=== PATIENT | male | born 1955 | race Hispanic/Latino ===

== ENCOUNTER 2017-01-06 16:42 | Inpatient (IN) | payer OTHER ==
[2017-01-06 17:00] VITALS: BMI 36.0
--- NOTE | 2017-01-06 17:00 | ED PDOC ---
Arrival/HPI - General Time Seen by Provider: 01/06/17 16:49 Historian: Patient - History of Present Illness Narrative History of Present Illness (Text): 01/06/17 16:57 61 year old male with a past medical history that includes aortic aneurysm, COPD , schizophrenia, tobacco abuse, laryngeal cancer s/p biopsy and radiation, tracheostomy, presents to the emergency department with shortness of breath, generalized weakness, and falls for the past few days. No chest pain, fever, or other complaints. Time/Duration: > week Symptom Onset: Gradual Symptom Course: Unchanged Modifying Factors (Text): None Associated Symptoms (Text): None Past Medical History - Provider Review Nursing Documentation Reviewed: Yes - Infectious Disease Hx of Infectious Diseases: None - Tetanus Immunization Tetanus Immunization: Unknown - Cardiac Hx Hypertension: Yes - Pulmonary Hx Bronchitis: Yes Hx Chronic Obstructive Pulmonary Disease (COPD): Yes Hx Emphysema: Yes Hx Pneumonia: Yes Other/Comment: hx of trach(Removed) - Neurological Hx Neurological Disorder: No - HEENT Hx HEENT Disorder: Yes Hx Cataracts: Yes (WITH BILATERAL SX) - Renal Hx Renal Disorder: No - Endocrine/Metabolic Hx Endocrine Disorders: No - Hematological/Oncological Hx Blood Disorders: No - Integumentary Hx Dermatological Disorder: No - Musculoskeletal/Rheumatological Hx Falls: Yes - Gastrointestinal Hx Gastrointestinal Disorders: No Other/Comment: throat soreness - Genitourinary/Gynecological Hx Genitourinary Disorders: No - Psychiatric Hx Depression: Yes Hx Emotional Abuse: No Hx Physical Abuse: No Hx Schizophrenia: Yes Hx Substance Use: No - Past Surgical History Past Surgical History: No Previous - Surgical History Hx Orthopedic Surgery: Yes - Anesthesia Hx Anesthesia: Yes Hx Anesthesia Reactions: No Hx Malignant Hyperthermia: No - Suicidal Assessment Feels Threatened In Home Enviroment: No Family/Social History - Physician Review Nursing Documentation Reviewed: Yes Family/Social History: Unknown Family HX Smoking Status: Heavy Smoker > 10 Cigarettes Daily Hx Alcohol Use: No Hx Substance Use: No Hx Substance Use Treatment: No Allergies/Home Meds Allergies/Adverse Reactions: Allergies Penicillins Allergy (Unknown, Verified 01/06/17 16:58) unknown Home Medications: Home Meds Medication Instructions Recorded Confirmed Cholecalciferol (Vitamin D3) 1,000 unit NA DAILY 06/13/14 01/07/17 [Vitamin D3] Multimineral/Multivitamin 1 tab PO DAILY 06/13/14 01/07/17 [Therapeutic-M Tab] fluPHENAZine [Prolixin] 10 mg PO BID 06/13/14 01/07/17 Levothyroxine Sodium [Levoxyl] 25 mcg PO DAILY 01/07/17 01/07/17 Metoprolol Tartrate [Lopressor] 25 mg PO BID 01/07/17 01/07/17 Review of Systems - Physician Review All systems were reviewed & negative as marked: Yes - Review of Systems Constitutional: Other (Generalized weakness, Falls). absent: Fevers Respiratory: SOB Cardiovascular: absent: Chest Pain Physical Exam Vital Signs Temp Pulse Resp BP Pulse Ox 01/06/17 20:30 98.5 F 95 H 20 158/95 H 94 L 01/06/17 16:57 20 01/06/17 16:43 99.1 F 99 H 20 134/84 92 L - Systems Exam Head: Present: Normocephalic, Ecchymosis (to the bridge of the nose) Pupils: Present: PERRL Extroacular Muscles: Present: EOMI Conjunctiva: Present: Normal Mouth: Present: Moist Mucous Membranes Neck: Present: Normal Range of Motion Respiratory/Chest: Present: Clear to Auscultation, Good Air Exchange. No: Respiratory Distress, Accessory Muscle Use Cardiovascular: Present: Regular Rate and Rhythm, Normal S1, S2. No: Murmurs Abdomen: Present: Normal Bowel Sounds. No: Tenderness, Distention, Peritoneal Signs Back: Present: Normal Inspection Upper Extremity: Present: Normal Inspection. No: Cyanosis, Edema Lower Extremity: Present: Normal Inspection. No: Edema Neurological: Present: GCS=15, CN II-XII Intact, Speech Normal Skin: Present: Warm, Dry, Normal Color. No: Rashes Psychiatric: Present: Alert, Oriented x 3, Normal Insight, Normal Concentration Medical Decision Making ED Course and Treatment: Impression: 61 year old male with a past medical history that includes aortic aneurysm, COPD, schizophrenia, tobacco abuse, laryngeal cancer s/p biopsy and radiation, tracheostomy, presents to the emergency department with shortness of breath, generalized weakness, and falls for the past few days. Differential Diagnosis include but are not limited to: Plan: -- CT Head, EKG, Chest x-ray -- Labs -- Reassess and disposition Prior Visits: Notes and results from previous visits were reviewed. Patient last seen in ED on 10/23/15 for shortness of breath and admitted for COPD exacerbation. Progress Notes: PROCEDURE: CT HEAD WITHOUT CONTRAST. Grain Trimmer : Italia Martinez MD FINDINGS: HEMORRHAGE: No intracranial hemorrhage. BRAIN: No mass effect or edema. Intracranial atherosclerotic calcifications. Mild scattered white matter hypodensities, which are nonspecific, but often seen with chronic microvascular ischemic disease. Please note that MRI with diffusion imaging is more sensitive in the detection of acute ischemic event. VENTRICLES: No hydrocephalus. PARANASAL SINUSES: Mucosal thickening of ethmoid air cells and right frontal sinus. No air-fluid levels. OTHER FINDINGS: Opacification of bilateral external auditory canals, likely cerumen. IMPRESSION: No acute intracranial pathology identified. Additional incidental findings as above. 01/06/17 19:[address] Roach who accepts patient for admission - Lab Interpretations Lab Results: 01/06/17 18:00 01/06/17 18:00 Lab Results 01/06/17 19:33: Urine Color Yellow, Urine Appearance Clear, Urine pH 6.5, Ur Specific [place] 1.010, Urine Protein Negative, Urine Glucose (UA) Negative, Urine Ketones Negative, Urine Blood Negative, Urine Nitrate Negative, Urine Bilirubin Negative, Urine Urobilinogen 0.2, Ur Leukocyte Esterase Negative 01/06/17 18:00: WBC 8.2, RBC 4.86, Hgb 15.4, Hct 43.5, MCV 89.5, MCH 31.7, MCHC 35.4, RDW 13.0, Plt Count 355, MPV 8.9, Gran % 71.8 H, Lymph % (Auto) 11.2 L, [place] % (Auto) 14.3 H, Eos % (Auto) 2.3, Baso % (Auto) 0.4, Gran # 5.90, Lymph # 0.9 L, [place] # 1.2 H, Eos # 0.2, Baso # 0.03, PT 10.1, INR 0.94, APTT 27.5, pO2 56 H, VBG pH 7.38, VBG pCO2 56.0, VBG HCO3 33.1 H, VBG Total CO2 34.8 H, VBG O2 Sat (Calc) 93.7 H, VBG Base Excess 6.3 H, VBG Potassium 3.9, Glucose 96, Lactate 0.7, FiO2 21.0, Sodium 132.0, Potassium 4.1, Chloride 99.0, Carbon Dioxide 30, Anion Gap 11, BUN 18, Creatinine 1.0, Est GFR ( Amer) > 60, Est GFR (Non-Af Amer) > 60, Random Glucose 95, Serum Osmolality 281, Calcium 9.0 , Magnesium 1.9, Total Bilirubin 0.6, AST 34, ALT 43, Alkaline Phosphatase 60, Lactate Dehydrogenase 445, Total Creatine Kinase 250 H, CK-MB (CK-2) 3.6, CK-MB (CK-2) % Cancelled, Troponin I < 0.01, NT-Pro-B Natriuret Pep 92.2, Total Protein 7.2, Albumin 4.0, Globulin 3.2, Albumin/Globulin Ratio 1.3, Triglycerides 303 H, Cholesterol 182, LDL Cholesterol Direct 91, HDL Cholesterol 53, Procalcitonin < 0.05 L, TSH 3rd Generation 9.10 H, Venous Blood Potassium 3.9 - RAD Interpretation Radiology Orders: 01/06/17 16:57 HEAD W/O CONTRAST [CT] Stat CHEST ONE VIEW [RAD] Stat - EKG Interpretation EKG Interpretation (Text): EKG shows sinus tachycardia at 101 BPM, no ST/T wave changes Interpreted by ED Physician: Yes Type: 12 lead EKG - Medication Orders Current Medication Orders: Discontinued Medications Albuterol/Ipratropium (Duoneb 3 Mg/0.5 Mg (3 Ml) Ud) 3 ml IH STAT STA Stop: 01/06/17 18:41 Last Admin: 01/06/17 20:00 Dose: 3 ML Albuterol/Ipratropium (Duoneb 3 Mg/0.5 Mg (3 Ml) Ud) 3 ml IH Q2H PRN PRN Reason: Shortness of Breath Last Admin: 01/07/17 09:56 Dose: 3 ML Albuterol/Ipratropium (Duoneb 3 Mg/0.5 Mg (3 Ml) Ud) 3 ml IH [id number] [facility] Last Admin: 01/08/17 11:47 Dose: 3 ML Alprazolam (Xanax) 0.5 mg PO STAT ONE PRN Reason: Protocol Stop: 01/07/17 00:20 Last Admin: 01/07/17 00:41 Dose: 0.5 MG Behavioural Document 01/07/17 00:41 SBO (Rec: 01/07/17 00:41 SBO [id number]) Maintenance Maintenance Dose No Nonmedicinal Nonmedicinal Interventions Activity Behavior Behavior for Medication: Anxiety Insomnia Re-Assess: Reassess Psych Meds Document 01/07/17 01:41 SBO (Rec: 01/07/17 02:01 SBO [id number]) Reassess Psych Med Effective Alprazolam (Xanax) 0.5 mg PO HS PRN; Protocol PRN Reason: Insomnia Last Admin: 01/07/17 21:40 Dose: 0.5 MG Behavioural Document 01/07/17 21:40 ZARAL (Rec: 01/07/17 21:40 ZARAL [id number]) Maintenance Maintenance Dose Yes Behavior Behavior for Medication: Insomnia Re-Assess: Reassess Psych Meds Document 01/07/17 22:40 ZARAL (Rec: 01/08/17 01:03 ZARAL [id number]) Reassess Psych Med Effective Cholecalciferol (Vitamin D) 1,000 iu PO DAILY CY Last Admin: 01/08/17 11:01 Dose: 1,000 IU Enoxaparin Sodium (Lovenox) 40 mg SC DAILY CY PRN Reason: Protocol Last Admin: 01/08/17 10:58 Dose: 40 MG Subcutaneous Administrations Document 01/08/17 10:58 CHART (Rec: 01/08/17 10:59 CHART [id number]) Charges for Administration # of Subcutaneous Administrations 1 Fluphenazine HCl (Prolixin) 10 mg PO BID CY PRN Reason: Protocol Last Admin: 01/08/17 10:59 Dose: 10 MG Behavioural Document 01/08/17 10:59 CHART (Rec: 01/08/17 11:00 CHART [id number]) Maintenance Maintenance Dose Yes Nonmedicinal Nonmedicinal Interventions Therapeutic Communication Re-Assess: Reassess Psych Meds Document 01/08/17 11:59 CHART (Rec: 01/08/17 12:53 CHART [id number]) Reassess Psych Med Effective Guaifenesin/Dextromethorphan (Robitussin Dm) 10 ml PO Q4H PRN PRN Reason: Cough Levofloxacin/Dextrose (Levaquin 750mg) 150 mls @ 100 mls/hr IVPB STAT STA Stop: 01/06/17 20:10 Last Admin: 01/06/17 20:00 Dose: 100 MLS/HR eMAR Start Stop Document 01/06/17 20:00 EQ (Rec: 01/06/17 21:08 EQ [id number]) Intravenous Solution Start Date 01/06/17 Start Time 21:08 Levofloxacin/Dextrose (Levaquin 750mg) 150 mls @ 100 mls/hr IVPB DAILY CY Last Admin: 01/08/17 10:58 Dose: 100 MLS/HR eMAR Start Stop Document 01/08/17 10:58 CHART (Rec: 01/08/17 10:58 CHART [id number]) Intravenous Solution Start Date 01/08/17 Start Time 10:58 End Date 01/08/17 End time 12:28 Total Infusion Time 90 Sodium Chloride (Sodium Chloride 0.9%) 1,000 mls @ 100 mls/hr IV .Q10H CY Last Admin: 01/08/17 05:12 Dose: 100 MLS/HR eMAR Start Stop Document 01/08/17 05:12 ZARAL (Rec: 01/08/17 05:12 ZARAL [id number]) Intravenous Solution Start Date 01/08/17 Start Time 05:00 Levothyroxine Sodium (Synthroid) 25 mcg PO DAILY CY Last Admin: 01/08/17 11:00 Dose: 25 MCG Methylprednisolone (Solu-Medrol) 125 mg IVP STAT STA Stop: 01/06/17 18:41 Last Admin: 01/06/17 19:45 Dose: 125 MG IVP Administration Document 01/06/17 19:45 EQ (Rec: 01/06/17 20:58 EQ [id number]) Charges for Administration # of IVP Administrations 1 Methylprednisolone (Solu-Medrol) 40 mg IVP Q12 CY Last Admin: 01/07/17 21:18 Dose: 40 MG IVP Administration Document 01/07/17 21:18 ZARAL (Rec: 01/07/17 21:18 ZARAL [id number]) Charges for Administration # of IVP Administrations 1 Methylprednisolone (Solu-Medrol) 40 mg IVP DAILY CY Last Admin: 01/08/17 11:00 Dose: 40 MG IVP Administration Document 01/08/17 11:00 CHART (Rec: 01/08/17 11:00 CHART [id number]) Charges for Administration # of IVP Administrations 1 Metoprolol Tartrate (Lopressor) 25 mg PO BID [facility] Last Admin: 01/08/17 10:58 Dose: 25 MG MAR Pulse and Blood Pressure Document 01/08/17 10:58 CHART (Rec: 01/08/17 10:58 CHART [id number]) Pulse Pulse Rate (60-90) 110 Blood Pressure Blood Pressure (100/60-150/90) 120/92 Multivitamins/Minerals (Therapeutic-M Tab) 1 tab PO DAILY [facility] Last Admin: 01/08/17 11:00 Dose: 1 TAB Nicotine (Nicoderm Cq) 1 patch TD DAILY [facility] Last Admin: 01/08/17 10:59 Dose: 1 PATCH MAR Patch Placement/Removal Document 01/08/17 10:59 CHART (Rec: 01/08/17 10:59 CHART [id number]) Patch Removal Removal of previous patch done N/A MAR Transdermal Patch Site Document 01/08/17 10:59 CHART (Rec: 01/08/17 10:59 CHART [id number]) Transdermal Patch Site Transdermal Patch Site Right Outer Upper Arm Non-Formulary Medication (Budesonide/Formoterol Fumarate [Symbicort 80-4.5 Mcg Inhaler]) 2 puff IH DAILY [facility] Last Admin: 01/07/17 10:18 Dose: Budesonide/Formoterol Fumarate [Symbicort 80-4.5 Mcg Inhaler] 2 puff IH DAILY [facility] Last Admin: 01/08/17 11:01 Dose: Pantoprazole Sodium (Protonix Inj) 40 mg IVP DAILY [facility] Last Admin: 01/08/17 11:01 Dose: 40 MG IVP Administration Document 01/08/17 11:01 CHART (Rec: 01/08/17 11:01 CHART [id number]) Charges for Administration # of IVP Administrations 1 - Scribe Statement The provider has reviewed the documentation as recorded by the Claudia Kerr Provider Scribe Attestation: All medical record entries made by the Scribe were at my direction and personally dictated by me. I have reviewed the chart and agree that the record accurately reflects my personal performance of the history, physical exam, medical decision making, and the department course for this patient. I have also personally directed, reviewed, and agree with the discharge instructions and disposition. Disposition/Present on Arrival - Present on Arrival Any Indicators Present on Arrival: No History of DVT/PE: No History of Uncontrolled Diabetes: No Urinary Catheter: No History Surgical Site Infection Following: None - Disposition Have Diagnosis and Disposition been Completed?: Yes Diagnosis: COPD exacerbation, Syncope Disposition: HOSPITALIZED Disposition Time: 07:00 Condition: STABLE
--- NOTE | 2017-01-06 17:45 | CT ---
PROCEDURE: CT HEAD WITHOUT CONTRAST. HISTORY: fall COMPARISON: None available. TECHNIQUE: Axial computed tomography images were obtained through the head/brain without intravenous contrast. Radiation dose: Total exam DLP = 894.82 mGy-cm. This CT exam was performed using one or more of the following dose reduction techniques: Automated exposure control, adjustment of the mA and/or kV according to patient size, and/or use of iterative reconstruction technique. FINDINGS: HEMORRHAGE: No intracranial hemorrhage. BRAIN: No mass effect or edema. Intracranial atherosclerotic calcifications. Mild scattered white matter hypodensities, which are nonspecific, but often seen with chronic microvascular ischemic disease. Please note that MRI with diffusion imaging is more sensitive in the detection of acute ischemic event. VENTRICLES: No hydrocephalus. CALVARIUM: Unremarkable. PARANASAL SINUSES: Mucosal thickening of ethmoid air cells and right frontal sinus. No air-fluid levels. MASTOID AIR CELLS: Unremarkable as visualized. No inflammatory changes. OTHER FINDINGS: Opacification of bilateral external auditory canals, likely cerumen. IMPRESSION: No acute intracranial pathology identified. Additional incidental findings as above.
[2017-01-06 18:05] LABS: ADD MANUAL DIFF? NO
[2017-01-06 18:10] LABS: BASO # 0.03 K/mm3 (0.0-2.0); BASO % 0.4 % (0.0-3.0); EOS # 0.2 (0.0-0.7); EOS % 2.3 % (1.5-5.0); GRAN % 71.8 % (50.0-68.0); HEMATOCRIT 43.5 % (42.0-52.0); LYMPH # 0.9 (1.2-3.4); LYMPH % 11.2 % (22.0-35.0); MEAN CELL VOLUME 89.5 fL (80.0-105.0); MEAN CORPUSCULAR HEMOGLOBIN 31.7 pg (25.0-35.0); MEAN CORPUSCULAR HGB CONC 35.4 g/dl (31.0-37.0); MEAN PLATELET VOLUME 8.9 fl (7.0-11.0); MONO # 1.2 (0.1-0.6); MONO % 14.3 % (1.0-6.0); PLATELET COUNT 355 10^3/uL (120.0-450.0); WHITE BLOOD COUNT 8.2 10^3/ul (4.5-11.0)
[2017-01-06 18:13] LABS: VENOUS BLOOD GAS BASE EXCESS 6.3 mmol/L (0.0-2.0); VENOUS BLOOD PH 7.38 (7.32-7.43)
[2017-01-06 18:24] LABS: ALB/GLOB RATIO 1.3 (1.1-1.8); ALKALINE PHOSPHATASE 60 U/L (38-133); ALT/SGPT 43 U/L (7-56); AST/SGOT 34 U/L (15-59); BILIRUBIN,TOTAL 0.6 mg/dL (0.2-1.3); BLOOD UREA NITROGEN 18 mg/dL (7-21); CARBON DIOXIDE 30 mmol/L (21-33); CHLORIDE 94 mmol/L (98-107); GFR AFRICAN-AMERICAN > 60; GLUCOSE,RANDOM 95 mg/dL (70-110); MAGNESIUM 1.9 mg/dL (1.7-2.2); POTASSIUM 4.1 mmol/L (3.6-5.0); SODIUM 131 mmol/L (132-148); TOTAL PROTEIN 7.2 g/dL (5.8-8.3)
[2017-01-06 18:26] LABS: INR 0.94 (0.93-1.08); PARTIAL THROMBOPLASTIN TIME 27.5 Seconds (23.7-30.8)
[2017-01-06 18:36] LABS: TROPONIN I < 0.01 ng/mL
[2017-01-06] MEDS ORDERED: Albuterol-Ipratrop 3 mg / 0.5 (3 ml) UD IH STA (18:40)
[2017-01-06 19:44] LABS: PH,URINE 6.5 (4.7-8.0); URINE BILIRUBIN NEGATIVE (NEGATIVE); URINE BLOOD NEGATIVE (NEGATIVE); URINE GLUCOSE (UA) NEGATIVE (NEGATIVE); URINE KETONE NEGATIVE (NEGATIVE); URINE LEUKOCYTE ESTERASE NEGATIVE Leu/uL (NEGATIVE); URINE PROTEIN NEGATIVE mg/dL (<30 mg/dL); URINE UROBILINOGEN 0.2 E.U./dL (<1 E.U./dL)
[2017-01-06 19:48] LABS: URINE APPEARANCE CLEAR (CLEAR); URINE COLOR YELLOW (YELLOW)
[2017-01-06] MEDS ORDERED: guaiFENesin DM 200 mg-20 mg/10 ml UD PO PRN (20:47)
[2017-01-06] MEDS ORDERED: Albuterol-Ipratrop 3 mg / 0.5 (3 ml) UD IH PRN (20:52)
--- NOTE | 2017-01-06 21:05 | CP.PCM.HP ---
<Calin Maya - Last Filed: 01/07/17 00:20> History of Present Illness - History of Present Illness History of Present Illness: 61 M with PMHx of HLD, Schizophrenia, hypothyroidism, AAA (4.4cm), laryngeal ca s/p bx and radiation with tracheostomy, and COPD presents with complaints of SOB and generalized weakness. Pt is accompanied by at bedside. Pt states that for the past couple of night he has been having a harder time catching his breath than usual. Pt has been experiencing worsening SOB when about to go to bed for the past 2 nights. He has also had complaints of weakness and subsequent falling for the past couple of nights. Pt states that he would try to get out of bed and "misjudge" his footing causing him to fall. His first fall was two nights ago when he hit his chest on the night stand. His second fall occurred last night, when he hit his face on the nightstand, causing minor laceration to the bridge of his nose. Pt admitted to SOB, and a productive white phlegm cough. Pt denied headache, loc, dizziness, blurry vision, fever, chills, chest pains, palpitations, abdominal pains, n/v/d/c or urinary symptoms. PMHx: ?HTN, HLD, Schizophrenia, hypothyroidism, AAA (4.4cm), laryngeal ca s/p bx and radiation with tracheostomy, and COPD PSHx: Rt Wrist, Tracheostomy SHx: (+)tobacco-50 pack year hx, (-)etoh, (-)illicit drugs. Lives with in [place] FamHx: Father: AAA, prostate ca, Mom: lung and brain ca, sister: breast ca, brother: prostate ca Meds: MAR reviewed Allergies: PCN Present on Admission - Present on Admission Any Indicators Present on Admission: No History of DVT/PE: No History of Uncontrolled Diabetes: No Urinary Catheter: No Decubitus Ulcer Present: No Review of Systems - Review of Systems Review of Systems: as per HPI otherwise negative Past Patient History - Infectious Disease Hx of Infectious Diseases: None - Tetanus Immunizations Tetanus Immunization: Unknown - Past Social History Smoking Status: Heavy Smoker > 10 Cigarettes Daily - CARDIAC Hx Hypertension: Yes - PULMONARY Hx Bronchitis: Yes Hx Chronic Obstructive Pulmonary Disease (COPD): Yes Hx Emphysema: Yes Hx Pneumonia: Yes Other/Comment: hx of trach(Removed) - NEUROLOGICAL Hx Neurological Disorder: No - HEENT Hx HEENT Problems: Yes Hx Cataracts: Yes (WITH BILATERAL SX) - RENAL Hx Chronic Kidney Disease: No - ENDOCRINE/METABOLIC Hx Endocrine Disorders: No - HEMATOLOGICAL/ONCOLOGICAL Hx Blood Disorders: No - INTEGUMENTARY Hx Dermatological Problems: No - MUSCULOSKELETAL/RHEUMATOLOGICAL Hx Falls: Yes - GASTROINTESTINAL Hx Gastrointestinal Disorders: No Other/Comment: throat soreness - GENITOURINARY/GYNECOLOGICAL Hx Genitourinary Disorders: No - PSYCHIATRIC Hx Depression: Yes Hx Emotional Abuse: No Hx Physical Abuse: No Hx Schizophrenia: Yes Hx Substance Use: No - SURGICAL HISTORY Hx Orthopedic Surgery: Yes - ANESTHESIA Hx Anesthesia: Yes Hx Anesthesia Reactions: No Hx Malignant Hyperthermia: No Meds Allergies/Adverse Reactions: Allergies Allergy/AdvReac Type Severity Reaction Status Date / Time Penicillins Allergy Unknown unknown Verified 01/06/17 16:58 Physical Exam - Constitutional Appears: Well, No Acute Distress - Head Exam Head Exam: NORMAL INSPECTION, NORMOCEPHALIC - Expanded Head Exam Expanded Head Exam: Abrasion, Laceration - Eye Exam Eye Exam: EOMI, Normal appearance, PERRL Pupil Exam: NORMAL ACCOMODATION, PERRL - ENT Exam ENT Exam: Mucous Membranes Moist, Normal Exam - Neck Exam Neck exam: Positive for: Full Rom, Normal Inspection - Respiratory Exam Respiratory Exam: Clear to Auscultation Bilateral, NORMAL BREATHING PATTERN - Cardiovascular Exam Cardiovascular Exam: REGULAR RHYTHM, +S1, +S2. absent: JVD - GI/Abdominal Exam GI & Abdominal Exam: Normal Bowel Sounds, Soft. absent: Tenderness - Exam External exam: NORMAL EXTERNAL EXAM - Extremities Exam Extremities exam: Positive for: normal inspection, pedal pulses present. Negative for: pedal edema - Neurological Exam Neurological exam: Alert, CN II-XII Intact, Normal Gait, Oriented x3, Reflexes Normal - Psychiatric Exam Psychiatric exam: Normal Affect, Normal Mood - Skin Skin Exam: Dry, Intact, Normal Color, Warm Results - Vital Signs Recent Vital Signs: Last Vital Signs Temp 98.5 F 01/06/17 20:30 Pulse 95 H 01/06/17 20:30 Resp 20 01/06/17 20:30 BP 158/95 H 01/06/17 20:30 Pulse Ox 94 L 01/06/17 20:30 - Labs Result Diagrams: 01/06/17 18:00 01/06/17 18:00 Labs: Laboratory Results - last 24 hr 01/06/17 01/06/17 18:00 19:33 WBC 8.2 RBC 4.86 Hgb 15.4 Hct 43.5 MCV 89.5 MCH 31.7 MCHC 35.4 RDW 13.0 Plt Count 355 MPV 8.9 Gran % 71.8 H Lymph % (Auto) 11.2 L [place] % (Auto) 14.3 H Eos % (Auto) 2.3 Baso % (Auto) 0.4 Gran # 5.90 Lymph # 0.9 L [place] # 1.2 H Eos # 0.2 Baso # 0.03 PT 10.1 INR 0.94 APTT 27.5 pO2 56 H VBG pH 7.38 VBG pCO2 56.0 VBG HCO3 33.1 H VBG Total CO2 34.8 H VBG O2 Sat (Calc) 93.7 H VBG Base Excess 6.3 H VBG Potassium 3.9 Sodium 131 L Chloride 94 L Glucose 96 Lactate 0.7 FiO2 21.0 Potassium 4.1 Carbon Dioxide 30 Anion Gap 11 BUN 18 Creatinine 1.0 Est GFR ( Amer) > 60 Est GFR (Non-Af Amer) > 60 Random Glucose 95 Calcium 9.0 Magnesium 1.9 Total Bilirubin 0.6 AST 34 ALT 43 Alkaline Phosphatase 60 Lactate Dehydrogenase 445 Total Creatine Kinase 250 H CK-MB (CK-2) 3.6 CK-MB (CK-2) % Cancelled Troponin I < 0.01 NT-Pro-B Natriuret Pep 92.2 Total Protein 7.2 Albumin 4.0 Globulin 3.2 Albumin/Globulin Ratio 1.3 Venous Blood Potassium 3.9 Urine Color Yellow Urine Appearance Clear Urine pH 6.5 Ur Specific [place] 1.010 Urine Protein Negative Urine Glucose (UA) Negative Urine Ketones Negative Urine Blood Negative Urine Nitrate Negative Urine Bilirubin Negative Urine Urobilinogen 0.2 Ur Leukocyte Esterase Negative Assessment & Plan - Assessment and Plan (Free Text) Assessment: 61 M with PMHx of HTN, HLD, Schizophrenia, hypothyroidism, AAA (4.4cm), laryngeal ca s/p bx and radiation and tracheostomy with removal, and COPD presents with complaints of SOB and generalized weakness, admitted to tele obs for syncope workup. 1. ?syncope - orthostatic vitals - serial trops EKG - TSH - ECHO - Carotid Dopplers - Cardiology consulted, Dr. Dos Santos - Neurology consulted, Dr. Denson 2. SOB - Hx COPD - CXR - Levaquin - Duonebs q4, q2prn, solumedrol - maintain 02 sat >88 3. Hyponatremia - Hx laryngeal Ca, schizophrenia on fluphenazine - r/o SIADH - urine lytes, Urine osm, Serum osm - mild increase CK, hold statin, IVF: NS @100ml/hr 4. Hypothyroidism - f/u tsh - f/u med rec for home med 5. AAA - asymptomatic - most recent scan approx 2wks ago, 4.4cm - continue to monitor 6. Tobacco abuse - pt educated and counselled on tobacco abuse - Offered nicotine patch 7. ?HTN - no anti-htn meds in home med - continue to monitor - [facility] pharmacy 8. GI DVT ppx Seen reviewed and discussed with attending <Castro Roach - Last Filed: 01/07/17 02:47> Results - Vital Signs Recent Vital Signs: Last Vital Signs Temp 98.7 F 01/07/17 01:33 Pulse 94 H 01/07/17 01:33 Resp 20 01/07/17 01:33 BP 149/97 H 01/07/17 01:33 Pulse Ox 94 L 01/06/17 20:30 - Labs Result Diagrams: 01/06/17 18:00 01/06/17 18:00 Attending/Attestation - Attestation I have personally seen and examined this patient.: Yes I have fully participated in the care of the patient.: Yes I have reviewed all pertinent clinical information: Yes Notes (Text): 01/07/17 02:41 Patient was seen when he was in the ER in bed # 11. Agree with history , physical examination , assessment and plan. This 61 year old white male was admitted with syncopal episode,sob, wheezing has history of falls,COPD/asthma, aortic aneurism, schizophrenia, laryngeal cancer, biopsy, radiation therapy, pneumonia, depression, tobacco abuse, bilateral cataract surgery, right hand repair surgery.
--- NOTE | 2017-01-06 21:37 | CARD ---
APPROVED REPORT EKG Measurement Heart [id number] <Conclusion> Sinus tachycardia Inferior infarct, age undetermined Cannot rule out Anterior infarct, age undetermined Abnormal ECG
[2017-01-06 21:56] LABS: CHOLESTEROL 182 mg/dL (130-200)
[2017-01-06 22:27] LABS: THYROID STIMULATING HORMONE 9.1 mIU/mL (0.46-4.68)
[2017-01-07] MEDS: Sodium Chloride 0.9% 1,000 ML IV SCH ×2 (00:30→09:56)
[2017-01-07] MEDS: Albuterol-Ipratrop 3 mg / 0.5 (3 ml) UD IH SCH ×7 (02:10→23:13)
[2017-01-07 07:35] LABS: BASO # 0.01 K/mm3 (0.0-2.0); BASO % 0.1 % (0.0-3.0); GRAN # 8.58 (1.4-6.5); GRAN % 95.3 % (50.0-68.0); HEMATOCRIT 44.1 % (42.0-52.0); LYMPH # 0.3 (1.2-3.4); LYMPH % 3.3 % (22.0-35.0); MEAN CELL VOLUME 90.6 fL (80.0-105.0); MEAN CORPUSCULAR HGB CONC 35.4 g/dl (31.0-37.0); MEAN PLATELET VOLUME 9.4 fl (7.0-11.0); MONO # 0.1 (0.1-0.6); MONO % 1.3 % (1.0-6.0); PLATELET COUNT 364 10^3/uL (120.0-450.0); RED CELL DISTRIBUTION WIDTH 13.1 % (11.5-14.5)
[2017-01-07 07:43] LABS: ADD MANUAL DIFF? NO
[2017-01-07 09:01] LABS: ALB/GLOB RATIO 1.4 (1.1-1.8); ALKALINE PHOSPHATASE 62 U/L (38-133); ALT/SGPT 40 U/L (7-56); AST/SGOT 32 U/L (15-59); BILIRUBIN,TOTAL 0.6 mg/dL (0.2-1.3); BLOOD UREA NITROGEN 12 mg/dL (7-21); CALCIUM 9.2 mg/dL (8.4-10.5); CARBON DIOXIDE 29 mmol/L (21-33); CHLORIDE 94 mmol/L (95-110); GFR AFRICAN-AMERICAN > 60; GLUCOSE,RANDOM 190 mg/dL (70-110); POTASSIUM 4.4 mmol/L (3.6-5.0); SODIUM 133 mmol/L (132-148); TOTAL PROTEIN 7.3 g/dL (5.8-8.3)
--- NOTE | 2017-01-07 09:04 | RAD ---
PROCEDURE: CHEST RADIOGRAPH, 1 VIEW HISTORY: Shortness of breath COMPARISON: 10/23/2015. FINDINGS: LUNGS: The lungs are well inflated and clear. PLEURA: No pneumothorax or pleural fluid seen. CARDIOVASCULAR: Normal. OSSEOUS STRUCTURES: There is mild degenerative osteoarthrosis in the right glenohumeral joint. VISUALIZED UPPER ABDOMEN: Normal. OTHER FINDINGS: None. IMPRESSION: No active pulmonary disease.
--- NOTE | 2017-01-07 09:13 | CP.PCM.PN ---
<Quita Downye - Last Filed: 01/07/17 16:02> Subjective - Date & Time of Evaluation Date of Evaluation: 01/07/17 Time of Evaluation: 16:02 - Subjective Subjective: Pt s&e w attending. CHETAN. Feeling better. Mild SOB. Some coughing with clear sputum. Denies F/C/n/V/D/CP. +amb +PO tolerating. Objective - Vital Signs/Intake and Output Vital Signs (last 24 hours): Temp Pulse Resp BP Pulse Ox 97.5 F L 96 H 20 133/84 96 01/07/17 05:42 01/07/17 05:42 01/07/17 05:42 01/07/17 05:42 01/07/17 05:42 Intake and Output: 01/07/17 01/07/17 06:59 18:59 Intake Total 480 Output Total 500 Balance -20 - Medications Medications: Current Medications Albuterol/Ipratropium (Duoneb 3 Mg/0.5 Mg (3 Ml) Ud) 3 ml IH Q2H PRN PRN Reason: Shortness of Breath Albuterol/Ipratropium (Duoneb 3 Mg/0.5 Mg (3 Ml) Ud) 3 ml IH [id number] [facility] Last Admin: 01/07/17 07:38 Dose: 3 ml Cholecalciferol (Vitamin D) 1,000 iu PO DAILY [facility] Enoxaparin Sodium (Lovenox) 40 mg SC DAILY CY PRN Reason: Protocol Fluphenazine HCl (Prolixin) 10 mg PO BID CY PRN Reason: Protocol Last Admin: 01/07/17 00:42 Dose: 10 mg Guaifenesin/Dextromethorphan (Robitussin Dm) 10 ml PO Q4H PRN PRN Reason: Cough Levofloxacin/Dextrose (Levaquin 750mg) 150 mls @ 100 mls/hr IVPB DAILY [facility] Sodium Chloride (Sodium Chloride 0.9%) 1,000 mls @ 100 mls/hr IV .Q10H [facility] Last Admin: 01/07/17 00:30 Dose: 100 mls/hr Methylprednisolone (Solu-Medrol) 40 mg IVP Q12 [facility] Multivitamins/Minerals (Therapeutic-M Tab) 1 tab PO DAILY [facility] Nicotine (Nicoderm Cq) 1 patch TD DAILY [facility] Non-Formulary Medication (Budesonide/Formoterol Fumarate [Symbicort 80-4.5 Mcg Inhaler]) 2 puff IH DAILY [facility] Pantoprazole Sodium (Protonix Inj) 40 mg IVP DAILY CY - Labs Labs: 01/07/17 05:00 01/07/17 08:45 PT 10.1 Seconds (9.9-11.8) 01/06/17 18:00 INR 0.94 (0.93-1.08) 01/06/17 18:00 APTT 27.5 Seconds (23.7-30.8) 01/06/17 18:00 - Constitutional Appears: No Acute Distress - Head Exam Head Exam: NORMAL INSPECTION, NORMOCEPHALIC Additional comments: Abrasion on the bridge of the nose. No active bleeding. - Eye Exam Eye Exam: EOMI, Normal appearance, PERRL Pupil Exam: NORMAL ACCOMODATION, PERRL - ENT Exam ENT Exam: Mucous Membranes Moist - Neck Exam Neck Exam: Full ROM, Normal Inspection. absent: Lymphadenopathy - Respiratory Exam Respiratory Exam: Wheezes. absent: Accessory Muscle Use, Respiratory Distress, NORMAL BREATHING PATTERN Additional comments: Tracheostomy fistula patent. Able to speak. clear Mucus - Cardiovascular Exam Cardiovascular Exam: REGULAR RHYTHM, +S1, +S2 - GI/Abdominal Exam GI & Abdominal Exam: Soft, Normal Bowel Sounds. absent: Distended, Tenderness - Extremities Exam Extremities Exam: Full ROM, Normal Capillary Refill, Normal Inspection. absent : Joint Swelling, Pedal Edema - Back Exam Back Exam: NORMAL INSPECTION - Neurological Exam Neurological Exam: Alert, Awake, CN II-XII Intact, Normal Gait, Oriented x3 - Psychiatric Exam Psychiatric exam: Normal Affect, Normal Mood - Skin Skin Exam: Abrasion, Dry, Intact, Normal Color, Warm. absent: Erythema Assessment and Plan - Assessment and Plan (Free Text) Assessment: 61 M with PMHx of HTN, HLD, Schizophrenia, hypothyroidism, AAA (4.4cm), laryngeal ca s/p bx and radiation and tracheostomy with removal, and COPD presents with complaints of SOB and generalized weakness, admitted to tele obs for syncope workup. 1. Near syncope - orthostatic vitals - serial trops EKG - TSH - ECHO - Carotid Dopplers - Cardiology consulted, Dr. Dos Santos - Neurology consulted, Dr. Denson 2. SOB - Hx COPD - CXR - Levaquin - Duonebs q4, q2prn, solumedrol - maintain 02 sat >88 3. Hyponatremia: resolved - Hx laryngeal Ca, schizophrenia on fluphenazine - r/o SIADH - urine lytes, Urine osm, Serum osm - mild increase CK, hold statin, IVF: NS @100ml/hr 4. Hypothyroidism: TSH 9.1 - f/u reapet tsh, T3, T4 - f/u med rec for home med -Synthroid 5. AAA - asymptomatic - most recent scan approx 2wks ago, 4.4cm - continue to monitor 6. Tobacco abuse - pt educated and counselled on tobacco abuse - Offered nicotine patch 7. ?HTN - no anti-htn meds in home med - continue to monitor - fu pharmacy 8. GI DVT ppx Seen reviewed and discussed with attending <Bhakti Shelton - Last Filed: 01/08/17 16:57> Objective - Vital Signs/Intake and Output Vital Signs (last 24 hours): Temp Pulse Resp BP Pulse Ox 97.9 F 113 H 21 132/99 H 95 01/08/17 11:58 01/08/17 11:58 01/08/17 11:58 01/08/17 11:58 01/08/17 05:49 Intake and Output: 01/08/17 01/08/17 06:59 18:59 Intake Total 3240 840 Output Total 3400 2700 Balance -160 -1860 - Labs Labs: 01/08/17 06:30 01/08/17 06:30 PT 10.1 Seconds (9.9-11.8) 01/06/17 18:00 INR 0.94 (0.93-1.08) 01/06/17 18:00 APTT 27.5 Seconds (23.7-30.8) 01/06/17 18:00 Attending/Attestation - Attestation I have personally seen and examined this patient.: Yes I have fully participated in the care of the patient.: Yes I have reviewed all pertinent clinical information, including history, physical exam and plan: Yes Notes (Text): I have seen and examined patient at bedside. This is 61 year old male with history of HTN, HLD, Schizophrenia, hypothyroidism, AAA (4.4cm), laryngeal ca s/ p bx and radiation and tracheostomy with removal, and COPD who got admitted for evaluation of shortness of breath, generalized weakness an dfound to have copd exacerbation. He iwll be started on duonebs, solumedrol and levaquin. Records indicate that he had syncope however he denies that. Cardiology and neurology consult pending. Carotid dopplers pending. Hyponatremia improved. Counselled regarding tobacco use. Will continue synthroid. [facility] Bhakti Shelton
[2017-01-07] MEDS ORDERED: Non Formulary Medication (Cholecalciferol (Vitamin D3) [Vitamin D3] 1,000 UNIT) SCH (10:00)
[2017-01-07] MEDS: MethylPREDNISolone 40 mg Vial IVP SCH ×2 (10:16→21:18)
[2017-01-07] MEDS: Enoxaparin 40 mg Syringe SC SCH (10:16)
[2017-01-07] MEDS: Multivitamin With Minerals Tab PO SCH (10:18)
--- NOTE | 2017-01-07 13:07 | CON ---
DATE: 01/07/2017 HISTORY OF PRESENT ILLNESS: This is a 61-year-old with a past medical history of schizophrenia, hypo thyroidism, cancer with radiation with a tracheostomy, COPD, presents to the hospital with gene ralized weakness. The patient has had difficulty breathing for the last few days and complained of w eakness and subsequently fell and hit his nose. Denies any loss of consciousness. I was called to e valuate the patient. PAST MEDICAL HISTORY: Hypertension, schizophrenia, hypothyroidism, laryngeal cancer, tracheostomy, r adiation, COPD. SOCIAL HISTORY: The patient smokes, does not drink. ALLERGIES: PENICILLIN. REVIEW OF SYSTEMS: A 10-point review of systems was negative. The patient was sitting comfortably o n the chair. PHYSICAL EXAMINATION: HEENT: Normocephalic, atraumatic. NECK: Supple. NEUROLOGIC: Awake, oriented to self and place. No aphasia. Cranial nerves II through XII were test ed. Pupils reactive. EOMs intact. The patient has a tracheostomy tube. MOTOR EXAMINATION: Moves all the extremities spontaneously. Deep tendon reflexes 1+. Both plantars are downgoing. SENSORY: Appears intact. CEREBELLAR AND GAIT: Deferred. IMPRESSION: The patient is a 61-year-old with past medical history of hypertension, schizophrenia, h ypothyroidism, chronic obstructive pulmonary disease, status post tracheostomy, came with syncope, le ss likely a seizure. Workup in progress. Also has hyponatremia and hypothyroidism. PLAN: Continue present management. We will follow up. Neo Denson MD cc: [id number] TT: 01/07/2017 13:06:35 Confirmation # [id number] Dictation # [id number] cyrus
--- NOTE | 2017-01-07 13:10 | CON ---
DATE: 01/07/2017 REASON FOR CONSULTATION: Shortness of breath, cough and recurrent falls. HISTORY OF PRESENT ILLNESS: The patient is a 61-year-old male who is a [place] and was i n the [place]. He has a history of laryngeal CA and was treated with radiation 4 years ago and tracheos jose at [facility]. The patient was diagnosed with a 4.4 cm abdominal aortic aneurysm, but there was no intervention recommended at that time. The patient is a smoker who continues to smoke and presented because of shortness of breath and productive cough. The patient also did report falli ng as he wanted to get out of bed. He denies any dizziness or fainting. The patient denies any retr osternal chest pain. SOCIAL HISTORY: The patient is a smoker. He is . MEDICATIONS: ____ inhaler q.2 hours p.r.n., Levaquin 750 mg intravenously daily, Lovenox 40 mg subcu taneously once a day, NicoDerm patch, Prolixin 10 mg twice a day, Protonix 40 mg intravenously once a day, Robitussin-DM 10 mL q.4 hours p.r.n., normal saline 100 mL an hour, Solu-Medrol 40 mg intraveno us twice a day, multivitamin 1 tablet once a day, vitamin D 1000 international units orally daily. REVIEW OF SYSTEMS: No fever or chills. No vomiting or diarrhea. No hemoptysis. No recent loss of weight. No history of DVT in the past. PHYSICAL EXAMINATION: GENERAL: The patient is a middle-aged male who does not appear to be in acute distress. VITAL SIGNS: Blood pressure 134/88, heart rate 109, temperature 98.3, respirations 21. HEENT: Normocephalic. NECK: Tracheostomy is noted. CHEST: Bilateral rhonchi. HEART: S1, S2 regular. ABDOMEN: Soft. EXTREMITIES: No edema, no calf tenderness. LABORATORY DATA: CBC: WBC 9.0, hemoglobin 15.6, hematocrit 44.1, platelet count 364,000. SMA-7: S odium 133, potassium 4.4, chloride 94, CO2 of 29, glucose 190, BUN 12, creatinine 0.8. Three sets of troponins are negative. Lipid profile is within normal limits except for elevated triglycerides at 303. TSH level is elevated at 9.1. EKG revealed sinus tachycardia at rate of 101. Consider old inf erior infarct, poor R-wave progression. Head CT scan without contrast, no acute intracranial patholo gy. Chest x-ray revealed no acute findings. No evidence of widened mediastinum or aortic calcificat ion. ASSESSMENT: 1. Exacerbation of chronic obstructive lung disease. 2. History of aortic aneurysm, last measured 4.4 cm according to the patient. The patient is unawar e of the location of that aneurysm. He denies any chest pain or back pain at this time and denies an y associated diaphoresis. 3. Hypothyroidism. 4. Mild sinus tachycardia, most likely physiologic response to the patient's shortness of breath. 5. Abnormal EKG with evidence suggestive of old inferior infarct. 6. History of schizophrenia. 7. Hypertriglyceridemia. RECOMMENDATIONS: Continue current bronchodilators, continue subcutaneous Lovenox at 40 mg once a day , Solu-Medrol 40 mg intravenous twice a day. The patient is not a suitable candidate for beta blocke r therapy. Obtain an echocardiogram. Consider urine for drug screen testing. Optimize thyroid repl acement therapy. Isma Rondon MD cc: [id number] TT: 01/07/2017 13:10:31 Confirmation # [id number] Dictation # [id number]
--- NOTE | 2017-01-07 15:25 | CARD ---
APPROVED REPORT EXAM: Two-dimensional and M-mode echocardiogram with Doppler and color Doppler. INDICATION Syncope 2D DIMENSIONS Left Atrium (2D)3.7 (1.6-4.0cm)IVSd1.2 (0.7-1.1cm) LVDd4.2 (3.9-5.9cm)PWd1.1 (0.7-1.1cm) LVDs2.8 (2.5-4.0cm)FS (%) 34.6 % LVEF (%)64.2 (>50%) M-Mode DIMENSIONS Aortic Root3.10 (2.2-3.7cm)Aortic Cusp Exc.1.30 (1.5-2.0cm) Aortic Valve AoV Peak Qtnxlwld719.0cm/Stacey Peak GR.10mmHg Mitral Valve MV E Wklwaggw57.0cm/sMV A Vaqodlru901.0cm/sE/A ratio0.6 TDI E/Lateral E'0.0E/Medial E'0.0 Tricuspid Valve TR Peak Knjxgisj514qn/sRAP [id number] Peak Gr.10mmHg [id number] LEFT VENTRICLE The left ventricle is normal size. There is borderline concentric left ventricular hypertrophy. The left ventricular function is normal. The left ventricular ejection fraction is within the normal range. There is normal LV segmental wall motion. Transmitral Doppler flow pattern is Grade I-abnormal relaxation pattern. RIGHT VENTRICLE The right ventricle is normal size. There is normal right ventricular wall thickness. The right ventricular systolic function is normal. ATRIA The left atrium size is normal. The right atrium size is normal. AORTIC VALVE The aortic valve is not well visualized. No aortic regurgitation is present. There is no aortic valvular stenosis. MITRAL VALVE The mitral valve is normal in structure. There is no mitral valve regurgitation noted. TRICUSPID VALVE The tricuspid valve is normal in structure. There is no tricuspid valve regurgitation noted. GREAT VESSELS The aortic root is mildly enlarged. The IVC is normal in size and collapses >50% with inspiration. PERICARDIAL EFFUSION There is a trace loculated anterior pericardial effusion. <Conclusion> The left ventricle is normal size. There is borderline concentric left ventricular hypertrophy. The left ventricular function is normal. The left ventricular ejection fraction is within the normal range. There is normal LV segmental wall motion. Transmitral Doppler flow pattern is Grade I-abnormal relaxation pattern. The aortic valve is not well visualized. The aortic root is mildly enlarged.
--- NOTE | 2017-01-07 19:20 | US ---
PROCEDURE: Bilateral carotid artery duplex ultrasound HISTORY: Carotid stenosis PHYSICIAN(S): Efren Aquino MD. TECHNIQUE: Duplex sonography and color-flow Doppler were used to evaluate the carotid bifurcations and limited segments of the vertebral arteries bilaterally. FINDINGS: There is mild smooth hypoechoic plaque noted at the carotid bifurcations bilaterally. The peak systolic velocity in the proximal right internal carotid artery is 63 cm/sec. This corresponds to a 20 to 39% proximal right ICA stenosis. Normal systolic velocities are noted in the proximal right external carotid artery. There is antegrade flow in the right vertebral artery. The peak systolic velocity in the proximal left internal carotid artery is 87 cm/sec. This corresponds to a 20 to 39% proximal left ICA stenosis. Normal systolic velocities are noted in the proximal left external carotid artery. There is antegrade flow in the left vertebral artery. IMPRESSION: 1. Bilateral 20-39% proximal ICA stenoses. 2. Antegrade flow in both vertebral arteries.
[2017-01-08] MEDS: Albuterol-Ipratrop 3 mg / 0.5 (3 ml) UD IH SCH ×3 (03:29→11:47)
[2017-01-08] MEDS: Sodium Chloride 0.9% 1,000 ML IV SCH (05:12)
[2017-01-08 05:50] VITALS: O2SAT 95
[2017-01-08 07:31] LABS: BASO # 0.01 K/mm3 (0.0-2.0); BASO % 0.1 % (0.0-3.0); GRAN # 14.29 (1.4-6.5); GRAN % 93.2 % (50.0-68.0); HEMATOCRIT 46.5 % (42.0-52.0); LYMPH # 0.5 (1.2-3.4); LYMPH % 2.9 % (22.0-35.0); MEAN CELL VOLUME 92.8 fL (80.0-105.0); MEAN CORPUSCULAR HEMOGLOBIN 30.9 pg (25.0-35.0); MEAN CORPUSCULAR HGB CONC 33.3 g/dl (31.0-37.0); MEAN PLATELET VOLUME 9.5 fl (7.0-11.0); MONO # 0.6 (0.1-0.6); MONO % 3.8 % (1.0-6.0); PLATELET COUNT 378 10^3/uL (120.0-450.0); RED CELL DISTRIBUTION WIDTH 13.6 % (11.5-14.5); WHITE BLOOD COUNT 15.3 10^3/ul (4.5-11.0)
[2017-01-08 07:32] LABS: ADD MANUAL DIFF? NO
[2017-01-08 07:38] LABS: ALB/GLOB RATIO 1.3 (1.1-1.8); ALKALINE PHOSPHATASE 54 U/L (38-133); ALT/SGPT 46 U/L (7-56); AST/SGOT 39 U/L (15-59); BILIRUBIN,TOTAL 0.6 mg/dL (0.2-1.3); BLOOD UREA NITROGEN 9 mg/dL (7-21); CALCIUM 9.1 mg/dL (8.4-10.5); CARBON DIOXIDE 33 mmol/L (21-33); CHLORIDE 99 mmol/L (98-107); CHOLESTEROL 197 mg/dL (130-200); GFR AFRICAN-AMERICAN > 60; GLUCOSE,RANDOM 119 mg/dL (70-110); POTASSIUM 4.5 mmol/L (3.6-5.0); SODIUM 142 mmol/L (132-148); TOTAL PROTEIN 7.6 g/dL (5.8-8.3)
[2017-01-08] MEDS ORDERED: Levothyroxine 25 MCG TAB PO SCH (10:00)
[2017-01-08] MEDS ORDERED: MethylPREDNISolone 40 mg Vial IVP SCH (10:00)
[2017-01-08 10:41] LABS: T3 1.2 ng/mL (0.97-1.69); THYROID STIMULATING HORMONE 3.07 mIU/mL (0.46-4.68)
[2017-01-08] MEDS: Enoxaparin 40 mg Syringe SC SCH (10:58)
[2017-01-08] MEDS: Multivitamin With Minerals Tab PO SCH (11:00)
[2017-01-08 11:59] VITALS: BP 132/99; PULSE 113; RESP 21; TEMP 97.9
--- NOTE | 2017-01-08 12:24 | PN ---
DATE: 01/08/2017 NEUROLOGY FOLLOWUP CHIEF COMPLAINT: Followup for questionable syncope. SUBJECTIVE: The patient is seen and examined at bedside, sitting up in the chair, in no acute distre ss. Carotid Doppler showed 20-39% proximal ICA stenosis. Cardiology has evaluated the patient, and I agr ee that this is likely an exacerbation of his COPD ____ some lightheadedness. He also was mildly dec onditioned, and therefore, could be having frequent falls given the history of cancer. REVIEW OF SYSTEMS: A 14-point review of systems is negative except for in the HPI. MEDICATIONS: Reviewed via nurse's reconciliation sheet. ALLERGIES: PENICILLIN. SOCIAL HISTORY: No illicit drug use, smoking, or EtOH abuse. FAMILY HISTORY: Noncontributory. PAST MEDICAL HISTORY: History of laryngeal cancer status post radiation, status post tracheostomy, h istory of aortic abdominal aneurysm 4 cm with no recent intervention. COPD, hypothyroidism. PHYSICAL EXAMINATION: VITAL SIGNS: Temperature of 97.8, pulse rate of 100, blood pressure 151/97, respiratory rate of 20, oxygen 95% by room air. GENERAL: The patient is sitting up in bed in no acute distress. HEENT: Atraumatic, normocephalic. PERRLA. Extraocular muscles intact. NECK: Tracheostomy is noted. Supple. No JVD, no adenopathy noted. LUNGS: Have bilateral rhonchi, and otherwise breath sounds are intact. HEART: S1, S2, normal rate and rhythm. No murmurs, rubs, or gallops. ABDOMEN: Soft, nontender, nondistended. Bowel sounds present. EXTREMITIES: No clubbing, no cyanosis. Peripheral pulses 2+ felt bilaterally. NEUROLOGIC: The patient is alert, oriented to person, place, month, and year. Speech is fluent with out any errors. Cranial nerves II-XII are intact. MOTOR: Moves all extremities equally. Nom pronator drift seen. SENSORY: Light touch, pinprick, proprioception, vibration ____. DTRs 2+ throughout and 1 at the ank les. COORDINATION: Hewvrw-np-xklw intact. GAIT: Deferred for now. LABORATORIES: Sodium is 142, potassium 4.5, chloride 99, carbon dioxide of 33, BUN of 9, creatinine 0.8. Random glucose 119. ASSESSMENT AND PLAN: This is a 61-year-old man with history of laryngeal cancer status post tracheos jose, status post radiation, history of abdominal aortic aneurysm 4 cm with no surgical intervention at this time, history of hypothyroidism who currently is still a smoker, who came in for falling out of his bed, questionable syncope, and there was mild lightheadedness. His lightheadedness is seconda ry to chronic obstructive pulmonary disease exacerbation, and frequent falls are likely secondary to possible underlying neuropathy and deconditioned state from his ____ laryngeal cancer. At this time: 1. Continue with chronic obstructive pulmonary disease management with ipratropium and albuterol p.r .n. 2. Levofloxacin 750 mg IV daily for antibiotic precaution, as well as Solu-Medrol 40 mg IV daily. 3. Continue multivitamins and a PT assessment. At this time, he is clinically stable from my standp oint. We will sign off. Chris Denson MD cc: [id number] TT: 01/08/2017 12:23:45 Confirmation # [id number] Dictation # [id number]
--- NOTE | 2017-01-08 14:04 | CP.PCM.DIS ---
<Estelle Santana - Last Filed: 01/10/17 19:38> Provider - Provider Date of Admission: 01/06/17 19:38 Attending physician: Bhakti Shelton MD Primary care physician: Laura Profile Required Time Spent in preparation of Discharge (in minutes): 40 Diagnosis - Discharge Diagnosis (1) Syncope Status: Acute (2) COPD exacerbation Status: Acute (3) Chest pain Status: Acute (4) Hyponatremia Status: Acute (5) Tobacco abuse Status: Chronic (6) Aneurysm Status: Chronic Hospital Course - Lab Results Lab Results: Most Recent Lab Values WBC 15.3 10^3/ul (4.5-11.0) H D 01/08/17 06:30 RBC 5.01 10^6/uL (3.5-6.1) 01/08/17 06:30 Hgb 15.5 gm/dL (14.0-18.0) 01/08/17 06:30 Hct 46.5 % (42.0-52.0) 01/08/17 06:30 MCV 92.8 fL (80.0-105.0) 01/08/17 06:30 MCH 30.9 pg (25.0-35.0) 01/08/17 06:30 MCHC 33.3 g/dl (31.0-37.0) 01/08/17 06:30 RDW 13.6 % (11.5-14.5) 01/08/17 06:30 Plt Count 378 10^3/uL (120.0-450.0) 01/08/17 06:30 MPV 9.5 fl (7.0-11.0) 01/08/17 06:30 Gran % 93.2 % (50.0-68.0) H 01/08/17 06:30 Lymph % (Auto) 2.9 % (22.0-35.0) L 01/08/17 06:30 Harmon % (Auto) 3.8 % (1.0-6.0) 01/08/17 06:30 Eos % (Auto) 0.0 % (1.5-5.0) L 01/08/17 06:30 Baso % (Auto) 0.1 % (0.0-3.0) 01/08/17 06:30 Gran # 14.29 (1.4-6.5) H 01/08/17 06:30 Lymph # 0.5 (1.2-3.4) L 01/08/17 06:30 Harmon # 0.6 (0.1-0.6) 01/08/17 06:30 Eos # 0.0 (0.0-0.7) 01/08/17 06:30 Baso # 0.01 K/mm3 (0.0-2.0) 01/08/17 06:30 PT 10.1 Seconds (9.9-11.8) 01/06/17 18:00 INR 0.94 (0.93-1.08) 01/06/17 18:00 APTT 27.5 Seconds (23.7-30.8) 01/06/17 18:00 pO2 56 mm/Hg (30-55) H 01/06/17 18:00 VBG pH 7.38 (7.32-7.43) 01/06/17 18:00 VBG pCO2 56.0 (40-60) 01/06/17 18:00 VBG HCO3 33.1 mmol/l (21-28) H 01/06/17 18:00 VBG Total CO2 34.8 mmol.L (22-28) H 01/06/17 18:00 VBG O2 Sat (Calc) 93.7 % (40-65) H 01/06/17 18:00 VBG Base Excess 6.3 mmol/L (0.0-2.0) H 01/06/17 18:00 VBG Potassium 3.9 mmol/L (3.6-5.2) 01/06/17 18:00 Sodium 132.0 mmol/L (132-148) 01/06/17 18:00 Chloride 99.0 mmol/L (98-107) 01/06/17 18:00 Glucose 96 mg/dl (75-110) 01/06/17 18:00 Lactate 0.7 mmol/L (0.7-2.1) 01/06/17 18:00 FiO2 21.0 % 01/06/17 18:00 Sodium 142 mmol/L (132-148) 01/08/17 06:30 Potassium 4.5 mmol/L (3.6-5.0) 01/08/17 06:30 Chloride 99 mmol/L (98-107) 01/08/17 06:30 Carbon Dioxide 33 mmol/L (21-33) 01/08/17 06:30 Anion Gap 15 (10-20) 01/08/17 06:30 BUN 9 mg/dL (7-21) 01/08/17 06:30 Creatinine 0.8 mg/dL (0.5-1.4) 01/08/17 06:30 Est GFR ( Amer) > 60 01/08/17 06:30 Est GFR (Non-Af Amer) > 60 01/08/17 06:30 Random Glucose 119 mg/dL (70-110) H 01/08/17 06:30 Serum Osmolality 281 mosm/kg (271-296) 01/06/17 18:00 Calcium 9.1 mg/dL (8.4-10.5) 01/08/17 06:30 Magnesium 1.9 mg/dL (1.7-2.2) 01/06/17 18:00 Total Bilirubin 0.6 mg/dL (0.2-1.3) 01/08/17 06:30 AST 39 U/L (15-59) 01/08/17 06:30 ALT 46 U/L (7-56) 01/08/17 06:30 Alkaline Phosphatase 54 U/L (38-133) 01/08/17 06:30 Lactate Dehydrogenase 445 U/L (333-699) 01/06/17 18:00 Total Creatine Kinase 250 U/L (35-230) H 01/06/17 18:00 CK-MB (CK-2) 3.6 ng/mL (0.0-3.6) 01/06/17 18:00 CK-MB (CK-2) % Cancelled 01/06/17 18:00 Troponin I < 0.01 ng/mL 01/07/17 09:00 NT-Pro-B Natriuret Pep 92.2 pg/mL (0-450) 01/06/17 18:00 Total Protein 7.6 g/dL (5.8-8.3) 01/08/17 06:30 Albumin 4.3 g/dL (3.0-4.8) 01/08/17 06:30 Globulin 3.3 gm/dL 01/08/17 06:30 Albumin/Globulin Ratio 1.3 (1.1-1.8) 01/08/17 06:30 Triglycerides 68 mg/dL (35-160) 01/08/17 06:30 Cholesterol 197 mg/dL (130-200) 01/08/17 06:30 LDL Cholesterol Direct 108 mg/dL (0-129) 01/08/17 06:30 HDL Cholesterol 71 mg/dL (29-60) H 01/08/17 06:30 Procalcitonin < 0.05 NG/ML (0.19-0.49) L 01/06/17 18:00 Thyroxine (T4) 7.0 ug/dL (5.5-11.0) 01/08/17 06:30 Total T3 1.20 ng/mL (0.97-1.69) 01/08/17 06:30 TSH 3rd Generation 3.07 mIU/mL (0.46-4.68) 01/08/17 06:30 Venous Blood Potassium 3.9 mmol/L (3.6-5.2) 01/06/17 18:00 Urine Color Yellow (YELLOW) 01/06/17 19:33 Urine Appearance Clear (CLEAR) 01/06/17 19:33 Urine pH 6.5 (4.7-8.0) 01/06/17 19:33 Ur Specific [place] 1.010 (1.005-1.035) 01/06/17 19:33 Urine Protein Negative mg/dL (<30 mg/dL) 01/06/17 19:33 Urine Glucose (UA) Negative mg/dL (NEGATIVE) 01/06/17 19:33 Urine Ketones Negative mg/dL (NEGATIVE) 01/06/17 19:33 Urine Blood Negative (NEGATIVE) 01/06/17 19:33 Urine Nitrate Negative (NEGATIVE) 01/06/17 19:33 Urine Bilirubin Negative (NEGATIVE) 01/06/17 19:33 Urine Urobilinogen 0.2 E.U./dL (<1 E.U./dL) 01/06/17 19:33 Ur Leukocyte Esterase Negative Sallie/uL (NEGATIVE) 01/06/17 19:33 Urine Opiates Screen Negative (NEGATIVE) 01/07/17 11:08 Urine Methadone Screen Negative (NEGATIVE) 01/07/17 11:08 Ur Barbiturates Screen Negative (NEGATIVE) 01/07/17 11:08 Ur Phencyclidine Scrn Negative (NEGATIVE) 01/07/17 11:08 Ur Amphetamines Screen Negative (NEGATIVE) 01/07/17 11:08 U Benzodiazepines Scrn Negative (NEGATIVE) 01/07/17 11:08 U Oth Cocaine Metabols Negative (NEGATIVE) 01/07/17 11:08 U Cannabinoids Screen Positive (NEGATIVE) H 01/07/17 11:08 - Hospital Course Hospital Course: 61 M with PMHx of HLD, Schizophrenia, hypothyroidism, AAA (4.4cm), laryngeal ca s/p bx and radiation with tracheostomy, tobacco abuse and COPD presented to the ED with complaints of SOB and generalized weakness for past few days. Patient fell twice in ir[place] last 2 nights, hitting his chest and face. Patient was admitted to telemetry for syncope work up and COPD exacerbation. Patient was started on Levaquin, solumedrol, and duonebs and Cardiology and Neurology were consulted. Head CT showed no acute intracranial pathology. ECHO showed LVEF of 64.2% and a grade I abnormal relaxation pattern, indicating diastolic CHF . Carotid US: BL 20-39% stenosis. Urine drug screen was positive for cannabinoid metabolites. Orthostatic vitals remained stable. Over the next two days patient s symptoms improved, oxygen walk test and PT evaluation cleared him for discharge as did cardiology and neurology. Plan to discharge patient home with PO doxycycline, Medrol dose pack, budesonide inhaler, and his home medications with follow up with his physicians at the [facility]. Plan was explained to the patient and his family and they expressed understanding and agreement. Patient was discharged to home. For full hospital course, refer to chart Discharge Exam - Head Exam Head Exam: ATRAUMATIC, NORMOCEPHALIC - Eye Exam Eye Exam: Conjunctival injection, Normal appearance. 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 absent: Tenderness - Extremities Exam Additional comments: NO calf tenderness, swelling, or pedal edema BL - Back Exam Back exam: absent: CVA tenderness (L), CVA tenderness (R), tenderness - Neurological Exam Neurological exam: Alert, Normal Gait, Oriented x3 - Psychiatric Exam Psychiatric exam: Normal Affect, Normal Mood - Skin Skin Exam: Dry, Normal Color, Warm Discharge Plan - Discharge Medications Prescriptions: Doxycycline Hyclate 100 mg PO BID #14 tab Methylprednisolone [Medrol Dose Pack (21 tabs)] 4 mg PO BID #21 mg - Follow Up Plan Condition: STABLE Disposition: HOME/ ROUTINE Instructions: Syncope (DC), COPD (Chronic Obstructive Pulmonary Disease) (DC) Additional Instructions: Follow up with your primary doctor within one week. Follow up with your stonemason helper within one week. Follow up with your provider regarding hypothryoidism within one week. Follow up with your provider at the [facility] regarding your aneurysm Take all your medications as prescribed from discharge Take your antibiotic. Do not skip or stop taking them without a doctor's approval. Return to the ED if you have returned SOB, light headedness, chest pain, falls, or any other concerning symptoms Referrals: [facility], [Non-Staff] - <Bhakti Shelton - Last Filed: 01/13/17 16:18> Provider - Provider Date of Admission: 01/06/17 19:38 Attending physician: Jaja Mansfield MD Primary care physician: NO PRIMARY CARE PROVIDER Hospital Course - Lab Results Lab Results: Most Recent Lab Values WBC 15.3 10^3/ul (4.5-11.0) H D 01/08/17 06:30 RBC 5.01 10^6/uL (3.5-6.1) 01/08/17 06:30 Hgb 15.5 gm/dL (14.0-18.0) 01/08/17 06:30 Hct 46.5 % (42.0-52.0) 01/08/17 06:30 MCV 92.8 fL (80.0-105.0) 01/08/17 06:30 MCH 30.9 pg (25.0-35.0) 01/08/17 06:30 MCHC 33.3 g/dl (31.0-37.0) 01/08/17 06:30 RDW 13.6 % (11.5-14.5) 01/08/17 06:30 Plt Count 378 10^3/uL (120.0-450.0) 01/08/17 06:30 MPV 9.5 fl (7.0-11.0) 01/08/17 06:30 Gran % 93.2 % (50.0-68.0) H 01/08/17 06:30 Lymph % (Auto) 2.9 % (22.0-35.0) L 01/08/17 06:30 Harmon % (Auto) 3.8 % (1.0-6.0) 01/08/17 06:30 Eos % (Auto) 0.0 % (1.5-5.0) L 01/08/17 06:30 Baso % (Auto) 0.1 % (0.0-3.0) 01/08/17 06:30 Gran # 14.29 (1.4-6.5) H 01/08/17 06:30 Lymph # 0.5 (1.2-3.4) L 01/08/17 06:30 Harmon # 0.6 (0.1-0.6) 01/08/17 06:30 Eos # 0.0 (0.0-0.7) 01/08/17 06:30 Baso # 0.01 K/mm3 (0.0-2.0) 01/08/17 06:30 PT 10.1 Seconds (9.9-11.8) 01/06/17 18:00 INR 0.94 (0.93-1.08) 01/06/17 18:00 APTT 27.5 Seconds (23.7-30.8) 01/06/17 18:00 pO2 56 mm/Hg (30-55) H 01/06/17 18:00 VBG pH 7.38 (7.32-7.43) 01/06/17 18:00 VBG pCO2 56.0 (40-60) 01/06/17 18:00 VBG HCO3 33.1 mmol/l (21-28) H 01/06/17 18:00 VBG Total CO2 34.8 mmol.L (22-28) H 01/06/17 18:00 VBG O2 Sat (Calc) 93.7 % (40-65) H 01/06/17 18:00 VBG Base Excess 6.3 mmol/L (0.0-2.0) H 01/06/17 18:00 VBG Potassium 3.9 mmol/L (3.6-5.2) 01/06/17 18:00 Sodium 132.0 mmol/L (132-148) 01/06/17 18:00 Chloride 99.0 mmol/L (98-107) 01/06/17 18:00 Glucose 96 mg/dl (75-110) 01/06/17 18:00 Lactate 0.7 mmol/L (0.7-2.1) 01/06/17 18:00 FiO2 21.0 % 01/06/17 18:00 Sodium 142 mmol/L (132-148) 01/08/17 06:30 Potassium 4.5 mmol/L (3.6-5.0) 01/08/17 06:30 Chloride 99 mmol/L (98-107) 01/08/17 06:30 Carbon Dioxide 33 mmol/L (21-33) 01/08/17 06:30 Anion Gap 15 (10-20) 01/08/17 06:30 BUN 9 mg/dL (7-21) 01/08/17 06:30 Creatinine 0.8 mg/dL (0.5-1.4) 01/08/17 06:30 Est GFR ( Amer) > 60 01/08/17 06:30 Est GFR (Non-Af Amer) > 60 01/08/17 06:30 Random Glucose 119 mg/dL (70-110) H 01/08/17 06:30 Serum Osmolality 281 mosm/kg (271-296) 01/06/17 18:00 Calcium 9.1 mg/dL (8.4-10.5) 01/08/17 06:30 Magnesium 1.9 mg/dL (1.7-2.2) 01/06/17 18:00 Total Bilirubin 0.6 mg/dL (0.2-1.3) 01/08/17 06:30 AST 39 U/L (15-59) 01/08/17 06:30 ALT 46 U/L (7-56) 01/08/17 06:30 Alkaline Phosphatase 54 U/L (38-133) 01/08/17 06:30 Lactate Dehydrogenase 445 U/L (333-699) 01/06/17 18:00 Total Creatine Kinase 250 U/L (35-230) H 01/06/17 18:00 CK-MB (CK-2) 3.6 ng/mL (0.0-3.6) 01/06/17 18:00 CK-MB (CK-2) % Cancelled 01/06/17 18:00 Troponin I < 0.01 ng/mL 01/07/17 09:00 NT-Pro-B Natriuret Pep 92.2 pg/mL (0-450) 01/06/17 18:00 Total Protein 7.6 g/dL (5.8-8.3) 01/08/17 06:30 Albumin 4.3 g/dL (3.0-4.8) 01/08/17 06:30 Globulin 3.3 gm/dL 01/08/17 06:30 Albumin/Globulin Ratio 1.3 (1.1-1.8) 01/08/17 06:30 Triglycerides 68 mg/dL (35-160) 01/08/17 06:30 Cholesterol 197 mg/dL (130-200) 01/08/17 06:30 LDL Cholesterol Direct 108 mg/dL (0-129) 01/08/17 06:30 HDL Cholesterol 71 mg/dL (29-60) H 01/08/17 06:30 Procalcitonin < 0.05 NG/ML (0.19-0.49) L 01/06/17 18:00 Thyroxine (T4) 7.0 ug/dL (5.5-11.0) 01/08/17 06:30 Total T3 1.20 ng/mL (0.97-1.69) 01/08/17 06:30 TSH 3rd Generation 3.07 mIU/mL (0.46-4.68) 01/08/17 06:30 Venous Blood Potassium 3.9 mmol/L (3.6-5.2) 01/06/17 18:00 Urine Color Yellow (YELLOW) 01/06/17 19:33 Urine Appearance Clear (CLEAR) 01/06/17 19:33 Urine pH 6.5 (4.7-8.0) 01/06/17 19:33 Ur Specific [place] 1.010 (1.005-1.035) 01/06/17 19:33 Urine Protein Negative mg/dL (<30 mg/dL) 01/06/17 19:33 Urine Glucose (UA) Negative mg/dL (NEGATIVE) 01/06/17 19:33 Urine Ketones Negative mg/dL (NEGATIVE) 01/06/17 19:33 Urine Blood Negative (NEGATIVE) 01/06/17 19:33 Urine Nitrate Negative (NEGATIVE) 01/06/17 19:33 Urine Bilirubin Negative (NEGATIVE) 01/06/17 19:33 Urine Urobilinogen 0.2 E.U./dL (<1 E.U./dL) 01/06/17 19:33 Ur Leukocyte Esterase Negative Sallie/uL (NEGATIVE) 01/06/17 19:33 Urine Opiates Screen Negative (NEGATIVE) 01/07/17 11:08 Urine Methadone Screen Negative (NEGATIVE) 01/07/17 11:08 Ur Barbiturates Screen Negative (NEGATIVE) 01/07/17 11:08 Ur Phencyclidine Scrn Negative (NEGATIVE) 01/07/17 11:08 Ur Amphetamines Screen Negative (NEGATIVE) 01/07/17 11:08 U Benzodiazepines Scrn Negative (NEGATIVE) 01/07/17 11:08 U Oth Cocaine Metabols Negative (NEGATIVE) 01/07/17 11:08 U Cannabinoids Screen Positive (NEGATIVE) H 01/07/17 11:08 Attending/Attestation - Attestation I have personally seen and examined this patient.: Yes I have fully participated in the care of the patient.: Yes I have reviewed all pertinent clinical information, including history, physical exam and plan: Yes Notes (Text): I have seen and examined patient at bedside. This is 61 year old male with history of HTN, HLD, Schizophrenia, hypothyroidism, AAA (4.4cm), laryngeal ca s/ p bx and radiation and tracheostomy with removal, and COPD who got admitted for evaluation of shortness of breath, generalized weakness and found to have copd exacerbation. He was given duonebs, solumedrol and levaquin. Records indicate that he had syncope however he denies that. Cardiology and neurology consult appreciated and patient was cleared for discharge. Pulm consult also appreciated. Patient feels well and wants to go home. Hyponatremia improved. Counselled regarding tobacco use. Will continue synthroid same dose as this medication was just adjusted 1 week ago by his PMD at [facility]. Upon discharge patient will follow up in [facility] clinic. Dr Bhakti Shelton
== END 2017-01-08 15:19 | disposition home or self-care (01) | DRG 191 ==
LOC: ED 16:42 → ERH 19:38 → 2RNO 23:31
PROVIDERS: ADMIT Internal Medicine; ATTEND Internal Medicine
DX: J44.1 Chronic obstructive pulmonary disease with (acute) exacerbation (principal); E87.1 Hypo-osmolality and hyponatremia; G62.9 Polyneuropathy, unspecified; I10 Essential (primary) hypertension; I65.23 Occlusion and stenosis of bilateral carotid arteries; F20.9 Schizophrenia, unspecified; R55 Syncope and collapse; E03.9 Hypothyroidism, unspecified; I71.4 Abdominal aortic aneurysm, without rupture; F17.200 Nicotine dependence, unspecified, uncomplicated; E78.1 Pure hyperglyceridemia; R00.0 Tachycardia, unspecified; Z93.0 Tracheostomy status; Z85.21 Personal history of malignant neoplasm of larynx; Z92.3 Personal history of irradiation

== ENCOUNTER 2017-04-02 14:56 | Emergency (ER) | payer OTHER ==
[2017-04-02 15:25] VITALS: BP 105/70; BMI 30.4
--- NOTE | 2017-04-02 16:24 | ED PDOC ---
Arrival/HPI - General Historian: Patient, Spouse - General Chief Complaint: Upper Extremity Problem/Injury Time Seen by Provider: 04/02/17 14:58 - History of Present Illness Narrative History of Present Illness (Text): 04/02/17 16:16 Mr. Lewis is a 61 year old male with a past medical history significant for COPD, AAA, hypothyroid, Laryngeal cancer, tracheostomy, schizophrenia, and hyponatremia who presents to the emergency department complaining of left shoulder pain. The patient is accompanied by his in the room. His states that the patient sustained a fall onto his left side about a week ago. Since that time he experienced left shoulder pain primarily with abduction. He states the pain is worse with movement and relived by rest. He rates the pain as moderate. He indicates that he still has feeling and coordination in his left upper extremity. The patient denies taking any medication for the pain. Along with the left shoulder pain the patient and spouse are concerned about how lethargic he has been in the most recent past. Pt and family indicate that his lethargy and weakness are a chronic issue and that he takes certain medications that can contribute to his lethargy. (CAROLYN COX) Past Medical History - Provider Review Nursing Documentation Reviewed: Yes - Infectious Disease Hx of Infectious Diseases: None - Tetanus Immunization Tetanus Immunization: Unknown - Cardiac Hx Hypertension: Yes Other/Comment: AAA - Pulmonary Hx Bronchitis: Yes Hx Chronic Obstructive Pulmonary Disease (COPD): Yes Hx Emphysema: Yes Hx Pneumonia: Yes Other/Comment: hx of trach(Removed) - Neurological Hx Neurological Disorder: No - HEENT Hx HEENT Disorder: Yes Hx Cataracts: Yes (WITH BILATERAL SX) - Renal Hx Renal Disorder: No - Endocrine/Metabolic Hx Endocrine Disorders: No Hx Hypothyroidism: Yes - Hematological/Oncological Hx Blood Disorders: No - Integumentary Hx Dermatological Disorder: No - Musculoskeletal/Rheumatological Hx Falls: Yes - Gastrointestinal Hx Gastrointestinal Disorders: No Other/Comment: throat soreness - Genitourinary/Gynecological Hx Genitourinary Disorders: No - Psychiatric Hx Depression: Yes Hx Emotional Abuse: No Hx Physical Abuse: No Hx Schizophrenia: Yes Hx Substance Use: No - Past Surgical History Past Surgical History: No Previous - Surgical History Hx Orthopedic Surgery: Yes - Anesthesia Hx Anesthesia: Yes Hx Anesthesia Reactions: No Hx Malignant Hyperthermia: No - Suicidal Assessment Feels Threatened In Home Enviroment: No Family/Social History Family/Social History: Other (Significant for prostate cancer) Smoking Status: Heavy Smoker > 10 Cigarettes Daily Hx Alcohol Use: No Hx Substance Use: No Hx Substance Use Treatment: No Allergies/Home Meds Allergies/Adverse Reactions: Allergies Penicillins Allergy (Unknown, Verified 01/06/17 16:58) unknown Home Medications: Home Meds Medication Instructions Recorded Confirmed Cholecalciferol (Vitamin D3) 1,000 unit NA DAILY 06/13/14 04/02/17 [Vitamin D3] Multimineral/Multivitamin 1 tab PO DAILY 06/13/14 04/02/17 [Therapeutic-M Tab] fluPHENAZine [Prolixin] 10 mg PO BID 06/13/14 04/02/17 Levothyroxine Sodium [Levoxyl] 25 mcg PO DAILY 01/07/17 04/02/17 Metoprolol Tartrate [Lopressor] 25 mg PO BID 01/07/17 04/02/17 Review of Systems - Review of Systems Constitutional: Fatigue. absent: Weight Change, Fevers Eyes: absent: Vision Changes ENT: absent: Hearing Changes Respiratory: absent: SOB, Cough Cardiovascular: absent: Chest Pain, Palpitations Gastrointestinal: absent: Abdominal Pain, Stool Changes Genitourinary Male: absent: Dysuria, Frequency Musculoskeletal: Arthralgias, Other (Left shoulder pain) Skin: Abscess (left lateral flank healing appropriately) Neurological: absent: Headache, Dizziness, Focal Weakness Hemo/Lymphatic: absent: Adenopathy Psychiatric: absent: Depression Physical Exam Vital Signs Reviewed: Yes Temperature: Afebrile Blood Pressure: Normal Pulse: Regular Respiratory Rate: Normal Appearance: Positive for: Uncomfortable Mental Status: Positive for: Alert and Oriented X 3 - Systems Exam Head: Present: Atraumatic, Normocephalic Pupils: Present: PERRL Extroacular Muscles: Present: EOMI Conjunctiva: Present: Normal Mouth: Present: Dry Nose (External): Present: Other (stoma midline) Neck: Present: Normal Range of Motion. No: MIDLINE TENDERNESS Respiratory/Chest: Present: Clear to Auscultation. No: Respiratory Distress, Wheezes, Rhonchi Cardiovascular: Present: Regular Rate and Rhythm, Normal S1, S2 Abdomen: No: Tenderness, Distention, Normal Bowel Sounds Upper Extremity: Present: NORMAL PULSES, Tenderness (Left AC joint tenderness), Neurovascularly Intact. No: Cyanosis, Edema, Normal ROM Lower Extremity: Present: Normal Inspection, NORMAL PULSES. No: Edema Neurological: Present: GCS=15, CN II-XII Intact Skin: Present: Warm, Dry Psychiatric: Present: Alert, Oriented x 3 Medical Decision Making ED Course and Treatment: 04/02/17 17:16 Impression: - Mr. Lewis is a 61 year old male who complains of left shoulder pain for the past week. Differential Diagnosis included but are not limited to: - Left GH joint sprain Plan: - Left shoulder x-ray - CBC, CMP -- Reassess and disposition Progress Notes: (CAROLYN COX) - Lab Interpretations Lab Results: 04/02/17 16:19 04/02/17 16:19 Lab Results 04/02/17 16:19: Sodium 130 L, Potassium 4.5, Chloride 92 L, Carbon Dioxide 30, Anion Gap 13, BUN 9, Creatinine 0.7, Est GFR ( Amer) > 60, Est GFR (Non- Af Amer) > 60, Random Glucose 106, Calcium 8.7, Total Bilirubin 0.6, AST 35, ALT 33, Alkaline Phosphatase 60, Total Protein 7.1, Albumin 4.2, Globulin 2.9, Albumin/Globulin Ratio 1.4 04/02/17 16:19: WBC 7.6 D, RBC 4.77, Hgb 15.1, Hct 44.1, MCV 92.5, MCH 31.7, MCHC 34.2, RDW 13.3, Plt Count 309, MPV 8.8, Gran % 66.1, Lymph % (Auto) 13.9 L , [place] % (Auto) 14.7 H, Eos % (Auto) 4.8, Baso % (Auto) 0.5, Gran # 5.01, Lymph # 1.1 L, [place] # 1.1 H, Eos # 0.4, Baso # 0.04 - RAD Interpretation Radiology Orders: 04/02/17 16:02 SHOULDER LEFT [RAD] Stat - Medication Orders Current Medication Orders: Discontinued Medications Sodium Chloride (Sodium Chloride 0.9%) 1,000 mls @ 100 mls/hr IV .Q10H CY Last Admin: 04/02/17 17:57 Dose: Not Given Non-Admin Reason: Patient Refused - PA / CLAY MODELER / Resident Statement / has reviewed & agrees with the documentation as recorded. MD/DO has examined the patient and agrees with the treatment plan. Disposition/Present on Arrival - Present on Arrival Any Indicators Present on Arrival: No History of DVT/PE: No History of Uncontrolled Diabetes: No Urinary Catheter: No History of Decub. Ulcer: No History Surgical Site Infection Following: None - Disposition Have Diagnosis and Disposition been Completed?: Yes Disposition Time: 18:00 - Disposition Diagnosis: Hyponatremia, Sprain of shoulder, left Disposition: AGAINST MEDICAL ADVICE Condition: FAIR Discharge Instructions (ExitCare): Hyponatremia (ED) Additional Instructions: Thank you for letting us take care of you today. Your provider was Dr. Duran. You were treated for low sodium. The emergency medical care you received today was directed at your acute symptoms. If you were prescribed any medication, please fill it and take as directed. It may take several days for your symptoms to resolve. Return to the Emergency Department if your symptoms worsen, do not improve, or if you have any other problems. Please contact your doctor or call one of the physicians/clinics you have been referred to that are listed on the Patient Visit Information form that is included in your discharge packet. Bring any paperwork you were given at discharge with you along with any medications you are taking to your follow up visit. Our treatment cannot replace ongoing medical care by a primary care provider (PCP) outside of the emergency department. Thank you for allowing the [facility] team to be part of your care today. Please follow up with your doctor tomorrow. Your sodium was low here in the emergency room. This will have to be monitored very closely. Referrals: PCP,NO [Primary Care Provider] - Follow up with primary
[2017-04-02 16:30] LABS: BASO # 0.04 K/mm3 (0.0-2.0); BASO % 0.5 % (0.0-3.0); EOS # 0.4 (0.0-0.7); EOS % 4.8 % (1.5-5.0); GRAN # 5.01 (1.4-6.5); GRAN % 66.1 % (50.0-68.0); HEMOGLOBIN 15.1 gm/dL (14.0-18.0); LYMPH # 1.1 (1.2-3.4); LYMPH % 13.9 % (22.0-35.0); MEAN CELL VOLUME 92.5 fL (80.0-105.0); MEAN CORPUSCULAR HEMOGLOBIN 31.7 pg (25.0-35.0); MEAN CORPUSCULAR HGB CONC 34.2 g/dl (31.0-37.0); MEAN PLATELET VOLUME 8.8 fl (7.0-11.0); MONO # 1.1 (0.1-0.6); MONO % 14.7 % (1.0-6.0); PLATELET COUNT 309 10^3/uL (120.0-450.0); RBC 4.77 10^6/uL (3.5-6.1); RED CELL DISTRIBUTION WIDTH 13.3 % (11.5-14.5); WHITE BLOOD COUNT 7.6 10^3/ul (4.5-11.0)
[2017-04-02 16:43] LABS: ALB/GLOB RATIO 1.4 (1.1-1.8); ALBUMIN 4.2 g/dL (3.0-4.8); ALT/SGPT 33 U/L (7-56); AST/SGOT 35 U/L (15-59); BLOOD UREA NITROGEN 9 mg/dL (7-21); CALCIUM 8.7 mg/dL (8.4-10.5); GFR AFRICAN-AMERICAN > 60; GFR NON-AFRICAN AMERICAN > 60
[2017-04-02] MEDS ORDERED: Sodium Chloride 0.9% 1,000 ML IV SCH (17:30)
[2017-04-02 17:58] VITALS: PULSE 76; TEMP 98.5
[2017-04-02 18:10] VITALS: RESP 16; O2SAT 99
--- NOTE | 2017-04-03 08:34 | RAD ---
PROCEDURE: Radiographs of the Left Shoulder HISTORY: Left shoulder pain COMPARISON: No prior. FINDINGS: BONES: Normal. No fracture. JOINTS: Normal. Glenohumeral and acromioclavicular joints preserved. No osteoarthritis. SOFT TISSUES: Normal. OTHER FINDINGS: None. IMPRESSION: Normal radiographs of the left shoulder.
--- NOTE | 2017-04-03 10:53 | CARD ---
APPROVED REPORT EKG Measurement Heart [id number] <Conclusion> Normal sinus rhythm Cannot rule out Inferior infarct, age undetermined Abnormal ECG
== END 2017-04-02 18:09 | disposition left against medical advice (07) ==
LOC: ED 14:56
DX: S43.402A Unspecified sprain of left shoulder joint, initial encounter (principal); W19.XXXA Unspecified fall, initial encounter; E87.1 Hypo-osmolality and hyponatremia; J44.9 Chronic obstructive pulmonary disease, unspecified; E03.9 Hypothyroidism, unspecified; I10 Essential (primary) hypertension; F17.210 Nicotine dependence, cigarettes, uncomplicated; Z85.21 Personal history of malignant neoplasm of larynx

== ENCOUNTER 2018-05-08 10:12 | Inpatient (IN) | payer OTHER ==
[2018-05-08 10:18] VITALS: BMI 31.9
[2018-05-08] MEDS ORDERED: Albuterol-Ipratrop 3 mg / 0.5 (3 ml) UD IH STA (10:35)
--- NOTE | 2018-05-08 10:40 | ED PDOC ---
Arrival/HPI <Cyrus Paige - Last Filed: 05/08/18 12:19> - History of Present Illness Time/Duration: 24 hours Symptom Onset: Gradual Symptom Course: Unchanged, Worsening Activities at Onset: Rest Context: Exertion <Wayne,Marcello - Last Filed: 05/08/18 12:37> - General Chief Complaint: Shortness Of Breath Time Seen by Provider: 05/08/18 10:18 - History of Present Illness Narrative History of Present Illness (Text): 05/08/18 10:37 Patient is a 62 year old male with PMH of COPD, hypothyroidism, AAA, laryngeal CA (s/p tracheostomy) and schizophrenia who presents to Emergency department with worsening SOB for the last 24 hours. Patient's states that she has a pulse oximeter at home and that she has been monitoring his SpO2. She states that his account consultant at the [employer] told her that as long as his SpO2 was >88 to not worry. He is not on home O2 currently. His states he has never been intubated for COPD. She states that last night he began to drop into the mid 80s and then she gave him a breathing treatment and it improved. She measured his SpO2 this morning and it was 68, prompting her to call EMS. He admits to continued heavy smoking but states he has cut down from 3 packs per day to 1 pack per day. He endorses a cough productive of yellowish sputum worsening over the past week. He denies chest pain, fever, chills, night sweats, nausea/vomiting/ diarrhea, peripheral swelling or any other symptoms. (Marcello Wayne) Past Medical History - Provider Review Nursing Documentation Reviewed: Yes - Travel History Have you recently traveled outside [place] w/in the past 3 mons?: No - Infectious Disease Hx of Infectious Diseases: None - Tetanus Immunization Tetanus Immunization: Unknown - Cardiac Hx Cardiac Disorders: Yes Hx Hypertension: Yes Other/Comment: AAA - Pulmonary Hx Bronchitis: Yes Hx Chronic Obstructive Pulmonary Disease (COPD): Yes Hx Emphysema: Yes Hx Pneumonia: Yes Other/Comment: hx of trach(Removed) - Neurological Hx Neurological Disorder: No - HEENT Hx HEENT Disorder: Yes Hx Cataracts: Yes (WITH BILATERAL SX) - Renal Hx Renal Disorder: No - Endocrine/Metabolic Hx Endocrine Disorders: Yes Hx Hypothyroidism: Yes - Hematological/Oncological Hx Blood Disorders: No - Integumentary Hx Dermatological Disorder: No - Musculoskeletal/Rheumatological Hx Falls: Yes - Gastrointestinal Hx Gastrointestinal Disorders: No Other/Comment: throat soreness - Genitourinary/Gynecological Hx Genitourinary Disorders: No - Psychiatric Hx Psychophysiologic Disorder: Yes Hx Depression: Yes Hx Emotional Abuse: No Hx Physical Abuse: No Hx Schizophrenia: Yes Hx Substance Use: No - Past Surgical History Past Surgical History: No Previous - Surgical History Hx Orthopedic Surgery: Yes - Anesthesia Hx Anesthesia: Yes Hx Anesthesia Reactions: No Hx Malignant Hyperthermia: No - Suicidal Assessment Feels Threatened In Home Enviroment: No <Marcello Wayne - Last Filed: 05/08/18 12:37> Family/Social History - Physician Review Nursing Documentation Reviewed: Yes Family/Social History: Hypertension (father and mother) Smoking Status: Heavy Smoker > 10 Cigarettes Daily Hx Alcohol Use: No Hx Substance Use: No Hx Substance Use Treatment: No <Marcello Wayne - Last Filed: 05/08/18 12:37> Allergies/Home Meds <Cyrus Paige - Last Filed: 05/08/18 12:19> <Marcello Wayne - Last Filed: 05/08/18 12:37> Allergies/Adverse Reactions: Allergies Penicillins Allergy (Unknown, Verified 05/08/18 10:22) unknown Home Medications: Home Meds Medication Instructions Recorded Confirmed Cholecalciferol (Vitamin D3) 1,000 unit NA DAILY 06/13/14 04/02/17 [Vitamin D3] Multimineral/Multivitamin 1 tab PO DAILY 06/13/14 04/02/17 [Therapeutic-M Tab] fluPHENAZine [Prolixin] 10 mg PO BID 06/13/14 04/02/17 Levothyroxine Sodium [Levoxyl] 25 mcg PO DAILY 01/07/17 04/02/17 Metoprolol Tartrate [Lopressor] 25 mg PO BID 01/07/17 04/02/17 Albuterol/Ipratropium [Duoneb 3 3 ml IH Q6 05/08/18 05/08/18 MG/3 Ml-0.5 MG/3 Ml 3 Ml] Budesonide/Formoterol Fumarate 2 puff IH BID 05/08/18 05/08/18 [Symbicort 80-4.5 Mcg Inhaler] Fluticasone Propionate [Flovent 50 mcg IH DAILY 05/08/18 05/08/18 Diskus] Omeprazole 20 mg PO DAILY 05/08/18 05/08/18 Simvastatin [Zocor] 40 mg PO DAILY 05/08/18 05/08/18 amLODIPine [Norvasc] 2.5 mg PO DAILY 05/08/18 05/08/18 traZODone [trazODONE HYDROCHLORIDE] 50 mg PO HS 05/08/18 05/08/18 Review of Systems - Review of Systems Constitutional: Normal, Fatigue. absent: Weight Change, Fevers, Night Sweats Eyes: absent: Vision Changes ENT: absent: Sore Throat, Rhinorrhea Respiratory: SOB, Cough, Sputum, Wheezing Cardiovascular: MORALES. absent: Chest Pain Gastrointestinal: absent: Abdominal Pain, Nausea, Vomiting Genitourinary Male: absent: Dysuria Musculoskeletal: absent: Arthralgias Skin: absent: Rash, Pruritis Neurological: absent: Headache Endocrine: absent: Diaphoresis Hemo/Lymphatic: absent: Adenopathy Psychiatric: absent: Anxiety, Depression <Marcello Wayne - Last Filed: 05/08/18 12:37> Physical Exam Vital Signs Reviewed: Yes Temperature: Afebrile Blood Pressure: Hypertensive Pulse: Tachycardic Respiratory Rate: Tachypneic Appearance: Positive for: Ill-Appearing, Uncomfortable Mental Status: Positive for: Alert and Oriented X 3 - Systems Exam Head: Present: Atraumatic, Normocephalic Pupils: Present: PERRL Extroacular Muscles: Present: EOMI Conjunctiva: Present: Normal Ears: Present: Normal Mouth: Present: Dry Pharnyx: Present: Normal. No: ERYTHEMA, EXUDATE Nose (External): Present: Atraumatic Neck: Present: Normal Range of Motion. No: JVD Respiratory/Chest: Present: Wheezes (end expiratory wheezes bilaterally), Tachypneic. No: Rales, Rhonchi Cardiovascular: Present: Normal S1, S2, Tachycardic. No: Murmurs, Rub, Gallop Abdomen: No: Tenderness, Rebound, Guarding Upper Extremity: Present: Cyanosis (clubbing seen), NORMAL PULSES, Neurovascularly Intact, Capillary Refill < 2s. No: Edema Lower Extremity: Present: Normal Inspection. No: Edema Neurological: Present: Speech Normal Skin: Present: Warm, Dry Psychiatric: Present: Alert, Oriented x 3 <Marcello Wayne - Last Filed: 05/08/18 12:37> Vital Signs Pulse Resp BP Pulse Ox 05/08/18 11:03 20 90 L 05/08/18 10:18 103 H 27 H 151/100 H 90 L 05/08/18 10:17 103 H 27 H 151/100 H 90 L Medical Decision Making <Cyrus Paige - Last Filed: 05/08/18 12:19> - RAD Interpretation Propulsion Engineer: Radiologist - EKG Interpretation Interpreted by ED Physician: Yes Type: 12 lead EKG Comparison: Com.w/previous EKG <Marcello Wayne - Last Filed: 05/08/18 12:37> ED Course and Treatment: 05/08/18 10:47 -Patient presenting with acute COPD exacerbation -Was diagnosed with COPD only one month ago -Significant wheezes bilaterally -Will start duo-neb Q15 min x 3, solumedrol 125 mg IVP -Will get CBC, CMP, VBG shock panel, CXR 05/08/18 11:05 -VBG PCO2 of 73 -Respiratory called for stat ABG -Will need to consider ventilation rather than BiPap as patient has tracheostomy 05/08/18 11:43 -ABG PCO2 of 65 -Patient currently receiving first duo-neb treatment as an adaptor was needed for his tracheostomy -Will continue to monitor prior to floor transfer 05/08/18 12:12 -Spoke with Dr. Molina who requested hospitalist admission -Spoke with Dr. Prince who agrees to admission (Marcello Wayne) - Lab Interpretations Lab Results: 05/08/18 10:32 05/08/18 10:32 Lab Results 05/08/18 10:54: pCO2 65 H, pO2 53.0 L, HCO3 36.7 H, ABG pH 7.36, ABG Total CO2 38.7 H, ABG O2 Saturation 93.1 L, ABG O2 Content 18.3, ABG Base Excess 8.3 H, ABG Hemoglobin 15.9, ABG Carboxyhemoglobin 11.3 H, POC ABG HHb (Measured) 6.1 H , ABG Methemoglobin 0.7, ABG O2 Capacity 19.7, Hgb O2 Saturation 81.9 L, FiO2 40.0 05/08/18 10:40: pO2 214 H, VBG pH 7.34, VBG pCO2 73.0 H*, VBG HCO3 39.4 H, VBG Total CO2 41.6 H, VBG O2 Sat (Calc) 99.9 H, VBG Base Excess 10.5 H, VBG Potassium 5.6 H, Glucose 111 H, Lactate 1.2, FiO2 21.0, Sodium 129.0 L, Chloride 91.0 L, Venous Blood Potassium 5.6 H 05/08/18 10:32: TSH 3rd Generation 4.32 05/08/18 10:32: WBC 9.9 D, RBC 5.58, Hgb 17.8, Hct 50.8, MCV 91.0, MCH 31.9, MCHC 35.0, RDW 13.7, Plt Count 285, MPV 9.2, Gran % 78.1 H, Lymph % (Auto) 13.0 L, Brown % (Auto) 7.3 H, Eos % (Auto) 1.3 L, Baso % (Auto) 0.3, Gran # 7.75 H, Lymph # (Auto) 1.3, Brown # (Auto) 0.7 H, Eos # (Auto) 0.1, Baso # (Auto) 0.03 05/08/18 10:32: Sodium 133, Potassium 4.6, Chloride 89 L, Carbon Dioxide 38 H, Anion Gap 11, BUN 5 L, Creatinine 0.7 L, Est GFR ( Amer) > 60, Est GFR ( Non-Af Amer) > 60, Random Glucose 111 H, Calcium 9.1, Phosphorus 3.6, Magnesium 2.0, Total Bilirubin 0.5, AST 29, ALT 41, Alkaline Phosphatase 81, Lactate Dehydrogenase 436, Total Creatine Kinase 104, Troponin I < 0.01, Total Protein 7.3, Albumin 4.4, Globulin 2.9, Albumin/Globulin Ratio 1.5 05/08/18 10:32: PT 10.3, INR 0.90, APTT 46.4 H - RAD Interpretation Narrative RAD Interpretations (Text): 05/08/18 11:27 Chest X-Ray without acute findings (Marcello Wayne) Radiology Orders: 05/08/18 10:35 CHEST PORTABLE [RAD] Stat - EKG Interpretation EKG Interpretation (Text): 05/08/18 11:14 Sinus tachycardia with left axis deviation, T wave changes similar to prior ( Marcello Wayne) - Medication Orders Current Medication Orders: Discontinued Medications Albuterol/Ipratropium (Duoneb 3 Mg/0.5 Mg (3 Ml) Ud) 3 ml IH Q15M CY Stop: 05/08/18 11:16 Last Admin: 05/08/18 12:34 Dose: 3 ml Methylprednisolone (Solu-Medrol) 125 mg IVP STAT STA Stop: 05/08/18 10:37 Last Admin: 05/08/18 11:02 Dose: 125 mg IVP Administration Document 05/08/18 11:02 [email or web address] (Rec: 05/08/18 11:02 [email or web address] [id number]) Charges for Administration # of IVP Administrations 1 - Scribe Statement The provider has reviewed the documentation as recorded by the Scribe <Cyrus Paige - Last Filed: 05/08/18 12:19> <Marcello Wayne - Last Filed: 05/08/18 12:37> - Scribe Statement Efren Dickson Patient Seen With Resident: In agreement with resident note which contains more details about the patient. Patient was seen and evaluated with resident. Came up with plan and treatment together. (Cyrus Paige) Disposition/Present on Arrival <Cyrus Paige - Last Filed: 05/08/18 12:19> - Present on Arrival Any Indicators Present on Arrival: No History of DVT/PE: No History of Uncontrolled Diabetes: No Urinary Catheter: No History of Decub. Ulcer: No History Surgical Site Infection Following: None - Disposition Have Diagnosis and Disposition been Completed?: Yes Disposition Time: 12:36 Patient Plan: Admission <Marcello Wayne - Last Filed: 05/08/18 12:37> - Disposition Diagnosis: COPD exacerbation, Acute and chronic respiratory failure ([id number]), Productive cough, Abnormal ABGs Disposition: HOSPITALIZED Condition: FAIR
[2018-05-08 10:49] LABS: VENOUS BLOOD GAS BASE EXCESS 10.5 mmol/L (0.0-2.0); VENOUS BLOOD GAS PO2 214 mm/Hg (30-55); VENOUS BLOOD PH 7.34 (7.32-7.43)
[2018-05-08 10:54] LABS: BASO # 0.03 K/mm3 (0.0-2.0); BASO % 0.3 % (0.0-3.0); EOS # 0.1 (0.0-0.7); EOS % 1.3 % (1.5-5.0); GRAN # 7.75 (1.4-6.5); GRAN % 78.1 % (50.0-68.0); HEMOGLOBIN 17.8 g/dL (14.0-18.0); LYMPH # 1.3 (1.2-3.4); MEAN CORPUSCULAR HEMOGLOBIN 31.9 pg (25.0-35.0); MEAN PLATELET VOLUME 9.2 fl (7.0-11.0); MONO # 0.7 (0.1-0.6); MONO % 7.3 % (1.0-6.0); RBC 5.58 10^6/uL (3.5-6.1); RED CELL DISTRIBUTION WIDTH 13.7 % (11.5-14.5); WHITE BLOOD COUNT 9.9 10^3/ul (4.5-11.0)
[2018-05-08 10:57] LABS: ALB/GLOB RATIO 1.5 (1.1-1.8); ALBUMIN 4.4 g/dL (3.0-4.8); ALT/SGPT 41 U/L (7-56); AST/SGOT 29 U/L (17-59); BLOOD UREA NITROGEN 5 mg/dL (7-21); CALCIUM 9.1 mg/dL (8.4-10.5); GFR AFRICAN-AMERICAN > 60; GFR NON-AFRICAN AMERICAN > 60; INR 0.9; PARTIAL THROMBOPLASTIN TIME 46.4 Seconds (25.1-36.5); PROTHROMBIN TIME 10.3 SECONDS (9.4-12.5)
[2018-05-08 11:09] LABS: TROPONIN I < 0.01 ng/mL
--- NOTE | 2018-05-08 11:26 | RAD ---
Date of service: 05/08/2018 HISTORY: SOB COMPARISON: 01/06/2017 FINDINGS: LUNGS: No active pulmonary disease. PLEURA: No significant pleural effusion identified, no pneumothorax apparent. CARDIOVASCULAR: Normal. OSSEOUS STRUCTURES: No significant abnormalities. VISUALIZED UPPER ABDOMEN: Normal. OTHER FINDINGS: None. IMPRESSION: No active disease.
[2018-05-08] MEDS: Albuterol-Ipratrop 3 mg / 0.5 (3 ml) UD IH SCH ×3 (11:34→12:34)
[2018-05-08 11:38] LABS: ARTERIAL BLOOD GAS HCO3 36.7 mmol/L (21-28); ARTERIAL BLOOD GAS HEMOGLOBIN 15.9 g/dL (11.7-17.4); ARTERIAL BLOOD GAS O2 CAPACITY 19.7 mL/dl (16-24); ARTERIAL BLOOD GAS O2 CONTENT 18.3 ML/dl (15-23); ARTERIAL BLOOD GAS O2 SAT 93.1 % (95-98); ARTERIAL BLOOD GAS PCO2 65 mm/Hg (35-45); ARTERIAL BLOOD GAS PH 7.36 (7.35-7.45); ARTERIAL BLOOD GAS TCO2 38.7 mmol.L (22-28)
--- NOTE | 2018-05-08 13:06 | CP.PCM.HP ---
<Margareth Lowery - Last Filed: 05/08/18 16:46> History of Present Illness - History of Present Illness History of Present Illness: Please note history is as per as patient has trouble speaking with trach contact: Kimberlyn Lewis [phone] 62yo male PMHx COPD, schizophrenia, laryngeal ca, AAA, HTN, HLD, hypothyroidism presents with 2 day history of shortness of breath. As per , patient was having trouble breathing and was noted to have an O2 saturation of 65% despite receiving a nebulizer treatment which caused her to bring him in. Patient is visited by a home health care coordinator from the [place] regularly who also noted that the patient was having some labored breathing and suggested the patient be taken to the ER. Of note, patient was recently admitted at [facility] for similar symptoms where he was hospitalized for a COPD exacerbation and was on antibiotics and steroids. Patient has had multiple bouts of COPD over the past 3 years. Patient was diagnosed with COPD 3 years ago when being treated for his laryngeal cancer. He is a chronic smoker and smokes 1ppd (cut down from 3ppd over >45 years). On ROS patient admitted to a cough that is chronic and productive. He denied any fever, chills, headache, dizziness, chest pain, palpitations, abd pain, nausea, vomiting, bowel/bladder complaints, pain/ swelling in his legs b/l, and night sweats. PMHx: COPD, schizophrenia, laryngeal ca, AAA, HTN, HLD, hypothyroidism, GERD PSurgHx: R hand fracture, thoracotomy FamHx: mother ca; father AAA- both ALL: PCN SocHx: 45year tobacco use [currently smokes 1ppd used to smoke 3 ppd], denies EtOH and illicit drug use ROS: denied: fever, chills, weakness, vision changes/blurry vision, difficulty hearing, tasting, swallowing, chest pain, palpitations, abd pain, nausea, vomiting, diarrhea, bladder complaints, numbness/tingling in all extremities admitted: weight loss (20pounds but unsure in how long), SOB Present on Admission - Present on Admission Any Indicators Present on Admission: No Review of Systems - Review of Systems All systems: reviewed and no additional remarkable complaints except - Constitutional Constitutional: As Per HPI. absent: Chills, Fever, Headache, Weakness - EENT Eyes: As Per HPI. absent: Blurred Vision Ears: As Per HPI. absent: Dizziness Nose/Mouth/Throat: As Per HPI. absent: Sore Throat - Cardiovascular Cardiovascular: As Per HPI, Dyspnea. absent: Chest Pain, Edema, Pedal Edema - Respiratory Respiratory: As Per HPI, Cough, Dyspnea, Wheezing - Gastrointestinal Gastrointestinal: As Per HPI. absent: Abdominal Pain, Constipation, Diarrhea, Nausea, Vomiting - Genitourinary Genitourinary: As Per HPI. absent: Dysuria, Hematuria - Musculoskeletal Musculoskeletal: As Per HPI. absent: Numbness, Tingling - Integumentary Integumentary: As Per HPI. absent: Dry Skin, Rash - Neurological Neurological: As Per HPI. absent: Dizziness, Headaches, Tingling, Weakness - Endocrine Endocrine: As Per HPI. absent: Polydipsia, Polyuria - Hematologic/Lymphatic Hematologic: As Per HPI. absent: Easy Bleeding, Easy Bruising Past Patient History - Infectious Disease Hx of Infectious Diseases: None - Tetanus Immunizations Tetanus Immunization: Unknown - Past Social History Smoking Status: Heavy Smoker > 10 Cigarettes Daily - CARDIAC Hx Cardiac Disorders: Yes Hx Hypertension: Yes Other/Comment: AAA - PULMONARY Hx Bronchitis: Yes Hx Chronic Obstructive Pulmonary Disease (COPD): Yes Hx Emphysema: Yes Hx Pneumonia: Yes Other/Comment: hx of trach(Removed) - NEUROLOGICAL Hx Neurological Disorder: No - HEENT Hx HEENT Problems: Yes Hx Cataracts: Yes (WITH BILATERAL SX) - RENAL Hx Chronic Kidney Disease: No - ENDOCRINE/METABOLIC Hx Endocrine Disorders: Yes Hx Hypothyroidism: Yes - HEMATOLOGICAL/ONCOLOGICAL Hx Blood Disorders: No - INTEGUMENTARY Hx Dermatological Problems: No - MUSCULOSKELETAL/RHEUMATOLOGICAL Hx Falls: Yes - GASTROINTESTINAL Hx Gastrointestinal Disorders: No Other/Comment: throat soreness - GENITOURINARY/GYNECOLOGICAL Hx Genitourinary Disorders: No - PSYCHIATRIC Hx Psychophysiologic Disorder: Yes Hx Depression: Yes Hx Emotional Abuse: No Hx Physical Abuse: No Hx Schizophrenia: Yes Hx Substance Use: No - SURGICAL HISTORY Hx Orthopedic Surgery: Yes - ANESTHESIA Hx Anesthesia: Yes Hx Anesthesia Reactions: No Hx Malignant Hyperthermia: No Meds Allergies/Adverse Reactions: Allergies Allergy/AdvReac Type Severity Reaction Status Date / Time Penicillins Allergy Unknown unknown Verified 05/08/18 17:48 Physical Exam - Constitutional Appears: Non-toxic, No Acute Distress - Head Exam Head Exam: ATRAUMATIC, NORMAL INSPECTION, NORMOCEPHALIC - Eye Exam Eye Exam: EOMI, Normal appearance, PERRL. absent: Conjunctival injection, Scleral icterus Pupil Exam: NORMAL ACCOMODATION - ENT Exam ENT Exam: Mucous Membranes Dry Additional comments: trach in place - Neck Exam Neck exam: Positive for: Full Rom - Respiratory Exam Respiratory Exam: Rhonchi, Wheezes, NORMAL BREATHING PATTERN. absent: Accessory Muscle Use, Clear to Auscultation Bilateral - Cardiovascular Exam Cardiovascular Exam: Tachycardia, +S1, +S2 - GI/Abdominal Exam GI & Abdominal Exam: Normal Bowel Sounds, Soft. absent: Tenderness - Rectal Exam Rectal Exam: Deferred - Extremities Exam Extremities exam: Positive for: normal inspection, pedal pulses present. Negative for: pedal edema, tenderness - Neurological Exam Neurological exam: Alert, CN II-XII Intact - Skin Skin Exam: Dry, Intact, Normal Color, Warm Results - Vital Signs Recent Vital Signs: Last Vital Signs Temp Pulse 103 H 05/08/18 10:18 Resp 20 05/08/18 11:03 BP 151/100 H 05/08/18 10:18 Pulse Ox 90 L 05/08/18 11:03 - Labs Result Diagrams: 05/08/18 10:32 05/08/18 10:32 Assessment & Plan - Assessment and Plan (Free Text) Assessment: 62yo male PMHx COPD, schizophrenia, laryngeal ca, AAA, HTN, HLD, hypothyroidism presents with 2 day history of shortness of breath. Patient admitted to [facility] for COPD exacerbation. Plan: COPD exacerbation -patient received 1 dose solumedrol and breathing treatment in the ER -CXR: unremarkable -Solumedrol 40mg ivp q8 -Xopenex 1.25 q6h artur -Xopenex 1.25 q2h prn SOB -Budesonide 2puff bid -Pulm consulted for management Hx of HTN -continue home med Norvasc 2.5mg po qd and Lopressor 25mg po qd -maintain normotension Hx of HLD -Lipitor 10mg po hs Tobacco abuse -Nicoderm 1 patch td qd -Smoking cessation counseling Hx of Schizophrenia -continue home med Fluphenazine -Trazodone 50mg po hs Hx of Hypothyroidism -continue home med Synthroid 25mg po qd DVT ppx: Heparin 5000u q12, SCDs GI ppx: Protonix 40mg po qd Diet: HHD with CORRECTION Discussed with Dr. Meek Lowery PGY3 <Susana Eden R - Last Filed: 05/09/18 14:25> Results - Vital Signs Recent Vital Signs: Last Vital Signs Temp 98.6 F 05/09/18 12:00 Pulse 112 H 05/09/18 12:00 Resp 20 05/09/18 12:00 BP 133/80 05/09/18 12:00 Pulse Ox 93 L 05/09/18 06:00 - Labs Result Diagrams: 05/09/18 06:00 05/09/18 06:00 Labs: Laboratory Results - last 24 hr 05/08/18 05/09/18 05/09/18 16:12 06:00 06:00 WBC 15.6 H D RBC 5.69 Hgb 17.8 Hct 52.8 H MCV 92.8 MCH 31.3 MCHC 33.7 RDW 13.8 Plt Count 323 MPV 9.3 Gran % 93.3 H Lymph % (Auto) 2.4 L [place] % (Auto) 4.3 Eos % (Auto) 0.0 L Baso % (Auto) 0.0 Gran # 14.60 H Lymph # (Auto) 0.4 L [place] # (Auto) 0.7 H Eos # (Auto) 0.0 Baso # (Auto) 0.00 Neutrophils % (Manual) 90 H Band Neutrophils % 6 H Lymphocytes % (Manual) 3 L Monocytes % (Manual) 1 Platelet Evaluation Normal Anisocytosis (manual) Slight D-Dimer, Quantitative < 200 Sodium 139 Potassium 5.1 H Chloride 89 L Carbon Dioxide 38 H Anion Gap 17 BUN 9 Creatinine 0.8 Est GFR ( Amer) > 60 Est GFR (Non-Af Amer) > 60 Random Glucose 141 H Calcium 9.4 Phosphorus 4.1 Magnesium 2.3 H Total Bilirubin 0.4 AST 29 ALT 49 Alkaline Phosphatase 81 Total Protein 8.0 Albumin 4.5 Globulin 3.5 Albumin/Globulin Ratio 1.3 Attending/Attestation - Attestation I have personally seen and examined this patient.: Yes I have fully participated in the care of the patient.: Yes I have reviewed all pertinent clinical information: Yes Notes (Text): Patient seen and examined by me at 2:00PM with resident 05/08/18. Case including HPI, physical exam, and assessment and plan discussed with resident. Agree with above with following additions/corrections. History taken from patient's as patient with difficulty speaking secondary to tracheostomy. Patient is a 62 year old male with past medical history significant for COPD, schizophrenia, laryngeal carcinoma s/p tracheostomy, AAA, hypertension, hyperlipidemia, and hypothyroidism that presented to the emergency room with shortness of breath. Patient's states that patient was hospitalized and treated for similar thing approximately 2 weeks ago. At that time, patient was treated with antibiotics. states that she noticed over past day that patient seemed to be having difficulty breathing. Patient used nebulizer treatments without relief. states she monitored his O2 saturation which was low and around 65%. Patient's home health care coordinator suggesting patient be brought in to emergency room. Patient was previously smoking 3 packs of cigarettes per day. He now uses a nicotine patch and smokes 1ppd. He has been coughing and states she is unsure of color of phlegm. No fevers or chills. No difficulty swallowing or eating. No chest pain or palpitations. No nausea, vomiting, or abdominal pain. No headaches or dizziness. No dysuria. No neck pain or back pain. No diarrhea or constipation. 12 point review of systems reviewed by me. Please see HPI. All other systems are negative. [facility] Physical exam: General: Awake and alert lying in bed in no acute distress HEENT: Normocephalic atraumatic. Pupils equal reactive. No scleral icterus. Oropharynx is pink. Positive dry mucous membranes. Positive tracheostomy in place with no signs of infection. Hearing grossly intact. Ears and nose externally unremarkable Cardiovascular: Normal rhythm. Normal S1, S2. No murmurs, rubs, or gallops appreciated Pulmonary: Mildy tachypneic. Positive wheezing throughout. No rales or rhonchi appreciated. Gastrointestinal: Soft, nondistended. Nontender. Globular abdomen. Positive bowel sounds all 4 quadrants, no guarding. Musculoskeletal: Normal range of motion all extremities, no calf tenderness, no edema appreciated. Central nervous system: AAOx3. CN2-12 grossly intact. Dermatologic: Skin warm and dry Assessment and plan: Patient is a 62 year old male with past medical history significant for COPD, schizophrenia, laryngeal carcinoma s/p tracheostomy, AAA, hypertension, hyperlipidemia, and hypothyroidism that presented to the emergency room with shortness of breath. 1. COPD exacerbation. Hypoxemia at home. Placed on solumedrol and nebulizer treatments. CXR with no active disease. No current signs of infection. Will hold antibiotics for now. Check sputum culture. Pulmonary consulted, follow up recommendations. 2. Hypertension. Continue home norvasc and lopressor 3. Hypothyroidism. Continue home synthroid 4. Hyperlipidemia. Continue home lipitor 5. Schizophrenia. Continue home fluphenazine and trazodone. 6. Tobacco abuse. Patient counseled at length on cessation. Case was discussed in detail with the patient regarding current diagnosis and treatment plan.
[2018-05-08] MEDS ORDERED: Albuterol-Ipratrop 3 mg / 0.5 (3 ml) UD IH PRN (13:11)
[2018-05-08] MEDS ORDERED: Albuterol-Ipratrop 3 mg / 0.5 (3 ml) UD IH SCH (13:15)
[2018-05-08] MEDS ORDERED: Levalbuterol 1.25 MG/3 ML Inhal Soln UD IH PRN (14:30)
[2018-05-08] MEDS: MethylPREDNISolone 40 mg Vial IVP SCH ×2 (15:40→23:13)
--- NOTE | 2018-05-08 17:51 | CARD ---
APPROVED REPORT Date of service: 05/08/2018 EKG Measurement Heart [id number] <Conclusion> Sinus tachycardia Left axis deviation Inferior infarct, age undetermined Abnormal ECG
[2018-05-08] MEDS ORDERED: Pneumococcal 23-Valent Vaccine IM ONE (18:22)
[2018-05-08] MEDS: Levalbuterol 1.25 MG/3 ML Inhal Soln UD IH SCH (19:38)
[2018-05-09] MEDS ORDERED: Non Formulary Medication (Budesonide/Formoterol Fumarate [Symbicort 160-4.5 Mcg Inhaler] 2 IH SCH (00:33)
[2018-05-09] MEDS: Levalbuterol 1.25 MG/3 ML Inhal Soln UD IH SCH ×4 (02:09→19:59)
[2018-05-09] MEDS: MethylPREDNISolone 40 mg Vial IVP SCH ×3 (06:22→22:24)
[2018-05-09 06:25] VITALS: O2SAT 93
[2018-05-09 07:10] LABS: GRAN % 93.3 % (50.0-68.0); HEMOGLOBIN 17.8 g/dL (14.0-18.0); LYMPH # 0.4 (1.2-3.4); LYMPH % 2.4 % (22.0-35.0); MEAN CELL VOLUME 92.8 fl (80.0-105.0); MEAN CORPUSCULAR HEMOGLOBIN 31.3 pg (25.0-35.0); MEAN CORPUSCULAR HGB CONC 33.7 g/dl (31.0-37.0); MEAN PLATELET VOLUME 9.3 fl (7.0-11.0); MONO # 0.7 (0.1-0.6); MONO % 4.3 % (1.0-6.0); PLATELET COUNT 323 10^3/uL (120.0-450.0); RBC 5.69 10^6/uL (3.5-6.1); RED CELL DISTRIBUTION WIDTH 13.8 % (11.5-14.5); WHITE BLOOD COUNT 15.6 10^3/ul (4.5-11.0)
[2018-05-09 07:44] LABS: ALB/GLOB RATIO 1.3 (1.1-1.8); ALBUMIN 4.5 g/dL (3.0-4.8); ALT/SGPT 49 U/L (7-56); AST/SGOT 29 U/L (17-59); BLOOD UREA NITROGEN 9 mg/dL (7-21); CALCIUM 9.4 mg/dL (8.4-10.5); GFR AFRICAN-AMERICAN > 60; GFR NON-AFRICAN AMERICAN > 60
[2018-05-09 09:07] LABS: ANISOCYTOSIS SLIGHT; BAND 6 % (0-2); LYMPHOCYTE 3 % (22.0-35.0); MONOCYTE 1 % (1.0-6.0); NEUTROPHIL 90 % (50.0-70.0); PLATELET ESTIMATE NORMAL (NORMAL)
--- NOTE | 2018-05-09 09:32 | CP.PCM.PN ---
<Chalo Nails - Last Filed: 05/09/18 09:38> Subjective - Date & Time of Evaluation Date of Evaluation: 05/09/18 Time of Evaluation: 06:00 - Subjective Subjective: Patient seen and evaluated bedside. Patient had episodes of low saturation overnight, which improved with breathing treatments and suction of mucus. Patient complains of mucus and cough. Denies chest pain, nausea, vomiting, fever , chills, or any other complaints at this time. Objective - Vital Signs/Intake and Output Vital Signs (last 24 hours): Temp Pulse Resp BP Pulse Ox 97.6 F 89 17 126/79 93 L 05/09/18 06:00 05/09/18 06:00 05/09/18 06:00 05/09/18 06:00 05/09/18 06:00 Intake and Output: 05/09/18 05/09/18 06:59 18:59 Intake Total 0 Output Total 0 Balance 0 - Medications Medications: Current Medications Amlodipine Besylate (Norvasc) 2.5 mg PO DAILY [facility] Last Admin: 05/08/18 15:36 Dose: 2.5 mg Atorvastatin Calcium (Lipitor) 10 mg PO DIN [facility] Last Admin: 05/08/18 17:24 Dose: 10 mg Fluphenazine HCl (Prolixin) 10 mg PO BID [facility] PRN Reason: Protocol Last Admin: 05/08/18 17:24 Dose: 10 mg Fluticasone Propionate (Flonase) 1 actuation NS DAILY [facility] Heparin Sodium (Porcine) (Heparin) 5,000 units SC Q12 CY PRN Reason: Protocol Last Admin: 05/08/18 23:12 Dose: 5,000 units Home Med (Home Med) 2 unit INH BID [facility] Levofloxacin/Dextrose (Levaquin 500mg) 500 mg in 100 mls @ 100 mls/hr IVPB DAILY [facility] PRN Reason: Protocol Levalbuterol HCl (Xopenex) 1.25 mg IH Q6H [facility] Last Admin: 05/09/18 07:32 Dose: Not Given Levalbuterol HCl (Xopenex) 1.25 mg IH Q2H PRN PRN Reason: Shortness of Breath Last Admin: 05/09/18 05:02 Dose: 1.25 mg Levothyroxine Sodium (Synthroid) 25 mcg PO DAILY [facility] Methylprednisolone (Solu-Medrol) 40 mg IVP Q8H [facility] Last Admin: 05/09/18 06:22 Dose: 40 mg Metoprolol Tartrate (Lopressor) 25 mg PO DAILY [facility] Multivitamins/Minerals (Therapeutic-M Tab) 1 tab PO DAILY [facility] Nicotine (Nicoderm Cq) 1 patch TD DAILY [facility] Pantoprazole Sodium (Protonix Ec Tab) 40 mg PO DAILY [facility] Trazodone HCl (Desyrel) 50 mg PO HS [facility] Last Admin: 05/08/18 23:13 Dose: Not Given - Labs Labs: 05/09/18 06:00 05/09/18 06:00 PT 10.3 SECONDS (9.4-12.5) 05/08/18 10:32 INR 0.90 05/08/18 10:32 APTT 46.4 Seconds (25.1-36.5) H 05/08/18 10:32 - Constitutional Appears: Well, Non-toxic, No Acute Distress - Head Exam Head Exam: ATRAUMATIC, NORMAL INSPECTION, NORMOCEPHALIC - Eye Exam Eye Exam: EOMI, Normal appearance - ENT Exam ENT Exam: Mucous Membranes Moist - Neck Exam Neck Exam: absent: Lymphadenopathy, Tenderness Additional comments: trach in place - Respiratory Exam Respiratory Exam: Rhonchi, Wheezes, NORMAL BREATHING PATTERN. absent: Clear to Ausculation Bilateral - Cardiovascular Exam Cardiovascular Exam: REGULAR RHYTHM, +S1, +S2 - GI/Abdominal Exam GI & Abdominal Exam: Distended, Soft - Extremities Exam Extremities Exam: Full ROM. absent: Pedal Edema - Neurological Exam Neurological Exam: Alert, Awake, CN II-XII Intact Assessment and Plan - Assessment and Plan (Free Text) Assessment: 62yo male PMHx COPD, schizophrenia, laryngeal ca, AAA, HTN, HLD, hypothyroidism presents with 2 day history of shortness of breath. Patient admitted to [facility] for COPD exacerbation. Plan: COPD exacerbation -CXR: unremarkable -Solumedrol 40mg ivp q8 -Xopenex 1.25 q6h yc -Xopenex 1.25 q2h prn SOB -Budesonide 2puff bid -Pulm consulted for management, follow recs -Chest PT -levofloxacin started Leukocytosis likely secondary to steroid use -WBC 9.9 on admission, currently 15.6 -started on levofloxacin today -continue to monitor -cultures pending Hx of HTN -continue home med Norvasc 2.5mg po qd and Lopressor 25mg po qd -maintain normotension Hx of HLD -Lipitor 10mg po hs Tobacco abuse -Nicoderm patch td qd -Smoking cessation counseling Hx of Schizophrenia -continue home med Fluphenazine -Trazodone 50mg po hs Hx of Hypothyroidism -continue home med Synthroid 25mg po qd DVT ppx: Heparin 5000u q12, SCDs GI ppx: Protonix 40mg po qd Diet: HHD with SNF <Rangasamy,Ajantha - Last Filed: 05/09/18 15:45> Objective - Vital Signs/Intake and Output Vital Signs (last 24 hours): Temp Pulse Resp BP Pulse Ox 98.6 F 112 H 20 133/80 93 L 05/09/18 12:00 05/09/18 12:00 05/09/18 12:00 05/09/18 12:00 05/09/18 06:00 Intake and Output: 05/09/18 05/09/18 06:59 18:59 Intake Total 0 Output Total 0 Balance 0 - Medications Medications: Current Medications Amlodipine Besylate (Norvasc) 2.5 mg PO DAILY [facility] Last Admin: 05/09/18 10:46 Dose: 2.5 mg Atorvastatin Calcium (Lipitor) 10 mg PO DIN [facility] Last Admin: 05/08/18 17:24 Dose: 10 mg Fluphenazine HCl (Prolixin) 10 mg PO BID [facility] PRN Reason: Protocol Last Admin: 05/09/18 10:47 Dose: 10 mg Fluticasone Propionate (Flonase) 1 actuation NS DAILY [facility] Last Admin: 05/09/18 10:45 Dose: 1 spray Heparin Sodium (Porcine) (Heparin) 5,000 units SC Q12 [facility] PRN Reason: Protocol Last Admin: 05/09/18 10:46 Dose: 5,000 units Home Med (Home Med) 2 unit INH BID [facility] Levofloxacin/Dextrose (Levaquin 500mg) 500 mg in 100 mls @ 100 mls/hr IVPB DAILY [facility] PRN Reason: Protocol Last Admin: 05/09/18 11:32 Dose: 100 mls/hr Levalbuterol HCl (Xopenex) 1.25 mg IH Q6H [facility] Last Admin: 05/09/18 13:19 Dose: 1.25 mg Levalbuterol HCl (Xopenex) 1.25 mg IH Q2H PRN PRN Reason: Shortness of Breath Last Admin: 05/09/18 05:02 Dose: 1.25 mg Levothyroxine Sodium (Synthroid) 25 mcg PO DAILY [facility] Last Admin: 05/09/18 10:47 Dose: 25 mcg Methylprednisolone (Solu-Medrol) 40 mg IVP Q8H [facility] Last Admin: 05/09/18 06:22 Dose: 40 mg Metoprolol Tartrate (Lopressor) 25 mg PO DAILY [facility] Last Admin: 05/09/18 10:46 Dose: 25 mg Multivitamins/Minerals (Therapeutic-M Tab) 1 tab PO DAILY [facility] Last Admin: 05/09/18 10:47 Dose: 1 tab Nicotine (Nicoderm Cq) 1 patch TD DAILY [facility] Last Admin: 05/09/18 10:57 Dose: 1 patch Pantoprazole Sodium (Protonix Ec Tab) 40 mg PO DAILY [facility] Last Admin: 05/09/18 10:47 Dose: 40 mg Trazodone HCl (Desyrel) 50 mg PO HS [facility] Last Admin: 05/08/18 23:13 Dose: Not Given - Labs Labs: 05/09/18 06:00 05/09/18 06:00 PT 10.3 SECONDS (9.4-12.5) 05/08/18 10:32 INR 0.90 05/08/18 10:32 APTT 46.4 Seconds (25.1-36.5) H 05/08/18 10:32 Attending/Attestation - Attestation I have personally seen and examined this patient.: Yes I have fully participated in the care of the patient.: Yes I have reviewed all pertinent clinical information, including history, physical exam and plan: Yes Notes (Text): 05/09/18 15:40 Attending note; Patient seen and examined with resident. Patient is a 62 year old male with past medical history significant for COPD, schizophrenia, laryngeal carcinoma s/p tracheostomy, AAA, hypertension, hyperlipidemia, and hypothyroidism that presented to the emergency room with shortness of breath. 1. Acute COPD exacerbation. Hypoxemia at home. Currently patient is alert and awake. Decreased cough. Patient is educated how to clear his secretions. Respiratory therapist evaluation appreciated. On IV solumedrol and nebulizer treatments. CXR with no active disease. Started on levofloxacin. Pulmonary evaluation requested. 2. Hypertension. Continue home norvasc and lopressor 3. Hypothyroidism. Continue home synthroid 4. Hyperlipidemia. Continue home lipitor 5. Schizophrenia. Continue home fluphenazine and trazodone. 6. Tobacco abuse. Patient counseled at length on cessation. Currently on NicoDerm patch. Monitor closely. Case was discussed in detail with the patient regarding current diagnosis and treatment plan. Upon discharge the patient will follow-up with [facility] in [place].
[2018-05-09] MEDS ORDERED: Home Med - SYMBICORT 160/4.5 MCG INH SCH (10:00)
[2018-05-09] MEDS ORDERED: Non Formulary Medication (Fluticasone Propionate [Flovent Diskus] 50 MCG) IH SCH (10:00)
[2018-05-09] MEDS: Fluticasone Nasal 50 mcg/Spray NS SCH (10:45)
[2018-05-09] MEDS: Levothyroxine 25 MCG TAB PO SCH (10:47)
[2018-05-09] MEDS: Pantoprazole 40 mg EC Tab PO SCH (10:47)
[2018-05-09] MEDS: Multivitamin With Minerals Tab PO SCH (10:47)
[2018-05-09] MEDS: levoFLOXacin 500 mg in D5W 500 MG/100 ML BAG IVPB SCH (11:32)
[2018-05-09 13:55] VITALS: RESP 20
[2018-05-10] MEDS: Levalbuterol 1.25 MG/3 ML Inhal Soln UD IH SCH ×2 (01:21→07:40)
[2018-05-10 05:54] VITALS: BP 106/69; PULSE 98; TEMP 99
[2018-05-10 07:33] LABS: GRAN # 15.89 (1.4-6.5); GRAN % 92.8 % (50.0-68.0); HEMOGLOBIN 16.3 g/dL (14.0-18.0); LYMPH # 0.5 (1.2-3.4); LYMPH % 2.7 % (22.0-35.0); MEAN CELL VOLUME 93.6 fl (80.0-105.0); MEAN CORPUSCULAR HEMOGLOBIN 30.9 pg (25.0-35.0); MEAN PLATELET VOLUME 9.4 fl (7.0-11.0); MONO # 0.8 (0.1-0.6); MONO % 4.5 % (1.0-6.0); RBC 5.28 10^6/uL (3.5-6.1); RED CELL DISTRIBUTION WIDTH 13.9 % (11.5-14.5); WHITE BLOOD COUNT 17.1 10^3/ul (4.5-11.0)
[2018-05-10 08:33] LABS: ALB/GLOB RATIO 1.4 (1.1-1.8); ALBUMIN 4.1 g/dL (3.0-4.8); ALT/SGPT 49 U/L (7-56); AST/SGOT 29 U/L (17-59); BLOOD UREA NITROGEN 12 mg/dL (7-21); CALCIUM 8.9 mg/dL (8.4-10.5); GFR AFRICAN-AMERICAN > 60; GFR NON-AFRICAN AMERICAN > 60
[2018-05-10] MEDS: Fluticasone Nasal 50 mcg/Spray NS SCH (09:28)
[2018-05-10] MEDS: Pantoprazole 40 mg EC Tab PO SCH (09:29)
[2018-05-10] MEDS: Multivitamin With Minerals Tab PO SCH (09:29)
[2018-05-10] MEDS: Levothyroxine 25 MCG TAB PO SCH (09:29)
[2018-05-10] MEDS: levoFLOXacin 500 mg in D5W 500 MG/100 ML BAG IVPB SCH (09:30)
[2018-05-10] MEDS ORDERED: MethylPREDNISolone 40 mg Vial IVP SCH (10:00)
--- NOTE | 2018-05-10 10:04 | CP.PCM.DIS ---
<Giuseppe Perez - Last Filed: 05/10/18 11:21> Provider - Provider Date of Admission: 05/08/18 12:14 Attending physician: Dontrell Judd MD Primary care physician: NO PRIMARY CARE PROVIDER Consults: pulmonology Time Spent in preparation of Discharge (in minutes): 45 Hospital Course - Lab Results Lab Results: Most Recent Lab Values WBC 17.1 10^3/ul (4.5-11.0) H 05/10/18 06:00 RBC 5.28 10^6/uL (3.5-6.1) 05/10/18 06:00 Hgb 16.3 g/dL (14.0-18.0) 05/10/18 06:00 Hct 49.4 % (42.0-52.0) 05/10/18 06:00 MCV 93.6 fl (80.0-105.0) 05/10/18 06:00 MCH 30.9 pg (25.0-35.0) 05/10/18 06:00 MCHC 33.0 g/dl (31.0-37.0) 05/10/18 06:00 RDW 13.9 % (11.5-14.5) 05/10/18 06:00 Plt Count 325 10^3/uL (120.0-450.0) 05/10/18 06:00 MPV 9.4 fl (7.0-11.0) 05/10/18 06:00 Gran % 92.8 % (50.0-68.0) H 05/10/18 06:00 Lymph % (Auto) 2.7 % (22.0-35.0) L 05/10/18 06:00 Page % (Auto) 4.5 % (1.0-6.0) 05/10/18 06:00 Eos % (Auto) 0.0 % (1.5-5.0) L 05/10/18 06:00 Baso % (Auto) 0.0 % (0.0-3.0) 05/10/18 06:00 Gran # 15.89 (1.4-6.5) H 05/10/18 06:00 Lymph # (Auto) 0.5 (1.2-3.4) L 05/10/18 06:00 Page # (Auto) 0.8 (0.1-0.6) H 05/10/18 06:00 Eos # (Auto) 0.0 (0.0-0.7) 05/10/18 06:00 Baso # (Auto) 0.00 K/mm3 (0.0-2.0) 05/10/18 06:00 Neutrophils % (Manual) 90 % (50.0-70.0) H 05/09/18 06:00 Band Neutrophils % 6 % (0-2) H 05/09/18 06:00 Lymphocytes % (Manual) 3 % (22.0-35.0) L 05/09/18 06:00 Monocytes % (Manual) 1 % (1.0-6.0) 05/09/18 06:00 Platelet Evaluation Normal (NORMAL) 05/09/18 06:00 Anisocytosis (manual) Slight 05/09/18 06:00 PT 10.3 SECONDS (9.4-12.5) 05/08/18 10:32 INR 0.90 05/08/18 10:32 APTT 46.4 Seconds (25.1-36.5) H 05/08/18 10:32 D-Dimer, Quantitative < 200 ng/mlDDU (0-243) 05/08/18 16:12 pCO2 65 mm/Hg (35-45) H 05/08/18 10:54 pO2 53.0 mm/Hg (80-100) L 05/08/18 10:54 HCO3 36.7 mmol/L (21-28) H 05/08/18 10:54 ABG pH 7.36 (7.35-7.45) 05/08/18 10:54 ABG Total CO2 38.7 mmol.L (22-28) H 05/08/18 10:54 ABG O2 Saturation 93.1 % (95-98) L 05/08/18 10:54 ABG O2 Content 18.3 ML/dl (15-23) 05/08/18 10:54 ABG Base Excess 8.3 mmol/L (-2.0-3.0) H 05/08/18 10:54 ABG Hemoglobin 15.9 g/dL (11.7-17.4) 05/08/18 10:54 ABG Carboxyhemoglobin 11.3 % (0.5-1.5) H 05/08/18 10:54 POC ABG HHb (Measured) 6.1 % (0-5) H 05/08/18 10:54 ABG Methemoglobin 0.7 % (0.0-3.0) 05/08/18 10:54 ABG O2 Capacity 19.7 mL/dl (16-24) 05/08/18 10:54 VBG pH 7.34 (7.32-7.43) 05/08/18 10:40 VBG pCO2 73.0 (40-60) H* 05/08/18 10:40 VBG HCO3 39.4 mmol/l (21-28) H 05/08/18 10:40 VBG Total CO2 41.6 mmol.L (22-28) H 05/08/18 10:40 VBG O2 Sat (Calc) 99.9 % (40-65) H 05/08/18 10:40 VBG Base Excess 10.5 mmol/L (0.0-2.0) H 05/08/18 10:40 VBG Potassium 5.6 mmol/L (3.6-5.2) H 05/08/18 10:40 Hgb O2 Saturation 81.9 % (95.0-98.0) L 05/08/18 10:54 Sodium 129.0 mmol/L (132-148) L 05/08/18 10:40 Chloride 91.0 mmol/L (98-107) L 05/08/18 10:40 Glucose 111 mg/dl (75-110) H 05/08/18 10:40 Lactate 1.2 mmol/L (0.7-2.1) 05/08/18 10:40 FiO2 40.0 % 05/08/18 10:54 Sodium 136 mmol/L (132-148) 05/10/18 06:00 Potassium 5.3 mmol/L (3.6-5.0) H 05/10/18 06:00 Chloride 91 mmol/L (98-107) L 05/10/18 06:00 Carbon Dioxide 38 mmol/L (21-33) H 05/10/18 06:00 Anion Gap 17 (10-20) 05/09/18 06:00 BUN 12 mg/dL (7-21) 05/10/18 06:00 Creatinine 0.8 mg/dl (0.8-1.5) 05/10/18 06:00 Est GFR ( Amer) > 60 05/10/18 06:00 Est GFR (Non-Af Amer) > 60 05/10/18 06:00 Random Glucose 135 mg/dL (70-110) H 05/10/18 06:00 Calcium 8.9 mg/dL (8.4-10.5) 05/10/18 06:00 Phosphorus 4.1 mg/dL (2.5-4.5) 05/09/18 06:00 Magnesium 2.3 mg/dL (1.7-2.2) H 05/09/18 06:00 Total Bilirubin 0.4 mg/dL (0.2-1.3) 05/10/18 06:00 AST 29 U/L (17-59) 05/10/18 06:00 ALT 49 U/L (7-56) 05/10/18 06:00 Alkaline Phosphatase 74 U/L (38-126) 05/10/18 06:00 Lactate Dehydrogenase 436 U/L (333-699) 05/08/18 10:32 Total Creatine Kinase 104 U/L (35-230) 05/08/18 10:32 Troponin I < 0.01 ng/mL 05/08/18 10:32 Total Protein 7.1 g/dL (5.8-8.3) 05/10/18 06:00 Albumin 4.1 g/dL (3.0-4.8) 05/10/18 06:00 Globulin 3.0 gm/dL 05/10/18 06:00 Albumin/Globulin Ratio 1.4 (1.1-1.8) 05/10/18 06:00 TSH 3rd Generation 4.32 mIU/mL (0.46-4.68) 05/08/18 10:32 Venous Blood Potassium 5.6 mmol/L (3.6-5.2) H 05/08/18 10:40 - Hospital Course Hospital Course: On admission: 62yo male PMHx COPD, schizophrenia, laryngeal ca, AAA, HTN, HLD, hypothyroidism presents with 2 day history of shortness of breath. Patient admitted to Telemetry for COPD exacerbation. Hospital course: CXR: unremarkable, WBC was 9.9 then 17.1, afebrile, copious productive cough with clear sputum. Patient received Solumedrol, Xopenex, Budesonide, levofloxacin. Pulmonology consulted and was following up the patient during hospital stay. Patient received respiratory therapy and his cough, breathing pattern were improving over the couse of his hospital stay. Patient has history of hypertension, his home meds Norvasc and Lopressor were resumed. Patient is a heavy smoker, nicoderm patches were given. Patient had a history of Schizophrenia, home med Fluphenazine and Trazodone resumed. Patient had a history oh hypothyroidism, home med Synthroid resumed. Patient was feeling well today, able to ambulate out of his room with no shortness of breath, chest pain. Respiratory secretions resolved and was advised to do pulmonary exercises at home. Patient condition is optimized and feels safe to discharge home today. Upon Discharge: Patient to follow up with [facility] on Friday for an appointment to follow up after discharge Patient to take prednisone as prescribed and take antibiotic daily for 5 days Patient to take Levofloxacin 500 mg once a day for five days Please take all home medications as previously prescribed. Patient stated that he has all his medications at home. Patient was consulted for the risks smoking and its morbidity and mortality on health health If symptoms reoccur, return to nearest emergency department Discharge planning was conducted with patient including outpatient follow up, medication reconciliation, and signs and symptoms to be aware of for return to emergency department. Patient was in understanding and able to recall instructions back to primary team. Patient was deemed to be medically optimized for discharge by consultants involved in her care as well as her primary medical team. For further details regarding hospital stay please refer to full chart. - Date & Time of H&P Date of H&P: 05/10/18 Time of H&P: 11:35 Discharge Exam - Head Exam Head Exam: ATRAUMATIC, NORMAL INSPECTION, NORMOCEPHALIC - Eye Exam Eye Exam: EOMI, PERRL Pupil Exam: NORMAL ACCOMODATION - ENT Exam ENT Exam: Mucous Membranes Moist, Normal Exam - Neck Exam Neck exam: Full Rom, Normal Inspection Additional comments: tracheostomy - Respiratory Exam Respiratory Exam: Clear to PA & Lateral, NORMAL BREATHING PATTERN - Cardiovascular Exam Cardiovascular Exam: REGULAR RHYTHM, +S1, +S2 - GI/Abdominal Exam GI & Abdominal Exam: Normal Bowel Sounds, Soft, Unremarkable - Rectal Exam Rectal Exam: NORMAL INSPECTION - Extremities Exam Extremities exam: full ROM, normal capillary refill - Neurological Exam Neurological exam: Alert, CN II-XII Intact, Normal Gait, Oriented x3, Reflexes Normal - Psychiatric Exam Psychiatric exam: Normal Affect, Normal Mood - Skin Skin Exam: Dry, Intact, Normal Color, Warm Discharge Plan - Discharge Medications Prescriptions: levoFLOXacin [Levaquin] 500 mg PO DAILY #5 tab Methylprednisolone [Medrol Dose Pack (21 tabs)] See Taper PO DAILY #21 mg - Follow Up Plan Condition: FAIR Disposition: HOME/ ROUTINE Instructions: Chronic Obstructive Pulmonary Disease (COPD), Including Emphysema , Cough, Adult (DC), Exacerbation of COPD (DC) Additional Inst[facility]: [facility] Please refrain from cigarette use. Please take all home medications as previously prescribed. Please take prednisone as prescribed and take antibiotic daily for 5 days. Please return to the emergency room if symptoms reoccur. Referrals: PCP,NO [Primary Care Provider] - <Dontrell Judd - Last Filed: 05/10/18 18:33> Provider - Provider Date of Admission: 05/08/18 12:14 Attending physician: Dontrell Judd MD Primary care physician: NO PRIMARY CARE PROVIDER Hospital Course - Lab Results Lab Results: Micro Results 05/09/18 18:43 Trachasp Gram Stain - Final Most Recent Lab Values WBC 17.1 10^3/ul (4.5-11.0) H 05/10/18 06:00 RBC 5.28 10^6/uL (3.5-6.1) 05/10/18 06:00 Hgb 16.3 g/dL (14.0-18.0) 05/10/18 06:00 Hct 49.4 % (42.0-52.0) 05/10/18 06:00 MCV 93.6 fl (80.0-105.0) 05/10/18 06:00 MCH 30.9 pg (25.0-35.0) 05/10/18 06:00 MCHC 33.0 g/dl (31.0-37.0) 05/10/18 06:00 RDW 13.9 % (11.5-14.5) 05/10/18 06:00 Plt Count 325 10^3/uL (120.0-450.0) 05/10/18 06:00 MPV 9.4 fl (7.0-11.0) 05/10/18 06:00 Gran % 92.8 % (50.0-68.0) H 05/10/18 06:00 Lymph % (Auto) 2.7 % (22.0-35.0) L 05/10/18 06:00 Page % (Auto) 4.5 % (1.0-6.0) 05/10/18 06:00 Eos % (Auto) 0.0 % (1.5-5.0) L 05/10/18 06:00 Baso % (Auto) 0.0 % (0.0-3.0) 05/10/18 06:00 Gran # 15.89 (1.4-6.5) H 05/10/18 06:00 Lymph # (Auto) 0.5 (1.2-3.4) L 05/10/18 06:00 Page # (Auto) 0.8 (0.1-0.6) H 05/10/18 06:00 Eos # (Auto) 0.0 (0.0-0.7) 05/10/18 06:00 Baso # (Auto) 0.00 K/mm3 (0.0-2.0) 05/10/18 06:00 Neutrophils % (Manual) 90 % (50.0-70.0) H 05/09/18 06:00 Band Neutrophils % 6 % (0-2) H 05/09/18 06:00 Lymphocytes % (Manual) 3 % (22.0-35.0) L 05/09/18 06:00 Monocytes % (Manual) 1 % (1.0-6.0) 05/09/18 06:00 Platelet Evaluation Normal (NORMAL) 05/09/18 06:00 Anisocytosis (manual) Slight 05/09/18 06:00 PT 10.3 SECONDS (9.4-12.5) 05/08/18 10:32 INR 0.90 05/08/18 10:32 APTT 46.4 Seconds (25.1-36.5) H 05/08/18 10:32 D-Dimer, Quantitative < 200 ng/mlDDU (0-243) 05/08/18 16:12 pCO2 65 mm/Hg (35-45) H 05/08/18 10:54 pO2 53.0 mm/Hg (80-100) L 05/08/18 10:54 HCO3 36.7 mmol/L (21-28) H 05/08/18 10:54 ABG pH 7.36 (7.35-7.45) 05/08/18 10:54 ABG Total CO2 38.7 mmol.L (22-28) H 05/08/18 10:54 ABG O2 Saturation 93.1 % (95-98) L 05/08/18 10:54 ABG O2 Content 18.3 ML/dl (15-23) 05/08/18 10:54 ABG Base Excess 8.3 mmol/L (-2.0-3.0) H 05/08/18 10:54 ABG Hemoglobin 15.9 g/dL (11.7-17.4) 05/08/18 10:54 ABG Carboxyhemoglobin 11.3 % (0.5-1.5) H 05/08/18 10:54 POC ABG HHb (Measured) 6.1 % (0-5) H 05/08/18 10:54 ABG Methemoglobin 0.7 % (0.0-3.0) 05/08/18 10:54 ABG O2 Capacity 19.7 mL/dl (16-24) 05/08/18 10:54 VBG pH 7.34 (7.32-7.43) 05/08/18 10:40 VBG pCO2 73.0 (40-60) H* 05/08/18 10:40 VBG HCO3 39.4 mmol/l (21-28) H 05/08/18 10:40 VBG Total CO2 41.6 mmol.L (22-28) H 05/08/18 10:40 VBG O2 Sat (Calc) 99.9 % (40-65) H 05/08/18 10:40 VBG Base Excess 10.5 mmol/L (0.0-2.0) H 05/08/18 10:40 VBG Potassium 5.6 mmol/L (3.6-5.2) H 05/08/18 10:40 Hgb O2 Saturation 81.9 % (95.0-98.0) L 05/08/18 10:54 Sodium 129.0 mmol/L (132-148) L 05/08/18 10:40 Chloride 91.0 mmol/L (98-107) L 05/08/18 10:40 Glucose 111 mg/dl (75-110) H 05/08/18 10:40 Lactate 1.2 mmol/L (0.7-2.1) 05/08/18 10:40 FiO2 40.0 % 05/08/18 10:54 Sodium 136 mmol/L (132-148) 05/10/18 06:00 Potassium 5.3 mmol/L (3.6-5.0) H 05/10/18 06:00 Chloride 91 mmol/L (98-107) L 05/10/18 06:00 Carbon Dioxide 38 mmol/L (21-33) H 05/10/18 06:00 Anion Gap 12 (10-20) 05/10/18 06:00 BUN 12 mg/dL (7-21) 05/10/18 06:00 Creatinine 0.8 mg/dl (0.8-1.5) 05/10/18 06:00 Est GFR ( Amer) > 60 05/10/18 06:00 Est GFR (Non-Af Amer) > 60 05/10/18 06:00 Random Glucose 135 mg/dL (70-110) H 05/10/18 06:00 Calcium 8.9 mg/dL (8.4-10.5) 05/10/18 06:00 Phosphorus 4.1 mg/dL (2.5-4.5) 05/09/18 06:00 Magnesium 2.3 mg/dL (1.7-2.2) H 05/09/18 06:00 Total Bilirubin 0.4 mg/dL (0.2-1.3) 05/10/18 06:00 AST 29 U/L (17-59) 05/10/18 06:00 ALT 49 U/L (7-56) 05/10/18 06:00 Alkaline Phosphatase 74 U/L (38-126) 05/10/18 06:00 Lactate Dehydrogenase 436 U/L (333-699) 05/08/18 10:32 Total Creatine Kinase 104 U/L (35-230) 08/17/18 10:32 Troponin I < 0.01 ng/mL 05/08/18 10:32 Total Protein 7.1 g/dL (5.8-8.3) 05/10/18 06:00 Albumin 4.1 g/dL (3.0-4.8) 05/10/18 06:00 Globulin 3.0 gm/dL 05/10/18 06:00 Albumin/Globulin Ratio 1.4 (1.1-1.8) 05/10/18 06:00 TSH 3rd Generation 4.32 mIU/mL (0.46-4.68) 05/08/18 10:32 Venous Blood Potassium 5.6 mmol/L (3.6-5.2) H 05/08/18 10:40 Attending/Attestation - Attestation I have personally seen and examined this patient.: Yes I have fully participated in the care of the patient.: Yes I have reviewed all pertinent clinical information, including history, physical exam and plan: Yes Notes (Text): 05/10/18 18:32 Attending note; Patient seen and examined with resident. Patient's by the bedside. Patient is a 62 year old male with past medical history significant for COPD, schizophrenia, laryngeal carcinoma s/p tracheostomy, AAA, hypertension, hyperlipidemia, and hypothyroidism that presented to the emergency room with shortness of breath. 1. Acute COPD exacerbation. Hypoxemia at home. Currently patient is alert and awake. Decreased cough. Patient is educated how to clear his secretions. Respiratory therapist evaluation appreciated. On IV solumedrol and nebulizer treatments. CXR with no active disease. Started on levofloxacin. 2. Hypertension. Continue home norvasc and lopressor 3. Hypothyroidism. Continue home synthroid 4. Hyperlipidemia. Continue home lipitor 5. Schizophrenia. Continue home fluphenazine and trazodone. 6. Tobacco abuse. Patient counseled at length on cessation. Currently on NicoDerm patch. Monitor closely. Patient will be discharged home. Medication compliance insisted. Complete smoking cessation insisted. Case was discussed in detail with the patient and patient's regarding current diagnosis and treatment plan. Upon discharge the patient will follow-up with [facility] in [place]. 05/10/18 18:33
--- NOTE | 2018-05-11 08:56 | CON ---
Copied To: Kris Braden MD Attending MD: Kris Braden MD DATE: 05/09/2018 PULMONARY CONSULT The note was request on 05/09/2018, by Dr. Prince. CHIEF COMPLAINT: The patient presented with hypoxia and shortness of breath. HISTORY OF PRESENT ILLNESS: Mr. Angulo____ is a 62-year-old male who presented to the emergency room with hypoxia, some shortness of breath. He is at home and does monitor his O2 saturation. The patient states that he does not have oxygen at home. He has a history of laryngeal cancer and has had a tracheostomy placed for that problem approximately 3 years ago. The patient is a chronic patient and noted to have COPD as well as hypoxia. He is a present smoker. He also carries a diagnosis of hypothyroidism and schizophrenia as well as abdominal aortic aneurysm. The patient at this time is comfortable with O2 support via trach collar. O2 saturation is 95%. He has occasional cough, but not much phlegm. No fever or chills. No nausea or vomiting. No abdominal pain or chest pain. No active wheezing at this time. The patient is awake and alert, and responds appropriately. PAST MEDICAL HISTORY: As above. ALLERGIES: HE HAS NO KNOWN ALLERGIES. MEDICATIONS: His current medications can be evaluated as per the nurse's intake form. SOCIAL HISTORY: The patient is a heavy smoker. No EtOH abuse. No substance abuse. FAMILY HISTORY: Noncontributory. REVIEW OF SYSTEMS: CONSTITUTIONAL: The patient has no fever, chills. HEENT: He has trach stoma, but no trach cannula in place. RESPIRATORY: Presenting with some shortness of breath, cough, sputum and some occasional wheeze. CARDIOVASCULAR: He does have dyspnea on exertion. GASTROINTESTINAL: All negative. : All negative. MUSCULOSKELETAL: All negative. NEUROPSYCHIATRIC: Does have a history of schizophrenia. ENDOCRINE: Has hypothyroidism. HEMATOLOGIC: All negative. IMMUNOLOGIC: Negative. PSYCHIATRIC: As stated above. INTEGRITY: All negative. PHYSICAL EXAMINATION: VITAL SIGNS: Note that his temperature is 98.6, his pulse is 112, respirations of 20, and BP is 133/80. The patient is on trach collar with 40% and his O2 saturation is 95%. HEENT: Head is atraumatic, normocephalic. Eyes reactive to light. Ears, nose, and throat note that the patient does have a trach stoma in place. NECK: No thyroid enlargement. No lymph nodes. HEART: Regular rate and rhythm. Normal S1, S2. LUNGS: Reveal rare rhonchi at the right base. ABDOMEN: Soft. Decreased bowel sounds. GENITALIA: Deferred. RECTAL: Deferred. MUSCULOSKELETAL: No joint deformities. EXTREMITIES: Reveal slight lower extremity edema. NEUROLOGIC: He seemed to be grossly intact. LABORATORY DATA: As far as his laboratories are concerned, his white count is 15.6, hemoglobin is 17.8, hematocrit is of 52.8 with platelets of 323,000. His arterial blood gas reveals a pH of 7.36, pCO2 of 65, and pO2 of 53. His sodium is 135, potassium 5.1, chloride 89, CO2 of 38. BUN of 9, creatinine of 0.8. Glucose of 141. Chest x-ray reveals no active disease. IMPRESSION: This patient has chronic respiratory failure with hypercapnia and hypoxia. He has a severe chronic obstructive pulmonary disease and history of laryngeal cancer for which he has a tracheostomy. The patient is nicotine dependent and has hypothyroidism as well as abdominal aortic aneurysm and schizophrenia. PLAN: We will continue with aggressive pulmonary toilet, continue with O2 via trach collar at 40%, and monitor his O2 saturation closely. Continue with nasal spray, fluticasone, and heparin subcu. The patient is on Levaquin, Lipitor, and nicotine patch. He is getting Norvasc for his blood pressure and Protonix as well. We will continue with Solu-Medrol 40 mg every 8 hours and Xopenex via nebulizer. The patient is getting his thyroid medication as well. I would recommend continuing to monitor his O2 saturation closely if on room air or with slight exertion. He continues to be hypoxic with O2 saturation of left in 88%. I would look forward to getting the patient home oxygen. I would continue present therapy, aggressive pulmonary toilet, and we will continue to follow along with the other consultants and the primary care doctor. Kris Braden MD
== END 2018-05-10 11:35 | disposition home or self-care (01) | DRG 191 ==
LOC: ED 10:12 → ERH 12:14 → 2RSO 14:10
PROVIDERS: ADMIT Internal Medicine; ATTEND Internal Medicine
DX: J44.1 Chronic obstructive pulmonary disease with (acute) exacerbation (principal); J96.12 Chronic respiratory failure with hypercapnia; J96.11 Chronic respiratory failure with hypoxia; F17.210 Nicotine dependence, cigarettes, uncomplicated; I10 Essential (primary) hypertension; I71.4 Abdominal aortic aneurysm, without rupture; F20.9 Schizophrenia, unspecified; E78.5 Hyperlipidemia, unspecified; E03.9 Hypothyroidism, unspecified; K21.9 Gastro-esophageal reflux disease without esophagitis; Z85.21 Personal history of malignant neoplasm of larynx; Z93.0 Tracheostomy status; Z87.01 Personal history of pneumonia (recurrent); Z80.9 Family history of malignant neoplasm, unspecified

== ENCOUNTER 2018-06-04 17:36 | Inpatient (IN) | payer OTHER ==
[2018-06-04 17:38] VITALS: BMI 30.4
[2018-06-04] MEDS: Albuterol-Ipratrop 3 mg / 0.5 (3 ml) UD IH SCH ×3 (17:55→18:39)
[2018-06-04 17:58] LABS: BASO # 0.02 K/mm3 (0.0-2.0); BASO % 0.2 % (0.0-3.0); EOS # 0.1 (0.0-0.7); EOS % 0.5 % (1.5-5.0); GRAN # 7.68 (1.4-6.5); GRAN % 80.9 % (50.0-68.0); HEMOGLOBIN 14.5 g/dL (14.0-18.0); LYMPH # 0.7 (1.2-3.4); LYMPH % 7.4 % (22.0-35.0); MEAN CELL VOLUME 89.4 fl (80.0-105.0); MEAN CORPUSCULAR HEMOGLOBIN 31.4 pg (25.0-35.0); MEAN CORPUSCULAR HGB CONC 35.1 g/dl (31.0-37.0); MEAN PLATELET VOLUME 8.6 fl (7.0-11.0); RBC 4.62 10^6/uL (3.5-6.1); RED CELL DISTRIBUTION WIDTH 13.9 % (11.5-14.5); WHITE BLOOD COUNT 9.5 10^3/ul (4.5-11.0)
--- NOTE | 2018-06-04 17:58 | ED PDOC ---
Arrival/HPI - General Time Seen by Provider: 06/04/18 17:38 Historian: Patient, EMS - Critical Care Critical Care Minutes: 30 minutes Critical Care Time: Excluding Proc Time, Unstable - History of Present Illness Narrative History of Present Illness (Text): 06/04/18 17:48 62 year old male, with past medical history of COPD, schizophrenia, laryngeal ca , AAA, HTN, HLD, and hypothyroidism, presents to the Emergency department complaining of worsening shortness of breath since today. reports worsening symptoms and reportedly called 911. Upon EMS arrival, patient was found to be tachypneic with O2 stat at 80%. Patient was subsequently placed on oxygen and was provided nebulizer treatment prior to arrival to the Emergency department. ROS limited secondary to laryngeal cancer. Patient, however, nods yes or no to questions. Patient informs mild cough but denies any associated chest pain or fever. Patient presents to the Emergency department for medical evaluation. Admits to continuous smoking 06/04/18 18:31 Time/Duration: 1-3 hours Symptom Onset: Gradual Symptom Course: Worsening Activities at Onset: Light Context: Home Past Medical History - Provider Review Nursing Documentation Reviewed: Yes - Infectious Disease Hx of Infectious Diseases: None - Tetanus Immunization Tetanus Immunization: Unknown - Cardiac Hx Cardiac Disorders: Yes Hx Hypertension: Yes - Pulmonary Hx Chronic Obstructive Pulmonary Disease (COPD): Yes - Neurological Hx Neurological Disorder: No - HEENT Hx HEENT Disorder: Yes Hx Cataracts: Yes (WITH BILATERAL SX) - Renal Hx Renal Disorder: No - Endocrine/Metabolic Hx Hypothyroidism: Yes - Hematological/Oncological Hx Blood Disorders: Yes Hx Cancer: Yes (LARYNGEAL CA) - Integumentary Hx Dermatological Disorder: No - Musculoskeletal/Rheumatological Hx Musculoskeletal Disorders: Yes (SPRAIN TO LEFT SHOULDER/CLIMBED FENCE WHEN HE WAS YOUNGER) Hx Falls: Yes - Gastrointestinal Hx Gastrointestinal Disorders: Yes Other/Comment: throat soreness - Genitourinary/Gynecological Hx Genitourinary Disorders: No - Psychiatric Hx Psychophysiologic Disorder: Yes Hx Anxiety: Yes Hx Depression: Yes Hx Emotional Abuse: No Hx Physical Abuse: No Hx Schizophrenia: Yes Hx Substance Use: No - Past Surgical History Past Surgical History: No Previous - Surgical History Hx Orthopedic Surgery: Yes - Anesthesia Hx Anesthesia: Yes Hx Anesthesia Reactions: No Hx Malignant Hyperthermia: No - Suicidal Assessment Feels Threatened In Home Enviroment: No Family/Social History - Physician Review Nursing Documentation Reviewed: Yes Family/Social History: No Known Family HX Smoking Status: Current Some Days Smoker Hx Alcohol Use: No Hx Substance Use: No Hx Substance Use Treatment: No Allergies/Home Meds Allergies/Adverse Reactions: Allergies Penicillins Allergy (Unknown, Verified 05/08/18 17:48) unknown Home Medications: Home Meds Medication Instructions Recorded Confirmed Cholecalciferol (Vitamin D3) 2,000 unit NA DAILY 06/13/14 06/04/18 [Vitamin D3] Multimineral/Multivitamin 1 tab PO DAILY 06/13/14 06/04/18 [Therapeutic-M Tab] fluPHENAZine [Prolixin] 10 mg PO BID 06/13/14 06/04/18 Levothyroxine Sodium [Levoxyl] 25 mcg PO DAILY 01/07/17 06/04/18 Metoprolol Tartrate [Lopressor] 25 mg PO DAILY 01/07/17 06/04/18 Albuterol/Ipratropium [Duoneb 3 3 ml IH Q6 05/08/18 06/04/18 mg/0.5 mg (3 ml) UD] Budesonide/Formoterol Fumarate 2 puff IH BID 05/08/18 06/04/18 [Symbicort 80-4.5 Mcg Inhaler] Fluticasone Propionate [Flovent 50 mcg IH DAILY 05/08/18 06/04/18 Diskus] Omeprazole 20 mg PO DAILY 05/08/18 06/04/18 Simvastatin [Zocor] 40 mg PO DAILY 05/08/18 06/04/18 amLODIPine [Norvasc] 2.5 mg PO DAILY 05/08/18 06/04/18 traZODone [Desyrel] 50 mg PO HS 05/08/18 06/04/18 Review of Systems - Review of Systems Systems not reviewed;Unavailable: Other (limited secondary to laryngeal CA, non- verbal) Constitutional: absent: Fevers Respiratory: SOB, Cough Cardiovascular: absent: Chest Pain Physical Exam Vital Signs Reviewed: Yes Vital Signs Temp Pulse Resp BP Pulse Ox 06/04/18 20:56 110 H 18 96 06/04/18 20:30 102 H 18 85 L 06/04/18 19:54 98.8 F 69 20 92 L 06/04/18 19:24 85 20 128/73 90 L 06/04/18 18:45 92 H 18 138/91 H 90 L 06/04/18 18:21 26 H 06/04/18 17:49 98.7 F 06/04/18 17:43 98.4 F 81 20 138/67 95 Temperature: Afebrile Blood Pressure: Normal Pulse: Regular Respiratory Rate: Tachypneic Appearance: Positive for: Ill-Appearing Pain Distress: None Mental Status: Positive for: other (alert) - Systems Exam Head: Present: Atraumatic, Normocephalic Pupils: Present: PERRL Extroacular Muscles: Present: EOMI Conjunctiva: Present: Normal Mouth: Present: Moist Mucous Membranes Neck: Present: Normal Range of Motion, Other (stoma noted) Respiratory/Chest: Present: Wheezes (bilaterally), Tachypneic, Other (Coarse breath sounds bilaterally). No: Respiratory Distress, Accessory Muscle Use Cardiovascular: Present: Regular Rate and Rhythm, Normal S1, S2. No: Murmurs Abdomen: No: Tenderness, Distention, Peritoneal Signs Back: Present: Normal Inspection Upper Extremity: Present: Normal Inspection. No: Cyanosis, Edema Lower Extremity: Present: Edema (non-pitting edema) Neurological: Present: CN II-XII Intact Skin: Present: Warm, Dry, Normal Color. No: Rashes Psychiatric: Present: Alert Medical Decision Making ED Course and Treatment: 06/04/18 18:01 Impression: 62 year old male presents to the Emergency department complaining of worsening shortness of breath. Differential Diagnosis included but are not limited to: COPD exacerbation Plan: -- ABG -- Labs -- EKG -- Chest X-ray -- Duoneb -- Solumedrol -- Reassess and disposition Prior Visits: Notes and results from previous visits were reviewed. Progress Notes: 06/04/18 18:25 Patient immediately placed on O2 on arrival with duonebs and steroids given. Labs ordered. ABG shows PCO2 elevated to 66 with ph 7.34 consistent with chronic compensated primary respiratory acidosis. Chart review shows same PCO2 on prior admission. Immediately spoke to Dr. Eden who has admitted patient with similar presentation. Discussed case with apparel designer Dr. Ott. 06/04/18 18:47 Cxray show "bilateral Lower lobe infiltrates/atelectasis. New findings compared to the prior chest radiograph." Antibiotics ordered to cover for HAP. Lactate 0.7. Patient is hyponatriemic which family reports patient has a history of. Reports significant water intake daily (>1 gallon) daily. He is not altered and no indications for hypertonic saline. Dr. Ott evaluated patient in the ED. He agrees with current mgmt. Patient maintaining saturation on O2 and will continue to monitor Pco2 for retention. 06/04/18 18:56 Fuel Efficient Aircraft Designer at bedside evaluated patient. Accepts ICU admission. 06/04/18 21:23 - Lab Interpretations Lab Results: 06/04/18 17:45 06/04/18 17:45 Lab Results 06/04/18 19:00: pO2 58 H, VBG pH 7.30 L, VBG pCO2 76.0 H*, VBG HCO3 37.4 H, VBG Total CO2 39.7 H, VBG O2 Sat (Calc) 94.6 H, VBG Base Excess 8.0 H, VBG Potassium 4.4, Glucose 139 H, Lactate 0.7, FiO2 21.0, Sodium 116.0 L*, Chloride 80.0 L, Venous Blood Potassium 4.4 06/04/18 18:07: pCO2 66 H, pO2 66.0 L, HCO3 35.6 H, ABG pH 7.34 L, ABG Total CO2 37.6 H, ABG O2 Saturation 96.1, ABG O2 Content 16.8, ABG Base Excess 7.3 H, ABG Hemoglobin 14.4, ABG Carboxyhemoglobin 12.7 H, POC ABG HHb (Measured) 3.4, ABG Methemoglobin 0.8, ABG O2 Capacity 17.5, Hgb O2 Saturation 83.1 L, FiO2 40.0 06/04/18 17:45: Sodium 118 L*, Potassium 4.4, Chloride 77 L, Carbon Dioxide 34 H , Anion Gap 11, BUN 4 L, Creatinine 0.5 L, Est GFR ( Amer) > 60, Est GFR (Non-Af Amer) > 60, Random Glucose 118 H, Calcium 8.3 L, Phosphorus 2.8, Magnesium 1.6 L, Total Bilirubin 0.8, AST 34, ALT 33, Alkaline Phosphatase 68, Total Creatine Kinase 213, Troponin I 0.04 D, NT-Pro-B Natriuret Pep 892 H, Total Protein 6.4, Albumin 4.0, Globulin 2.5, Albumin/Globulin Ratio 1.6 06/04/18 17:45: PT 11.5, INR 1.01, APTT 33.0 06/04/18 17:45: WBC 9.5 D, RBC 4.62, Hgb 14.5, Hct 41.3 L, MCV 89.4 D, MCH 31.4, MCHC 35.1, RDW 13.9, Plt Count 264, MPV 8.6, Gran % 80.9 H, Lymph % (Auto ) 7.4 L, [place] % (Auto) 11.0 H, Eos % (Auto) 0.5 L, Baso % (Auto) 0.2, Gran # 7.68 H, Lymph # (Auto) 0.7 L, [place] # (Auto) 1.0 H, Eos # (Auto) 0.1, Baso # ( Auto) 0.02 - RAD Interpretation Radiology Orders: 06/04/18 17:43 CHEST PORTABLE [RAD] Stat - Medication Orders Current Medication Orders: Albuterol/Ipratropium (Duoneb 3 Mg/0.5 Mg (3 Ml) Ud) 3 ml IH Q2H PRN PRN Reason: Shortness of Breath Albuterol/Ipratropium (Duoneb 3 Mg/0.5 Mg (3 Ml) Ud) 3 ml IH TIDRESP CY Amlodipine Besylate (Norvasc) 2.5 mg PO DAILY [facility] Atorvastatin Calcium (Lipitor) 20 mg PO HS CY Cholecalciferol (Vitamin D) 2,000 intlu PO DAILY CY Fluphenazine HCl (Prolixin) 10 mg PO BID CY PRN Reason: Protocol Heparin Sodium (Porcine) (Heparin) 5,000 units SC Q12 CY PRN Reason: Protocol Sodium Chloride (Sodium Chloride 0.9%) 1,000 mls @ 100 mls/hr IV .Q10H CY Levofloxacin/Dextrose (Levaquin 500mg) 500 mg in 100 mls @ 100 mls/hr IVPB DAILY CY PRN Reason: Protocol Levothyroxine Sodium (Synthroid) 25 mcg PO ACB CY Methylprednisolone (Solu-Medrol) 40 mg IVP Q8 [facility] Metoprolol Tartrate (Lopressor) 25 mg PO DAILY [facility] Multivitamins/Minerals (Therapeutic-M Tab) 1 tab PO DAILY [facility] Nicotine (Nicoderm Cq) 1 patch TD DAILY CY Pantoprazole Sodium (Protonix Ec Tab) 40 mg PO DAILY CY Trazodone HCl (Desyrel) 50 mg PO HS CY Discontinued Medications Albuterol/Ipratropium (Duoneb 3 Mg/0.5 Mg (3 Ml) Ud) 3 ml IH Q15M CY Stop: 06/04/18 18:16 Last Admin: 06/04/18 18:39 Dose: 3 ml Albuterol/Ipratropium (Duoneb 3 Mg/0.5 Mg (3 Ml) Ud) 3 ml IH STAT STA Stop: 06/04/18 20:02 Albuterol/Ipratropium (Duoneb 3 Mg/0.5 Mg (3 Ml) Ud) 3 ml IH [id number] CY Aspirin (Aspirin Chewable) 81 mg PO STAT STA Stop: 06/04/18 18:32 Last Admin: 06/04/18 18:40 Dose: 81 mg Sodium Chloride (Sodium Chloride 0.9%) 500 mls @ 999 mls/hr IV .Q31M STA Stop: 06/04/18 18:59 Last Admin: 06/04/18 18:39 Dose: 999 mls/hr eMAR Start Stop Document 06/04/18 18:39 GMD (Rec: 06/04/18 18:39 GMD [id number]) Intravenous Solution Start Date 06/04/18 Start Time 18:39 End Date 06/04/18 End time 19:09 Total Infusion Time 30 Vancomycin HCl (Vancomycin 1gm) 1 gm in 250 mls @ 167 mls/hr IVPB STAT STA PRN Reason: Protocol Stop: 06/04/18 20:17 Levofloxacin/Dextrose (Levaquin 750mg) 750 mg IVPB STAT STA PRN Reason: Protocol Stop: 06/04/18 18:49 Last Admin: 06/04/18 19:13 Dose: 750 mg eMAR Start Stop Document 06/04/18 19:13 RG (Rec: 06/04/18 19:23 RG ) Intravenous Solution Start Date 06/04/18 Start Time 19:13 Lorazepam (Ativan) 2 mg IVP ONCE ONE PRN Reason: Protocol Stop: 06/04/18 20:49 Last Admin: 06/04/18 21:03 Dose: IVP Administration Document 06/04/18 21:03 R (Rec: 06/04/18 21:03 R [id number]) Charges for Administration # of IVP Administrations 0 Methylprednisolone (Solu-Medrol) 125 mg IVP STAT STA Stop: 06/04/18 17:43 Last Admin: 06/04/18 17:55 Dose: 125 mg IVP Administration Document 06/04/18 17:55 GMD (Rec: 06/04/18 17:55 GMD [facility] [id number]) Charges for Administration # of IVP Administrations 1 - Scribe Statement The provider has reviewed the documentation as recorded by the Scribe Derrek Mohr. All medical record entries made by the Scribe were at my direction and personally dictated by me. I have reviewed the chart and agree that the record accurately reflects my personal performance of the history, physical exam, medical decision making, and the department course for this patient. I have also personally directed, reviewed, and agree with the discharge instructions and disposition. Disposition/Present on Arrival - Present on Arrival Any Indicators Present on Arrival: No History of DVT/PE: No History of Uncontrolled Diabetes: No Urinary Catheter: No History of Decub. Ulcer: No History Surgical Site Infection Following: None - Disposition Have Diagnosis and Disposition been Completed?: Yes Diagnosis: Acute and chronic respiratory failure ([id number]), Productive cough, Abnormal ABGs, COPD exacerbation, Hyponatremia, Hypoxia Disposition: HOSPITALIZED Disposition Time: 19:29 Patient Plan: ICU Patient Problems: Current Active Problems Problem Status Onset COPD exacerbation Acute Hyponatremia Acute Acute and chronic respiratory failure ([id number]) Acute Productive cough Acute Abnormal ABGs Acute Hypoxia Acute Condition: CRITICAL
[2018-06-04 18:06] LABS: INR 1.01; PROTHROMBIN TIME 11.5 SECONDS (9.4-12.5)
--- NOTE | 2018-06-04 18:08 | RAD ---
Date of service: 06/04/2018 HISTORY: Cough, shortness of breath. COMPARISON: 05/08/2018. FINDINGS: LUNGS: Lower lobe infiltrates/atelectasis. Findings accentuated by portable technique and poor inspiratory effort. PLEURA: No significant pleural effusion identified, no pneumothorax apparent. CARDIOVASCULAR: Cardiomegaly. No evidence of acute, significant cardiovascular disease. OSSEOUS STRUCTURES: No significant abnormalities. VISUALIZED UPPER ABDOMEN: Normal. OTHER FINDINGS: None. IMPRESSION: Bilateral Lower lobe infiltrates/atelectasis. New findings compared to the prior chest radiograph.
[2018-06-04 18:12] LABS: ARTERIAL BLOOD GAS HCO3 35.6 mmol/L (21-28); ARTERIAL BLOOD GAS HEMOGLOBIN 14.4 g/dL (11.7-17.4); ARTERIAL BLOOD GAS O2 CAPACITY 17.5 mL/dl (16-24); ARTERIAL BLOOD GAS O2 CONTENT 16.8 ML/dl (15-23); ARTERIAL BLOOD GAS O2 SAT 96.1 % (95-98); ARTERIAL BLOOD GAS PCO2 66 mm/Hg (35-45); ARTERIAL BLOOD GAS PH 7.34 (7.35-7.45); ARTERIAL BLOOD GAS TCO2 37.6 mmol.L (22-28)
[2018-06-04 18:15] LABS: ALB/GLOB RATIO 1.6 (1.1-1.8); ALT/SGPT 33 U/L (7-56); AST/SGOT 34 U/L (17-59); B-TYPE NATRIURETIC PEPTIDE 892 pg/mL (0-450); BLOOD UREA NITROGEN 4 mg/dL (7-21); CALCIUM 8.3 mg/dL (8.4-10.5); GFR NON-AFRICAN AMERICAN > 60; TROPONIN I 0.04 ng/mL
[2018-06-04] MEDS ORDERED: Sodium Chloride 0.9% 500 ML IV STA (18:29)
[2018-06-04] MEDS ORDERED: levoFLOXacin 750 mg in D5W 150 ML BAG IVPB STA (18:48)
[2018-06-04] MEDS ORDERED: Vancomycin 1gm in NS 250ml 1 GM/250 ML BAG IVPB STA (18:48)
[2018-06-04 19:07] LABS: VENOUS BLOOD GAS PO2 58 mm/Hg (30-55)
[2018-06-04] MEDS ORDERED: Sodium Chloride 0.9% 1,000 ML IV SCH (20:00)
--- NOTE | 2018-06-04 20:00 | CP.PCM.HP ---
Addendum entered and electronically signed by Radha Presley DO 06/05/18 02: 24: Patient went to OR to maintain airway because stoma was very small and could be not ventilated well with a pediatric ET tube through the stoma. Patient went to OR and had trach placed. He was put on the ventilator and respiratory status improved. He remains hyponatremic. Will start 3% saline @30ml/hr and consult Nephrology. Original Note: <Radha Presley - Last Filed: 06/04/18 23:05> History of Present Illness - History of Present Illness History of Present Illness: H&P for HospitalistCassia PGY3 This is a 62yo male with past medical history of laryngeal ca s/p radiation/ trach (removed), HTN, HLD, COPD, tobacco abuse, schizophrenia who came to ED for shortness of breath x 2 days. is at bedside to provide history. She reports that patient has been feeling short of breath and cough with a lot of secretions. His states patient got up to stand and was stumbling and slumped down but did not fall. He has never done that before and decided to take him to ED. Patient has a stoma and had trach removed over 1 yr ago. Patient usually goes to the [facility] for all of his medical care. He has not seen his ENT for 8 months. She also reports that her has been drinking 15-20 17oz bottles of water per day plus a lot of large coffees and chocolate drinks. ROS was limited and obtained through . She denied any recent travel, chest pain, nausea/vomiting/diarrhea, fever/chills, sick contacts. Patient has been at [facility] last month for COPD exacerbation. In the ED, he was found to be 80% on room air and retaining CO2. ENT was notified and patient was taken to OR for emergent intubation to maintain airway. He was also found to be hyponatremic as well. Past medical history: Laryngeal ca s/p resection, radiation, trach and removal, HTN, HLD, COPD, paranoid schizophrenia Past surgical history: Laryngeal ca resection, Hand surgery Home meds: reviewed as per MAR Allergies: PCN - Anaphylaxis Social history: Current heavy smoker, denies EtOH or drug use. Lives with family. independent on most ADLs Family history: Dad- from aortic aneurysm, Mom- lung ca (was heavy smoker) Present on Admission - Present on Admission Any Indicators Present on Admission: No History of DVT/PE: No Review of Systems - Review of Systems All systems: reviewed and no additional remarkable complaints except Review of Systems: 12 point ROS reviewed as per HPI and is otherwise negative Past Patient History - Infectious Disease Hx of Infectious Diseases: None - Tetanus Immunizations Tetanus Immunization: Unknown - Past Social History Smoking Status: Current Some Days Smoker - CARDIAC Hx Cardiac Disorders: Yes Hx Hypertension: Yes - PULMONARY Hx Chronic Obstructive Pulmonary Disease (COPD): Yes - NEUROLOGICAL Hx Neurological Disorder: No - HEENT Hx HEENT Problems: Yes Hx Cataracts: Yes (WITH BILATERAL SX) - RENAL Hx Chronic Kidney Disease: No - ENDOCRINE/METABOLIC Hx Hypothyroidism: Yes - HEMATOLOGICAL/ONCOLOGICAL Hx Blood Disorders: Yes Hx Cancer: Yes (LARYNGEAL CA) - INTEGUMENTARY Hx Dermatological Problems: No - MUSCULOSKELETAL/RHEUMATOLOGICAL Hx Musculoskeletal Disorders: Yes (SPRAIN TO LEFT SHOULDER/CLIMBED FENCE WHEN HE WAS YOUNGER) Hx Falls: Yes - GASTROINTESTINAL Hx Gastrointestinal Disorders: Yes Other/Comment: throat soreness - GENITOURINARY/GYNECOLOGICAL Hx Genitourinary Disorders: No - PSYCHIATRIC Hx Psychophysiologic Disorder: Yes Hx Anxiety: Yes Hx Depression: Yes Hx Emotional Abuse: No Hx Physical Abuse: No Hx Schizophrenia: Yes Hx Substance Use: No - SURGICAL HISTORY Hx Orthopedic Surgery: Yes - ANESTHESIA Hx Anesthesia: Yes Hx Anesthesia Reactions: No Hx Malignant Hyperthermia: No Meds Allergies/Adverse Reactions: Allergies Allergy/AdvReac Type Severity Reaction Status Date / Time Penicillins Allergy Unknown unknown Verified 05/08/18 17:48 Physical Exam - Head Exam Head Exam: ATRAUMATIC, NORMAL INSPECTION, NORMOCEPHALIC - Eye Exam Eye Exam: Normal appearance, PERRL Pupil Exam: NORMAL ACCOMODATION, PERRL - ENT Exam ENT Exam: Mucous Membranes Moist - Neck Exam Additional comments: Stoma in place with whitish yellow secretions - Respiratory Exam Respiratory Exam: Rales, Rhonchi, NORMAL BREATHING PATTERN. absent: Stridor - Cardiovascular Exam Cardiovascular Exam: Tachycardia, REGULAR RHYTHM, +S1, +S2. absent: Gallop, Rubs, Systolic Murmur - GI/Abdominal Exam GI & Abdominal Exam: Normal Bowel Sounds, Soft. absent: Mass, Rebound, Rigid, Tenderness - Extremities Exam Extremities exam: Positive for: pedal edema - Neurological Exam Neurological exam: Alert, CN II-XII Intact - Psychiatric Exam Psychiatric exam: Agitated - Skin Skin Exam: Dry, Intact, Warm Results - Vital Signs Recent Vital Signs: Last Vital Signs Temp 98.7 F 06/04/18 17:49 Pulse 69 06/04/18 19:54 Resp 20 06/04/18 19:54 BP 128/73 06/04/18 19:24 Pulse Ox 92 L 06/04/18 19:54 - Labs Result Diagrams: 06/04/18 17:45 06/04/18 17:45 Assessment & Plan - Assessment and Plan (Free Text) Assessment: This is a 62yo male with past medical history of laryngeal ca s/p radiation/ trach (removed), HTN, HLD, COPD, tobacco abuse, schizophrenia who came to ED for shortness of breath x 2 days. Plan: 1. Hypercapneic respiratory failure - secondary to COPD exacerbation with atelectasis v. fluid overload from increased fluid intake - CXR showed atelectasis versus infiltrates - Pt ventilated and sedated on Propofol - Maintain spO2 >90% - ENT consulted for emergent intubation - Solumedrol 40q8 - Duoneb prn/artur, Brovana and Pulmicort - sputum cultures pending - Vanc and aztreonam 2. 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 HTN - Continue Home med: Norvasc and Metoprolol with holding parameters 4. Hypothyroidism - Continue Home med: Synthroid 5. Hyperlipidemia - Continue Home med: Lipitor 6. Schizophrenia - Continue home medication: trazodone and fluphenazine 7. Tobacco abuse - Nicotine patch - Patient counseled on smoking cessation GI ppx: Protonix DVT ppx: Heparin SC Case seen, discussed and reviewed with Dr. Cat Presley PGY3 - Date & Time Date: 06/04/18 Time: 23:03 Decision To Admit - . Bed Request Type: Critical Care <Nasra Shelton - Last Filed: 06/06/18 02:20> Results - Vital Signs Recent Vital Signs: Last Vital Signs Temp 98.6 F 06/05/18 00:28 Pulse 64 06/05/18 18:00 Resp 14 06/05/18 08:45 BP 116/74 06/05/18 12:30 Pulse Ox 94 L 06/05/18 12:50 - Labs Result Diagrams: 06/05/18 03:55 06/06/18 00:45 Labs: Laboratory Results - last 24 hr 06/05/18 06/05/18 06/05/18 03:55 03:55 05:30 WBC 6.7 D RBC 4.79 Hgb 14.8 Hct 42.7 MCV 89.1 MCH 30.9 MCHC 34.7 RDW 13.8 Plt Count 256 MPV 8.6 Gran % 91.2 H Lymph % (Auto) 3.6 L [place] % (Auto) 5.2 Eos % (Auto) 0.0 L Baso % (Auto) 0.0 Gran # 6.15 Lymph # (Auto) 0.2 L [place] # (Auto) 0.4 Eos # (Auto) 0.0 Baso # (Auto) 0.00 Neutrophils % (Manual) 84 H Band Neutrophils % 9 H Lymphocytes % (Manual) 3 L Monocytes % (Manual) 4 Platelet Evaluation Normal pCO2 65 H pO2 78.0 L HCO3 35.9 H ABG pH 7.35 ABG Total CO2 37.9 H ABG O2 Saturation 97.8 ABG O2 Content 19.8 ABG Base Excess 7.6 H ABG Hemoglobin 15.0 ABG Carboxyhemoglobin 3.3 H POC ABG HHb (Measured) 2.1 ABG Methemoglobin 0.7 ABG O2 Capacity 20.2 Hgb O2 Saturation 93.9 L FiO2 100.0 Sodium 121 L Potassium 4.8 Chloride 79 L Carbon Dioxide 34 H Anion Gap 12 BUN 6 L Creatinine 0.7 L Est GFR ( Amer) > 60 Est GFR (Non-Af Amer) > 60 Random Glucose 142 H Calcium 7.9 L Magnesium 2.1 Troponin I Triglycerides Cholesterol LDL Cholesterol Direct HDL Cholesterol TSH 3rd Generation Cortisol AM Sample Urine Opiates Screen Urine Methadone Screen Ur Barbiturates Screen Ur Phencyclidine Scrn Ur Amphetamines Screen U Benzodiazepines Scrn U Oth Cocaine Metabols U Cannabinoids Screen 06/05/18 06/05/18 06/05/18 08:15 08:34 08:34 WBC RBC Hgb Hct MCV MCH MCHC RDW Plt Count MPV Gran % Lymph % (Auto) [place] % (Auto) Eos % (Auto) Baso % (Auto) Gran # Lymph # (Auto) [place] # (Auto) Eos # (Auto) Baso # (Auto) Neutrophils % (Manual) Band Neutrophils % Lymphocytes % (Manual) Monocytes % (Manual) Platelet Evaluation pCO2 pO2 HCO3 ABG pH ABG Total CO2 ABG O2 Saturation ABG O2 Content ABG Base Excess ABG Hemoglobin ABG Carboxyhemoglobin POC ABG HHb (Measured) ABG Methemoglobin ABG O2 Capacity Hgb O2 Saturation FiO2 Sodium 126 L Potassium 4.9 Chloride 84 L Carbon Dioxide 37 H Anion Gap 10 BUN 6 L Creatinine 0.7 L Est GFR ( Amer) > 60 Est GFR (Non-Af Amer) > 60 Random Glucose 137 H Calcium 8.5 Magnesium Troponin I 0.04 Triglycerides 67 Cholesterol 186 LDL Cholesterol Direct 109 HDL Cholesterol 58 TSH 3rd Generation Cortisol AM Sample Urine Opiates Screen Urine Methadone Screen Ur Barbiturates Screen Ur Phencyclidine Scrn Ur Amphetamines Screen U Benzodiazepines Scrn U Oth Cocaine Metabols U Cannabinoids Screen 06/05/18 06/05/18 06/05/18 08:34 11:30 11:30 WBC RBC Hgb Hct MCV MCH MCHC RDW Plt Count MPV Gran % Lymph % (Auto) [place] % (Auto) Eos % (Auto) Baso % (Auto) Gran # Lymph # (Auto) [place] # (Auto) Eos # (Auto) Baso # (Auto) Neutrophils % (Manual) Band Neutrophils % Lymphocytes % (Manual) Monocytes % (Manual) Platelet Evaluation pCO2 pO2 HCO3 ABG pH ABG Total CO2 ABG O2 Saturation ABG O2 Content ABG Base Excess ABG Hemoglobin ABG Carboxyhemoglobin POC ABG HHb (Measured) ABG Methemoglobin ABG O2 Capacity Hgb O2 Saturation FiO2 Sodium 127 L Potassium 4.8 Chloride 86 L Carbon Dioxide 36 H Anion Gap 10 BUN 6 L Creatinine 0.7 L Est GFR ( Amer) > 60 Est GFR (Non-Af Amer) > 60 Random Glucose 140 H Calcium 8.6 Magnesium Troponin I Triglycerides Cholesterol LDL Cholesterol Direct HDL Cholesterol TSH 3rd Generation 0.44 L Cortisol AM Sample 9.1 Urine Opiates Screen Urine Methadone Screen Ur Barbiturates Screen Ur Phencyclidine Scrn Ur Amphetamines Screen U Benzodiazepines Scrn U Oth Cocaine Metabols U Cannabinoids Screen 06/05/18 06/05/18 06/05/18 13:30 15:34 19:56 WBC RBC Hgb Hct MCV MCH MCHC RDW Plt Count MPV Gran % Lymph % (Auto) [place] % (Auto) Eos % (Auto) Baso % (Auto) Gran # Lymph # (Auto) [place] # (Auto) Eos # (Auto) Baso # (Auto) Neutrophils % (Manual) Band Neutrophils % Lymphocytes % (Manual) Monocytes % (Manual) Platelet Evaluation pCO2 pO2 HCO3 ABG pH ABG Total CO2 ABG O2 Saturation ABG O2 Content ABG Base Excess ABG Hemoglobin ABG Carboxyhemoglobin POC ABG HHb (Measured) ABG Methemoglobin ABG O2 Capacity Hgb O2 Saturation FiO2 Sodium 128 L 128 L Potassium 4.5 4.1 Chloride 85 L 86 L Carbon Dioxide 38 H 38 H Anion Gap 10 8 L BUN 6 L 6 L Creatinine 0.8 0.6 L Est GFR ( Amer) > 60 > 60 Est GFR (Non-Af Amer) > 60 > 60 Random Glucose 150 H 141 H Calcium 8.4 8.3 L Magnesium Troponin I Triglycerides Cholesterol LDL Cholesterol Direct HDL Cholesterol TSH 3rd Generation Cortisol AM Sample Urine Opiates Screen Negative Urine Methadone Screen Negative Ur Barbiturates Screen Negative Ur Phencyclidine Scrn Negative Ur Amphetamines Screen Negative U Benzodiazepines Scrn Negative U Oth Cocaine Metabols Negative U Cannabinoids Screen Positive H 06/06/18 00:45 WBC RBC Hgb Hct MCV MCH MCHC RDW Plt Count MPV Gran % Lymph % (Auto) [place] % (Auto) Eos % (Auto) Baso % (Auto) Gran # Lymph # (Auto) [place] # (Auto) Eos # (Auto) Baso # (Auto) Neutrophils % (Manual) Band Neutrophils % Lymphocytes % (Manual) Monocytes % (Manual) Platelet Evaluation pCO2 pO2 HCO3 ABG pH ABG Total CO2 ABG O2 Saturation ABG O2 Content ABG Base Excess ABG Hemoglobin ABG Carboxyhemoglobin POC ABG HHb (Measured) ABG Methemoglobin ABG O2 Capacity Hgb O2 Saturation FiO2 Sodium 128 L Potassium 3.9 Chloride 87 L Carbon Dioxide 39 H Anion Gap 7 L BUN 6 L Creatinine 0.6 L Est GFR ( Amer) > 60 Est GFR (Non-Af Amer) > 60 Random Glucose 134 H Calcium 8.2 L Magnesium Troponin I Triglycerides Cholesterol LDL Cholesterol Direct HDL Cholesterol TSH 3rd Generation Cortisol AM Sample Urine Opiates Screen Urine Methadone Screen Ur Barbiturates Screen Ur Phencyclidine Scrn Ur Amphetamines Screen U Benzodiazepines Scrn U Oth Cocaine Metabols U Cannabinoids Screen
[2018-06-04] MEDS ORDERED: Albuterol-Ipratrop 3 mg / 0.5 (3 ml) UD IH STA (20:01)
[2018-06-04] MEDS ORDERED: Albuterol-Ipratrop 3 mg / 0.5 (3 ml) UD IH PRN (20:01)
[2018-06-04] MEDS ORDERED: Propofol 10 mg/ml Inj (20 ML) ONE (21:18)
[2018-06-04] MEDS ORDERED: Propofol 10 mg/ml Inj (20 ML) IVP ONE (21:26)
[2018-06-04] MEDS ORDERED: Propofol 10 mg/ml 1,000 MG/100 ML VIAL ONE (21:43)
[2018-06-04] MEDS: Propofol 10 mg/ml 1,000 MG/100 ML VIAL IV PRN (21:43)
[2018-06-04 22:21] LABS: OSMOLALITY,URINE 314 mosm/kg (300-1000)
[2018-06-04 22:23] LABS: URINE BILIRUBIN NEGATIVE (NEGATIVE); URINE BLOOD NEGATIVE (NEGATIVE); URINE GLUCOSE (UA) NEGATIVE (NEGATIVE); URINE LEUKOCYTE ESTERASE NEGATIVE Leu/uL (NEGATIVE); URINE PROTEIN 100 mg/dL (<30 mg/dL); URINE UROBILINOGEN 0.2 E.U./dL (<1 E.U./dL)
[2018-06-04 22:25] LABS: URINE APPEARANCE CLEAR (CLEAR); URINE COLOR YELLOW (YELLOW)
[2018-06-04 22:28] LABS: URINE EPITHELIAL CELLS 0 - 2 /hpf (0-5); URINE FINE GRANULAR CAST 0 - 2 /hpf (0-2); URINE RBC 0 - 2 /hpf (0-2)
[2018-06-04 22:29] LABS: URINE AMORPHOUS SEDIMENT FEW; URINE BACTERIA MOD (NEG); URINE HYALINE CAST 0 - 2 /hpf
[2018-06-04] MEDS ORDERED: Magnesium Sulfate 1 gm in D5W 1 GM/100 ML BAG IVPB ONE (22:48)
[2018-06-04] MEDS ORDERED: Lidocaine 1% w Epi 1:100,000 Inj ONE (22:52)
[2018-06-04] MEDS ORDERED: Rocuronium 10 mg/ml (5 ml) ONE (23:06)
--- NOTE | 2018-06-05 00:13 | PCM.SURG1 ---
<Sabrina Kapoor - Last Filed: 06/05/18 00:10> Surgeon's Initial Post Op Note - Surgeon's Notes Surgeon: Dr. Manzo [employer] Teacher: Dr. Kapoor PGY4 Type of Anesthesia: General Endo Anesthesia Administered By: Everette Pre-Operative Diagnosis: Respiratory failure Operative Findings: severe laryngeomalacia, prior trach stoma Post-Operative Diagnosis: same Operation Performed: Tracheostomy insertion. Rigid Laryngoscopy Specimen/Specimens Removed: size 4 trach inserted Estimated Blood Loss: EBL {In ML}: 5 Blood Products Given: N/A Drains Used: No Drains Post-Op Condition: Good Date of Surgery/Procedure: 06/05/18 Time of Surgery/Procedure: 00:12 <Hosea Manzo - Last Filed: 06/05/18 10:41> Surgeon's Initial Post Op Note - Surgeon's Notes Operative Findings: laryngeal ca Operation Performed: tracgheostomy revision
--- NOTE | 2018-06-05 00:13 | CP.PCM.CON ---
<Sabrina Kapoor - Last Filed: 06/05/18 00:58> History of Present Illness - History of Present Illness History of Present Illness: ENT Surgery - Dr. Manzo 62M w/ hx of HTN, COPD, HL, Schizophrenia, and Laryngeal Ca s/p partial laryngectomy, XRT, and tracheostomy which was removed about 1 year ago. History obtained from the . Pt was brought to ED today with worsening SOB x3 days with associated productive cough. He was becoming progressively worse over the past few days and today when attempting to stand up he nearly collapsed , so decided to bring him to the ED. Per the tracheostomy was removed over 1 year ago. The stoma has remained patent. The patient has continued to smoke heavily. also notes that pt has been drinking excessive amounts of water, 15-20 17oz bottles per day in addition to other fluid intake. Denies any Fevers/Chills, Nausea/Vomiting, Chest pain. Medical team placed a 4 fr ETT to cannulate the trach stoma temporarily, however patient remained with poor O2 saturations, unable to protect his airway , with copious secretions. ENT was called to evaluate the patient and decision made to take pt. to OR for definitive airway. PMH: Laryngeal ca s/p resection and XRT, HTN, HLD, COPD, Schizophrenia PSH: Partial laryngectomy, Tracheostomy, Hand surgery Meds as per chart Allergic to PCN (Anaphylaxis) Social: Heavy smoker, No Etoh or drug use Review of Systems - Review of Systems Systems not reviewed;Unavailable: Intubated Past Patient History - Infectious Disease Hx of Infectious Diseases: None - Tetanus Immunizations Tetanus Immunization: Unknown - Past Social History Smoking Status: Current Some Days Smoker - CARDIAC Hx Cardiac Disorders: Yes Hx Hypertension: Yes - PULMONARY Hx Chronic Obstructive Pulmonary Disease (COPD): Yes - NEUROLOGICAL Hx Neurological Disorder: No - HEENT Hx HEENT Problems: Yes Hx Cataracts: Yes (WITH BILATERAL SX) - RENAL Hx Chronic Kidney Disease: No - ENDOCRINE/METABOLIC Hx Hypothyroidism: Yes - HEMATOLOGICAL/ONCOLOGICAL Hx Blood Disorders: Yes Hx Cancer: Yes (LARYNGEAL CA) - INTEGUMENTARY Hx Dermatological Problems: No - MUSCULOSKELETAL/RHEUMATOLOGICAL Hx Musculoskeletal Disorders: Yes (SPRAIN TO LEFT SHOULDER/CLIMBED FENCE WHEN HE WAS YOUNGER) Hx Falls: Yes - GASTROINTESTINAL Hx Gastrointestinal Disorders: Yes Other/Comment: throat soreness - GENITOURINARY/GYNECOLOGICAL Hx Genitourinary Disorders: No - PSYCHIATRIC Hx Psychophysiologic Disorder: Yes Hx Anxiety: Yes Hx Depression: Yes Hx Emotional Abuse: No Hx Physical Abuse: No Hx Schizophrenia: Yes Hx Substance Use: No - SURGICAL HISTORY Hx Orthopedic Surgery: Yes - ANESTHESIA Hx Anesthesia: Yes Hx Anesthesia Reactions: No Hx Malignant Hyperthermia: No Meds Allergies/Adverse Reactions: Allergies Allergy/AdvReac Type Severity Reaction Status Date / Time Penicillins Allergy Unknown unknown Verified 05/08/18 17:48 - Medications Medications: Current Medications Albuterol/Ipratropium (Duoneb 3 Mg/0.5 Mg (3 Ml) Ud) 3 ml IH Q2H PRN PRN Reason: Shortness of Breath Albuterol/Ipratropium (Duoneb 3 Mg/0.5 Mg (3 Ml) Ud) 3 ml IH TIDRESP [facility] Amlodipine Besylate (Norvasc) 2.5 mg PO DAILY [facility] Arformoterol Tartrate (Brovana) 15 mcg IH [id number] [facility] Atorvastatin Calcium (Lipitor) 20 mg PO HS CY Budesonide (Pulmicort Respules) 0.25 mg IH [id number] [facility] Cholecalciferol (Vitamin D) 2,000 intlu PO DAILY CY Fluphenazine HCl (Prolixin) 10 mg PO BID CY PRN Reason: Protocol Heparin Sodium (Porcine) (Heparin) 5,000 units SC Q12 CY PRN Reason: Protocol Propofol (Diprivan) 1,000 mg in 100 mls @ 2.722 mls/hr IV .Q24H PRN; Protocol; 5 MCG/KG/MIN PRN Reason: TITRATE PER MD ORDER Last Titration: 06/04/18 22:01 Dose: 18.37 mcg/kg/min, 10 mls/hr Aztreonam (Azactam 1 Gm) 100 mls @ 100 mls/hr IVPB Q8 CY PRN Reason: Protocol Stop: 06/05/18 06:59 Levothyroxine Sodium (Synthroid) 25 mcg PO ACB [facility] Methylprednisolone (Solu-Medrol) 40 mg IVP Q8 [facility] Metoprolol Tartrate (Lopressor) 25 mg PO DAILY [facility] Multivitamins/Minerals (Therapeutic-M Tab) 1 tab PO DAILY [facility] Nicotine (Nicoderm Cq) 1 patch TD DAILY [facility] Pantoprazole Sodium (Protonix Inj) 40 mg IVP DAILY CY Trazodone HCl (Desyrel) 50 mg PO HS CY Physical Exam - Constitutional Appears: In Acute Distress - Head Exam Head Exam: ATRAUMATIC, NORMAL INSPECTION, NORMOCEPHALIC - Eye Exam Eye Exam: Normal appearance - Respiratory Exam Respiratory Exam: Accessory Muscle Use, Decreased Breath Sounds Additional comments: copious secretions - Cardiovascular Exam Cardiovascular Exam: REGULAR RHYTHM - Neurological Exam Neurological exam: Altered Additional comments: sedated - Skin Skin Exam: Dry, Intact Results - Vital Signs Recent Vital Signs: Last Vital Signs Temp 98.8 F 06/04/18 19:54 Pulse 110 H 06/04/18 20:56 Resp 18 06/04/18 20:56 BP 128/73 06/04/18 19:24 Pulse Ox 96 06/04/18 20:56 - Labs Result Diagrams: 06/04/18 17:45 06/04/18 17:45 Labs: Laboratory Results - last 24 hr 06/04/18 06/04/18 06/04/18 21:54 21:56 22:19 Serum Osmolality 244 L Urine Color Yellow Urine Appearance Clear Urine pH 7.0 Ur Specific Drummond 1.020 Urine Protein 100 H Urine Glucose (UA) Negative Urine Ketones Negative Urine Blood Negative Urine Nitrate Negative Urine Bilirubin Negative Urine Urobilinogen 0.2 Ur Leukocyte Esterase Negative Urine RBC 0 - 2 Urine WBC 1 - 3 Ur Epithelial Cells 0 - 2 Amorphous Sediment Few Urine Bacteria Mod Hyaline Casts 0 - 2 Fine Granular Casts 0 - 2 Urine Osmolality 314 Ur Random Sodium 30 Assessment & Plan - Assessment and Plan (Free Text) Assessment: 62M w/ HTN, COPD, hx of laryngeal Ca s/p partial laryngectomy and XRT years ago , presenting with acute respiratory failure -OR for Tracheostomy -Post op routine trach care -Wean vent as tolerated -PET/CT scan to evaluate for recurrence when more stable -Medical management as per primary DW Dr Anais Kapoor PGY4 <Hosea Manzo - Last Filed: 06/05/18 10:45> Meds - Medications Medications: Current Medications Albuterol/Ipratropium (Duoneb 3 Mg/0.5 Mg (3 Ml) Ud) 3 ml IH Q2H PRN PRN Reason: Shortness of Breath Albuterol/Ipratropium (Duoneb 3 Mg/0.5 Mg (3 Ml) Ud) 3 ml IH [id number] [facility] Last Admin: 06/05/18 07:36 Dose: 3 ml Amlodipine Besylate (Norvasc) 2.5 mg PO DAILY [facility] Arformoterol Tartrate (Brovana) 15 mcg IH [id number] [facility] Last Admin: 06/05/18 07:34 Dose: 15 mcg Atorvastatin Calcium (Lipitor) 20 mg PO HS [facility] Budesonide (Pulmicort Respules) 0.25 mg IH [id number] [facility] Last Admin: 06/05/18 07:36 Dose: 0.25 mg Cholecalciferol (Vitamin D) 2,000 intlu PO DAILY [facility] Fluphenazine HCl (Prolixin) 10 mg PO BID [facility] PRN Reason: Protocol Heparin Sodium (Porcine) (Heparin) 5,000 units SC Q12 [facility] PRN Reason: Protocol Last Admin: 06/05/18 00:36 Dose: Not Given Propofol (Diprivan) 1,000 mg in 100 mls @ 2.722 mls/hr IV .Q24H PRN; Protocol; 5 MCG/KG/MIN PRN Reason: TITRATE PER MD ORDER Last Titration: 06/05/18 09:05 Dose: 36.74 mcg/kg/min, 20 mls/hr Levothyroxine Sodium (Synthroid) 25 mcg PO ACB [facility] Methylprednisolone (Solu-Medrol) 40 mg IVP Q8 [facility] Last Admin: 06/05/18 05:40 Dose: 40 mg Metoprolol Tartrate (Lopressor) 25 mg PO DAILY [facility] Multivitamins/Minerals (Therapeutic-M Tab) 1 tab PO DAILY [facility] Nicotine (Nicoderm Cq) 1 patch TD DAILY [facility] Pantoprazole Sodium (Protonix Inj) 40 mg IVP DAILY [facility] Trazodone HCl (Desyrel) 50 mg PO HS [facility] Last Admin: 06/05/18 00:40 Dose: Not Given Results - Vital Signs Recent Vital Signs: Last Vital Signs Temp 98.6 F 06/05/18 00:28 Pulse 72 06/05/18 08:20 Resp 18 06/05/18 00:28 BP 123/83 06/05/18 08:00 Pulse Ox 96 06/05/18 08:20 - Labs Result Diagrams: 06/05/18 03:55 06/05/18 08:15 Labs: Laboratory Results - last 24 hr 09/13/18 09/13/18 09/14/18 21:54 22:19 00:25 WBC RBC Hgb Hct MCV MCH MCHC RDW Plt Count MPV Gran % Lymph % (Auto) Donley % (Auto) Eos % (Auto) Baso % (Auto) Gran # Lymph # (Auto) Donley # (Auto) Eos # (Auto) Baso # (Auto) Neutrophils % (Manual) Band Neutrophils % Lymphocytes % (Manual) Monocytes % (Manual) Platelet Evaluation pCO2 pO2 HCO3 ABG pH ABG Total CO2 ABG O2 Saturation ABG O2 Content ABG Base Excess ABG Hemoglobin ABG Carboxyhemoglobin POC ABG HHb (Measured) ABG Methemoglobin ABG O2 Capacity Hgb O2 Saturation FiO2 Sodium 118 L* Potassium 4.7 Chloride 78 L Carbon Dioxide 31 Anion Gap 13 BUN 5 L Creatinine 0.7 L Est GFR ( Amer) > 60 Est GFR (Non-Af Amer) > 60 Random Glucose 165 H Calcium 8.0 L Magnesium Troponin I Triglycerides Cholesterol LDL Cholesterol Direct HDL Cholesterol Urine Color Yellow Urine Appearance Clear Urine pH 7.0 Ur Specific Drummond 1.020 Urine Protein 100 H Urine Glucose (UA) Negative Urine Ketones Negative Urine Blood Negative Urine Nitrate Negative Urine Bilirubin Negative Urine Urobilinogen 0.2 Ur Leukocyte Esterase Negative Urine RBC 0 - 2 Urine WBC 1 - 3 Ur Epithelial Cells 0 - 2 Amorphous Sediment Few Urine Bacteria Mod Hyaline Casts 0 - 2 Fine Granular Casts 0 - 2 Urine Osmolality 314 Ur Random Sodium 30 06/05/18 06/05/18 06/05/18 00:45 03:55 03:55 WBC 6.7 D RBC 4.79 Hgb 14.8 Hct 42.7 MCV 89.1 MCH 30.9 MCHC 34.7 RDW 13.8 Plt Count 256 MPV 8.6 Gran % 91.2 H Lymph % (Auto) 3.6 L Donley % (Auto) 5.2 Eos % (Auto) 0.0 L Baso % (Auto) 0.0 Gran # 6.15 Lymph # (Auto) 0.2 L Donley # (Auto) 0.4 Eos # (Auto) 0.0 Baso # (Auto) 0.00 Neutrophils % (Manual) 84 H Band Neutrophils % 9 H Lymphocytes % (Manual) 3 L Monocytes % (Manual) 4 Platelet Evaluation Normal pCO2 60 H pO2 79.0 L HCO3 33.1 H ABG pH 7.35 ABG Total CO2 34.9 H ABG O2 Saturation 97.8 ABG O2 Content 18.8 ABG Base Excess 5.5 H ABG Hemoglobin 14.7 ABG Carboxyhemoglobin 6.2 H POC ABG HHb (Measured) 2.0 ABG Methemoglobin 1.1 ABG O2 Capacity 19.2 Hgb O2 Saturation 90.7 L FiO2 100.0 Sodium 121 L Potassium 4.8 Chloride 79 L Carbon Dioxide 34 H Anion Gap 12 BUN 6 L Creatinine 0.7 L Est GFR ( Amer) > 60 Est GFR (Non-Af Amer) > 60 Random Glucose 142 H Calcium 7.9 L Magnesium 2.1 Troponin I Triglycerides Cholesterol LDL Cholesterol Direct HDL Cholesterol Urine Color Urine Appearance Urine pH Ur Specific Drummond Urine Protein Urine Glucose (UA) Urine Ketones Urine Blood Urine Nitrate Urine Bilirubin Urine Urobilinogen Ur Leukocyte Esterase Urine RBC Urine WBC Ur Epithelial Cells Amorphous Sediment Urine Bacteria Hyaline Casts Fine Granular Casts Urine Osmolality Ur Random Sodium 06/05/18 06/05/18 06/05/18 05:30 08:15 08:34 WBC RBC Hgb Hct MCV MCH MCHC RDW Plt Count MPV Gran % Lymph % (Auto) Donley % (Auto) Eos % (Auto) Baso % (Auto) Gran # Lymph # (Auto) Donley # (Auto) Eos # (Auto) Baso # (Auto) Neutrophils % (Manual) Band Neutrophils % Lymphocytes % (Manual) Monocytes % (Manual) Platelet Evaluation pCO2 65 H pO2 78.0 L HCO3 35.9 H ABG pH 7.35 ABG Total CO2 37.9 H ABG O2 Saturation 97.8 ABG O2 Content 19.8 ABG Base Excess 7.6 H ABG Hemoglobin 15.0 ABG Carboxyhemoglobin 3.3 H POC ABG HHb (Measured) 2.1 ABG Methemoglobin 0.7 ABG O2 Capacity 20.2 Hgb O2 Saturation 93.9 L FiO2 100.0 Sodium 126 L Potassium 4.9 Chloride 84 L Carbon Dioxide 37 H Anion Gap 10 BUN 6 L Creatinine 0.7 L Est GFR ( Amer) > 60 Est GFR (Non-Af Amer) > 60 Random Glucose 137 H Calcium 8.5 Magnesium Troponin I 0.04 Triglycerides Cholesterol LDL Cholesterol Direct HDL Cholesterol Urine Color Urine Appearance Urine pH Ur Specific Drum[place] Urine Protein Urine Glucose (UA) Urine Ketones Urine Blood Urine Nitrate Urine Bilirubin Urine Urobilinogen Ur Leukocyte Esterase Urine RBC Urine WBC Ur Epithelial Cells Amorphous Sediment Urine Bacteria Hyaline Casts Fine Granular Casts Urine Osmolality Ur Random Sodium 06/05/18 08:34 WBC RBC Hgb Hct MCV MCH MCHC RDW Plt Count MPV Gran % Lymph % (Auto) Donley % (Auto) Eos % (Auto) Baso % (Auto) Gran # Lymph # (Auto) Donley # (Auto) Eos # (Auto) Baso # (Auto) Neutrophils % (Manual) Band Neutrophils % Lymphocytes % (Manual) Monocytes % (Manual) Platelet Evaluation pCO2 pO2 HCO3 ABG pH ABG Total CO2 ABG O2 Saturation ABG O2 Content ABG Base Excess ABG Hemoglobin ABG Carboxyhemoglobin POC ABG HHb (Measured) ABG Methemoglobin ABG O2 Capacity Hgb O2 Saturation FiO2 Sodium Potassium Chloride Carbon Dioxide Anion Gap BUN Creatinine Est GFR ( Amer) Est GFR (Non-Af Amer) Random Glucose Calcium Magnesium Troponin I Triglycerides 67 Cholesterol 186 LDL Cholesterol Direct 109 HDL Cholesterol 58 Urine Color Urine Appearance Urine pH Ur Specific [place] Urine Protein Urine Glucose (UA) Urine Ketones Urine Blood Urine Nitrate Urine Bilirubin Urine Urobilinogen Ur Leukocyte Esterase Urine RBC Urine WBC Ur Epithelial Cells Amorphous Sediment Urine Bacteria Hyaline Casts Fine Granular Casts Urine Osmolality Ur Random Sodium Assessment & Plan - Assessment and Plan (Free Text) Plan: patient was evaluated with the resident at bedside. I agree with the assessment and plan
[2018-06-05] MEDS: MethylPREDNISolone 40 mg Vial IVP SCH ×2 (00:35→05:40)
[2018-06-05] MEDS: Aztreonam 1 Gm in NS 100mL 100 ML IVPB SCH ×2 (00:39→05:40)
[2018-06-05 00:56] LABS: ARTERIAL BLOOD GAS HCO3 33.1 mmol/L (21-28); ARTERIAL BLOOD GAS HEMOGLOBIN 14.7 g/dL (11.7-17.4); ARTERIAL BLOOD GAS O2 CAPACITY 19.2 mL/dl (16-24); ARTERIAL BLOOD GAS O2 CONTENT 18.8 ML/dl (15-23); ARTERIAL BLOOD GAS O2 SAT 97.8 % (95-98); ARTERIAL BLOOD GAS PCO2 60 mm/Hg (35-45); ARTERIAL BLOOD GAS PH 7.35 (7.35-7.45); ARTERIAL BLOOD GAS TCO2 34.9 mmol.L (22-28)
[2018-06-05 01:00] LABS: BLOOD UREA NITROGEN 5 mg/dL (7-21); GFR NON-AFRICAN AMERICAN > 60
[2018-06-05] MEDS ORDERED: Sodium Chloride 0.9% 1,000 ML IV SCH (01:15)
[2018-06-05] MEDS: Albuterol-Ipratrop 3 mg / 0.5 (3 ml) UD IH SCH ×4 (01:33→20:14)
[2018-06-05] MEDS ORDERED: Naloxone 0.4 mg/ml Inj (Adult) ONE ×2 (01:57→02:00)
[2018-06-05] MEDS ORDERED: Albuterol-Ipratrop 3 mg / 0.5 (3 ml) UD IH SCH ×2 (02:00→08:00)
[2018-06-05] MEDS ORDERED: Sodium Chloride 3% 500 ML IV SCH (02:15)
[2018-06-05 04:35] LABS: GRAN # 6.15 (1.4-6.5); GRAN % 91.2 % (50.0-68.0); HEMOGLOBIN 14.8 g/dL (14.0-18.0); LYMPH # 0.2 (1.2-3.4); LYMPH % 3.6 % (22.0-35.0); MEAN CELL VOLUME 89.1 fl (80.0-105.0); MEAN CORPUSCULAR HEMOGLOBIN 30.9 pg (25.0-35.0); MEAN CORPUSCULAR HGB CONC 34.7 g/dl (31.0-37.0); MEAN PLATELET VOLUME 8.6 fl (7.0-11.0); MONO # 0.4 (0.1-0.6); MONO % 5.2 % (1.0-6.0); PLATELET COUNT 256 10^3/uL (120.0-450.0); RBC 4.79 10^6/uL (3.5-6.1); RED CELL DISTRIBUTION WIDTH 13.8 % (11.5-14.5); WHITE BLOOD COUNT 6.7 10^3/ul (4.5-11.0)
[2018-06-05] MEDS: Propofol 10 mg/ml 1,000 MG/100 ML VIAL IV PRN ×4 (04:45→19:24)
[2018-06-05 05:16] LABS: BLOOD UREA NITROGEN 6 mg/dL (7-21); CALCIUM 7.9 mg/dL (8.4-10.5); GFR NON-AFRICAN AMERICAN > 60
[2018-06-05 05:40] LABS: ARTERIAL BLOOD GAS HCO3 35.9 mmol/L (21-28); ARTERIAL BLOOD GAS O2 CAPACITY 20.2 mL/dl (16-24); ARTERIAL BLOOD GAS O2 CONTENT 19.8 ML/dl (15-23); ARTERIAL BLOOD GAS O2 SAT 97.8 % (95-98); ARTERIAL BLOOD GAS PCO2 65 mm/Hg (35-45); ARTERIAL BLOOD GAS PH 7.35 (7.35-7.45); ARTERIAL BLOOD GAS TCO2 37.9 mmol.L (22-28)
[2018-06-05 06:10] LABS: BAND 9 % (0-2); LYMPHOCYTE 3 % (22.0-35.0); MONOCYTE 4 % (1.0-6.0); NEUTROPHIL 84 % (50.0-70.0)
[2018-06-05 06:11] LABS: PLATELET ESTIMATE NORMAL (NORMAL)
[2018-06-05] MEDS: Arformoterol 15 mcg/2 ml Inh Sol IH SCH ×2 (07:34→20:14)
[2018-06-05] MEDS: Budesonide 0.25 mg/2 ml Inhal Susp UD IH SCH ×2 (07:36→20:15)
--- NOTE | 2018-06-05 08:04 | RAD ---
Date of service: 06/05/2018 HISTORY: post trach COMPARISON: 06/04/2018 FINDINGS: LUNGS: There is a new tracheostomy in satisfactory position. The nasogastric tube is in satisfactory position. The lungs are clear PLEURA: No significant pleural effusion identified, no pneumothorax apparent. CARDIOVASCULAR: Normal. OSSEOUS STRUCTURES: No significant abnormalities. VISUALIZED UPPER ABDOMEN: Normal. OTHER FINDINGS: None. IMPRESSION: There is a new tracheostomy in satisfactory position. The nasogastric tube is in satisfactory position. The lungs are clear
--- NOTE | 2018-06-05 08:05 | CP.CCUPN ---
<Delores Garrido - Last Filed: 06/05/18 13:14> CCU Subjective - Physician Review Subjective (Free Text): Icu Progress note for Dr. Danny Shelton Patient seen and examined this am at bedside. Overnight patient was taken to OR to place tracheostomy d/t insufficient ventilation with previous stoma site. Patient is intubated, tolerating ventilation well. Interview is limited due to intubated status. Patient is afebrile and normotensive on 4 mcg of levophedrine. 06/05/18 08:01 CCU Objective - Vital Signs / Intake & Output Vital Signs (Last 4 hours): Vital Signs Pulse 06/05/18 06:00 69 Intake and Output (Last 8hrs): Intake & Output 06/04/18 06/05/18 06/05/18 22:59 06:59 14:59 Intake Total 5 95 Balance 5 95 Intake: IV 5 95 - Physical Exam Head: Positive for: Atraumatic, Normocephalic Pupils: Positive for: Pinpoint Conjunctiva: Positive for: Normal Mouth: Positive for: Moist Mucous Membranes Neck: Positive for: Normal Range of Motion Respiratory/Chest: Positive for: Wheezes (bilaterally), Other (Coarse breath sounds bilaterally, intubated, tolerating ventilation well). Negative for: Respiratory Distress, Accessory Muscle Use Cardiovascular: Positive for: Regular Rate and Rhythm, Normal S1, S2. Negative for: Murmurs Abdomen: Negative for: Tenderness, Distention, Peritoneal Signs, Guarding Back: Positive for: Normal Inspection Upper Extremity: Positive for: Normal Inspection. Negative for: Cyanosis, Edema Lower Extremity: Negative for: Edema, Erythema Neurological: Positive for: CN II-XII Intact Skin: Positive for: Warm, Dry, Normal Color. Negative for: Rashes Psychiatric: Positive for: Other (intubated and sedated) - Medications Active Medications: Active Medications Generic Name Dose Route Start Last Admin Trade Name Freq PRN Reason Stop Dose Admin Albuterol/Ipratropium 3 ml 06/04/18 20:01 Duoneb 3 Mg/0.5 Mg (3 Ml) Ud IH Q2H PRN Shortness of Breath Albuterol/Ipratropium 3 ml 06/05/18 02:00 06/05/18 07:36 Duoneb 3 Mg/0.5 Mg (3 Ml) Ud IH 3 ml [id number] ARTUR Administration Amlodipine Besylate 2.5 mg 06/05/18 10:00 Norvasc PO DAILY [facility] Arformoterol Tartrate 15 mcg 06/05/18 08:00 06/05/18 07:34 Brovana IH 15 mcg [id number] ARTUR Administration Atorvastatin Calcium 20 mg 06/05/18 22:00 Lipitor PO HS ARTUR Budesonide 0.25 mg 06/05/18 08:00 06/05/18 07:36 Pulmicort Respules IH 0.25 mg [id number] ARTUR Administration Cholecalciferol 2,000 intlu 06/05/18 10:00 Vitamin D PO DAILY [facility] Fluphenazine HCl 10 mg 06/05/18 10:00 Prolixin PO BID [facility] Protocol Heparin Sodium (Porcine) 5,000 units 06/04/18 22:00 06/05/18 00:36 Heparin SC Not Given Q12 [facility] Protocol Propofol 1,000 mg in 100 mls @ 2.722 mls/hr 06/04/18 21:39 06/05/18 04:45 Diprivan IV 27.55 mcg/kg/min .Q24H PRN 15 mls/hr TITRATE PER MD ORDER Administration Protocol 5 MCG/KG/MIN Sodium Chloride 500 mls @ 30 mls/hr 06/05/18 02:15 06/05/18 04:45 Hypertonic Saline 3% IV 30 mls/hr .[id number] [facility] Administration Levothyroxine Sodium 25 mcg 06/05/18 07:30 Synthroid PO ACB [facility] Methylprednisolone 40 mg 06/04/18 22:00 06/05/18 05:40 Solu-Medrol IVP 40 mg Q8 [facility] Administration Metoprolol Tartrate 25 mg 06/05/18 10:00 Lopressor PO DAILY [facility] Multivitamins/Minerals 1 tab 06/05/18 10:00 Therapeutic-M Tab PO DAILY [facility] Nicotine 1 patch 06/05/18 10:00 Nicoderm Cq TD DAILY [facility] Pantoprazole Sodium 40 mg 06/05/18 10:00 Protonix Inj IVP DAILY [facility] Trazodone HCl 50 mg 06/04/18 22:00 06/05/18 00:40 Desyrel PO Not Given HS ARTUR - Patient Studies Lab Studies: Lab Studies 09/14/18 09/14/18 09/14/18 Range/Units 05:30 03:55 03:55 WBC 6.7 D (4.5-11.0) 10^3/ul RBC 4.79 (3.5-6.1) 10^6/uL Hgb 14.8 (14.0-18.0) g/dL Hct 42.7 (42.0-52.0) % MCV 89.1 (80.0-105.0) fl MCH 30.9 (25.0-35.0) pg MCHC 34.7 (31.0-37.0) g/dl RDW 13.8 (11.5-14.5) % Plt Count 256 (120.0-450.0) 10^3/uL MPV 8.6 (7.0-11.0) fl Gran % 91.2 H (50.0-68.0) % Lymph % (Auto) 3.6 L (22.0-35.0) % [place] % (Auto) 5.2 (1.0-6.0) % Eos % (Auto) 0.0 L (1.5-5.0) % Baso % (Auto) 0.0 (0.0-3.0) % Gran # 6.15 (1.4-6.5) Lymph # (Auto) 0.2 L (1.2-3.4) [place] # (Auto) 0.4 (0.1-0.6) Eos # (Auto) 0.0 (0.0-0.7) Baso # (Auto) 0.00 (0.0-2.0) K/mm3 Neutrophils % (Manual) 84 H (50.0-70.0) % Band Neutrophils % 9 H (0-2) % Lymphocytes % (Manual) 3 L (22.0-35.0) % Monocytes % (Manual) 4 (1.0-6.0) % Platelet Evaluation Normal (NORMAL) pCO2 65 H (35-45) mm/Hg pO2 78.0 L (80-100) mm/Hg HCO3 35.9 H (21-28) mmol/L ABG pH 7.35 (7.35-7.45) ABG Total CO2 37.9 H (22-28) mmol.L ABG O2 Saturation 97.8 (95-98) % ABG O2 Content 19.8 (15-23) ML/dl ABG Base Excess 7.6 H (-2.0-3.0) mmol/L ABG Hemoglobin 15.0 (11.7-17.4) g/dL ABG Carboxyhemoglobin 3.3 H (0.5-1.5) % POC ABG HHb (Measured) 2.1 (0-5) % ABG Methemoglobin 0.7 (0.0-3.0) % ABG O2 Capacity 20.2 (16-24) mL/dl Hgb O2 Saturation 93.9 L (95.0-98.0) % FiO2 100.0 % Sodium 121 L (132-148) mmol/L Potassium 4.8 (3.6-5.0) mmol/L Chloride 79 L (98-107) mmol/L Carbon Dioxide 34 H (21-33) mmol/L Anion Gap 12 (10-20) BUN 6 L (7-21) mg/dL Creatinine 0.7 L (0.8-1.5) mg/dl Est GFR ( Amer) > 60 Est GFR (Non-Af Amer) > 60 Random Glucose 142 H (70-110) mg/dL Calcium 7.9 L (8.4-10.5) mg/dL Magnesium 2.1 (1.7-2.2) mg/dL Urine Color (YELLOW) Urine Appearance (CLEAR) Urine pH (4.7-8.0) Ur Specific [place] (1.005-1.035) Urine Protein (<30 mg/dL) mg/dL Urine Glucose (UA) (NEGATIVE) mg/dL Urine Ketones (NEGATIVE) mg/dL Urine Blood (NEGATIVE) Urine Nitrate (NEGATIVE) Urine Bilirubin (NEGATIVE) Urine Urobilinogen (<1 E.U./dL) E.U./dL Ur Leukocyte Esterase (NEGATIVE) [place]/uL Urine RBC (0-2) /hpf Urine WBC (0-6) /hpf Ur Epithelial Cells (0-5) /hpf Amorphous Sediment Urine Bacteria (NEG) Hyaline Casts /hpf Fine Granular Casts (0-2) /hpf Urine Osmolality (300-1000) mosm/kg Ur Random Sodium meq/L 06/05/18 06/05/18 06/04/18 Range/Units 00:45 00:25 22:19 WBC (4.5-11.0) 10^3/ul RBC (3.5-6.1) 10^6/uL Hgb (14.0-18.0) g/dL Hct (42.0-52.0) % MCV (80.0-105.0) fl MCH (25.0-35.0) pg MCHC (31.0-37.0) g/dl RDW (11.5-14.5) % Plt Count (120.0-450.0) 10^3/uL MPV (7.0-11.0) fl Gran % (50.0-68.0) % Lymph % (Auto) (22.0-35.0) % [place] % (Auto) (1.0-6.0) % Eos % (Auto) (1.5-5.0) % Baso % (Auto) (0.0-3.0) % Gran # (1.4-6.5) Lymph # (Auto) (1.2-3.4) [place] # (Auto) (0.1-0.6) Eos # (Auto) (0.0-0.7) Baso # (Auto) (0.0-2.0) K/mm3 Neutrophils % (Manual) (50.0-70.0) % Band Neutrophils % (0-2) % Lymphocytes % (Manual) (22.0-35.0) % Monocytes % (Manual) (1.0-6.0) % Platelet Evaluation (NORMAL) pCO2 60 H (35-45) mm/Hg pO2 79.0 L (80-100) mm/Hg HCO3 33.1 H (21-28) mmol/L ABG pH 7.35 (7.35-7.45) ABG Total CO2 34.9 H (22-28) mmol.L ABG O2 Saturation 97.8 (95-98) % ABG O2 Content 18.8 (15-23) ML/dl ABG Base Excess 5.5 H (-2.0-3.0) mmol/L ABG Hemoglobin 14.7 (11.7-17.4) g/dL ABG Carboxyhemoglobin 6.2 H (0.5-1.5) % POC ABG HHb (Measured) 2.0 (0-5) % ABG Methemoglobin 1.1 (0.0-3.0) % ABG O2 Capacity 19.2 (16-24) mL/dl Hgb O2 Saturation 90.7 L (95.0-98.0) % FiO2 100.0 % Sodium 118 L* (132-148) mmol/L Potassium 4.7 (3.6-5.0) mmol/L Chloride 78 L (98-107) mmol/L Carbon Dioxide 31 (21-33) mmol/L Anion Gap 13 (10-20) BUN 5 L (7-21) mg/dL Creatinine 0.7 L (0.8-1.5) mg/dl Est GFR ( Amer) > 60 Est GFR (Non-Af Amer) > 60 Random Glucose 165 H (70-110) mg/dL Calcium 8.0 L (8.4-10.5) mg/dL Magnesium (1.7-2.2) mg/dL Urine Color Yellow (YELLOW) Urine Appearance Clear (CLEAR) Urine pH 7.0 (4.7-8.0) Ur Specific [place] 1.020 (1.005-1.035) Urine Protein 100 H (<30 mg/dL) mg/dL Urine Glucose (UA) Negative (NEGATIVE) mg/dL Urine Ketones Negative (NEGATIVE) mg/dL Urine Blood Negative (NEGATIVE) Urine Nitrate Negative (NEGATIVE) Urine Bilirubin Negative (NEGATIVE) Urine Urobilinogen 0.2 (<1 E.U./dL) E.U./dL Ur Leukocyte Esterase Negative (NEGATIVE) [place]/uL Urine RBC 0 - 2 (0-2) /hpf Urine WBC 1 - 3 (0-6) /hpf Ur Epithelial Cells 0 - 2 (0-5) /hpf Amorphous Sediment Few Urine Bacteria Mod (NEG) Hyaline Casts 0 - 2 /hpf Fine Granular Casts 0 - 2 (0-2) /hpf Urine Osmolality (300-1000) mosm/kg Ur Random Sodium meq/L 06/04/18 Range/Units 21:54 WBC (4.5-11.0) 10^3/ul RBC (3.5-6.1) 10^6/uL Hgb (14.0-18.0) g/dL Hct (42.0-52.0) % MCV (80.0-105.0) fl MCH (25.0-35.0) pg MCHC (31.0-37.0) g/dl RDW (11.5-14.5) % Plt Count (120.0-450.0) 10^3/uL MPV (7.0-11.0) fl Gran % (50.0-68.0) % Lymph % (Auto) (22.0-35.0) % [place] % (Auto) (1.0-6.0) % Eos % (Auto) (1.5-5.0) % Baso % (Auto) (0.0-3.0) % Gran # (1.4-6.5) Lymph # (Auto) (1.2-3.4) [place] # (Auto) (0.1-0.6) Eos # (Auto) (0.0-0.7) Baso # (Auto) (0.0-2.0) K/mm3 Neutrophils % (Manual) (50.0-70.0) % Band Neutrophils % (0-2) % Lymphocytes % (Manual) (22.0-35.0) % Monocytes % (Manual) (1.0-6.0) % Platelet Evaluation (NORMAL) pCO2 (35-45) mm/Hg pO2 (80-100) mm/Hg HCO3 (21-28) mmol/L ABG pH (7.35-7.45) ABG Total CO2 (22-28) mmol.L ABG O2 Saturation (95-98) % ABG O2 Content (15-23) ML/dl ABG Base Excess (-2.0-3.0) mmol/L ABG Hemoglobin (11.7-17.4) g/dL ABG Carboxyhemoglobin (0.5-1.5) % POC ABG HHb (Measured) (0-5) % ABG Methemoglobin (0.0-3.0) % ABG O2 Capacity (16-24) mL/dl Hgb O2 Saturation (95.0-98.0) % FiO2 % Sodium (132-148) mmol/L Potassium (3.6-5.0) mmol/L Chloride (98-107) mmol/L Carbon Dioxide (21-33) mmol/L Anion Gap (10-20) BUN (7-21) mg/dL Creatinine (0.8-1.5) mg/dl Est GFR ( Amer) Est GFR (Non-Af Amer) Random Glucose (70-110) mg/dL Calcium (8.4-10.5) mg/dL Magnesium (1.7-2.2) mg/dL Urine Color (YELLOW) Urine Appearance (CLEAR) Urine pH (4.7-8.0) Ur Specific [place] (1.005-1.035) Urine Protein (<30 mg/dL) mg/dL Urine Glucose (UA) (NEGATIVE) mg/dL Urine Ketones (NEGATIVE) mg/dL Urine Blood (NEGATIVE) Urine Nitrate (NEGATIVE) Urine Bilirubin (NEGATIVE) Urine Urobilinogen (<1 E.U./dL) E.U./dL Ur Leukocyte Esterase (NEGATIVE) [place]/uL Urine RBC (0-2) /hpf Urine WBC (0-6) /hpf Ur Epithelial Cells (0-5) /hpf Amorphous Sediment Urine Bacteria (NEG) Hyaline Casts /hpf Fine Granular Casts (0-2) /hpf Urine Osmolality 314 (300-1000) mosm/kg Ur Random Sodium 30 meq/L Laboratory Results - last 24 hr 06/04/18 06/04/18 06/05/18 21:54 22:19 00:25 WBC RBC Hgb Hct MCV MCH MCHC RDW Plt Count MPV Gran % Lymph % (Auto) [place] % (Auto) Eos % (Auto) Baso % (Auto) Gran # Lymph # (Auto) [place] # (Auto) Eos # (Auto) Baso # (Auto) Neutrophils % (Manual) Band Neutrophils % Lymphocytes % (Manual) Monocytes % (Manual) Platelet Evaluation pCO2 pO2 HCO3 ABG pH ABG Total CO2 ABG O2 Saturation ABG O2 Content ABG Base Excess ABG Hemoglobin ABG Carboxyhemoglobin POC ABG HHb (Measured) ABG Methemoglobin ABG O2 Capacity Hgb O2 Saturation FiO2 Sodium 118 L* Potassium 4.7 Chloride 78 L Carbon Dioxide 31 Anion Gap 13 BUN 5 L Creatinine 0.7 L Est GFR ( Amer) > 60 Est GFR (Non-Af Amer) > 60 Random Glucose 165 H Calcium 8.0 L Magnesium Urine Color Yellow Urine Appearance Clear Urine pH 7.0 Ur Specific [place] 1.020 Urine Protein 100 H Urine Glucose (UA) Negative Urine Ketones Negative Urine Blood Negative Urine Nitrate Negative Urine Bilirubin Negative Urine Urobilinogen 0.2 Ur Leukocyte Esterase Negative Urine RBC 0 - 2 Urine WBC 1 - 3 Ur Epithelial Cells 0 - 2 Amorphous Sediment Few Urine Bacteria Mod Hyaline Casts 0 - 2 Fine Granular Casts 0 - 2 Urine Osmolality 314 Ur Random Sodium 30 06/05/18 06/05/18 06/05/18 00:45 03:55 03:55 WBC 6.7 D RBC 4.79 Hgb 14.8 Hct 42.7 MCV 89.1 MCH 30.9 MCHC 34.7 RDW 13.8 Plt Count 256 MPV 8.6 Gran % 91.2 H Lymph % (Auto) 3.6 L [place] % (Auto) 5.2 Eos % (Auto) 0.0 L Baso % (Auto) 0.0 Gran # 6.15 Lymph # (Auto) 0.2 L [place] # (Auto) 0.4 Eos # (Auto) 0.0 Baso # (Auto) 0.00 Neutrophils % (Manual) 84 H Band Neutrophils % 9 H Lymphocytes % (Manual) 3 L Monocytes % (Manual) 4 Platelet Evaluation Normal pCO2 60 H pO2 79.0 L HCO3 33.1 H ABG pH 7.35 ABG Total CO2 34.9 H ABG O2 Saturation 97.8 ABG O2 Content 18.8 ABG Base Excess 5.5 H ABG Hemoglobin 14.7 ABG Carboxyhemoglobin 6.2 H POC ABG HHb (Measured) 2.0 ABG Methemoglobin 1.1 ABG O2 Capacity 19.2 Hgb O2 Saturation 90.7 L FiO2 100.0 Sodium 121 L Potassium 4.8 Chloride 79 L Carbon Dioxide 34 H Anion Gap 12 BUN 6 L Creatinine 0.7 L Est GFR ( Amer) > 60 Est GFR (Non-Af Amer) > 60 Random Glucose 142 H Calcium 7.9 L Magnesium 2.1 Urine Color Urine Appearance Urine pH Ur Specific [place] Urine Protein Urine Glucose (UA) Urine Ketones Urine Blood Urine Nitrate Urine Bilirubin Urine Urobilinogen Ur Leukocyte Esterase Urine RBC Urine WBC Ur Epithelial Cells Amorphous Sediment Urine Bacteria Hyaline Casts Fine Granular Casts Urine Osmolality Ur Random Sodium 06/05/18 05:30 WBC RBC Hgb Hct MCV MCH MCHC RDW Plt Count MPV Gran % Lymph % (Auto) [place] % (Auto) Eos % (Auto) Baso % (Auto) Gran # Lymph # (Auto) [place] # (Auto) Eos # (Auto) Baso # (Auto) Neutrophils % (Manual) Band Neutrophils % Lymphocytes % (Manual) Monocytes % (Manual) Platelet Evaluation pCO2 65 H pO2 78.0 L HCO3 35.9 H ABG pH 7.35 ABG Total CO2 37.9 H ABG O2 Saturation 97.8 ABG O2 Content 19.8 ABG Base Excess 7.6 H ABG Hemoglobin 15.0 ABG Carboxyhemoglobin 3.3 H POC ABG HHb (Measured) 2.1 ABG Methemoglobin 0.7 ABG O2 Capacity 20.2 Hgb O2 Saturation 93.9 L FiO2 100.0 Sodium Potassium Chloride Carbon Dioxide Anion Gap BUN Creatinine Est GFR ( Amer) Est GFR (Non-Af Amer) Random Glucose Calcium Magnesium Urine Color Urine Appearance Urine pH Ur Specific [place] Urine Protein Urine Glucose (UA) Urine Ketones Urine Blood Urine Nitrate Urine Bilirubin Urine Urobilinogen Ur Leukocyte Esterase Urine RBC Urine WBC Ur Epithelial Cells Amorphous Sediment Urine Bacteria Hyaline Casts Fine Granular Casts Urine Osmolality Ur Random Sodium Review of Systems - Review of Systems Systems not reviewed;Unavailable: Intubated Critical Care Progress Note - Ventilator Checklist Head of Bed 30 Degrees: Yes Daily Sedation Vacation: Yes Daily Assessment of Readiness to Wean: Yes Daily Spontaneous Breathing Trial: Yes PUD Prophalyxis: Yes DVT Prophylaxis: Yes - Vent Settings MODE:: PRVC TIDAL VOLUME:: 400 RESP RATE:: 14 FIO2:: 100 PEEP:: 5 - Extremities/Vascular Does the Patient have a Central Venous Catheter?: No Does the Patient have a Coe Catheter?: Yes Does the Patient need a Coe Catheter?: Yes Catheter Insertion Criteria: Need for accurate measurement of output in critically ill patient - Prophylaxis GI Prophylaxis GI: PPI - Prophylaxis DVT Prophylaxis DVT: Heparin SQ, SCDs - Nutrition Nutrition: Nutrition Category Date Time Status NPO Diet [DIET] Diets 06/04/18 Breakfast Ordered Assessment/Plan - Assessment and Plan (Free Text) Assessment: This is a 62yo male with past medical history of laryngeal ca s/p radiation/ trach (removed), HTN, HLD, COPD, tobacco abuse, schizophrenia who came to ED for shortness of breath x 2 days. He was subsequently taken to the OR for trach placement overnight to maintain airway. Patient is currently intubated and recieving 3% NS for hyponatremia. initial Na 118, improved to 121, repeat BMP at 0800. Plan: Neuro; - intubated, sedated on propofol - pinpoint pupils - responds to sternal rub Cardio -Normotensive, nontachycardic - Trop 0.4 on admission, repeat 0.04 today Pulm - Pt ventilated and sedated on Propofol - ABG: pH 7.35/ CO2/ O2/ HCO3 - Vent: pRVC TV400/ PEEP5/ FiO2 100/ RR14 - will wean ventilator as tolerated today - CXR showed atelectasis versus infiltrates - Maintain spO2 >90% - Solumedrol 40q8 - Duoneb prn/artur, Brovana and Pulmicort - sputum cultures pending - Vanc and aztreonam GI - Protonix for PUD prophylaxis - monitor Renal - continue fluid restriction - Hyponatremia, q4H BMP - 3% saline stoppped due to increase in Na - D5W started at 150 ml/hr - continue to monitor - Strict I&O Heme - hbg stable, will continue to monitor - PLT 256 ID - afebrile, WBC 6.7 - granulocytes 91% - c/w Vancomycin DVT: SCDs, - Date & Time Date: 06/05/18 Time: 08:01 <Danny Shelton - Last Filed: 06/05/18 14:14> CCU Objective - Vital Signs / Intake & Output Vital Signs (Last 4 hours): Vital Signs Pulse BP Pulse Ox 06/05/18 12:50 67 94 L 06/05/18 12:40 66 94 L 06/05/18 12:30 116/74 06/05/18 12:29 68 94 L 06/05/18 12:20 68 95 06/05/18 12:10 76 94 L 06/05/18 12:00 72 118/79 94 L 06/05/18 11:50 77 96 06/05/18 11:40 78 95 06/05/18 11:30 71 121/76 96 06/05/18 11:20 84 85 L 06/05/18 11:10 71 98 06/05/18 11:01 86 131/55 L 86 L 06/05/18 11:00 75 96 06/05/18 10:50 75 96 06/05/18 10:40 82 83 L 06/05/18 10:30 118/77 06/05/18 10:29 65 94 L 06/05/18 10:20 66 94 L Intake and Output (Last 8hrs): Intake & Output 06/04/18 06/05/18 06/05/18 22:59 06:59 14:59 Intake Total 5 95 100 Balance 5 95 100 Weight 239 lb 12.8 oz Intake: IV 5 95 100 - Medications Active Medications: Active Medications Generic Name Dose Route Start Last Admin Trade Name Freq PRN Reason Stop Dose Admin Albuterol/Ipratropium 3 ml 06/04/18 20:01 Duoneb 3 Mg/0.5 Mg (3 Ml) Ud IH Q2H PRN Shortness of Breath Albuterol/Ipratropium 3 ml 06/05/18 02:00 06/05/18 13:12 Duoneb 3 Mg/0.5 Mg (3 Ml) Ud IH 3 ml [id number] ARTUR Administration Amlodipine Besylate 2.5 mg 06/05/18 10:00 06/05/18 11:06 Norvasc PO Not Given DAILY [facility] Arformoterol Tartrate 15 mcg 06/05/18 08:00 06/05/18 07:34 Brovana IH 15 mcg [id number] [facility] Administration Atorvastatin Calcium 20 mg 06/05/18 22:00 Lipitor PO HS [facility] Budesonide 0.25 mg 06/05/18 08:00 06/05/18 07:36 Pulmicort Respules IH 0.25 mg [id number] [facility] Administration Cholecalciferol 2,000 intlu 06/05/18 10:00 06/05/18 11:06 Vitamin D PO Not Given DAILY [facility] Fluphenazine HCl 10 mg 06/05/18 10:00 06/05/18 10:53 Prolixin PO Not Given BID [facility] Protocol Heparin Sodium (Porcine) 5,000 units 06/04/18 22:00 06/05/18 10:52 Heparin SC 5,000 units Q12 [facility] Administration Protocol Propofol 1,000 mg in 100 mls @ 2.722 mls/hr 06/04/18 21:39 06/05/18 10:42 Diprivan IV 36.74 mcg/kg/min .Q24H PRN 20 mls/hr TITRATE PER MD ORDER Administration Protocol 5 MCG/KG/MIN Dextrose 1,000 mls @ 150 mls/hr 06/05/18 12:52 06/05/18 13:04 Dextrose 5% In Water 1000 Ml IV 06/05/18 20:31 150 mls/hr [id number] [facility] Administration Levothyroxine Sodium 25 mcg 06/05/18 07:30 06/05/18 11:06 Synthroid PO Not Given ACB [facility] Methylprednisolone 40 mg 06/06/18 10:00 Solu-Medrol IVP DAILY [facility] Metoprolol Tartrate 25 mg 06/05/18 10:00 Lopressor PO DAILY [facility] Multivitamins/Minerals 1 tab 06/05/18 10:00 06/05/18 11:05 Therapeutic-M Tab PO Not Given DAILY [facility] Nicotine 1 patch 06/05/18 10:00 06/05/18 10:52 Nicoderm Cq TD 1 patch DAILY [facility] Administration Pantoprazole Sodium 40 mg 06/05/18 10:00 06/05/18 10:54 Protonix Inj IVP 40 mg DAILY [facility] Administration Trazodone HCl 50 mg 06/04/18 22:00 06/05/18 00:40 Desyrel PO Not Given HS [facility] - Patient Studies Lab Studies: Lab Studies 06/05/18 06/05/18 06/05/18 Range/Units 11:30 11:30 08:34 WBC (4.5-11.0) 10^3/ul RBC (3.5-6.1) 10^6/uL Hgb (14.0-18.0) g/dL Hct (42.0-52.0) % MCV (80.0-105.0) fl MCH (25.0-35.0) pg MCHC (31.0-37.0) g/dl RDW (11.5-14.5) % Plt Count (120.0-450.0) 10^3/uL MPV (7.0-11.0) fl Gran % (50.0-68.0) % Lymph % (Auto) (22.0-35.0) % [place] % (Auto) (1.0-6.0) % Eos % (Auto) (1.5-5.0) % Baso % (Auto) (0.0-3.0) % Gran # (1.4-6.5) Lymph # (Auto) (1.2-3.4) [place] # (Auto) (0.1-0.6) Eos # (Auto) (0.0-0.7) Baso # (Auto) (0.0-2.0) K/mm3 Neutrophils % (Manual) (50.0-70.0) % Band Neutrophils % (0-2) % Lymphocytes % (Manual) (22.0-35.0) % Monocytes % (Manual) (1.0-6.0) % Platelet Evaluation (NORMAL) pCO2 (35-45) mm/Hg pO2 (80-100) mm/Hg HCO3 (21-28) mmol/L ABG pH (7.35-7.45) ABG Total CO2 (22-28) mmol.L ABG O2 Saturation (95-98) % ABG O2 Content (15-23) ML/dl ABG Base Excess (-2.0-3.0) mmol/L ABG Hemoglobin (11.7-17.4) g/dL ABG Carboxyhemoglobin (0.5-1.5) % POC ABG HHb (Measured) (0-5) % ABG Methemoglobin (0.0-3.0) % ABG O2 Capacity (16-24) mL/dl Hgb O2 Saturation (95.0-98.0) % FiO2 % Sodium 127 L (132-148) mmol/L Potassium 4.8 (3.6-5.0) mmol/L Chloride 86 L (98-107) mmol/L Carbon Dioxide 36 H (21-33) mmol/L Anion Gap 10 (10-20) BUN 6 L (7-21) mg/dL Creatinine 0.7 L (0.8-1.5) mg/dl Est GFR ( Amer) > 60 Est GFR (Non-Af Amer) > 60 Random Glucose 140 H (70-110) mg/dL Calcium 8.6 (8.4-10.5) mg/dL Magnesium (1.7-2.2) mg/dL Troponin I ng/mL Triglycerides 67 (35-160) mg/dL Cholesterol 186 (130-200) mg/dL LDL Cholesterol Direct 109 (0-129) mg/dL HDL Cholesterol 58 (29-60) mg/dL TSH 3rd Generation 0.44 L (0.46-4.68) mIU/mL Urine Color (YELLOW) Urine Appearance (CLEAR) Urine pH (4.7-8.0) Ur Specific [place] (1.005-1.035) Urine Protein (<30 mg/dL) mg/dL Urine Glucose (UA) (NEGATIVE) mg/dL Urine Ketones (NEGATIVE) mg/dL Urine Blood (NEGATIVE) Urine Nitrate (NEGATIVE) Urine Bilirubin (NEGATIVE) Urine Urobilinogen (<1 E.U./dL) E.U./dL Ur Leukocyte Esterase (NEGATIVE) S[place]ie/uL Urine RBC (0-2) /hpf Urine WBC (0-6) /hpf Ur Epithelial Cells (0-5) /hpf Amorphous Sediment Urine Bacteria (NEG) Hyaline Casts /hpf Fine Granular Casts (0-2) /hpf Urine Osmolality (300-1000) mosm/kg Ur Random Sodium meq/L 06/05/18 06/05/18 06/05/18 Range/Units 08:34 08:15 05:30 WBC (4.5-11.0) 10^3/ul RBC (3.5-6.1) 10^6/uL Hgb (14.0-18.0) g/dL Hct (42.0-52.0) % MCV (80.0-105.0) fl MCH (25.0-35.0) pg MCHC (31.0-37.0) g/dl RDW (11.5-14.5) % Plt Count (120.0-450.0) 10^3/uL MPV (7.0-11.0) fl Gran % (50.0-68.0) % Lymph % (Auto) (22.0-35.0) % [place] % (Auto) (1.0-6.0) % Eos % (Auto) (1.5-5.0) % Baso % (Auto) (0.0-3.0) % Gran # (1.4-6.5) Lymph # (Auto) (1.2-3.4) [place] # (Auto) (0.1-0.6) Eos # (Auto) (0.0-0.7) Baso # (Auto) (0.0-2.0) K/mm3 Neutrophils % (Manual) (50.0-70.0) % Band Neutrophils % (0-2) % Lymphocytes % (Manual) (22.0-35.0) % Monocytes % (Manual) (1.0-6.0) % Platelet Evaluation (NORMAL) pCO2 65 H (35-45) mm/Hg pO2 78.0 L (80-100) mm/Hg HCO3 35.9 H (21-28) mmol/L ABG pH 7.35 (7.35-7.45) ABG Total CO2 37.9 H (22-28) mmol.L ABG O2 Saturation 97.8 (95-98) % ABG O2 Content 19.8 (15-23) ML/dl ABG Base Excess 7.6 H (-2.0-3.0) mmol/L ABG Hemoglobin 15.0 (11.7-17.4) g/dL ABG Carboxyhemoglobin 3.3 H (0.5-1.5) % POC ABG HHb (Measured) 2.1 (0-5) % ABG Methemoglobin 0.7 (0.0-3.0) % ABG O2 Capacity 20.2 (16-24) mL/dl Hgb O2 Saturation 93.9 L (95.0-98.0) % FiO2 100.0 % Sodium 126 L (132-148) mmol/L Potassium 4.9 (3.6-5.0) mmol/L Chloride 84 L (98-107) mmol/L Carbon Dioxide 37 H (21-33) mmol/L Anion Gap 10 (10-20) BUN 6 L (7-21) mg/dL Creatinine 0.7 L (0.8-1.5) mg/dl Est GFR ( Amer) > 60 Est GFR (Non-Af Amer) > 60 Random Glucose 137 H (70-110) mg/dL Calcium 8.5 (8.4-10.5) mg/dL Magnesium (1.7-2.2) mg/dL Troponin I 0.04 ng/mL Triglycerides (35-160) mg/dL Cholesterol (130-200) mg/dL LDL Cholesterol Direct (0-129) mg/dL HDL Cholesterol (29-60) mg/dL TSH 3rd Generation (0.46-4.68) mIU/mL Urine Color (YELLOW) Urine Appearance (CLEAR) Urine pH (4.7-8.0) Ur Specific [place] (1.005-1.035) Urine Protein (<30 mg/dL) mg/dL Urine Glucose (UA) (NEGATIVE) mg/dL Urine Ketones (NEGATIVE) mg/dL Urine Blood (NEGATIVE) Urine Nitrate (NEGATIVE) Urine Bilirubin (NEGATIVE) Urine Urobilinogen (<1 E.U./dL) E.U./dL Ur Leukocyte Esterase (NEGATIVE) [place]/uL Urine RBC (0-2) /hpf Urine WBC (0-6) /hpf Ur Epithelial Cells (0-5) /hpf Amorphous Sediment Urine Bacteria (NEG) Hyaline Casts /hpf Fine Granular Casts (0-2) /hpf Urine Osmolality (300-1000) mosm/kg Ur Random Sodium meq/L 06/05/18 06/05/18 06/05/18 Range/Units 03:55 03:55 00:45 WBC 6.7 D (4.5-11.0) 10^3/ul RBC 4.79 (3.5-6.1) 10^6/uL Hgb 14.8 (14.0-18.0) g/dL Hct 42.7 (42.0-52.0) % MCV 89.1 (80.0-105.0) fl MCH 30.9 (25.0-35.0) pg MCHC 34.7 (31.0-37.0) g/dl RDW 13.8 (11.5-14.5) % Plt Count 256 (120.0-450.0) 10^3/uL MPV 8.6 (7.0-11.0) fl Gran % 91.2 H (50.0-68.0) % Lymph % (Auto) 3.6 L (22.0-35.0) % [place] % (Auto) 5.2 (1.0-6.0) % Eos % (Auto) 0.0 L (1.5-5.0) % Baso % (Auto) 0.0 (0.0-3.0) % Gran # 6.15 (1.4-6.5) Lymph # (Auto) 0.2 L (1.2-3.4) [place] # (Auto) 0.4 (0.1-0.6) Eos # (Auto) 0.0 (0.0-0.7) Baso # (Auto) 0.00 (0.0-2.0) K/mm3 Neutrophils % (Manual) 84 H (50.0-70.0) % Band Neutrophils % 9 H (0-2) % Lymphocytes % (Manual) 3 L (22.0-35.0) % Monocytes % (Manual) 4 (1.0-6.0) % Platelet Evaluation Normal (NORMAL) pCO2 60 H (35-45) mm/Hg pO2 79.0 L (80-100) mm/Hg HCO3 33.1 H (21-28) mmol/L ABG pH 7.35 (7.35-7.45) ABG Total CO2 34.9 H (22-28) mmol.L ABG O2 Saturation 97.8 (95-98) % ABG O2 Content 18.8 (15-23) ML/dl ABG Base Excess 5.5 H (-2.0-3.0) mmol/L ABG Hemoglobin 14.7 (11.7-17.4) g/dL ABG Carboxyhemoglobin 6.2 H (0.5-1.5) % POC ABG HHb (Measured) 2.0 (0-5) % ABG Methemoglobin 1.1 (0.0-3.0) % ABG O2 Capacity 19.2 (16-24) mL/dl Hgb O2 Saturation 90.7 L (95.0-98.0) % FiO2 100.0 % Sodium 121 L (132-148) mmol/L Potassium 4.8 (3.6-5.0) mmol/L Chloride 79 L (98-107) mmol/L Carbon Dioxide 34 H (21-33) mmol/L Anion Gap 12 (10-20) BUN 6 L (7-21) mg/dL Creatinine 0.7 L (0.8-1.5) mg/dl Est GFR ( Amer) > 60 Est GFR (Non-Af Amer) > 60 Random Glucose 142 H (70-110) mg/dL Calcium 7.9 L (8.4-10.5) mg/dL Magnesium 2.1 (1.7-2.2) mg/dL Troponin I ng/mL Triglycerides (35-160) mg/dL Cholesterol (130-200) mg/dL LDL Cholesterol Direct (0-129) mg/dL HDL Cholesterol (29-60) mg/dL TSH 3rd Generation (0.46-4.68) mIU/mL Urine Color (YELLOW) Urine Appearance (CLEAR) Urine pH (4.7-8.0) Ur Specific [place] (1.005-1.035) Urine Protein (<30 mg/dL) mg/dL Urine Glucose (UA) (NEGATIVE) mg/dL Urine Ketones (NEGATIVE) mg/dL Urine Blood (NEGATIVE) Urine Nitrate (NEGATIVE) Urine Bilirubin (NEGATIVE) Urine Urobilinogen (<1 E.U./dL) E.U./dL Ur Leukocyte Esterase (NEGATIVE) [place]/uL Urine RBC (0-2) /hpf Urine WBC (0-6) /hpf Ur Epithelial Cells (0-5) /hpf Amorphous Sediment Urine Bacteria (NEG) Hyaline Casts /hpf Fine Granular Casts (0-2) /hpf Urine Osmolality (300-1000) mosm/kg Ur Random Sodium meq/L 06/05/18 06/04/18 06/04/18 Range/Units 00:25 22:19 21:54 WBC (4.5-11.0) 10^3/ul RBC (3.5-6.1) 10^6/uL Hgb (14.0-18.0) g/dL Hct (42.0-52.0) % MCV (80.0-105.0) fl MCH (25.0-35.0) pg MCHC (31.0-37.0) g/dl RDW (11.5-14.5) % Plt Count (120.0-450.0) 10^3/uL MPV (7.0-11.0) fl Gran % (50.0-68.0) % Lymph % (Auto) (22.0-35.0) % [place] % (Auto) (1.0-6.0) % Eos % (Auto) (1.5-5.0) % Baso % (Auto) (0.0-3.0) % Gran # (1.4-6.5) Lymph # (Auto) (1.2-3.4) [place] # (Auto) (0.1-0.6) Eos # (Auto) (0.0-0.7) Baso # (Auto) (0.0-2.0) K/mm3 Neutrophils % (Manual) (50.0-70.0) % Band Neutrophils % (0-2) % Lymphocytes % (Manual) (22.0-35.0) % Monocytes % (Manual) (1.0-6.0) % Platelet Evaluation (NORMAL) pCO2 (35-45) mm/Hg pO2 (80-100) mm/Hg HCO3 (21-28) mmol/L ABG pH (7.35-7.45) ABG Total CO2 (22-28) mmol.L ABG O2 Saturation (95-98) % ABG O2 Content (15-23) ML/dl ABG Base Excess (-2.0-3.0) mmol/L ABG Hemoglobin (11.7-17.4) g/dL ABG Carboxyhemoglobin (0.5-1.5) % POC ABG HHb (Measured) (0-5) % ABG Methemoglobin (0.0-3.0) % ABG O2 Capacity (16-24) mL/dl Hgb O2 Saturation (95.0-98.0) % FiO2 % Sodium 118 L* (132-148) mmol/L Potassium 4.7 (3.6-5.0) mmol/L Chloride 78 L (98-107) mmol/L Carbon Dioxide 31 (21-33) mmol/L Anion Gap 13 (10-20) BUN 5 L (7-21) mg/dL Creatinine 0.7 L (0.8-1.5) mg/dl Est GFR ( Amer) > 60 Est GFR (Non-Af Amer) > 60 Random Glucose 165 H (70-110) mg/dL Calcium 8.0 L (8.4-10.5) mg/dL Magnesium (1.7-2.2) mg/dL Troponin I ng/mL Triglycerides (35-160) mg/dL Cholesterol (130-200) mg/dL LDL Cholesterol Direct (0-129) mg/dL HDL Cholesterol (29-60) mg/dL TSH 3rd Generation (0.46-4.68) mIU/mL Urine Color Yellow (YELLOW) Urine Appearance Clear (CLEAR) Urine pH 7.0 (4.7-8.0) Ur Specific [place] 1.020 (1.005-1.035) Urine Protein 100 H (<30 mg/dL) mg/dL Urine Glucose (UA) Negative (NEGATIVE) mg/dL Urine Ketones Negative (NEGATIVE) mg/dL Urine Blood Negative (NEGATIVE) Urine Nitrate Negative (NEGATIVE) Urine Bilirubin Negative (NEGATIVE) Urine Urobilinogen 0.2 (<1 E.U./dL) E.U./dL Ur Leukocyte Esterase Negative (NEGATIVE) [place]/uL Urine RBC 0 - 2 (0-2) /hpf Urine WBC 1 - 3 (0-6) /hpf Ur Epithelial Cells 0 - 2 (0-5) /hpf Amorphous Sediment Few Urine Bacteria Mod (NEG) Hyaline Casts 0 - 2 /hpf Fine Granular Casts 0 - 2 (0-2) /hpf Urine Osmolality 314 (300-1000) mosm/kg Ur Random Sodium 30 meq/L Laboratory Results - last 24 hr 06/04/18 06/04/18 06/05/18 21:54 22:19 00:25 WBC RBC Hgb Hct MCV MCH MCHC RDW Plt Count MPV Gran % Lymph % (Auto) [place] % (Auto) Eos % (Auto) Baso % (Auto) Gran # Lymph # (Auto) [place] # (Auto) Eos # (Auto) Baso # (Auto) Neutrophils % (Manual) Band Neutrophils % Lymphocytes % (Manual) Monocytes % (Manual) Platelet Evaluation pCO2 pO2 HCO3 ABG pH ABG Total CO2 ABG O2 Saturation ABG O2 Content ABG Base Excess ABG Hemoglobin ABG Carboxyhemoglobin POC ABG HHb (Measured) ABG Methemoglobin ABG O2 Capacity Hgb O2 Saturation FiO2 Sodium 118 L* Potassium 4.7 Chloride 78 L Carbon Dioxide 31 Anion Gap 13 BUN 5 L Creatinine 0.7 L Est GFR ( Amer) > 60 Est GFR (Non-Af Amer) > 60 Random Glucose 165 H Calcium 8.0 L Magnesium Troponin I Triglycerides Cholesterol LDL Cholesterol Direct HDL Cholesterol TSH 3rd Generation Urine Color Yellow Urine Appearance Clear Urine pH 7.0 Ur Specific [place] 1.020 Urine Protein 100 H Urine Glucose (UA) Negative Urine Ketones Negative Urine Blood Negative Urine Nitrate Negative Urine Bilirubin Negative Urine Urobilinogen 0.2 Ur Leukocyte Esterase Negative Urine RBC 0 - 2 Urine WBC 1 - 3 Ur Epithelial Cells 0 - 2 Amorphous Sediment Few Urine Bacteria Mod Hyaline Casts 0 - 2 Fine Granular Casts 0 - 2 Urine Osmolality 314 Ur Random Sodium 30 06/05/18 06/05/18 06/05/18 00:45 03:55 03:55 WBC 6.7 D RBC 4.79 Hgb 14.8 Hct 42.7 MCV 89.1 MCH 30.9 MCHC 34.7 RDW 13.8 Plt Count 256 MPV 8.6 Gran % 91.2 H Lymph % (Auto) 3.6 L [place] % (Auto) 5.2 Eos % (Auto) 0.0 L Baso % (Auto) 0.0 Gran # 6.15 Lymph # (Auto) 0.2 L [place] # (Auto) 0.4 Eos # (Auto) 0.0 Baso # (Auto) 0.00 Neutrophils % (Manual) 84 H Band Neutrophils % 9 H Lymphocytes % (Manual) 3 L Monocytes % (Manual) 4 Platelet Evaluation Normal pCO2 60 H pO2 79.0 L HCO3 33.1 H ABG pH 7.35 ABG Total CO2 34.9 H ABG O2 Saturation 97.8 ABG O2 Content 18.8 ABG Base Excess 5.5 H ABG Hemoglobin 14.7 ABG Carboxyhemoglobin 6.2 H POC ABG HHb (Measured) 2.0 ABG Methemoglobin 1.1 ABG O2 Capacity 19.2 Hgb O2 Saturation 90.7 L FiO2 100.0 Sodium 121 L Potassium 4.8 Chloride 79 L Carbon Dioxide 34 H Anion Gap 12 BUN 6 L Creatinine 0.7 L Est GFR ( Amer) > 60 Est GFR (Non-Af Amer) > 60 Random Glucose 142 H Calcium 7.9 L Magnesium 2.1 Troponin I Triglycerides Cholesterol LDL Cholesterol Direct HDL Cholesterol TSH 3rd Generation Urine Color Urine Appearance Urine pH Ur Specific [place] Urine Protein Urine Glucose (UA) Urine Ketones Urine Blood Urine Nitrate Urine Bilirubin Urine Urobilinogen Ur Leukocyte Esterase Urine RBC Urine WBC Ur Epithelial Cells Amorphous Sediment Urine Bacteria Hyaline Casts Fine Granular Casts Urine Osmolality Ur Random Sodium 06/05/18 06/05/18 06/05/18 05:30 08:15 08:34 WBC RBC Hgb Hct MCV MCH MCHC RDW Plt Count MPV Gran % Lymph % (Auto) [place] % (Auto) Eos % (Auto) Baso % (Auto) Gran # Lymph # (Auto) [place] # (Auto) Eos # (Auto) Baso # (Auto) Neutrophils % (Manual) Band Neutrophils % Lymphocytes % (Manual) Monocytes % (Manual) Platelet Evaluation pCO2 65 H pO2 78.0 L HCO3 35.9 H ABG pH 7.35 ABG Total CO2 37.9 H ABG O2 Saturation 97.8 ABG O2 Content 19.8 ABG Base Excess 7.6 H ABG Hemoglobin 15.0 ABG Carboxyhemoglobin 3.3 H POC ABG HHb (Measured) 2.1 ABG Methemoglobin 0.7 ABG O2 Capacity 20.2 Hgb O2 Saturation 93.9 L FiO2 100.0 Sodium 126 L Potassium 4.9 Chloride 84 L Carbon Dioxide 37 H Anion Gap 10 BUN 6 L Creatinine 0.7 L Est GFR ( Amer) > 60 Est GFR (Non-Af Amer) > 60 Random Glucose 137 H Calcium 8.5 Magnesium Troponin I 0.04 Triglycerides Cholesterol LDL Cholesterol Direct HDL Cholesterol TSH 3rd Generation Urine Color Urine Appearance Urine pH Ur Specific [place] Urine Protein Urine Glucose (UA) Urine Ketones Urine Blood Urine Nitrate Urine Bilirubin Urine Urobilinogen Ur Leukocyte Esterase Urine RBC Urine WBC Ur Epithelial Cells Amorphous Sediment Urine Bacteria Hyaline Casts Fine Granular Casts Urine Osmolality Ur Random Sodium 06/05/18 06/05/18 06/05/18 08:34 11:30 11:30 WBC RBC Hgb Hct MCV MCH MCHC RDW Plt Count MPV Gran % Lymph % (Auto) [place] % (Auto) Eos % (Auto) Baso % (Auto) Gran # Lymph # (Auto) [place] # (Auto) Eos # (Auto) Baso # (Auto) Neutrophils % (Manual) Band Neutrophils % Lymphocytes % (Manual) Monocytes % (Manual) Platelet Evaluation pCO2 pO2 HCO3 ABG pH ABG Total CO2 ABG O2 Saturation ABG O2 Content ABG Base Excess ABG Hemoglobin ABG Carboxyhemoglobin POC ABG HHb (Measured) ABG Methemoglobin ABG O2 Capacity Hgb O2 Saturation FiO2 Sodium 127 L Potassium 4.8 Chloride 86 L Carbon Dioxide 36 H Anion Gap 10 BUN 6 L Creatinine 0.7 L Est GFR ( Amer) > 60 Est GFR (Non-Af Amer) > 60 Random Glucose 140 H Calcium 8.6 Magnesium Troponin I Triglycerides 67 Cholesterol 186 LDL Cholesterol Direct 109 HDL Cholesterol 58 TSH 3rd Generation 0.44 L Urine Color Urine Appearance Urine pH Ur Specific [place] Urine Protein Urine Glucose (UA) Urine Ketones Urine Blood Urine Nitrate Urine Bilirubin Urine Urobilinogen Ur Leukocyte Esterase Urine RBC Urine WBC Ur Epithelial Cells Amorphous Sediment Urine Bacteria Hyaline Casts Fine Granular Casts Urine Osmolality Ur Random Sodium Critical Care Progress Note - Nutrition Nutrition: Nutrition Category Date Time Status NPO Diet [DIET] Diets 06/04/18 Breakfast Ordered Addendum Addendum: 06/05/18 14:14 ICU Attending Addendum: Patient seen and examined. Case reviewed on round with housestaff. Agree with resident note above with the following additions/exceptions: 62M active smoker with hx of laryngeal ca s/p radiation/trach (removed), HTN, HLD, COPD, schizophrenia presented to ED with sob and cough with sputum x 2 days found to be in resp failure. He was initially intubated with a pediatric tube thru his stoma however this was too narrow to ventilate him. He went to the OR and ET tube replaced by cuffed miguelley #4 trach. He was also reported to be drinking a later amount of water daily and found to be hyponatremic at 118. Low serum osm. He was started on 3%. His sodium as risen by 9 points over 11 hours which is putting him at risk of osmotic demylenation. Stopped 3% and start d5W. awaiting nephro recs. May give DDAVP. In regard to his pulm status, will wean off sedation and see if he can tolerate trach collar eventually. Will be hesistant to remove trach in the near future. Goal to transition him to a fenestrate cuffless trach eventually. No signs of infection at this time. No fevers, no leukocytosis, no infitlrate on CXR. hold off on abx. Cont steroids (decr to 40 IV daily) for COPD exasc. Add azithro for anti-inflamm benefit for COPD. Cont nebs Rest of care as noted above. Danny Shelton MD [employer] Operator Critical Care Time : 30mins
--- NOTE | 2018-06-05 08:09 | OP ---
PROCEDURE DATE: 06/04/2018 PREOPERATIVE DIAGNOSES: Airway obstruction, laryngeal cancer. POSTOPERATIVE DIAGNOSES: Airway obstruction, laryngeal cancer. PROCEDURE: Direct laryngoscopy and tracheostomy. SURGEON: Hosea Manzo DO ANESTHESIA: General. ESTIMATED BLOOD LOSS: Minimal. OPERATIVE PROCEDURE: This is a 62-year-old white male with previous history of laryngeal CA, who underwent chemoradiation therapy and previous tracheostomy. The patient had the trach decannulated approximately 1 year ago and over the past month, he gotten progressive dyspnea, shortness of breath with some stridor noted. He presented to the ER in acute respiratory distress and taken to the OR where tracheostomy was performed. The patient is prepped and draped in a routine fashion. While in the ER, the patient had a #4 pediatric endotracheal tube inserted through a very small stomal site. He underwent endotracheal intubation via GlideScope and then following the procedure, a revision tracheostomy was performed. Bovie dissection was carried out through the small stomal incision remaining with Bovie dissection with two radial incisions made. Serial dilations were carried out and dissection was carried down to the tracheostomy to the trachea itself. The endotracheal tube was brought back and a #4 cuffed Shiley trach tube was inserted through the tracheostomy stomal site. The tracheostomy tube was sewn into place using 2-0 silk sutures followed by umbilical tape to secure the tracheostomy tube. Using the GlideScope, laryngoscopic examination was carried out of the epiglottis which is noted to be omega shaped and signs of laryngomalacia. The vocal cords were noted to be present and no gross tumor was visualized. There was no gross tumor noted , although the visualization was limited. The patient tolerated the procedure well and was taken from the operating room to the recovery in stable condition. Hosea Manzo DO [facility]
--- NOTE | 2018-06-05 08:18 | CP.PCM.PN ---
Subjective - Date & Time of Evaluation Date of Evaluation: 06/05/18 Time of Evaluation: 07:10 - Subjective Subjective: ENT progress note for Dr. Manzo Patient seen and examined at bedside this AM. Patient had no complications from the tracheostomy tube overnight, patient's vitals are stable. Patient is unresponsive d/t sedation at this time but is resting comfortably with no distress Objective - Vital Signs/Intake and Output Vital Signs (last 24 hours): Temp Pulse Resp BP Pulse Ox 98.6 F 69 18 108/60 95 06/05/18 00:28 06/05/18 06:00 06/05/18 00:28 06/05/18 01:00 06/05/18 00:59 Intake and Output: 06/05/18 06/05/18 06:59 18:59 Intake Total 100 Balance 100 - Medications Medications: Current Medications Albuterol/Ipratropium (Duoneb 3 Mg/0.5 Mg (3 Ml) Ud) 3 ml IH Q2H PRN PRN Reason: Shortness of Breath Albuterol/Ipratropium (Duoneb 3 Mg/0.5 Mg (3 Ml) Ud) 3 ml IH [id number] [facility] Last Admin: 06/05/18 07:36 Dose: 3 ml Amlodipine Besylate (Norvasc) 2.5 mg PO DAILY CY Arformoterol Tartrate (Brovana) 15 mcg IH [id number] [facility] Last Admin: 06/05/18 07:34 Dose: 15 mcg Atorvastatin Calcium (Lipitor) 20 mg PO HS CY Budesonide (Pulmicort Respules) 0.25 mg IH [id number] [facility] Last Admin: 06/05/18 07:36 Dose: 0.25 mg Cholecalciferol (Vitamin D) 2,000 intlu PO DAILY CY Fluphenazine HCl (Prolixin) 10 mg PO BID CY PRN Reason: Protocol Heparin Sodium (Porcine) (Heparin) 5,000 units SC Q12 CY PRN Reason: Protocol Last Admin: 06/05/18 00:36 Dose: Not Given Propofol (Diprivan) 1,000 mg in 100 mls @ 2.722 mls/hr IV .Q24H PRN; Protocol; 5 MCG/KG/MIN PRN Reason: TITRATE PER MD ORDER Last Admin: 06/05/18 04:45 Dose: 27.55 mcg/kg/min, 15 mls/hr Sodium Chloride (Hypertonic Saline 3%) 500 mls @ 30 mls/hr IV .[id number] [facility] Last Admin: 06/05/18 04:45 Dose: 30 mls/hr Levothyroxine Sodium (Synthroid) 25 mcg PO ACB CY Methylprednisolone (Solu-Medrol) 40 mg IVP Q8 [facility] Last Admin: 06/05/18 05:40 Dose: 40 mg Metoprolol Tartrate (Lopressor) 25 mg PO DAILY [facility] Multivitamins/Minerals (Therapeutic-M Tab) 1 tab PO DAILY [facility] Nicotine (Nicoderm Cq) 1 patch TD DAILY [facility] Pantoprazole Sodium (Protonix Inj) 40 mg IVP DAILY CY Trazodone HCl (Desyrel) 50 mg PO HS [facility] Last Admin: 06/05/18 00:40 Dose: Not Given - Labs Labs: 06/05/18 03:55 06/05/18 03:55 PT 11.5 SECONDS (9.4-12.5) 06/04/18 17:45 INR 1.01 06/04/18 17:45 APTT 33.0 Seconds (25.1-36.5) 06/04/18 17:45 - Constitutional Appears: Well, Non-toxic, No Acute Distress - Head Exam Head Exam: ATRAUMATIC, NORMOCEPHALIC - Eye Exam Eye Exam: Normal appearance. absent: Conjunctival injection, Scleral icterus - ENT Exam ENT Exam: Mucous Membranes Moist, Normal Oropharynx - Neck Exam Additional comments: tracheostomy in place with no bleeding or drainage - Respiratory Exam Respiratory Exam: absent: Accessory Muscle Use, Respiratory Distress, NORMAL BREATHING PATTERN (on mechanical ventilation) - Cardiovascular Exam Cardiovascular Exam: RRR - Neurological Exam Neurological Exam: Altered (chemically sedated) - Psychiatric Exam Additional comments: sedated - Skin Skin Exam: Dry, Normal Color, Warm Assessment and Plan - Assessment and Plan (Free Text) Assessment: 62M POD#1 S/P laryngoscope and tracheostomy placement Plan: Continue current management per ICU team Wean vent settings as tolerated Suture removal in 7-10 days Call surgical team if any bleeding or concerns Discussed with Dr. Anais Santana, PGY2
[2018-06-05 08:37] LABS: BLOOD UREA NITROGEN 6 mg/dL (7-21); CALCIUM 8.5 mg/dL (8.4-10.5); GFR NON-AFRICAN AMERICAN > 60
[2018-06-05 09:44] LABS: HDL CHOLESTEROL 58 mg/dL (29-60)
[2018-06-05 09:55] LABS: LDL CHOLESTEROL 109 mg/dL (0-129)
[2018-06-05] MEDS ORDERED: Pantoprazole 40 mg EC Tab PO SCH (10:00)
[2018-06-05] MEDS ORDERED: levoFLOXacin 500 mg in D5W 500 MG/100 ML BAG IVPB SCH (10:00)
[2018-06-05] MEDS: Multivitamin With Minerals Tab PO SCH (11:05)
[2018-06-05] MEDS: Levothyroxine 25 MCG TAB PO SCH (11:06)
[2018-06-05] MEDS: Cholecalciferol 1,000 INTLU TAB PO SCH (11:06)
[2018-06-05 12:01] LABS: BLOOD UREA NITROGEN 6 mg/dL (7-21); CALCIUM 8.6 mg/dL (8.4-10.5); GFR NON-AFRICAN AMERICAN > 60
--- NOTE | 2018-06-05 13:30 | CP.PCM.PN ---
Subjective - Date & Time of Evaluation Date of Evaluation: 06/05/18 Time of Evaluation: 13:29 - Subjective Subjective: pt seen and examined on vent. resting comfortably Objective - Vital Signs/Intake and Output Vital Signs (last 24 hours): Temp Pulse Resp BP Pulse Ox 98.6 F 67 14 116/74 94 L 06/05/18 00:28 06/05/18 12:50 06/05/18 08:45 06/05/18 12:30 06/05/18 12:50 Intake and Output: 06/05/18 06/05/18 06:59 18:59 Intake Total 100 100 Balance 100 100 - Medications Medications: Current Medications Albuterol/Ipratropium (Duoneb 3 Mg/0.5 Mg (3 Ml) Ud) 3 ml IH Q2H PRN PRN Reason: Shortness of Breath Albuterol/Ipratropium (Duoneb 3 Mg/0.5 Mg (3 Ml) Ud) 3 ml IH [id number] [facility] Last Admin: 06/05/18 13:12 Dose: 3 ml Amlodipine Besylate (Norvasc) 2.5 mg PO DAILY [facility] Last Admin: 06/05/18 11:06 Dose: Not Given Arformoterol Tartrate (Brovana) 15 mcg IH [id number] [facility] Last Admin: 06/05/18 07:34 Dose: 15 mcg Atorvastatin Calcium (Lipitor) 20 mg PO HS [facility] Budesonide (Pulmicort Respules) 0.25 mg IH [id number] [facility] Last Admin: 06/05/18 07:36 Dose: 0.25 mg Cholecalciferol (Vitamin D) 2,000 intlu PO DAILY [facility] Last Admin: 06/05/18 11:06 Dose: Not Given Fluphenazine HCl (Prolixin) 10 mg PO BID [facility] PRN Reason: Protocol Last Admin: 06/05/18 10:53 Dose: Not Given Heparin Sodium (Porcine) (Heparin) 5,000 units SC Q12 CY PRN Reason: Protocol Last Admin: 06/05/18 10:52 Dose: 5,000 units Propofol (Diprivan) 1,000 mg in 100 mls @ 2.722 mls/hr IV .Q24H PRN; Protocol; 5 MCG/KG/MIN PRN Reason: TITRATE PER MD ORDER Last Admin: 06/05/18 10:42 Dose: 36.74 mcg/kg/min, 20 mls/hr Dextrose (Dextrose 5% In Water 1000 Ml) 1,000 mls @ 150 mls/hr IV .[id number] [facility] Stop: 06/05/18 20:31 Last Admin: 06/05/18 13:04 Dose: 150 mls/hr Levothyroxine Sodium (Synthroid) 25 mcg PO ACB [facility] Last Admin: 06/05/18 11:06 Dose: Not Given Methylprednisolone (Solu-Medrol) 40 mg IVP Q8 [facility] Last Admin: 06/05/18 05:40 Dose: 40 mg Metoprolol Tartrate (Lopressor) 25 mg PO DAILY [facility] Multivitamins/Minerals (Therapeutic-M Tab) 1 tab PO DAILY [facility] Last Admin: 06/05/18 11:05 Dose: Not Given Nicotine (Nicoderm Cq) 1 patch TD DAILY [facility] Last Admin: 06/05/18 10:52 Dose: 1 patch Pantoprazole Sodium (Protonix Inj) 40 mg IVP DAILY [facility] Last Admin: 06/05/18 10:54 Dose: 40 mg Trazodone HCl (Desyrel) 50 mg PO HS [facility] Last Admin: 06/05/18 00:40 Dose: Not Given - Labs Labs: 06/05/18 03:55 06/05/18 11:30 PT 11.5 SECONDS (9.4-12.5) 06/04/18 17:45 INR 1.01 06/04/18 17:45 APTT 33.0 Seconds (25.1-36.5) 06/04/18 17:45 - Head Exam Head Exam: ATRAUMATIC, NORMAL INSPECTION - Eye Exam Pupil Exam: NORMAL ACCOMODATION - ENT Exam ENT Exam: Mucous Membranes Moist - Neck Exam Additional comments: neck C/D/I no bleeding sponge changed Assessment and Plan (1) Abnormal ABGs Status: Acute (2) Acute and chronic respiratory failure ([id number]) Status: Acute (3) COPD exacerbation Status: Acute (4) Hyponatremia Status: Acute (5) Hypoxia Status: Acute (6) Productive cough Status: Acute (7) COPD exacerbation Status: Acute (8) Chest pain Status: Acute (9) Syncope Status: Acute (10) Aneurysm Status: Chronic (11) Tobacco abuse Status: Chronic - Assessment and Plan (Free Text) Plan: s/p tracheotomy, on vent will follow
[2018-06-05 14:26] LABS: OPIATES, UR NEGATIVE (NEGATIVE)
[2018-06-05 14:27] LABS: BARBITURATES, UR NEGATIVE (NEGATIVE); BENZODIAZEPINES, UR NEGATIVE (NEGATIVE); PHENCYCLIDINE, UR NEGATIVE (NEGATIVE)
--- NOTE | 2018-06-05 14:43 | CP.PCM.CON ---
History of Present Illness - History of Present Illness History of Present Illness: Nephrology Consultation Note: Assessment: critical euvolemic hyponatremia with mildly elevated urine Osmo: likely reflects elevated ADH with excess water intake laryngeal ca s/p radiation/trach (removed), HTN, HLD, COPD, tobacco abuse, schizophrenia acute on chronic hyercapnic respi failure COPD exacerbation THC + Plan No acute need for renal replacement therapy at this time. Maintain hemodynamics stable. Avoid hypotension. Monitor Input/Output, daily weights and serum Na q4-6 hrs continue with IVF as D5W but at 150 ml/hr to target serum Na 124-125 meq/L by today evening to avoid rapid correction. THEN d/c D5w and start fluid restriction to 1000 mL/day target correction in serum Na no more than 6-8 meq/24 hrs. no further need of hypertonic saline. not needed samsca at this time check urine Na and osmol tomorrow as well Dose meds/antibiotics for normal GFR. Glycemic control. smoking cessation Further work up/management as per primary team Thanks for allowing me to participate in care of your patient. Will follow patient with you. Please call if any Qs. had d/w team Dr Rosendo Navarrete Office: [phone] Chief Complaint; unable Reason for consult: Hyponatremia HPI: Pt is a 62 M with hx of laryngeal ca s/p radiation/trach (removed), HTN, HLD, COPD, tobacco abuse, schizophrenia came with SOB x 2 days and admitted with high pCo2 and required trach. given 3% saline for hyponatremia and renal consult for further management reports of excess water intake by pt ROS: unable as pt s/p trach and sedated in ICU Physical Examination: General Appearance: Comfortable, in no acute respiratory distress,sedated, obese Vitals reviewed and noted as below Head; Atraumatic, normocephalic ENT: s/p trach EYES: Pupils are equal, round and reactive to light accommodation. Eye muscles and extraocular movement intact. Sclera is anicteric. Neck; supple no lymphadenopathy, no thyromegaly or bruit Lungs: Normal respiratory rate/effort. Breath sounds bilateral equal and clear anteriorly Heart: Normal rate. s1s2 normal. No rub or gallop. Extremities: no edema. No varicose veins Neurological: Patient is sedated Skin: Warm and dry. Normal turgor. No rash. Palpitation: Normal elasticity for age Abdomen: Abdomen is soft. Bowel sounds +. There is no abdominal tenderness, no guarding/rigidity no organomegaly Psych: unable MSK: no joint tenderness or swelling. Digits and nails normal, no deformity : kidney or bladder not palpable Labs/imaging reviewed. Past medical history, past surgical history, family history, social history, allergy reviewed and noted as below Family hx: no hx of CKD. Rest non-contributory work up: UA 100 protein Na 30 osmol 314 TSH 0.4 Past Patient History - Infectious Disease Hx of Infectious Diseases: None - Tetanus Immunizations Tetanus Immunization: Unknown - Past Social History Smoking Status: Current Some Days Smoker - CARDIAC Hx Cardiac Disorders: Yes Hx Hypertension: Yes - PULMONARY Hx Chronic Obstructive Pulmonary Disease (COPD): Yes - NEUROLOGICAL Hx Neurological Disorder: No - HEENT Hx HEENT Problems: Yes Hx Cataracts: Yes (WITH BILATERAL SX) - RENAL Hx Chronic Kidney Disease: No - ENDOCRINE/METABOLIC Hx Hypothyroidism: Yes - HEMATOLOGICAL/ONCOLOGICAL Hx Blood Disorders: Yes Hx Cancer: Yes (LARYNGEAL CA) - INTEGUMENTARY Hx Dermatological Problems: No - MUSCULOSKELETAL/RHEUMATOLOGICAL Hx Musculoskeletal Disorders: Yes (SPRAIN TO LEFT SHOULDER/CLIMBED FENCE WHEN HE WAS YOUNGER) Hx Falls: Yes - GASTROINTESTINAL Hx Gastrointestinal Disorders: Yes Other/Comment: throat soreness - GENITOURINARY/GYNECOLOGICAL Hx Genitourinary Disorders: No - PSYCHIATRIC Hx Psychophysiologic Disorder: Yes Hx Anxiety: Yes Hx Depression: Yes Hx Emotional Abuse: No Hx Physical Abuse: No Hx Schizophrenia: Yes Hx Substance Use: No - SURGICAL HISTORY Hx Orthopedic Surgery: Yes - ANESTHESIA Hx Anesthesia: Yes Hx Anesthesia Reactions: No Hx Malignant Hyperthermia: No Meds Allergies/Adverse Reactions: Allergies Allergy/AdvReac Type Severity Reaction Status Date / Time Penicillins Allergy Unknown unknown Verified 05/08/18 17:48 - Medications Medications: Current Medications Albuterol/Ipratropium (Duoneb 3 Mg/0.5 Mg (3 Ml) Ud) 3 ml IH Q2H PRN PRN Reason: Shortness of Breath Albuterol/Ipratropium (Duoneb 3 Mg/0.5 Mg (3 Ml) Ud) 3 ml IH [id number] [facility] Last Admin: 06/05/18 13:12 Dose: 3 ml Amlodipine Besylate (Norvasc) 2.5 mg PO DAILY [facility] Last Admin: 06/05/18 11:06 Dose: Not Given Arformoterol Tartrate (Brovana) 15 mcg IH [id number] [facility] Last Admin: 06/05/18 07:34 Dose: 15 mcg Atorvastatin Calcium (Lipitor) 20 mg PO HS [facility] Budesonide (Pulmicort Respules) 0.25 mg IH [id number] [facility] Last Admin: 06/05/18 07:36 Dose: 0.25 mg Cholecalciferol (Vitamin D) 2,000 intlu PO DAILY [facility] Last Admin: 06/05/18 11:06 Dose: Not Given Fluphenazine HCl (Prolixin) 10 mg PO BID [facility] PRN Reason: Protocol Last Admin: 06/05/18 10:53 Dose: Not Given Heparin Sodium (Porcine) (Heparin) 5,000 units SC Q12 [facility] PRN Reason: Protocol Last Admin: 06/05/18 10:52 Dose: 5,000 units Propofol (Diprivan) 1,000 mg in 100 mls @ 2.722 mls/hr IV .Q24H PRN; Protocol; 5 MCG/KG/MIN PRN Reason: TITRATE PER MD ORDER Last Admin: 06/05/18 10:42 Dose: 36.74 mcg/kg/min, 20 mls/hr Dextrose (Dextrose 5% In Water 1000 Ml) 1,000 mls @ 150 mls/hr IV .Q6H40M [facility] Stop: 06/05/18 20:31 Last Admin: 06/05/18 13:04 Dose: 150 mls/hr Levothyroxine Sodium (Synthroid) 25 mcg PO ACB [facility] Last Admin: 06/05/18 11:06 Dose: Not Given Methylprednisolone (Solu-Medrol) 40 mg IVP DAILY [facility] Metoprolol Tartrate (Lopressor) 25 mg PO DAILY [facility] Multivitamins/Minerals (Therapeutic-M Tab) 1 tab PO DAILY [facility] Last Admin: 06/05/18 11:05 Dose: Not Given Nicotine (Nicoderm Cq) 1 patch TD DAILY [facility] Last Admin: 06/05/18 10:52 Dose: 1 patch Pantoprazole Sodium (Protonix Inj) 40 mg IVP DAILY [facility] Last Admin: 06/05/18 10:54 Dose: 40 mg Trazodone HCl (Desyrel) 50 mg PO HS CY Last Admin: 06/05/18 00:40 Dose: Not Given Results - Vital Signs Recent Vital Signs: Last Vital Signs Temp 98.6 F 06/05/18 00:28 Pulse 67 06/05/18 12:50 Resp 14 06/05/18 08:45 BP 116/74 06/05/18 12:30 Pulse Ox 94 L 06/05/18 12:50 - Labs Result Diagrams: 06/05/18 03:55 06/05/18 11:30 Labs: Laboratory Results - last 24 hr 06/04/18 06/04/18 06/05/18 21:54 22:19 00:25 WBC RBC Hgb Hct MCV MCH MCHC RDW Plt Count MPV Gran % Lymph % (Auto) [place] % (Auto) Eos % (Auto) Baso % (Auto) Gran # Lymph # (Auto) [place] # (Auto) Eos # (Auto) Baso # (Auto) Neutrophils % (Manual) Band Neutrophils % Lymphocytes % (Manual) Monocytes % (Manual) Platelet Evaluation pCO2 pO2 HCO3 ABG pH ABG Total CO2 ABG O2 Saturation ABG O2 Content ABG Base Excess ABG Hemoglobin ABG Carboxyhemoglobin POC ABG HHb (Measured) ABG Methemoglobin ABG O2 Capacity Hgb O2 Saturation FiO2 Sodium 118 L* Potassium 4.7 Chloride 78 L Carbon Dioxide 31 Anion Gap 13 BUN 5 L Creatinine 0.7 L Est GFR ( Amer) > 60 Est GFR (Non-Af Amer) > 60 Random Glucose 165 H Calcium 8.0 L Magnesium Troponin I Triglycerides Cholesterol LDL Cholesterol Direct HDL Cholesterol TSH 3rd Generation Urine Color Yellow Urine Appearance Clear Urine pH 7.0 Ur Specific [place] 1.020 Urine Protein 100 H Urine Glucose (UA) Negative Urine Ketones Negative Urine Blood Negative Urine Nitrate Negative Urine Bilirubin Negative Urine Urobilinogen 0.2 Ur Leukocyte Esterase Negative Urine RBC 0 - 2 Urine WBC 1 - 3 Ur Epithelial Cells 0 - 2 Amorphous Sediment Few Urine Bacteria Mod Hyaline Casts 0 - 2 Fine Granular Casts 0 - 2 Urine Osmolality 314 Ur Random Sodium 30 Urine Opiates Screen Urine Methadone Screen Ur Barbiturates Screen Ur Phencyclidine Scrn Ur Amphetamines Screen U Benzodiazepines Scrn U Oth Cocaine Metabols U Cannabinoids Screen 06/05/18 06/05/18 06/05/18 00:45 03:55 03:55 WBC 6.7 D RBC 4.79 Hgb 14.8 Hct 42.7 MCV 89.1 MCH 30.9 MCHC 34.7 RDW 13.8 Plt Count 256 MPV 8.6 Gran % 91.2 H Lymph % (Auto) 3.6 L [place] % (Auto) 5.2 Eos % (Auto) 0.0 L Baso % (Auto) 0.0 Gran # 6.15 Lymph # (Auto) 0.2 L [place] # (Auto) 0.4 Eos # (Auto) 0.0 Baso # (Auto) 0.00 Neutrophils % (Manual) 84 H Band Neutrophils % 9 H Lymphocytes % (Manual) 3 L Monocytes % (Manual) 4 Platelet Evaluation Normal pCO2 60 H pO2 79.0 L HCO3 33.1 H ABG pH 7.35 ABG Total CO2 34.9 H ABG O2 Saturation 97.8 ABG O2 Content 18.8 ABG Base Excess 5.5 H ABG Hemoglobin 14.7 ABG Carboxyhemoglobin 6.2 H POC ABG HHb (Measured) 2.0 ABG Methemoglobin 1.1 ABG O2 Capacity 19.2 Hgb O2 Saturation 90.7 L FiO2 100.0 Sodium 121 L Potassium 4.8 Chloride 79 L Carbon Dioxide 34 H Anion Gap 12 BUN 6 L Creatinine 0.7 L Est GFR ( Amer) > 60 Est GFR (Non-Af Amer) > 60 Random Glucose 142 H Calcium 7.9 L Magnesium 2.1 Troponin I Triglycerides Cholesterol LDL Cholesterol Direct HDL Cholesterol TSH 3rd Generation Urine Color Urine Appearance Urine pH Ur Specific [place] Urine Protein Urine Glucose (UA) Urine Ketones Urine Blood Urine Nitrate Urine Bilirubin Urine Urobilinogen Ur Leukocyte Esterase Urine RBC Urine WBC Ur Epithelial Cells Amorphous Sediment Urine Bacteria Hyaline Casts Fine Granular Casts Urine Osmolality Ur Random Sodium Urine Opiates Screen Urine Methadone Screen Ur Barbiturates Screen Ur Phencyclidine Scrn Ur Amphetamines Screen U Benzodiazepines Scrn U Oth Cocaine Metabols U Cannabinoids Screen 06/05/18 06/05/18 06/05/18 05:30 08:15 08:34 WBC RBC Hgb Hct MCV MCH MCHC RDW Plt Count MPV Gran % Lymph % (Auto) [place] % (Auto) Eos % (Auto) Baso % (Auto) Gran # Lymph # (Auto) [place] # (Auto) Eos # (Auto) Baso # (Auto) Neutrophils % (Manual) Band Neutrophils % Lymphocytes % (Manual) Monocytes % (Manual) Platelet Evaluation pCO2 65 H pO2 78.0 L HCO3 35.9 H ABG pH 7.35 ABG Total CO2 37.9 H ABG O2 Saturation 97.8 ABG O2 Content 19.8 ABG Base Excess 7.6 H ABG Hemoglobin 15.0 ABG Carboxyhemoglobin 3.3 H POC ABG HHb (Measured) 2.1 ABG Methemoglobin 0.7 ABG O2 Capacity 20.2 Hgb O2 Saturation 93.9 L FiO2 100.0 Sodium 126 L Potassium 4.9 Chloride 84 L Carbon Dioxide 37 H Anion Gap 10 BUN 6 L Creatinine 0.7 L Est GFR ( Amer) > 60 Est GFR (Non-Af Amer) > 60 Random Glucose 137 H Calcium 8.5 Magnesium Troponin I 0.04 Triglycerides Cholesterol LDL Cholesterol Direct HDL Cholesterol TSH 3rd Generation Urine Color Urine Appearance Urine pH Ur Specific [place] Urine Protein Urine Glucose (UA) Urine Ketones Urine Blood Urine Nitrate Urine Bilirubin Urine Urobilinogen Ur Leukocyte Esterase Urine RBC Urine WBC Ur Epithelial Cells Amorphous Sediment Urine Bacteria Hyaline Casts Fine Granular Casts Urine Osmolality Ur Random Sodium Urine Opiates Screen Urine Methadone Screen Ur Barbiturates Screen Ur Phencyclidine Scrn Ur Amphetamines Screen U Benzodiazepines Scrn U Oth Cocaine Metabols U Cannabinoids Screen 06/05/18 06/05/18 06/05/18 08:34 11:30 11:30 WBC RBC Hgb Hct MCV MCH MCHC RDW Plt Count MPV Gran % Lymph % (Auto) [place] % (Auto) Eos % (Auto) Baso % (Auto) Gran # Lymph # (Auto) [place] # (Auto) Eos # (Auto) Baso # (Auto) Neutrophils % (Manual) Band Neutrophils % Lymphocytes % (Manual) Monocytes % (Manual) Platelet Evaluation pCO2 pO2 HCO3 ABG pH ABG Total CO2 ABG O2 Saturation ABG O2 Content ABG Base Excess ABG Hemoglobin ABG Carboxyhemoglobin POC ABG HHb (Measured) ABG Methemoglobin ABG O2 Capacity Hgb O2 Saturation FiO2 Sodium 127 L Potassium 4.8 Chloride 86 L Carbon Dioxide 36 H Anion Gap 10 BUN 6 L Creatinine 0.7 L Est GFR ( Amer) > 60 Est GFR (Non-Af Amer) > 60 Random Glucose 140 H Calcium 8.6 Magnesium Troponin I Triglycerides 67 Cholesterol 186 LDL Cholesterol Direct 109 HDL Cholesterol 58 TSH 3rd Generation 0.44 L Urine Color Urine Appearance Urine pH Ur Specific [place] Urine Protein Urine Glucose (UA) Urine Ketones Urine Blood Urine Nitrate Urine Bilirubin Urine Urobilinogen Ur Leukocyte Esterase Urine RBC Urine WBC Ur Epithelial Cells Amorphous Sediment Urine Bacteria Hyaline Casts Fine Granular Casts Urine Osmolality Ur Random Sodium Urine Opiates Screen Urine Methadone Screen Ur Barbiturates Screen Ur Phencyclidine Scrn Ur Amphetamines Screen U Benzodiazepines Scrn U Oth Cocaine Metabols U Cannabinoids Screen 06/05/18 13:30 WBC RBC Hgb Hct MCV MCH MCHC RDW Plt Count MPV Gran % Lymph % (Auto) [place] % (Auto) Eos % (Auto) Baso % (Auto) Gran # Lymph # (Auto) [place] # (Auto) Eos # (Auto) Baso # (Auto) Neutrophils % (Manual) Band Neutrophils % Lymphocytes % (Manual) Monocytes % (Manual) Platelet Evaluation pCO2 pO2 HCO3 ABG pH ABG Total CO2 ABG O2 Saturation ABG O2 Content ABG Base Excess ABG Hemoglobin ABG Carboxyhemoglobin POC ABG HHb (Measured) ABG Methemoglobin ABG O2 Capacity Hgb O2 Saturation FiO2 Sodium Potassium Chloride Carbon Dioxide Anion Gap BUN Creatinine Est GFR ( Amer) Est GFR (Non-Af Amer) Random Glucose Calcium Magnesium Troponin I Triglycerides Cholesterol LDL Cholesterol Direct HDL Cholesterol TSH 3rd Generation Urine Color Urine Appearance Urine pH Ur Specific [place] Urine Protein Urine Glucose (UA) Urine Ketones Urine Blood Urine Nitrate Urine Bilirubin Urine Urobilinogen Ur Leukocyte Esterase Urine RBC Urine WBC Ur Epithelial Cells Amorphous Sediment Urine Bacteria Hyaline Casts Fine Granular Casts Urine Osmolality Ur Random Sodium Urine Opiates Screen Negative Urine Methadone Screen Negative Ur Barbiturates Screen Negative Ur Phencyclidine Scrn Negative Ur Amphetamines Screen Negative U Benzodiazepines Scrn Negative U Oth Cocaine Metabols Negative U Cannabinoids Screen Positive H
[2018-06-05 15:54] LABS: BLOOD UREA NITROGEN 6 mg/dL (7-21); CALCIUM 8.4 mg/dL (8.4-10.5); GFR NON-AFRICAN AMERICAN > 60
--- NOTE | 2018-06-05 17:41 | CARD ---
APPROVED REPORT Date of service: 06/04/2018 EKG Measurement Heart [id number] <Conclusion> Normal sinus rhythm Possible Left atrial enlargement Cannot rule out Anterior infarct, age undetermined Abnormal ECG
--- NOTE | 2018-06-05 19:12 | CARD ---
APPROVED REPORT Date of service: 06/05/2018 EXAM: Two-dimensional and M-mode echocardiogram with Doppler and color Doppler. INDICATION ELEVATED BNP 2D DIMENSIONS Left Atrium (2D)4.1 (1.6-4.0cm)IVSd1.4 (0.7-1.1cm) LVDd4.4 (3.9-5.9cm)PWd1.4 (0.7-1.1cm) LVDs3.1 (2.5-4.0cm)FS (%) 30.0 % LVEF (%)57.5 (>50%) M-Mode DIMENSIONS Aortic Root4.40 (2.2-3.7cm)Aortic Cusp Exc.2.00 (1.5-2.0cm) Aortic Valve AoV Peak Vnjdlvfz915.0cm/Stacey Peak GR.6mmHg Mitral Valve MV E Zbejdiox33.0cm/sMV A Vuinlmko28.3cm/sE/A ratio0.8 TDI Lateral E' Peak V8.68cm/sMedial E' Peak V6.04cm/sE/Lateral E'8.5 E/Medial E'12.3 Pulmonary Valve PV Peak Ernesiea80.9cm/sPV Peak Grad.3mmHg Tricuspid Valve TR Peak [id number]/sRAP [id number] Peak Gr.11mmHg [id number] LEFT VENTRICLE The left ventricle is normal size. There is mild to moderate concentric left ventricular hypertrophy. The left ventricular function is normal.EF-55% There is normal LV segmental wall motion. Transmitral Doppler flow pattern is Grade III-reversible restrictive diastolic dysfunction. No left ventricle thrombus noted on this study. There is no ventricular septal defect visualized. There is no left ventricular aneurysm. There is no mass noted in the left ventricle. There is no mass noted in the left ventricle. RIGHT VENTRICLE The right ventricle is normal size. There is normal right ventricular wall thickness. The right ventricular systolic function is normal. ATRIA The left atrium is mildly dilated. The right atrium size is normal. The interatrial septum is intact with no evidence for an atrial septal defect. AORTIC VALVE The aortic valve is thickened but opens well. No aortic regurgitation is present. There is no aortic valvular stenosis. There is no aortic valvular vegetation. MITRAL VALVE The mitral valve is thickened but opens well. Mitral regurgitation is trace. There is no mitral valve stenosis. There is no evidence of mitral valve prolapse. TRICUSPID VALVE The tricuspid valve leaflets are thickened , but open well. There is trace tricuspid regurgitation.RVSP-21 mmof Hg. There is no tricuspid valve stenosis. There is no tricuspid valve prolapse or vegetation. PULMONIC VALVE The pulmonary valve is normal in structure. There is no pulmonic valvular regurgitation. There is no pulmonic valvular stenosis. GREAT VESSELS The aortic root is normal in size. The ascending aorta is normal in size. The pulmonary artery is normal. The IVC is normal in size and collapses >50% with inspiration. PERICARDIAL EFFUSION There is no pleural effusion. There is no pericardial effusion. <Conclusion> The left ventricle is normal size. There is mild to moderate concentric left ventricular hypertrophy. The left ventricular function is normal.EF-55% Mitral regurgitation is trace. There is trace tricuspid regurgitation.RVSP-21 mmof Hg. There is no pericardial effusion.
--- NOTE | 2018-06-05 19:15 | CP.PCM.PN ---
<Fili Winkler - Last Filed: 06/05/18 19:11> Subjective - Date & Time of Evaluation Date of Evaluation: 06/05/18 Time of Evaluation: 07:00 - Subjective Subjective: Fili Winkler PGY1 Medicine Progress Note for Dr. Eden Patient was seen and examined at bedside this morning. Patient has a tracheotomy tube in place. A full 12 point ROS was note obtained since patient is sedated on propofol. Patient's vital signs prior to interview were stable. Coe catheter in place. Spoke to ICU team in regards to management. Objective - Vital Signs/Intake and Output Vital Signs (last 24 hours): Temp Pulse Resp BP Pulse Ox 98.6 F 64 14 116/74 94 L 06/05/18 00:28 06/05/18 18:00 06/05/18 08:45 06/05/18 12:30 06/05/18 12:50 Intake and Output: 06/05/18 06/06/18 18:59 06:59 Intake Total 1250 Output Total 2725 Balance -1475 - Medications Medications: Current Medications Albuterol/Ipratropium (Duoneb 3 Mg/0.5 Mg (3 Ml) Ud) 3 ml IH Q2H PRN PRN Reason: Shortness of Breath Albuterol/Ipratropium (Duoneb 3 Mg/0.5 Mg (3 Ml) Ud) 3 ml IH [id number] [facility] Last Admin: 06/05/18 13:12 Dose: 3 ml Amlodipine Besylate (Norvasc) 2.5 mg PO DAILY [facility] Last Admin: 06/05/18 11:06 Dose: Not Given Arformoterol Tartrate (Brovana) 15 mcg IH [id number] [facility] Last Admin: 06/05/18 07:34 Dose: 15 mcg Atorvastatin Calcium (Lipitor) 20 mg PO HS [facility] Budesonide (Pulmicort Respules) 0.25 mg IH [id number] [facility] Last Admin: 06/05/18 07:36 Dose: 0.25 mg Cholecalciferol (Vitamin D) 2,000 intlu PO DAILY [facility] Last Admin: 06/05/18 11:06 Dose: Not Given Fluphenazine HCl (Prolixin) 10 mg PO BID [facility] PRN Reason: Protocol Last Admin: 06/05/18 10:53 Dose: Not Given Heparin Sodium (Porcine) (Heparin) 5,000 units SC Q12 ARTUR PRN Reason: Protocol Last Admin: 06/05/18 10:52 Dose: 5,000 units Propofol (Diprivan) 1,000 mg in 100 mls @ 2.722 mls/hr IV .Q24H PRN; Protocol; 5 MCG/KG/MIN PRN Reason: TITRATE PER MD ORDER Last Admin: 06/05/18 15:36 Dose: 30 mcg/kg/min, 16.329 mls/hr Dextrose (Dextrose 5% In Water 1000 Ml) 1,000 mls @ 150 mls/hr IV .Q6H40M [facility] Stop: 06/05/18 20:31 Last Admin: 06/05/18 13:04 Dose: 150 mls/hr Levothyroxine Sodium (Synthroid) 25 mcg PO ACB [facility] Last Admin: 06/05/18 11:06 Dose: Not Given Methylprednisolone (Solu-Medrol) 40 mg IVP DAILY [facility] Metoprolol Tartrate (Lopressor) 25 mg PO DAILY [facility] Last Admin: 06/05/18 10:00 Dose: Not Given Multivitamins/Minerals (Therapeutic-M Tab) 1 tab PO DAILY [facility] Last Admin: 06/05/18 11:05 Dose: Not Given Nicotine (Nicoderm Cq) 1 patch TD DAILY [facility] Last Admin: 06/05/18 10:52 Dose: 1 patch Pantoprazole Sodium (Protonix Inj) 40 mg IVP DAILY [facility] Last Admin: 06/05/18 10:54 Dose: 40 mg Trazodone HCl (Desyrel) 50 mg PO HS [facility] Last Admin: 06/05/18 00:40 Dose: Not Given - Labs Labs: 06/05/18 03:55 06/05/18 15:34 PT 11.5 SECONDS (9.4-12.5) 06/04/18 17:45 INR 1.01 06/04/18 17:45 APTT 33.0 Seconds (25.1-36.5) 06/04/18 17:45 - Head Exam Head Exam: ATRAUMATIC, NORMAL INSPECTION, NORMOCEPHALIC - Eye Exam Eye Exam: EOMI, Normal appearance, PERRL - ENT Exam Additional comments: NG Tube in place - Neck Exam Additional comments: Tracheotomy tube in place. - Respiratory Exam Respiratory Exam: Clear to Ausculation Bilateral, NORMAL BREATHING PATTERN. absent: Rales, Rhonchi, Wheezes - Cardiovascular Exam Cardiovascular Exam: REGULAR RHYTHM, +S1, +S2. absent: Murmur - GI/Abdominal Exam GI & Abdominal Exam: Soft, Normal Bowel Sounds. absent: Tenderness - Exam Additional comments: Coe catheter in place. - Extremities Exam Extremities Exam: Full ROM, Normal Capillary Refill, Normal Inspection. absent : Joint Swelling, Pedal Edema - Skin Skin Exam: Dry, Intact, Normal Color, Warm Assessment and Plan - Assessment and Plan (Free Text) Assessment: Patient is a 62 y/o M with PMHx of Laryngeal cancer (s/p radiation/trach removed ), HTN, HLD, COPD, tobacco abuse, and schizophrenia who presented to ED on 06/04 for shortness of breath, cough, and polydipsia. Patient found to be severely hyponatremic and in respiratory distress. 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 Plan: Hypercapnic respiratory failure 2/2 COPD Exacerbation vs. Fluid Overload - CXR showed atelectasis versus infiltrates - Repeat CXR shows trach/NG tube in good position. 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 - improving - Given patient's hx of schizphrenia and the fact that he had increased PO intake of free water, likely psychogenic in nature - Initial sodium was 118; given 3% hypertonic saline, corrected to 121 (latest) - d/c 3% hypertonic saline to prevent overcorrection of sodium (> 4-6 meq in 24 hours) - fluid restriction - Monitor I&O Hx of Laryngeal Cancer - Heme/onc consulted, f/u recs - Palliative care consulted, f/u recs HTN - c/w home med: Norvasc and Metoprolol with holding parameters HLD - c/w Home med: Lipitor Schizophrenia - c/w home medication: trazodone and fluphenazine GI ppx: Protonix DVT ppx: Heparin SC Dispo: Monitor patient in ICU. Case was discussed and reviewed with Dr. Eden. <Susana Eden R - Last Filed: 06/06/18 18:59> Objective - Vital Signs/Intake and Output Vital Signs (last 24 hours): Temp Pulse Resp BP Pulse Ox 98.1 F 88 19 120/64 90 L 06/06/18 16:00 06/06/18 18:00 06/06/18 18:00 06/06/18 18:00 06/06/18 18:00 Intake and Output: 06/06/18 06/06/18 06:59 18:59 Intake Total 2290 1250 Output Total 2500 1575 Balance -210 -325 - Medications Medications: Current Medications Albuterol/Ipratropium (Duoneb 3 Mg/0.5 Mg (3 Ml) Ud) 3 ml IH Q2H PRN PRN Reason: Shortness of Breath Albuterol/Ipratropium (Duoneb 3 Mg/0.5 Mg (3 Ml) Ud) 3 ml IH [id number] [facility] Last Admin: 06/06/18 13:11 Dose: 3 ml Amlodipine Besylate (Norvasc) 2.5 mg PO DAILY [facility] Last Admin: 06/06/18 10:00 Dose: Not Given Arformoterol Tartrate (Brovana) 15 mcg IH [id number] [facility] Last Admin: 06/06/18 07:22 Dose: 15 mcg Atorvastatin Calcium (Lipitor) 20 mg PO HS [facility] Last Admin: 06/05/18 21:43 Dose: Not Given Budesonide (Pulmicort Respules) 0.25 mg IH [id number] [facility] Last Admin: 06/06/18 07:23 Dose: 0.25 mg Cholecalciferol (Vitamin D) 2,000 intlu PO DAILY [facility] Last Admin: 06/06/18 10:00 Dose: Not Given Fluphenazine HCl (Prolixin) 10 mg PO BID [facility] PRN Reason: Protocol Last Admin: 06/06/18 10:00 Dose: Not Given Heparin Sodium (Porcine) (Heparin) 5,000 units SC Q12 [facility]UR PRN Reason: Protocol Last Admin: 06/06/18 09:11 Dose: 5,000 units Propofol (Diprivan) 1,000 mg in 100 mls @ 2.722 mls/hr IV .Q24H PRN; Protocol; 5 MCG/KG/MIN PRN Reason: TITRATE PER MD ORDER Last Titration: 06/06/18 08:04 Dose: Infused Levothyroxine Sodium (Synthroid) 25 mcg PO ACB [facility] Last Admin: 06/06/18 09:12 Dose: 25 mcg Methylprednisolone (Solu-Medrol) 40 mg IVP DAILY [facility] Last Admin: 06/06/18 09:11 Dose: 40 mg Metoprolol Tartrate (Lopressor) 25 mg PO DAILY [facility] Last Admin: 06/06/18 10:00 Dose: Not Given Multivitamins/Minerals (Therapeutic-M Tab) 1 tab PO DAILY [facility] Last Admin: 06/06/18 10:00 Dose: Not Given Nicotine (Nicoderm Cq) 1 patch TD DAILY [facility] Last Admin: 06/06/18 09:12 Dose: 1 patch Pantoprazole Sodium (Protonix Inj) 40 mg IVP DAILY [facility] Last Admin: 06/06/18 09:11 Dose: 40 mg Trazodone HCl (Desyrel) 50 mg PO HS [facility] Last Admin: 06/05/18 21:42 Dose: Not Given - Labs Labs: 06/06/18 04:15 06/06/18 15:50 PT 11.5 SECONDS (9.4-12.5) 06/04/18 17:45 INR 1.01 06/04/18 17:45 APTT 33.0 Seconds (25.1-36.5) 06/04/18 17:45 Attending/Attestation - Attestation I have personally seen and examined this patient.: Yes I have fully participated in the care of the patient.: Yes I have reviewed all pertinent clinical information, including history, physical exam and plan: Yes Notes (Text): Patient seen and examined by me at 9:35AM with resident 06/05/18. Case including HPI, physical exam, and assessment and plan discussed with resident. Agree with above with following additions/corrections. Patient is 62-year-old male with past medical history significant for laryngeal cancer status post radiation and tracheostomy now with stoma, hypertension, hyperlipidemia, COPD, tobacco abuse, and schizophrenia that presented to the emergency room with 2 days of shortness of breath. Patient is sedated. Trach was placed in OR overnight. Patient is on a vent. Unable to obtain any review of systems from patient as patient is sedated. Patient is afebrile. Physical exam: General: Sedated. Appears to be in no acute distress. HEENT: Normocephalic atraumatic. Pupils equal reactive. No scleral icterus. Short stubby neck. Tracheostomy in place. NG tube in place with bile-appearing output. Cardiovascular: Normal rhythm. Normal S1, S2. No murmurs, rubs or gallops appreciated Pulmonary: No rhonchi, rales or wheezing appreciated. Gastrointestinal: Soft, nondistended, obese abdomen. Positive bowel sounds all 4 quadrants, no guarding. Musculoskeletal: Moves all extremities, no edema appreciated. Central nervous system: Sedated. Unable to do full neuro exam. Dermatologic: Skin warm and dry. Assessment and plan: Patient is 62-year-old male with past medical history significant for laryngeal cancer status post radiation and tracheostomy now with stoma, hypertension, hyperlipidemia, COPD, tobacco abuse, and schizophrenia that presented to the emergency room with 2 days of shortness of breath. 1. Hypercapnic Respiratory failure. Secondary to COPD exacerbation. Patient taken to operating room for tracheostomy placement overnight. ENT following, recommendations appreciated. Continue nebulizer treatments, Brovana, and Pulmicort. Continue Solu-Medrol 40 mg IV every 8 hours. Chest x-ray showed new tracheostomy in satisfactory position, nasogastric tube in satisfactory position , lungs are clear. Patient afebrile. No leukocytosis. 2. Hypervolemic hypernatremia. Likely psychogenic in nature. Patient was started on 3% hypertonic saline. Sodium corrected to 121. Saline was stopped to prevent overcorrection of sodium. Nephrology following, recommendations appreciated. Fluid restriction. Continue to monitor. 3. History of laryngeal cancer. Hematology/oncology consulted, follow-up recommendations. Palliative care consulted. 4. Hypertension. Continue Norvasc and metoprolol when no longer nothing by mouth. 5. Hyperlipidemia. Continue Lipitor when no longer nothing by mouth. 6. Schizophrenia. Continue trazodone and prolixin when no longer nothing by mouth. 7. Tobacco abuse. Patient continues to smoke. Will need to be counseled on cessation when awake and alert. 8. GI/DVT prophylaxis. Protonix and heparin.
[2018-06-05 20:15] LABS: BLOOD UREA NITROGEN 6 mg/dL (7-21); CALCIUM 8.3 mg/dL (8.4-10.5); GFR NON-AFRICAN AMERICAN > 60
[2018-06-06] MEDS: Propofol 10 mg/ml 1,000 MG/100 ML VIAL IV PRN (00:05)
[2018-06-06 01:09] LABS: BLOOD UREA NITROGEN 6 mg/dL (7-21); CALCIUM 8.2 mg/dL (8.4-10.5); GFR NON-AFRICAN AMERICAN > 60
[2018-06-06] MEDS: Albuterol-Ipratrop 3 mg / 0.5 (3 ml) UD IH SCH ×4 (01:26→19:50)
[2018-06-06 04:46] LABS: BLOOD UREA NITROGEN 5 mg/dL (7-21); CALCIUM 8.3 mg/dL (8.4-10.5); GFR NON-AFRICAN AMERICAN > 60
[2018-06-06 05:35] LABS: BASO # 0.01 K/mm3 (0.0-2.0); BASO % 0.1 % (0.0-3.0); EOS # 0.1 (0.0-0.7); EOS % 0.5 % (1.5-5.0); GRAN # 7.98 (1.4-6.5); GRAN % 77.8 % (50.0-68.0); HEMOGLOBIN 14.8 g/dL (14.0-18.0); LYMPH # 1.4 (1.2-3.4); LYMPH % 13.8 % (22.0-35.0); MEAN CELL VOLUME 91.2 fl (80.0-105.0); MEAN CORPUSCULAR HEMOGLOBIN 30.9 pg (25.0-35.0); MEAN CORPUSCULAR HGB CONC 33.9 g/dl (31.0-37.0); MEAN PLATELET VOLUME 9.1 fl (7.0-11.0); MONO # 0.8 (0.1-0.6); MONO % 7.8 % (1.0-6.0); RBC 4.79 10^6/uL (3.5-6.1); RED CELL DISTRIBUTION WIDTH 14.7 % (11.5-14.5); WHITE BLOOD COUNT 10.3 10^3/ul (4.5-11.0)
[2018-06-06 05:49] LABS: ARTERIAL BLOOD GAS HEMOGLOBIN 15.2 g/dL (11.7-17.4); ARTERIAL BLOOD GAS O2 CONTENT 20.8 ML/dl (15-23); ARTERIAL BLOOD GAS O2 SAT 98.9 % (95-98); ARTERIAL BLOOD GAS PCO2 66 mm/Hg (35-45); ARTERIAL BLOOD GAS PH 7.39 (7.35-7.45)
[2018-06-06] MEDS ORDERED: Dextrose 5%/0.9% NS 1,000 ML IV SCH (06:15)
[2018-06-06] MEDS: Arformoterol 15 mcg/2 ml Inh Sol IH SCH ×2 (07:22→19:50)
[2018-06-06] MEDS: Budesonide 0.25 mg/2 ml Inhal Susp UD IH SCH ×2 (07:23→19:51)
[2018-06-06 08:23] LABS: ARTERIAL BLOOD GAS HCO3 37.8 mmol/L (21-28); ARTERIAL BLOOD GAS HEMOGLOBIN 15.2 g/dL (11.7-17.4); ARTERIAL BLOOD GAS O2 CAPACITY 20.9 mL/dl (16-24); ARTERIAL BLOOD GAS O2 CONTENT 19.5 ML/dl (15-23); ARTERIAL BLOOD GAS O2 SAT 93.4 % (95-98); ARTERIAL BLOOD GAS PCO2 61 mm/Hg (35-45); ARTERIAL BLOOD GAS TCO2 39.7 mmol.L (22-28)
--- NOTE | 2018-06-06 08:37 | PN ---
DATE: 06/06/2018 SUBJECTIVE: The patient is seen and examined at bedside. He is off of sedation. He is comfortable. He is following commands. He is unrestrained right now and he is not agitated. PHYSICAL EXAMINATION: VITAL SIGNS: He is on pressure support 5/5 with FIO2 of 60%. On that setting, his oxygen saturation varies between 91% and 96%, blood pressure 116/81, end-tidal CO2 on the monitor 53 (please note that his pH was 7.39 with pCO2 of 66 on ABG), heart rate 68, respiratory rate 19. ENT: Head and neck atraumatic, status post trach. Trach area appears to be not inflamed and without any purulent exudate. Chest x-ray confirmed correct position of the tracheostomy tube. HEART: Regular rate and rhythm. S1 and S2 normal. LUNGS: Few wheezes bilaterally, left more than right. ABDOMEN: Soft, nontender and nondistended. MUSCULOSKELETAL: No C/C/E. NEURO: The patient moves all extremities spontaneously. SKIN: Moist. PSYCH: The patient is alert, awake and following commands. LABORATORY DATA: ABG 7.39/66/102 on 100% FIO2 (we will repeat ABG as it is unclear whether it is correct or not). WBC is 10.3, hemoglobin 14.8, platelet count 247. Sodium 128, potassium 3.6, chloride 87, anion gap 6, BUN 5, creatinine 0.6, glucose 132. ProBNP 892 (echocardiogram revealed left ventricular diastolic dysfunction with mild dilatation of the left atrium). MEDICATIONS: DuoNeb every 6 hours, Norvasc, Brovana, Lipitor, Pulmicort, Prolixin, heparin, Synthroid, Solu-Medrol 40 mg IV daily, metoprolol, nicotine patch, Protonix, propofol is off, Desyrel. ASSESSMENT AND PLAN: This 62-year-old gentleman, who presented to ICU with hypoxemic respiratory failure, which resolved now. Echocardiogram revealed some diastolic dysfunction and chest x-ray showed some mild vascular congestion. The patient, however, appears to be euvolemic at present time. His ventilator setting was weaned down to pressure support 5/5 with FIO2 of 60%. We will repeat ABG. We will continue with bronchodilators, steroid taper. No signs of infection as the patient is afebrile and does not have any leukocytosis, also clinically appearing improved. We will try tracheostomy collar today with out of bed to chair, pulmonary toilet, incentive spirometry, chest physical therapy. Deep venous thrombosis, gastrointestinal prophylaxes. Addendum: Patient is on trach collar, but connected to high flow at 50L/min, fi02 60-->02sat 96%, comfortably sitting in the chair, hungry, asking for food. Will get swallow eval and start PO ccm time 40 min Carson Hong MD RAD[facility]
[2018-06-06 08:58] LABS: BLOOD UREA NITROGEN 5 mg/dL (7-21); CALCIUM 8.5 mg/dL (8.4-10.5); GFR NON-AFRICAN AMERICAN > 60
[2018-06-06] MEDS: MethylPREDNISolone 40 mg Vial IVP SCH (09:11)
[2018-06-06] MEDS: Levothyroxine 25 MCG TAB PO SCH (09:12)
[2018-06-06] MEDS: Cholecalciferol 1,000 INTLU TAB PO SCH (10:00)
[2018-06-06] MEDS: Multivitamin With Minerals Tab PO SCH (10:00)
--- NOTE | 2018-06-06 12:11 | RAD ---
Date of service: 06/06/2018 HISTORY: hypoxemia COMPARISON: No prior. FINDINGS: LUNGS: No active pulmonary disease. Nasogastric tube and tracheostomy in satisfactory position PLEURA: No significant pleural effusion identified, no pneumothorax apparent. CARDIOVASCULAR: Normal. OSSEOUS STRUCTURES: No significant abnormalities. VISUALIZED UPPER ABDOMEN: Normal. OTHER FINDINGS: None. IMPRESSION: No active disease.
[2018-06-06 12:26] LABS: BLOOD UREA NITROGEN 6 mg/dL (7-21); CALCIUM 8.9 mg/dL (8.4-10.5); GFR NON-AFRICAN AMERICAN > 60
--- NOTE | 2018-06-06 13:32 | CP.PCM.PN ---
Subjective - Date & Time of Evaluation Date of Evaluation: 06/06/18 Time of Evaluation: 13:31 - Subjective Subjective: Nephrology Consultation Note: Assessment: critical euvolemic hyponatremia with mildly elevated urine Osmo: likely reflects elevated ADH with excess water intake laryngeal ca s/p radiation/trach (removed), HTN, HLD, COPD, tobacco abuse, schizophrenia acute on chronic hyercapnic respi failure COPD exacerbation THC + Plan No acute need for renal replacement therapy at this time. Na inc by about 10 meq in 48 hours , d5w was stopped , now on fluid restrict, rescheck urine lytes today Maintain hemodynamics stable. Avoid hypotension. Monitor Input/Output, daily weights and serum Na q4-6 hrs target correction in serum Na no more than 6-8 meq/24 hrs. discussed w/ primary team S: seen and examined pt w/ no complaints Physical Examination: General Appearance: Comfortable, in no acute respiratory distress,sedated, obese Vitals reviewed and noted as below Head; Atraumatic, normocephalic ENT: s/p trach EYES: Pupils are equal, round and reactive to light accommodation. Eye muscles and extraocular movement intact. Sclera is anicteric. Neck; supple no lymphadenopathy, no thyromegaly or bruit Lungs: Normal respiratory rate/effort. Breath sounds coarse Heart: Normal rate. s1s2 normal. No rub or gallop. Extremities: no edema. No varicose veins Neurological: Patient is sedated Skin: Warm and dry. Normal turgor. No rash. Palpitation: Normal elasticity for age Abdomen: Abdomen is soft. Bowel sounds +. + distension no organomegaly Psych: unable MSK: no joint tenderness or swelling. Digits and nails normal, no deformity : kidney or bladder not palpable Labs/imaging reviewed. Past medical history, past surgical history, family history, social history, allergy reviewed and noted as below Family hx: no hx of CKD. Rest non-contributory work up: UA 100 protein Na 30 osmol 314 TSH 0.4 Objective - Vital Signs/Intake and Output Vital Signs (last 24 hours): Temp Pulse Resp BP Pulse Ox 98.2 F 86 24 125/74 94 L 06/06/18 00:28 06/06/18 12:10 06/06/18 13:10 06/06/18 12:00 06/06/18 12:10 Intake and Output: 06/06/18 06/06/18 06:59 18:59 Intake Total 2290 100 Output Total 2500 Balance -210 100 - Medications Medications: Current Medications Albuterol/Ipratropium (Duoneb 3 Mg/0.5 Mg (3 Ml) Ud) 3 ml IH Q2H PRN PRN Reason: Shortness of Breath Albuterol/Ipratropium (Duoneb 3 Mg/0.5 Mg (3 Ml) Ud) 3 ml IH [id number] [facility] Last Admin: 06/06/18 13:11 Dose: 3 ml Amlodipine Besylate (Norvasc) 2.5 mg PO DAILY [facility] Last Admin: 06/05/18 11:06 Dose: Not Given Arformoterol Tartrate (Brovana) 15 mcg IH [id number] [facility] Last Admin: 06/06/18 07:22 Dose: 15 mcg Atorvastatin Calcium (Lipitor) 20 mg PO HS [facility] Last Admin: 06/05/18 21:43 Dose: Not Given Budesonide (Pulmicort Respules) 0.25 mg IH [id number] [facility] Last Admin: 06/06/18 07:23 Dose: 0.25 mg Cholecalciferol (Vitamin D) 2,000 intlu PO DAILY [facility] Last Admin: 06/05/18 11:06 Dose: Not Given Fluphenazine HCl (Prolixin) 10 mg PO BID [facility] PRN Reason: Protocol Last Admin: 06/05/18 21:44 Dose: Not Given Heparin Sodium (Porcine) (Heparin) 5,000 units SC Q12 CY PRN Reason: Protocol Last Admin: 06/06/18 09:11 Dose: 5,000 units Propofol (Diprivan) 1,000 mg in 100 mls @ 2.722 mls/hr IV .Q24H PRN; Protocol; 5 MCG/KG/MIN PRN Reason: TITRATE PER MD ORDER Last Titration: 06/06/18 08:04 Dose: Infused Levothyroxine Sodium (Synthroid) 25 mcg PO ACB [facility] Last Admin: 06/06/18 09:12 Dose: 25 mcg Methylprednisolone (Solu-Medrol) 40 mg IVP DAILY [facility] Last Admin: 06/06/18 09:11 Dose: 40 mg Metoprolol Tartrate (Lopressor) 25 mg PO DAILY [facility] Last Admin: 06/05/18 10:00 Dose: Not Given Multivitamins/Minerals (Therapeutic-M Tab) 1 tab PO DAILY [facility] Last Admin: 06/05/18 11:05 Dose: Not Given Nicotine (Nicoderm Cq) 1 patch TD DAILY [facility] Last Admin: 06/06/18 09:12 Dose: 1 patch Pantoprazole Sodium (Protonix Inj) 40 mg IVP DAILY [facility] Last Admin: 06/06/18 09:11 Dose: 40 mg Trazodone HCl (Desyrel) 50 mg PO HS [facility] Last Admin: 06/05/18 21:42 Dose: Not Given - Labs Labs: 06/06/18 04:15 06/06/18 11:50 PT 11.5 SECONDS (9.4-12.5) 06/04/18 17:45 INR 1.01 06/04/18 17:45 APTT 33.0 Seconds (25.1-36.5) 06/04/18 17:45
--- NOTE | 2018-06-06 14:25 | CP.PCM.PN ---
<Lio Kramer - Last Filed: 06/06/18 14:32> Subjective - Date & Time of Evaluation Date of Evaluation: 06/06/18 Time of Evaluation: 08:25 - Subjective Subjective: Lio Kramer DO, PGY-2: Progress Note for Dr. Susana Eden Patient was seen and examined at bedside. He is responding to questions appropriately. He denies any chest pain, dyspnea, or cough. Nurse reports no adverse events overnight. Case was discussed with ICU resident as well. Objective - Vital Signs/Intake and Output Vital Signs (last 24 hours): Temp Pulse Resp BP Pulse Ox 98.2 F 86 24 125/74 94 L 06/06/18 00:28 06/06/18 12:10 06/06/18 13:10 06/06/18 12:00 06/06/18 12:10 Intake and Output: 06/06/18 06/06/18 06:59 18:59 Intake Total 2290 100 Output Total 2500 Balance -210 100 - Medications Medications: Current Medications Albuterol/Ipratropium (Duoneb 3 Mg/0.5 Mg (3 Ml) Ud) 3 ml IH Q2H PRN PRN Reason: Shortness of Breath Albuterol/Ipratropium (Duoneb 3 Mg/0.5 Mg (3 Ml) Ud) 3 ml IH [id number] [facility] Last Admin: 06/06/18 13:11 Dose: 3 ml Amlodipine Besylate (Norvasc) 2.5 mg PO DAILY [facility] Last Admin: 06/05/18 11:06 Dose: Not Given Arformoterol Tartrate (Brovana) 15 mcg IH [id number] [facility] Last Admin: 06/06/18 07:22 Dose: 15 mcg Atorvastatin Calcium (Lipitor) 20 mg PO HS [facility] Last Admin: 06/05/18 21:43 Dose: Not Given Budesonide (Pulmicort Respules) 0.25 mg IH [id number] [facility] Last Admin: 06/06/18 07:23 Dose: 0.25 mg Cholecalciferol (Vitamin D) 2,000 intlu PO DAILY [facility] Last Admin: 06/05/18 11:06 Dose: Not Given Fluphenazine HCl (Prolixin) 10 mg PO BID [facility] PRN Reason: Protocol Last Admin: 06/05/18 21:44 Dose: Not Given Heparin Sodium (Porcine) (Heparin) 5,000 units SC Q12 ARTUR PRN Reason: Protocol Last Admin: 06/06/18 09:11 Dose: 5,000 units Propofol (Diprivan) 1,000 mg in 100 mls @ 2.722 mls/hr IV .Q24H PRN; Protocol; 5 MCG/KG/MIN PRN Reason: TITRATE PER MD ORDER Last Titration: 06/06/18 08:04 Dose: Infused Levothyroxine Sodium (Synthroid) 25 mcg PO ACB [facility] Last Admin: 06/06/18 09:12 Dose: 25 mcg Methylprednisolone (Solu-Medrol) 40 mg IVP DAILY [facility] Last Admin: 06/06/18 09:11 Dose: 40 mg Metoprolol Tartrate (Lopressor) 25 mg PO DAILY [facility] Last Admin: 06/05/18 10:00 Dose: Not Given Multivitamins/Minerals (Therapeutic-M Tab) 1 tab PO DAILY [facility] Last Admin: 06/05/18 11:05 Dose: Not Given Nicotine (Nicoderm Cq) 1 patch TD DAILY [facility] Last Admin: 06/06/18 09:12 Dose: 1 patch Pantoprazole Sodium (Protonix Inj) 40 mg IVP DAILY [facility] Last Admin: 06/06/18 09:11 Dose: 40 mg Trazodone HCl (Desyrel) 50 mg PO HS [facility] Last Admin: 06/05/18 21:42 Dose: Not Given - Labs Labs: 06/06/18 04:15 06/06/18 11:50 PT 11.5 SECONDS (9.4-12.5) 06/04/18 17:45 INR 1.01 06/04/18 17:45 APTT 33.0 Seconds (25.1-36.5) 06/04/18 17:45 - Constitutional Appears: Well, Non-toxic - Head Exam Head Exam: ATRAUMATIC, NORMOCEPHALIC - Eye Exam Eye Exam: EOMI, Normal appearance - ENT Exam ENT Exam: Mucous Membranes Moist - Neck Exam Neck Exam: Normal Inspection Additional comments: tracheostomy in place - Respiratory Exam Respiratory Exam: Clear to Ausculation Bilateral, NORMAL BREATHING PATTERN. absent: Accessory Muscle Use - Cardiovascular Exam Cardiovascular Exam: RRR, +S1, +S2 - GI/Abdominal Exam GI & Abdominal Exam: Soft, Normal Bowel Sounds. absent: Tenderness - Extremities Exam Extremities Exam: Normal Inspection. absent: Pedal Edema - Neurological Exam Neurological Exam: Alert, Awake, Oriented x3 - Psychiatric Exam Psychiatric exam: Normal Affect, Normal Mood - Skin Skin Exam: Dry, Normal Color, Warm Assessment and Plan - Assessment and Plan (Free Text) Assessment: Patient is a 62 y/o M with PMHx of Laryngeal cancer (s/p radiation/trach removed ), HTN, HLD, COPD, tobacco abuse, and schizophrenia who presented to ED on 06/04 for shortness of breath, cough, and polydipsia. Patient found to be severely hyponatremic and in respiratory distress. 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 Plan: Hypercapnic respiratory failure 2/2 COPD Exacerbation vs. Fluid Overload - CXR showed atelectasis versus infiltrates - Repeat CXR shows trach/NG tube in good position. 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 - improving - Given patient's hx of schizphrenia and the fact that he had increased PO intake of free water, likely psychogenic in nature - Initial sodium was 118; given 3% hypertonic saline, corrected to 128 (latest) - fluid restriction - Monitor I&O - nephrology is on the case Hx of Laryngeal Cancer - Heme/onc consulted, f/u recs - Palliative care consulted, f/u recs HTN - c/w home med: Norvasc and Metoprolol with holding parameters HLD - c/w Home med: Lipitor Schizophrenia - c/w home medication: trazodone and fluphenazine GI ppx: Protonix DVT ppx: Heparin SC Dispo: Monitor patient in ICU unless stable for transfer Case was discussed and reviewed with Dr. Eden. <Susana Eden R - Last Filed: 06/06/18 19:05> Objective - Vital Signs/Intake and Output Vital Signs (last 24 hours): Temp Pulse Resp BP Pulse Ox 98.1 F 88 19 120/64 90 L 06/06/18 16:00 06/06/18 18:00 06/06/18 18:00 06/06/18 18:00 06/06/18 18:00 Intake and Output: 06/06/18 06/07/18 18:59 06:59 Intake Total 1250 Output Total 1575 Balance -325 - Medications Medications: Current Medications Albuterol/Ipratropium (Duoneb 3 Mg/0.5 Mg (3 Ml) Ud) 3 ml IH Q2H PRN PRN Reason: Shortness of Breath Albuterol/Ipratropium (Duoneb 3 Mg/0.5 Mg (3 Ml) Ud) 3 ml IH [id number] [facility] Last Admin: 06/06/18 13:11 Dose: 3 ml Amlodipine Besylate (Norvasc) 2.5 mg PO DAILY [facility] Last Admin: 06/06/18 10:00 Dose: Not Given Arformoterol Tartrate (Brovana) 15 mcg IH [id number] [facility] Last Admin: 06/06/18 07:22 Dose: 15 mcg Atorvastatin Calcium (Lipitor) 20 mg PO HS [facility] Last Admin: 06/05/18 21:43 Dose: Not Given Budesonide (Pulmicort Respules) 0.25 mg IH [id number] [facility] Last Admin: 06/06/18 07:23 Dose: 0.25 mg Cholecalciferol (Vitamin D) 2,000 intlu PO DAILY [facility] Last Admin: 06/06/18 10:00 Dose: Not Given Fluphenazine HCl (Prolixin) 10 mg PO BID [facility] PRN Reason: Protocol Last Admin: 06/06/18 10:00 Dose: Not Given Heparin Sodium (Porcine) (Heparin) 5,000 units SC Q12 ARTUR PRN Reason: Protocol Last Admin: 06/06/18 09:11 Dose: 5,000 units Propofol (Diprivan) 1,000 mg in 100 mls @ 2.722 mls/hr IV .Q24H PRN; Protocol; 5 MCG/KG/MIN PRN Reason: TITRATE PER MD ORDER Last Titration: 06/06/18 08:04 Dose: Infused Levothyroxine Sodium (Synthroid) 25 mcg PO ACB [facility] Last Admin: 06/06/18 09:12 Dose: 25 mcg Methylprednisolone (Solu-Medrol) 40 mg IVP DAILY [facility] Last Admin: 06/06/18 09:11 Dose: 40 mg Metoprolol Tartrate (Lopressor) 25 mg PO DAILY [facility] Last Admin: 06/06/18 10:00 Dose: Not Given Multivitamins/Minerals (Therapeutic-M Tab) 1 tab PO DAILY [facility] Last Admin: 06/06/18 10:00 Dose: Not Given Nicotine (Nicoderm Cq) 1 patch TD DAILY [facility] Last Admin: 06/06/18 09:12 Dose: 1 patch Pantoprazole Sodium (Protonix Inj) 40 mg IVP DAILY [facility] Last Admin: 06/06/18 09:11 Dose: 40 mg Trazodone HCl (Desyrel) 50 mg PO HS [facility] Last Admin: 06/05/18 21:42 Dose: Not Given - Labs Labs: 06/06/18 04:15 06/06/18 15:50 PT 11.5 SECONDS (9.4-12.5) 06/04/18 17:45 INR 1.01 06/04/18 17:45 APTT 33.0 Seconds (25.1-36.5) 06/04/18 17:45 Attending/Attestation - Attestation I have personally seen and examined this patient.: Yes I have fully participated in the care of the patient.: Yes I have reviewed all pertinent clinical information, including history, physical exam and plan: Yes Notes (Text): Patient seen and examined by me at 8:25AM with resident. Case including HPI, physical exam, and assessment and plan discussed with resident. Agree with above with following additions/corrections. Patient is 62-year-old male with past medical history significant for laryngeal cancer status post radiation and tracheostomy now with stoma, hypertension, hyperlipidemia, COPD, tobacco abuse, and schizophrenia that presented to the emergency room with 2 days of shortness of breath. Patient is awake and alert. Patient is off sedation. Patient likely to come off vent today. Patient is answering questions by nodding his head "yes" and "no" motion. Patient is denying feeling short of breath. Denying any chest pain or palpitations. He is denying coughing. He is denying any abdominal pain. Patient is afebrile. No nausea or vomiting. Physical exam: General: Awake and alert. No acute distress. HEENT: Normocephalic atraumatic. Pupils equal reactive. No scleral icterus. Short stubby neck. Tracheostomy in place. NG tube in place with bile-appearing output. Cardiovascular: Normal rhythm. Normal S1, S2. No murmurs, rubs or gallops appreciated Pulmonary: Decreased breath sounds. No rhonchi, rales or wheezing appreciated. Gastrointestinal: Soft, nondistended, obese abdomen. Nontender. Positive bowel sounds all 4 quadrants, no guarding. Musculoskeletal: Moves all extremities, no edema appreciated. No calf tenderness. Central nervous system: Awake and alert Dermatologic: Skin warm and dry. Assessment and plan: Patient is 62-year-old male with past medical history significant for laryngeal cancer status post radiation and tracheostomy now with stoma, hypertension, hyperlipidemia, COPD, tobacco abuse, and schizophrenia that presented to the emergency room with 2 days of shortness of breath. 1. Hypercapnic Respiratory failure. Secondary to COPD exacerbation. Status post tracheostomy placement. ENT following, recommendations appreciated. Continue nebulizer treatments, Brovana, and Pulmicort. Continue Solu-Medrol 40 mg daily. Patient to be weaned off vent today. Chest x-ray today per radiologist showed no active disease. Patient afebrile. No leukocytosis. 2. Hypervolemic hypernatremia. Likely psychogenic in nature. Improving. Nephrology following, recommendations appreciated. Continue fluid restriction. Continue to monitor. 3. History of laryngeal cancer. Hematology/oncology consulted, follow-up recommendations. Palliative care consulted. 4. Hypertension. Continue Norvasc and metoprolol when no longer nothing by mouth. 5. Hyperlipidemia. Continue Lipitor when no longer nothing by mouth. 6. Schizophrenia. Continue trazodone and prolixin when no longer nothing by mouth. 7. Tobacco abuse. Patient continues to smoke. Patient counseled on cessation 8. GI/DVT prophylaxis. Protonix and heparin. Case was discussed in detail with the patient regarding current diagnosis and treatment plan.
[2018-06-06 14:54] LABS: OSMOLALITY,URINE 539 mosm/kg (300-1000)
--- NOTE | 2018-06-06 15:08 | CP.CCUPN ---
<Randi Russell - Last Filed: 06/06/18 14:56> CCU Subjective - Physician Review Subjective (Free Text): 06/06/18 14:57 Patient seen and examined at bedside. Overnight, patient moving, following commands as per nurses. Patient opening eyes spontaneously, no fevers, denies pain. Patient underwent weaning trials with lowering of FiO2, tolerated well and put on high flow Oxygen. Saturating well. Patient OOB to chair, states that he is hungry. Formal speech eval performed, started on diet as per recs. CCU Objective - Vital Signs / Intake & Output Vital Signs (Last 4 hours): Vital Signs Pulse Resp BP Pulse Ox 06/06/18 13:10 24 06/06/18 12:10 86 25 H 94 L 06/06/18 12:00 88 22 125/74 94 L 06/06/18 11:50 85 22 95 06/06/18 11:40 86 23 93 L 06/06/18 11:30 82 25 H 118/75 95 06/06/18 11:20 83 22 95 06/06/18 11:10 84 36 H 96 06/06/18 11:00 79 19 129/73 95 Intake and Output (Last 8hrs): Intake & Output 06/05/18 06/06/18 06/06/18 22:59 06:59 14:59 Intake Total 1257 2133 100 Output Total 3800 2500 Balance -2543 -367 100 Intake: IV 1257 2133 100 Right Hand 1050 2090 Output: Gastric Amount 400 Right Nares 400 Urine 3800 2100 Urethral (Coe) 3800 2100 Other: # Bowel Movements 1 - Physical Exam Head: Positive for: Atraumatic, Normocephalic Pupils: Positive for: PERRL Extroacular Muscles: Positive for: EOMI Conjunctiva: Positive for: Normal Mouth: Positive for: Moist Mucous Membranes Neck: Positive for: Normal Range of Motion Respiratory/Chest: Positive for: Decreased Breath Sounds. Negative for: Respiratory Distress, Accessory Muscle Use Cardiovascular: Positive for: Regular Rate and Rhythm, Normal S1, S2. Negative for: Murmurs Abdomen: Negative for: Tenderness, Distention, Peritoneal Signs, Guarding Back: Positive for: Normal Inspection Upper Extremity: Positive for: Normal Inspection. Negative for: Cyanosis, Edema Lower Extremity: Negative for: Edema, Erythema Neurological: Positive for: CN II-XII Intact Skin: Positive for: Warm, Dry, Normal Color. Negative for: Rashes Psychiatric: Positive for: Alert, Oriented x 3 - Medications Active Medications: Active Medications Generic Name Dose Route Start Last Admin Trade Name Freq PRN Reason Stop Dose Admin Albuterol/Ipratropium 3 ml 06/04/18 20:01 Duoneb 3 Mg/0.5 Mg (3 Ml) Ud IH Q2H PRN Shortness of Breath Albuterol/Ipratropium 3 ml 06/05/18 02:00 06/06/18 13:11 Duoneb 3 Mg/0.5 Mg (3 Ml) Ud IH 3 ml [id number] Administration Amlodipine Besylate 2.5 mg 06/05/18 10:00 06/05/18 11:06 Norvasc PO Not Given DAILY CY Arformoterol Tartrate 15 mcg 06/05/18 08:00 06/06/18 07:22 Brovana IH 15 mcg [id number] CY Administration Atorvastatin Calcium 20 mg 06/05/18 22:00 06/05/18 21:43 Lipitor PO Not Given HS CY Budesonide 0.25 mg 06/05/18 08:00 06/06/18 07:23 Pulmicort Respules IH 0.25 mg [id number] CY Administration Cholecalciferol 2,000 intlu 06/05/18 10:00 06/05/18 11:06 Vitamin D PO Not Given DAILY CY Fluphenazine HCl 10 mg 06/05/18 10:00 06/05/18 21:44 Prolixin PO Not Given BID [facility] Protocol Heparin Sodium (Porcine) 5,000 units 06/04/18 22:00 06/06/18 09:11 Heparin SC 5,000 units Q12 CY Administration Protocol Propofol 1,000 mg in 100 mls @ 2.722 mls/hr 06/04/18 21:39 06/06/18 08:04 Diprivan IV Infused .Q24H PRN Titration TITRATE PER MD ORDER Protocol 5 MCG/KG/MIN Levothyroxine Sodium 25 mcg 06/05/18 07:30 06/06/18 09:12 Synthroid PO 25 mcg ACB CY Administration Methylprednisolone 40 mg 06/06/18 10:00 06/06/18 09:11 Solu-Medrol IVP 40 mg DAILY CY Administration Metoprolol Tartrate 25 mg 06/05/18 10:00 06/05/18 10:00 Lopressor PO Not Given DAILY CY Multivitamins/Minerals 1 tab 06/05/18 10:00 06/05/18 11:05 Therapeutic-M Tab PO Not Given DAILY CY Nicotine 1 patch 06/05/18 10:00 06/06/18 09:12 Nicoderm Cq TD 1 patch DAILY CY Administration Pantoprazole Sodium 40 mg 06/05/18 10:00 06/06/18 09:11 Protonix Inj IVP 40 mg DAILY CY Administration Trazodone HCl 50 mg 06/04/18 22:00 06/05/18 21:42 Desyrel PO Not Given HS CY - Patient Studies Lab Studies: Lab Studies 06/06/18 06/06/18 06/06/18 Range/Units 14:10 11:50 08:30 WBC (4.5-11.0) 10^3/ul RBC (3.5-6.1) 10^6/uL Hgb (14.0-18.0) g/dL Hct (42.0-52.0) % MCV (80.0-105.0) fl MCH (25.0-35.0) pg MCHC (31.0-37.0) g/dl RDW (11.5-14.5) % Plt Count (120.0-450.0) 10^3/uL MPV (7.0-11.0) fl Gran % (50.0-68.0) % Lymph % (Auto) (22.0-35.0) % [place] % (Auto) (1.0-6.0) % Eos % (Auto) (1.5-5.0) % Baso % (Auto) (0.0-3.0) % Gran # (1.4-6.5) Lymph # (Auto) (1.2-3.4) [place] # (Auto) (0.1-0.6) Eos # (Auto) (0.0-0.7) Baso # (Auto) (0.0-2.0) K/mm3 pCO2 (35-45) mm/Hg pO2 (80-100) mm/Hg HCO3 (21-28) mmol/L ABG pH (7.35-7.45) ABG Total CO2 (22-28) mmol.L ABG O2 Saturation (95-98) % ABG O2 Content (15-23) ML/dl ABG Base Excess (-2.0-3.0) mmol/L ABG Hemoglobin (11.7-17.4) g/dL ABG Carboxyhemoglobin (0.5-1.5) % POC ABG HHb (Measured) (0-5) % ABG Methemoglobin (0.0-3.0) % ABG O2 Capacity (16-24) mL/dl Hgb O2 Saturation (95.0-98.0) % FiO2 % Sodium 128 L 128 L (132-148) mmol/L Potassium 4.4 4.0 (3.6-5.0) mmol/L Chloride 86 L 87 L (98-107) mmol/L Carbon Dioxide 37 H 35 H (21-33) mmol/L Anion Gap 10 10 (10-20) BUN 6 L 5 L (7-21) mg/dL Creatinine 0.6 L 0.6 L (0.8-1.5) mg/dl Est GFR ( Amer) > 60 > 60 Est GFR (Non-Af Amer) > 60 > 60 Random Glucose 107 109 (70-110) mg/dL Calcium 8.9 8.5 (8.4-10.5) mg/dL Magnesium (1.7-2.2) mg/dL NT-Pro-B Natriuret Pep (0-450) pg/mL Cortisol AM Sample (4.46-22.7) ug/dL Urine Osmolality 539 (300-1000) mosm/kg Ur Random Sodium 12 meq/L 06/06/18 06/06/18 06/06/18 Range/Units 08:20 05:30 05:00 WBC (4.5-11.0) 10^3/ul RBC (3.5-6.1) 10^6/uL Hgb (14.0-18.0) g/dL Hct (42.0-52.0) % MCV (80.0-105.0) fl MCH (25.0-35.0) pg MCHC (31.0-37.0) g/dl RDW (11.5-14.5) % Plt Count (120.0-450.0) 10^3/uL MPV (7.0-11.0) fl Gran % (50.0-68.0) % Lymph % (Auto) (22.0-35.0) % [place] % (Auto) (1.0-6.0) % Eos % (Auto) (1.5-5.0) % Baso % (Auto) (0.0-3.0) % Gran # (1.4-6.5) Lymph # (Auto) (1.2-3.4) [place] # (Auto) (0.1-0.6) Eos # (Auto) (0.0-0.7) Baso # (Auto) (0.0-2.0) K/mm3 pCO2 61 H 66 H (35-45) mm/Hg pO2 58.0 L 102.0 H (80-100) mm/Hg HCO3 37.8 H 40.0 H (21-28) mmol/L ABG pH 7.40 7.39 (7.35-7.45) ABG Total CO2 39.7 H 42.0 H (22-28) mmol.L ABG O2 Saturation 93.4 L 98.9 H (95-98) % ABG O2 Content 19.5 20.8 (15-23) ML/dl ABG Base Excess 10.2 H 11.7 H (-2.0-3.0) mmol/L ABG Hemoglobin 15.2 15.2 (11.7-17.4) g/dL ABG Carboxyhemoglobin 1.4 1.4 (0.5-1.5) % POC ABG HHb (Measured) 6.5 H 1.1 (0-5) % ABG Methemoglobin 0.8 0.8 (0.0-3.0) % ABG O2 Capacity 20.9 21.0 (16-24) mL/dl Hgb O2 Saturation 91.3 L 96.7 (95.0-98.0) % FiO2 60.0 60.0 % Sodium (132-148) mmol/L Potassium (3.6-5.0) mmol/L Chloride (98-107) mmol/L Carbon Dioxide (21-33) mmol/L Anion Gap (10-20) BUN (7-21) mg/dL Creatinine (0.8-1.5) mg/dl Est GFR ( Amer) Est GFR (Non-Af Amer) Random Glucose (70-110) mg/dL Calcium (8.4-10.5) mg/dL Magnesium (1.7-2.2) mg/dL NT-Pro-B Natriuret Pep 139 (0-450) pg/mL Cortisol AM Sample (4.46-22.7) ug/dL Urine Osmolality (300-1000) mosm/kg Ur Random Sodium meq/L 06/06/18 06/06/18 06/06/18 Range/Units 04:15 04:15 00:45 WBC 10.3 D (4.5-11.0) 10^3/ul RBC 4.79 (3.5-6.1) 10^6/uL Hgb 14.8 (14.0-18.0) g/dL Hct 43.7 (42.0-52.0) % MCV 91.2 (80.0-105.0) fl MCH 30.9 (25.0-35.0) pg MCHC 33.9 (31.0-37.0) g/dl RDW 14.7 H (11.5-14.5) % Plt Count 247 (120.0-450.0) 10^3/uL MPV 9.1 (7.0-11.0) fl Gran % 77.8 H (50.0-68.0) % Lymph % (Auto) 13.8 L (22.0-35.0) % [place] % (Auto) 7.8 H (1.0-6.0) % Eos % (Auto) 0.5 L (1.5-5.0) % Baso % (Auto) 0.1 (0.0-3.0) % Gran # 7.98 H (1.4-6.5) Lymph # (Auto) 1.4 (1.2-3.4) [place] # (Auto) 0.8 H (0.1-0.6) Eos # (Auto) 0.1 (0.0-0.7) Baso # (Auto) 0.01 (0.0-2.0) K/mm3 pCO2 (35-45) mm/Hg pO2 (80-100) mm/Hg HCO3 (21-28) mmol/L ABG pH (7.35-7.45) ABG Total CO2 (22-28) mmol.L ABG O2 Saturation (95-98) % ABG O2 Content (15-23) ML/dl ABG Base Excess (-2.0-3.0) mmol/L ABG Hemoglobin (11.7-17.4) g/dL ABG Carboxyhemoglobin (0.5-1.5) % POC ABG HHb (Measured) (0-5) % ABG Methemoglobin (0.0-3.0) % ABG O2 Capacity (16-24) mL/dl Hgb O2 Saturation (95.0-98.0) % FiO2 % Sodium 128 L 128 L (132-148) mmol/L Potassium 3.6 3.9 (3.6-5.0) mmol/L Chloride 87 L 87 L (98-107) mmol/L Carbon Dioxide 39 H 39 H (21-33) mmol/L Anion Gap 6 L 7 L (10-20) BUN 5 L 6 L (7-21) mg/dL Creatinine 0.6 L 0.6 L (0.8-1.5) mg/dl Est GFR ( Amer) > 60 > 60 Est GFR (Non-Af Amer) > 60 > 60 Random Glucose 132 H 134 H (70-110) mg/dL Calcium 8.3 L 8.2 L (8.4-10.5) mg/dL Magnesium 2.2 (1.7-2.2) mg/dL NT-Pro-B Natriuret Pep (0-450) pg/mL Cortisol AM Sample (4.46-22.7) ug/dL Urine Osmolality (300-1000) mosm/kg Ur Random Sodium meq/L 06/05/18 06/05/18 06/05/18 Range/Units 19:56 15:34 08:34 WBC (4.5-11.0) 10^3/ul RBC (3.5-6.1) 10^6/uL Hgb (14.0-18.0) g/dL Hct (42.0-52.0) % MCV (80.0-105.0) fl MCH (25.0-35.0) pg MCHC (31.0-37.0) g/dl RDW (11.5-14.5) % Plt Count (120.0-450.0) 10^3/uL MPV (7.0-11.0) fl Gran % (50.0-68.0) % Lymph % (Auto) (22.0-35.0) % [place] % (Auto) (1.0-6.0) % Eos % (Auto) (1.5-5.0) % Baso % (Auto) (0.0-3.0) % Gran # (1.4-6.5) Lymph # (Auto) (1.2-3.4) [place] # (Auto) (0.1-0.6) Eos # (Auto) (0.0-0.7) Baso # (Auto) (0.0-2.0) K/mm3 pCO2 (35-45) mm/Hg pO2 (80-100) mm/Hg HCO3 (21-28) mmol/L ABG pH (7.35-7.45) ABG Total CO2 (22-28) mmol.L ABG O2 Saturation (95-98) % ABG O2 Content (15-23) ML/dl ABG Base Excess (-2.0-3.0) mmol/L ABG Hemoglobin (11.7-17.4) g/dL ABG Carboxyhemoglobin (0.5-1.5) % POC ABG HHb (Measured) (0-5) % ABG Methemoglobin (0.0-3.0) % ABG O2 Capacity (16-24) mL/dl Hgb O2 Saturation (95.0-98.0) % FiO2 % Sodium 128 L 128 L (132-148) mmol/L Potassium 4.1 4.5 (3.6-5.0) mmol/L Chloride 86 L 85 L (98-107) mmol/L Carbon Dioxide 38 H 38 H (21-33) mmol/L Anion Gap 8 L 10 (10-20) BUN 6 L 6 L (7-21) mg/dL Creatinine 0.6 L 0.8 (0.8-1.5) mg/dl Est GFR ( Amer) > 60 > 60 Est GFR (Non-Af Amer) > 60 > 60 Random Glucose 141 H 150 H (70-110) mg/dL Calcium 8.3 L 8.4 (8.4-10.5) mg/dL Magnesium (1.7-2.2) mg/dL NT-Pro-B Natriuret Pep (0-450) pg/mL Cortisol AM Sample 9.1 (4.46-22.7) ug/dL Urine Osmolality (300-1000) mosm/kg Ur Random Sodium meq/L Laboratory Results - last 24 hr 06/05/18 06/05/18 06/05/18 08:34 15:34 19:56 WBC RBC Hgb Hct MCV MCH MCHC RDW Plt Count MPV Gran % Lymph % (Auto) [place] % (Auto) Eos % (Auto) Baso % (Auto) Gran # Lymph # (Auto) [place] # (Auto) Eos # (Auto) Baso # (Auto) pCO2 pO2 HCO3 ABG pH ABG Total CO2 ABG O2 Saturation ABG O2 Content ABG Base Excess ABG Hemoglobin ABG Carboxyhemoglobin POC ABG HHb (Measured) ABG Methemoglobin ABG O2 Capacity Hgb O2 Saturation FiO2 Sodium 128 L 128 L Potassium 4.5 4.1 Chloride 85 L 86 L Carbon Dioxide 38 H 38 H Anion Gap 10 8 L BUN 6 L 6 L Creatinine 0.8 0.6 L Est GFR ( Amer) > 60 > 60 Est GFR (Non-Af Amer) > 60 > 60 Random Glucose 150 H 141 H Calcium 8.4 8.3 L Magnesium NT-Pro-B Natriuret Pep Cortisol AM Sample 9.1 Urine Osmolality Ur Random Sodium 06/06/18 06/06/18 06/06/18 00:45 04:15 04:15 WBC 10.3 D RBC 4.79 Hgb 14.8 Hct 43.7 MCV 91.2 MCH 30.9 MCHC 33.9 RDW 14.7 H Plt Count 247 MPV 9.1 Gran % 77.8 H Lymph % (Auto) 13.8 L [place] % (Auto) 7.8 H Eos % (Auto) 0.5 L Baso % (Auto) 0.1 Gran # 7.98 H Lymph # (Auto) 1.4 [place] # (Auto) 0.8 H Eos # (Auto) 0.1 Baso # (Auto) 0.01 pCO2 pO2 HCO3 ABG pH ABG Total CO2 ABG O2 Saturation ABG O2 Content ABG Base Excess ABG Hemoglobin ABG Carboxyhemoglobin POC ABG HHb (Measured) ABG Methemoglobin ABG O2 Capacity Hgb O2 Saturation FiO2 Sodium 128 L 128 L Potassium 3.9 3.6 Chloride 87 L 87 L Carbon Dioxide 39 H 39 H Anion Gap 7 L 6 L BUN 6 L 5 L Creatinine 0.6 L 0.6 L Est GFR ( Amer) > 60 > 60 Est GFR (Non-Af Amer) > 60 > 60 Random Glucose 134 H 132 H Calcium 8.2 L 8.3 L Magnesium 2.2 NT-Pro-B Natriuret Pep Cortisol AM Sample Urine Osmolality Ur Random Sodium 06/06/18 06/06/18 06/06/18 05:00 05:30 08:20 WBC RBC Hgb Hct MCV MCH MCHC RDW Plt Count MPV Gran % Lymph % (Auto) [place] % (Auto) Eos % (Auto) Baso % (Auto) Gran # Lymph # (Auto) [place] # (Auto) Eos # (Auto) Baso # (Auto) pCO2 66 H 61 H pO2 102.0 H 58.0 L HCO3 40.0 H 37.8 H ABG pH 7.39 7.40 ABG Total CO2 42.0 H 39.7 H ABG O2 Saturation 98.9 H 93.4 L ABG O2 Content 20.8 19.5 ABG Base Excess 11.7 H 10.2 H ABG Hemoglobin 15.2 15.2 ABG Carboxyhemoglobin 1.4 1.4 POC ABG HHb (Measured) 1.1 6.5 H ABG Methemoglobin 0.8 0.8 ABG O2 Capacity 21.0 20.9 Hgb O2 Saturation 96.7 91.3 L FiO2 60.0 60.0 Sodium Potassium Chloride Carbon Dioxide Anion Gap BUN Creatinine Est GFR ( Amer) Est GFR (Non-Af Amer) Random Glucose Calcium Magnesium NT-Pro-B Natriuret Pep 139 Cortisol AM Sample Urine Osmolality Ur Random Sodium 06/06/18 06/06/18 06/06/18 08:30 11:50 14:10 WBC RBC Hgb Hct MCV MCH MCHC RDW Plt Count MPV Gran % Lymph % (Auto) [place] % (Auto) Eos % (Auto) Baso % (Auto) Gran # Lymph # (Auto) [place] # (Auto) Eos # (Auto) Baso # (Auto) pCO2 pO2 HCO3 ABG pH ABG Total CO2 ABG O2 Saturation ABG O2 Content ABG Base Excess ABG Hemoglobin ABG Carboxyhemoglobin POC ABG HHb (Measured) ABG Methemoglobin ABG O2 Capacity Hgb O2 Saturation FiO2 Sodium 128 L 128 L Potassium 4.0 4.4 Chloride 87 L 86 L Carbon Dioxide 35 H 37 H Anion Gap 10 10 BUN 5 L 6 L Creatinine 0.6 L 0.6 L Est GFR ( Amer) > 60 > 60 Est GFR (Non-Af Amer) > 60 > 60 Random Glucose 109 107 Calcium 8.5 8.9 Magnesium NT-Pro-B Natriuret Pep Cortisol AM Sample Urine Osmolality 539 Ur Random Sodium 12 Review of Systems - Review of Systems All systems: reviewed and no additional remarkable complaints except Review of Systems: as per HPI Critical Care Progress Note - Nutrition Nutrition: Nutrition Category Date Time Status Altered GI/Hepatic Diet [DIET] Diets 06/06/18 Lunch Ordered Assessment/Plan - Assessment and Plan (Free Text) Assessment: 62 yo male with past medical history of laryngeal ca s/p radiation/trach ( removed), HTN, HLD, COPD, heavy tobacco use, schizophrenia, admitted to ICU hypoxemic, hypercapneic respiratory failure, hyponatremia, weaned off of ventilator, on high flow oxygen, OOB to chair, tolerating PO diet well: Neuro: AOx4 (at baseline), weaned off of ventilator, off sedation. Cont to monitor. Cardio: Normotensive. Maintain MAP>65. hx of HTN. hold home antiHTN trop 0.04-0.04 Echo showed EF 57.5%, grade III diastolic dysfunction. Mod LVH. RVSP normal 21 mmHg Pulm: On bronchodilators, solumedrol, pulmicort, brovana Heavy smoker, on nicotine patch On high flow oxygen, will monitor ABG in AM monitor GI Protonix for PUD prophylaxis. Soft, bland diet, thin liquids, 1L fluid restriction. 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 will do fluid restriction 1 L Nephro on board. discussed case. will monitor Traci, Uosm continue to monitor Heme hbg stable, will continue to monitor PLT 247 ID afebrile, WBC 10.3 Monitor off abx DVT: SCDs, Protonix Case seen and discussed with Dr Hong. <Carson Hong - Last Filed: 06/06/18 17:29> CCU Objective - Vital Signs / Intake & Output Intake and Output (Last 8hrs): Intake & Output 06/06/18 06/06/18 06/06/18 06:59 14:59 22:59 Intake Total 2133 100 Output Total 2500 Balance -367 100 Intake: IV 3 100 Right Hand 2090 Output: Gastric Amount 400 Right Nares 400 Urine 2100 Urethral (Coe) 2100 - Medications Active Medications: Active Medications Generic Name Dose Route Start Last Admin Trade Name Freq PRN Reason Stop Dose Admin Albuterol/Ipratropium 3 ml 06/04/18 20:01 Duoneb 3 Mg/0.5 Mg (3 Ml) Ud IH Q2H PRN Shortness of Breath Albuterol/Ipratropium 3 ml 06/05/18 02:00 06/06/18 13:11 Duoneb 3 Mg/0.5 Mg (3 Ml) Ud IH 3 ml [id number] CY Administration Amlodipine Besylate 2.5 mg 06/05/18 10:00 06/06/18 10:00 Norvasc PO Not Given DAILY CY Arformoterol Tartrate 15 mcg 06/05/18 08:00 06/06/18 07:22 Brovana IH 15 mcg [id number] CY Administration Atorvastatin Calcium 20 mg 06/05/18 22:00 06/05/18 21:43 Lipitor PO Not Given HS CY Budesonide 0.25 mg 06/05/18 08:00 06/06/18 07:23 Pulmicort Respules IH 0.25 mg [id number] CY Administration Cholecalciferol 2,000 intlu 06/05/18 10:00 06/06/18 10:00 Vitamin D PO Not Given DAILY CY Fluphenazine HCl 10 mg 06/05/18 10:00 06/06/18 10:00 Prolixin PO Not Given BID CY Protocol Heparin Sodium (Porcine) 5,000 units 06/04/18 22:00 06/06/18 09:11 Heparin SC 5,000 units Q12 CY Administration Protocol Propofol 1,000 mg in 100 mls @ 2.722 mls/hr 06/04/18 21:39 06/06/18 08:04 Diprivan IV Infused .Q24H PRN Titration TITRATE PER MD ORDER Protocol 5 MCG/KG/MIN Levothyroxine Sodium 25 mcg 06/05/18 07:30 06/06/18 09:12 Synthroid PO 25 mcg ACB CY Administration Methylprednisolone 40 mg 06/06/18 10:00 06/06/18 09:11 Solu-Medrol IVP 40 mg DAILY CY Administration Metoprolol Tartrate 25 mg 06/05/18 10:00 06/06/18 10:00 Lopressor PO Not Given DAILY CY Multivitamins/Minerals 1 tab 06/05/18 10:00 06/06/18 10:00 Therapeutic-M Tab PO Not Given DAILY CY Nicotine 1 patch 06/05/18 10:00 06/06/18 09:12 Nicoderm Cq TD 1 patch DAILY CY Administration Pantoprazole Sodium 40 mg 06/05/18 10:00 06/06/18 09:11 Protonix Inj IVP 40 mg DAILY CY Administration Trazodone HCl 50 mg 06/04/18 22:00 06/05/18 21:42 Desyrel PO Not Given HS CY - Patient Studies Lab Studies: Lab Studies 06/06/18 06/06/18 06/06/18 Range/Units 15:50 14:10 11:50 WBC (4.5-11.0) 10^3/ul RBC (3.5-6.1) 10^6/uL Hgb (14.0-18.0) g/dL Hct (42.0-52.0) % MCV (80.0-105.0) fl MCH (25.0-35.0) pg MCHC (31.0-37.0) g/dl RDW (11.5-14.5) % Plt Count (120.0-450.0) 10^3/uL MPV (7.0-11.0) fl Gran % (50.0-68.0) % Lymph % (Auto) (22.0-35.0) % [place] % (Auto) (1.0-6.0) % Eos % (Auto) (1.5-5.0) % Baso % (Auto) (0.0-3.0) % Gran # (1.4-6.5) Lymph # (Auto) (1.2-3.4) [place] # (Auto) (0.1-0.6) Eos # (Auto) (0.0-0.7) Baso # (Auto) (0.0-2.0) K/mm3 pCO2 (35-45) mm/Hg pO2 (80-100) mm/Hg HCO3 (21-28) mmol/L ABG pH (7.35-7.45) ABG Total CO2 (22-28) mmol.L ABG O2 Saturation (95-98) % ABG O2 Content (15-23) ML/dl ABG Base Excess (-2.0-3.0) mmol/L ABG Hemoglobin (11.7-17.4) g/dL ABG Carboxyhemoglobin (0.5-1.5) % POC ABG HHb (Measured) (0-5) % ABG Methemoglobin (0.0-3.0) % ABG O2 Capacity (16-24) mL/dl Hgb O2 Saturation (95.0-98.0) % FiO2 % Sodium 130 L 128 L (132-148) mmol/L Potassium 5.0 4.4 (3.6-5.0) mmol/L Chloride 85 L 86 L (98-107) mmol/L Carbon Dioxide 39 H 37 H (21-33) mmol/L Anion Gap 12 10 (10-20) BUN 8 6 L (7-21) mg/dL Creatinine 0.8 0.6 L (0.8-1.5) mg/dl Est GFR ( Amer) > 60 > 60 Est GFR (Non-Af Amer) > 60 > 60 Random Glucose 175 H 107 (70-110) mg/dL Calcium 8.9 8.9 (8.4-10.5) mg/dL Magnesium (1.7-2.2) mg/dL NT-Pro-B Natriuret Pep (0-450) pg/mL Urine Osmolality 539 (300-1000) mosm/kg Ur Random Sodium 12 meq/L 06/06/18 06/06/18 06/06/18 Range/Units 08:30 08:20 05:30 WBC (4.5-11.0) 10^3/ul RBC (3.5-6.1) 10^6/uL Hgb (14.0-18.0) g/dL Hct (42.0-52.0) % MCV (80.0-105.0) fl MCH (25.0-35.0) pg MCHC (31.0-37.0) g/dl RDW (11.5-14.5) % Plt Count (120.0-450.0) 10^3/uL MPV (7.0-11.0) fl Gran % (50.0-68.0) % Lymph % (Auto) (22.0-35.0) % [place] % (Auto) (1.0-6.0) % Eos % (Auto) (1.5-5.0) % Baso % (Auto) (0.0-3.0) % Gran # (1.4-6.5) Lymph # (Auto) (1.2-3.4) [place] # (Auto) (0.1-0.6) Eos # (Auto) (0.0-0.7) Baso # (Auto) (0.0-2.0) K/mm3 pCO2 61 H 66 H (35-45) mm/Hg pO2 58.0 L 102.0 H (80-100) mm/Hg HCO3 37.8 H 40.0 H (21-28) mmol/L ABG pH 7.40 7.39 (7.35-7.45) ABG Total CO2 39.7 H 42.0 H (22-28) mmol.L ABG O2 Saturation 93.4 L 98.9 H (95-98) % ABG O2 Content 19.5 20.8 (15-23) ML/dl ABG Base Excess 10.2 H 11.7 H (-2.0-3.0) mmol/L ABG Hemoglobin 15.2 15.2 (11.7-17.4) g/dL ABG Carboxyhemoglobin 1.4 1.4 (0.5-1.5) % POC ABG HHb (Measured) 6.5 H 1.1 (0-5) % ABG Methemoglobin 0.8 0.8 (0.0-3.0) % ABG O2 Capacity 20.9 21.0 (16-24) mL/dl Hgb O2 Saturation 91.3 L 96.7 (95.0-98.0) % FiO2 60.0 60.0 % Sodium 128 L (132-148) mmol/L Potassium 4.0 (3.6-5.0) mmol/L Chloride 87 L (98-107) mmol/L Carbon Dioxide 35 H (21-33) mmol/L Anion Gap 10 (10-20) BUN 5 L (7-21) mg/dL Creatinine 0.6 L (0.8-1.5) mg/dl Est GFR ( Amer) > 60 Est GFR (Non-Af Amer) > 60 Random Glucose 109 (70-110) mg/dL Calcium 8.5 (8.4-10.5) mg/dL Magnesium (1.7-2.2) mg/dL NT-Pro-B Natriuret Pep (0-450) pg/mL Urine Osmolality (300-1000) mosm/kg Ur Random Sodium meq/L 06/06/18 06/06/18 06/06/18 Range/Units 05:00 04:15 04:15 WBC 10.3 D (4.5-11.0) 10^3/ul RBC 4.79 (3.5-6.1) 10^6/uL Hgb 14.8 (14.0-18.0) g/dL Hct 43.7 (42.0-52.0) % MCV 91.2 (80.0-105.0) fl MCH 30.9 (25.0-35.0) pg MCHC 33.9 (31.0-37.0) g/dl RDW 14.7 H (11.5-14.5) % Plt Count 247 (120.0-450.0) 10^3/uL MPV 9.1 (7.0-11.0) fl Gran % 77.8 H (50.0-68.0) % Lymph % (Auto) 13.8 L (22.0-35.0) % [place] % (Auto) 7.8 H (1.0-6.0) % Eos % (Auto) 0.5 L (1.5-5.0) % Baso % (Auto) 0.1 (0.0-3.0) % Gran # 7.98 H (1.4-6.5) Lymph # (Auto) 1.4 (1.2-3.4) [place] # (Auto) 0.8 H (0.1-0.6) Eos # (Auto) 0.1 (0.0-0.7) Baso # (Auto) 0.01 (0.0-2.0) K/mm3 pCO2 (35-45) mm/Hg pO2 (80-100) mm/Hg HCO3 (21-28) mmol/L ABG pH (7.35-7.45) ABG Total CO2 (22-28) mmol.L ABG O2 Saturation (95-98) % ABG O2 Content (15-23) ML/dl ABG Base Excess (-2.0-3.0) mmol/L ABG Hemoglobin (11.7-17.4) g/dL ABG Carboxyhemoglobin (0.5-1.5) % POC ABG HHb (Measured) (0-5) % ABG Methemoglobin (0.0-3.0) % ABG O2 Capacity (16-24) mL/dl Hgb O2 Saturation (95.0-98.0) % FiO2 % Sodium 128 L (132-148) mmol/L Potassium 3.6 (3.6-5.0) mmol/L Chloride 87 L (98-107) mmol/L Carbon Dioxide 39 H (21-33) mmol/L Anion Gap 6 L (10-20) BUN 5 L (7-21) mg/dL Creatinine 0.6 L (0.8-1.5) mg/dl Est GFR ( Amer) > 60 Est GFR (Non-Af Amer) > 60 Random Glucose 132 H (70-110) mg/dL Calcium 8.3 L (8.4-10.5) mg/dL Magnesium 2.2 (1.7-2.2) mg/dL NT-Pro-B Natriuret Pep 139 (0-450) pg/mL Urine Osmolality (300-1000) mosm/kg Ur Random Sodium meq/L 06/06/18 06/05/18 Range/Units 00:45 19:56 WBC (4.5-11.0) 10^3/ul RBC (3.5-6.1) 10^6/uL Hgb (14.0-18.0) g/dL Hct (42.0-52.0) % MCV (80.0-105.0) fl MCH (25.0-35.0) pg MCHC (31.0-37.0) g/dl RDW (11.5-14.5) % Plt Count (120.0-450.0) 10^3/uL MPV (7.0-11.0) fl Gran % (50.0-68.0) % Lymph % (Auto) (22.0-35.0) % [place] % (Auto) (1.0-6.0) % Eos % (Auto) (1.5-5.0) % Baso % (Auto) (0.0-3.0) % Gran # (1.4-6.5) Lymph # (Auto) (1.2-3.4) [place] # (Auto) (0.1-0.6) Eos # (Auto) (0.0-0.7) Baso # (Auto) (0.0-2.0) K/mm3 pCO2 (35-45) mm/Hg pO2 (80-100) mm/Hg HCO3 (21-28) mmol/L ABG pH (7.35-7.45) ABG Total CO2 (22-28) mmol.L ABG O2 Saturation (95-98) % ABG O2 Content (15-23) ML/dl ABG Base Excess (-2.0-3.0) mmol/L ABG Hemoglobin (11.7-17.4) g/dL ABG Carboxyhemoglobin (0.5-1.5) % POC ABG HHb (Measured) (0-5) % ABG Methemoglobin (0.0-3.0) % ABG O2 Capacity (16-24) mL/dl Hgb O2 Saturation (95.0-98.0) % FiO2 % Sodium 128 L 128 L (132-148) mmol/L Potassium 3.9 4.1 (3.6-5.0) mmol/L Chloride 87 L 86 L (98-107) mmol/L Carbon Dioxide 39 H 38 H (21-33) mmol/L Anion Gap 7 L 8 L (10-20) BUN 6 L 6 L (7-21) mg/dL Creatinine 0.6 L 0.6 L (0.8-1.5) mg/dl Est GFR ( Amer) > 60 > 60 Est GFR (Non-Af Amer) > 60 > 60 Random Glucose 134 H 141 H (70-110) mg/dL Calcium 8.2 L 8.3 L (8.4-10.5) mg/dL Magnesium (1.7-2.2) mg/dL NT-Pro-B Natriuret Pep (0-450) pg/mL Urine Osmolality (300-1000) mosm/kg Ur Random Sodium meq/L Laboratory Results - last 24 hr 06/05/18 06/06/18 06/06/18 19:56 00:45 04:15 WBC 10.3 D RBC 4.79 Hgb 14.8 Hct 43.7 MCV 91.2 MCH 30.9 MCHC 33.9 RDW 14.7 H Plt Count 247 MPV 9.1 Gran % 77.8 H Lymph % (Auto) 13.8 L [place] % (Auto) 7.8 H Eos % (Auto) 0.5 L Baso % (Auto) 0.1 Gran # 7.98 H Lymph # (Auto) 1.4 [place] # (Auto) 0.8 H Eos # (Auto) 0.1 Baso # (Auto) 0.01 pCO2 pO2 HCO3 ABG pH ABG Total CO2 ABG O2 Saturation ABG O2 Content ABG Base Excess ABG Hemoglobin ABG Carboxyhemoglobin POC ABG HHb (Measured) ABG Methemoglobin ABG O2 Capacity Hgb O2 Saturation FiO2 Sodium 128 L 128 L Potassium 4.1 3.9 Chloride 86 L 87 L Carbon Dioxide 38 H 39 H Anion Gap 8 L 7 L BUN 6 L 6 L Creatinine 0.6 L 0.6 L Est GFR ( Amer) > 60 > 60 Est GFR (Non-Af Amer) > 60 > 60 Random Glucose 141 H 134 H Calcium 8.3 L 8.2 L Magnesium NT-Pro-B Natriuret Pep Urine Osmolality Ur Random Sodium 06/06/18 06/06/18 06/06/18 04:15 05:00 05:30 WBC RBC Hgb Hct MCV MCH MCHC RDW Plt Count MPV Gran % Lymph % (Auto) [place] % (Auto) Eos % (Auto) Baso % (Auto) Gran # Lymph # (Auto) [place] # (Auto) Eos # (Auto) Baso # (Auto) pCO2 66 H pO2 102.0 H HCO3 40.0 H ABG pH 7.39 ABG Total CO2 42.0 H ABG O2 Saturation 98.9 H ABG O2 Content 20.8 ABG Base Excess 11.7 H ABG Hemoglobin 15.2 ABG Carboxyhemoglobin 1.4 POC ABG HHb (Measured) 1.1 ABG Methemoglobin 0.8 ABG O2 Capacity 21.0 Hgb O2 Saturation 96.7 FiO2 60.0 Sodium 128 L Potassium 3.6 Chloride 87 L Carbon Dioxide 39 H Anion Gap 6 L BUN 5 L Creatinine 0.6 L Est GFR ( Amer) > 60 Est GFR (Non-Af Amer) > 60 Random Glucose 132 H Calcium 8.3 L Magnesium 2.2 NT-Pro-B Natriuret Pep 139 Urine Osmolality Ur Random Sodium 06/06/18 06/06/18 06/06/18 08:20 08:30 11:50 WBC RBC Hgb Hct MCV MCH MCHC RDW Plt Count MPV Gran % Lymph % (Auto) [place] % (Auto) Eos % (Auto) Baso % (Auto) Gran # Lymph # (Auto) [place] # (Auto) Eos # (Auto) Baso # (Auto) pCO2 61 H pO2 58.0 L HCO3 37.8 H ABG pH 7.40 ABG Total CO2 39.7 H ABG O2 Saturation 93.4 L ABG O2 Content 19.5 ABG Base Excess 10.2 H ABG Hemoglobin 15.2 ABG Carboxyhemoglobin 1.4 POC ABG HHb (Measured) 6.5 H ABG Methemoglobin 0.8 ABG O2 Capacity 20.9 Hgb O2 Saturation 91.3 L FiO2 60.0 Sodium 128 L 128 L Potassium 4.0 4.4 Chloride 87 L 86 L Carbon Dioxide 35 H 37 H Anion Gap 10 10 BUN 5 L 6 L Creatinine 0.6 L 0.6 L Est GFR ( Amer) > 60 > 60 Est GFR (Non-Af Amer) > 60 > 60 Random Glucose 109 107 Calcium 8.5 8.9 Magnesium NT-Pro-B Natriuret Pep Urine Osmolality Ur Random Sodium 06/06/18 06/06/18 14:10 15:50 WBC RBC Hgb Hct MCV MCH MCHC RDW Plt Count MPV Gran % Lymph % (Auto) [place] % (Auto) Eos % (Auto) Baso % (Auto) Gran # Lymph # (Auto) [place] # (Auto) Eos # (Auto) Baso # (Auto) pCO2 pO2 HCO3 ABG pH ABG Total CO2 ABG O2 Saturation ABG O2 Content ABG Base Excess ABG Hemoglobin ABG Carboxyhemoglobin POC ABG HHb (Measured) ABG Methemoglobin ABG O2 Capacity Hgb O2 Saturation FiO2 Sodium 130 L Potassium 5.0 Chloride 85 L Carbon Dioxide 39 H Anion Gap 12 BUN 8 Creatinine 0.8 Est GFR ( Amer) > 60 Est GFR (Non-Af Amer) > 60 Random Glucose 175 H Calcium 8.9 Magnesium NT-Pro-B Natriuret Pep Urine Osmolality 539 Ur Random Sodium 12 Critical Care Progress Note - Nutrition Nutrition: Nutrition Category Date Time Status Altered GI/Hepatic Diet [DIET] Diets 06/06/18 Lunch Ordered Attending/Attestation - Attestation I have personally seen and examined this patient.: Yes I have fully participated in the care of the patient.: Yes I have reviewed all pertinent clinical information: Yes Notes (Text): 06/06/18 17:[address] Hong's note
[2018-06-06 16:22] LABS: BLOOD UREA NITROGEN 8 mg/dL (7-21); CALCIUM 8.9 mg/dL (8.4-10.5); GFR NON-AFRICAN AMERICAN > 60
[2018-06-06 20:55] LABS: BLOOD UREA NITROGEN 10 mg/dL (7-21); CALCIUM 8.8 mg/dL (8.4-10.5); GFR NON-AFRICAN AMERICAN > 60
[2018-06-07 06:05] LABS: BASO # 0.01 K/mm3 (0.0-2.0); BASO % 0.1 % (0.0-3.0); EOS # 0.1 (0.0-0.7); EOS % 0.5 % (1.5-5.0); GRAN # 8.24 (1.4-6.5); GRAN % 75.9 % (50.0-68.0); HEMOGLOBIN 15.3 g/dL (14.0-18.0); LYMPH # 1.6 (1.2-3.4); LYMPH % 14.6 % (22.0-35.0); MEAN CELL VOLUME 92.7 fl (80.0-105.0); MEAN CORPUSCULAR HEMOGLOBIN 30.8 pg (25.0-35.0); MEAN CORPUSCULAR HGB CONC 33.3 g/dl (31.0-37.0); MEAN PLATELET VOLUME 9.1 fl (7.0-11.0); MONO % 8.9 % (1.0-6.0); RBC 4.96 10^6/uL (3.5-6.1); WHITE BLOOD COUNT 10.9 10^3/ul (4.5-11.0)
[2018-06-07 06:59] LABS: ALB/GLOB RATIO 1.3 (1.1-1.8); ALBUMIN 3.6 g/dL (3.0-4.8); ALT/SGPT 37 U/L (7-56); AST/SGOT 41 U/L (17-59); BLOOD UREA NITROGEN 8 mg/dL (7-21); CALCIUM 8.6 mg/dL (8.4-10.5); GFR NON-AFRICAN AMERICAN > 60
[2018-06-07] MEDS: Albuterol-Ipratrop 3 mg / 0.5 (3 ml) UD IH SCH ×3 (07:03→19:46)
[2018-06-07] MEDS: Budesonide 0.25 mg/2 ml Inhal Susp UD IH SCH ×2 (07:03→19:45)
[2018-06-07] MEDS: Arformoterol 15 mcg/2 ml Inh Sol IH SCH ×2 (07:03→19:46)
[2018-06-07] MEDS: Levothyroxine 25 MCG TAB PO SCH (08:18)
--- NOTE | 2018-06-07 09:16 | CP.PCM.PN ---
<Lio Kramer - Last Filed: 06/07/18 13:56> Subjective - Date & Time of Evaluation Date of Evaluation: 06/07/18 Time of Evaluation: 08:40 - Subjective Subjective: Lio Kramer DO, PGY-2: Progress Note for Dr. Susana Eden Patient was seen and examined at bedside. He is responding to questions appropriately. He denies any chest pain, dyspnea, or cough. Nurse reports no adverse events overnight. Case was discussed with ICU resident as well. Patient is currently on high flow oxygen. He was extubated without complication. Objective - Vital Signs/Intake and Output Vital Signs (last 24 hours): Temp Pulse Resp BP Pulse Ox 98.1 F 77 20 114/54 L 92 L 06/06/18 16:00 06/07/18 06:10 06/07/18 07:23 06/07/18 06:00 06/07/18 06:10 Intake and Output: 06/07/18 06/07/18 06:59 18:59 Intake Total 250 Output Total 900 Balance -650 - Medications Medications: Current Medications Albuterol/Ipratropium (Duoneb 3 Mg/0.5 Mg (3 Ml) Ud) 3 ml IH Q2H PRN PRN Reason: Shortness of Breath Albuterol/Ipratropium (Duoneb 3 Mg/0.5 Mg (3 Ml) Ud) 3 ml IH [id number] [facility] Last Admin: 06/07/18 07:03 Dose: 3 ml Amlodipine Besylate (Norvasc) 2.5 mg PO DAILY [facility] Last Admin: 06/06/18 10:00 Dose: Not Given Arformoterol Tartrate (Brovana) 15 mcg IH [id number] [facility] Last Admin: 06/07/18 07:03 Dose: 15 mcg Atorvastatin Calcium (Lipitor) 20 mg PO HS [facility] Last Admin: 06/06/18 21:25 Dose: 20 mg Budesonide (Pulmicort Respules) 0.25 mg IH [id number] [facility] Last Admin: 06/07/18 07:03 Dose: 0.25 mg Cholecalciferol (Vitamin D) 2,000 intlu PO DAILY [facility] Last Admin: 06/06/18 10:00 Dose: Not Given Fluphenazine HCl (Prolixin) 10 mg PO BID [facility] PRN Reason: Protocol Last Admin: 06/06/18 10:00 Dose: Not Given Heparin Sodium (Porcine) (Heparin) 5,000 units SC Q12 [facility] PRN Reason: Protocol Last Admin: 06/06/18 21:25 Dose: 5,000 units Levothyroxine Sodium (Synthroid) 25 mcg PO ACB [facility] Last Admin: 06/07/18 08:18 Dose: 25 mcg Methylprednisolone (Solu-Medrol) 40 mg IVP DAILY [facility] Last Admin: 06/06/18 09:11 Dose: 40 mg Metoprolol Tartrate (Lopressor) 25 mg PO DAILY [facility] Last Admin: 06/06/18 10:00 Dose: Not Given Multivitamins/Minerals (Therapeutic-M Tab) 1 tab PO DAILY [facility] Last Admin: 06/06/18 10:00 Dose: Not Given Nicotine (Nicoderm Cq) 1 patch TD DAILY [facility] Last Admin: 06/06/18 09:12 Dose: 1 patch Pantoprazole Sodium (Protonix Inj) 40 mg IVP DAILY [facility] Last Admin: 06/06/18 09:11 Dose: 40 mg Trazodone HCl (Desyrel) 50 mg PO HS [facility] Last Admin: 06/06/18 21:25 Dose: 50 mg Zolpidem Tartrate (Ambien) 10 mg PO HS PRN; Protocol PRN Reason: Insomnia Last Admin: 06/07/18 03:01 Dose: 10 mg - Labs Labs: 06/07/18 05:15 06/07/18 05:15 PT 11.5 SECONDS (9.4-12.5) 06/04/18 17:45 INR 1.01 06/04/18 17:45 APTT 33.0 Seconds (25.1-36.5) 06/04/18 17:45 - Constitutional Appears: Well, Non-toxic - Head Exam Head Exam: ATRAUMATIC, NORMOCEPHALIC - Eye Exam Eye Exam: EOMI, Normal appearance - ENT Exam ENT Exam: Mucous Membranes Moist - Neck Exam Neck Exam: Normal Inspection Additional comments: tracheostomy site clean - Respiratory Exam Respiratory Exam: Wheezes (faint), NORMAL BREATHING PATTERN. absent: Accessory Muscle Use - Cardiovascular Exam Cardiovascular Exam: RRR, +S1, +S2 - GI/Abdominal Exam GI & Abdominal Exam: Soft, Normal Bowel Sounds - Extremities Exam Extremities Exam: Normal Inspection. absent: Calf Tenderness - Back Exam Back Exam: NORMAL INSPECTION. absent: CVA tenderness (L), CVA tenderness (R) - Neurological Exam Neurological Exam: Alert, Awake, Oriented x3 - Psychiatric Exam Psychiatric exam: Normal Affect, Normal Mood - Skin Skin Exam: Dry, Intact, Normal Color, Warm Assessment and Plan - Assessment and Plan (Free Text) Assessment: Patient is a 62 y/o M with PMHx of Laryngeal cancer (s/p radiation/trach removed ), HTN, HLD, COPD, tobacco abuse, and schizophrenia who presented to ED on 06/04 for shortness of breath, cough, and polydipsia. Patient found to be severely hyponatremic and in respiratory distress. 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 Plan: Hypercapnic respiratory failure 2/2 COPD Exacerbation vs. Fluid Overload - CXR showed atelectasis versus infiltrates - Repeat CXR shows trach/NG tube in good position. 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 - improving - Given patient's hx of schizphrenia and the fact that he had increased PO intake of free water, likely psychogenic in nature - Initial sodium was 118; given 3% hypertonic saline, corrected to 131 (latest) - fluid restriction - Monitor I&O - nephrology is on the case Hx of Laryngeal Cancer - Heme/onc consulted, f/u recs - Palliative care consulted, f/u recs HTN - c/w home med: Norvasc and Metoprolol with holding parameters HLD - c/w Home med: Lipitor Schizophrenia - c/w home medication: trazodone and fluphenazine GI ppx: Protonix DVT ppx: Heparin SC Dispo: Monitor patient in ICU unless stable for transfer Case was discussed and reviewed with Dr. Eden. <Susana Eden R - Last Filed: 06/07/18 16:51> Objective - Vital Signs/Intake and Output Vital Signs (last 24 hours): Temp Pulse Resp BP Pulse Ox 98.1 F 77 24 116/68 96 06/06/18 16:00 06/07/18 15:50 06/07/18 16:03 06/07/18 15:30 06/07/18 15:50 Intake and Output: 06/07/18 06/07/18 06:59 18:59 Intake Total 250 Output Total 900 Balance -650 - Medications Medications: Current Medications Albuterol/Ipratropium (Duoneb 3 Mg/0.5 Mg (3 Ml) Ud) 3 ml IH Q2H PRN PRN Reason: Shortness of Breath Albuterol/Ipratropium (Duoneb 3 Mg/0.5 Mg (3 Ml) Ud) 3 ml IH [id number] [facility] Last Admin: 06/07/18 13:12 Dose: 3 ml Amlodipine Besylate (Norvasc) 2.5 mg PO DAILY [facility] Last Admin: 06/07/18 09:39 Dose: 2.5 mg Arformoterol Tartrate (Brovana) 15 mcg IH [id number] [facility] Last Admin: 06/07/18 07:03 Dose: 15 mcg Atorvastatin Calcium (Lipitor) 20 mg PO HS [facility] Last Admin: 06/06/18 21:25 Dose: 20 mg Budesonide (Pulmicort Respules) 0.25 mg IH [id number] [facility] Last Admin: 06/07/18 07:03 Dose: 0.25 mg Cholecalciferol (Vitamin D) 2,000 intlu PO DAILY [facility] Last Admin: 06/07/18 09:39 Dose: 2,000 intlu Fluphenazine HCl (Prolixin) 10 mg PO BID [facility] PRN Reason: Protocol Last Admin: 06/07/18 09:39 Dose: 10 mg Heparin Sodium (Porcine) (Heparin) 5,000 units SC Q12 [facility] PRN Reason: Protocol Last Admin: 06/07/18 09:40 Dose: 5,000 units Levothyroxine Sodium (Synthroid) 25 mcg PO ACB [facility] Last Admin: 06/07/18 08:18 Dose: 25 mcg Methylprednisolone (Solu-Medrol) 40 mg IVP DAILY [facility] Last Admin: 06/07/18 09:40 Dose: 40 mg Metoprolol Tartrate (Lopressor) 25 mg PO DAILY [facility] Last Admin: 06/07/18 09:39 Dose: 25 mg Multivitamins/Minerals (Therapeutic-M Tab) 1 tab PO DAILY [facility] Last Admin: 06/07/18 09:39 Dose: 1 tab Nicotine (Nicoderm Cq) 1 patch TD DAILY [facility] Last Admin: 06/07/18 09:40 Dose: 1 patch Oxycodone/Acetaminophen (Percocet 2.5/325 Mg Tab) 1 tab PO Q6H PRN PRN Reason: Pain, moderate (4-7) Last Admin: 06/07/18 15:01 Dose: 1 tab Pantoprazole Sodium (Protonix Inj) 40 mg IVP DAILY [facility] Last Admin: 06/07/18 09:40 Dose: 40 mg Trazodone HCl (Desyrel) 50 mg PO HS [facility] Last Admin: 06/06/18 21:25 Dose: 50 mg Zolpidem Tartrate (Ambien) 10 mg PO HS PRN; Protocol PRN Reason: Insomnia Last Admin: 06/07/18 03:01 Dose: 10 mg - Labs Labs: 06/07/18 05:15 06/07/18 05:15 PT 11.5 SECONDS (9.4-12.5) 06/04/18 17:45 INR 1.01 06/04/18 17:45 APTT 33.0 Seconds (25.1-36.5) 06/04/18 17:45 Attending/Attestation - Attestation I have personally seen and examined this patient.: Yes I have fully participated in the care of the patient.: Yes I have reviewed all pertinent clinical information, including history, physical exam and plan: Yes Notes (Text): Patient seen and examined by me at 8:15AM with resident. Case including HPI, physical exam, and assessment and plan discussed with resident. Agree with above with following additions/corrections. Patient is 62-year-old male with past medical history significant for laryngeal cancer status post radiation and tracheostomy now with stoma, hypertension, hyperlipidemia, COPD, tobacco abuse, and schizophrenia that presented to the emergency room with 2 days of shortness of breath. Patient is awake and alert. Patient is on high flow oxygen. Patient is whispering words today. Complains of right ear "congestion" but no pain. Denies feeling short of breath. No chest pain or palpitations. States he is coughing a little with phlegm. No nausea, vomiting, or abdominal pain. Patient has swallow evaluation and tolerating diet well. No dysuria. Physical exam: General: Awake and alert. No acute distress. HEENT: Normocephalic atraumatic. Pupils equal reactive. No scleral icterus. Short stubby neck. Tracheostomy in place. Cardiovascular: Normal rhythm. Normal S1, S2. No murmurs, rubs or gallops appreciated Pulmonary: Decreased breath sounds. No rhonchi, rales or wheezing appreciated. Gastrointestinal: Soft, nondistended, obese abdomen. Nontender. Positive bowel sounds all 4 quadrants, no guarding. Musculoskeletal: Moves all extremities, no edema appreciated. No calf tenderness. Central nervous system: Awake and alert Dermatologic: Skin warm and dry. Assessment and plan: Patient is 62-year-old male with past medical history significant for laryngeal cancer status post radiation and tracheostomy now with stoma, hypertension, hyperlipidemia, COPD, tobacco abuse, and schizophrenia that presented to the emergency room with 2 days of shortness of breath. 1. Hypercapnic and hypoxemic respiratory failure. Improved. Secondary to COPD exacerbation. Status post tracheostomy placement. ENT following, recommendations appreciated. Continue nebulizer treatments, Brovana, and Pulmicort. Continue Solu-Medrol 40 mg daily. Patient on high flow oxygen. Chest x-ray 06/06/18 per radiologist showed no active disease. Patient afebrile. No leukocytosis. 2. Hypervolemic hypernatremia. Likely psychogenic in nature. Improving. Nephrology following, recommendations appreciated. Continue fluid restriction. Continue to monitor. 3. History of laryngeal cancer. Hematology/oncology consulted, follow-up recommendations. Palliative care consulted. 4. Hypertension. Continue Norvasc and metoprolol 5. Hyperlipidemia. Continue Lipitor 6. Hypothyroidism. Continu synthroid 7. Schizophrenia. Continue trazodone and prolixin 8. Tobacco abuse. Patient continues to smoke. Patient counseled on cessation 9. GI/DVT prophylaxis. Protonix and heparin. Case was discussed in detail with the patient regarding current diagnosis and treatment plan.
[2018-06-07] MEDS: Cholecalciferol 1,000 INTLU TAB PO SCH (09:39)
[2018-06-07] MEDS: Multivitamin With Minerals Tab PO SCH (09:39)
[2018-06-07] MEDS: MethylPREDNISolone 40 mg Vial IVP SCH (09:40)
[2018-06-07] MEDS: Oxycodone/Acetaminophen 2.5/325 mg Tab PO PRN ×3 (11:11→20:04)
--- NOTE | 2018-06-07 11:54 | CP.PCM.PN ---
Subjective - Date & Time of Evaluation Date of Evaluation: 06/07/18 Time of Evaluation: 11:53 - Subjective Subjective: Nephrology Consultation Note: Assessment: critical hyponatremia laryngeal ca s/p radiation/trach (removed), HTN, HLD, COPD, tobacco abuse, schizophrenia acute on chronic hyercapnic respi failure COPD exacerbation THC + Plan No acute need for renal replacement therapy at this time. Urine studies from yesterday seem more consistent w/ hypovolemic. Would recc 0.9 NS 100 cc/hr x 5 hours only and recheck na this afternoon. Maintain hemodynamics stable. Avoid hypotension. Monitor Input/Output, daily weights and serum Na q4-6 hrs target correction in serum Na no more than 6-8 meq/24 hrs. discussed w/ primary team S: seen and examined pt w/ no complaints drinking Physical Examination: General Appearance: Comfortable, in no acute respiratory distress,sedated, obese Vitals reviewed and noted as below Head; Atraumatic, normocephalic ENT: s/p trach EYES: Pupils are equal, round and reactive to light accommodation. Eye muscles and extraocular movement intact. Sclera is anicteric. Neck; supple no lymphadenopathy, no thyromegaly or bruit Lungs: Normal respiratory rate/effort. Breath sounds coarse Heart: Normal rate. s1s2 normal. No rub or gallop. Extremities: no edema. No varicose veins Neurological: Patient is sedated Skin: Warm and dry. Normal turgor. No rash. Palpitation: Normal elasticity for age Abdomen: Abdomen is soft. Bowel sounds +. + distension no organomegaly Psych: unable MSK: no joint tenderness or swelling. Digits and nails normal, no deformity : kidney or bladder not palpable Labs/imaging reviewed. Past medical history, past surgical history, family history, social history, allergy reviewed and noted as below Family hx: no hx of CKD. Rest non-contributory work up: UA 100 protein Na 30 osmol 314 TSH 0.4 Objective - Vital Signs/Intake and Output Vital Signs (last 24 hours): Temp Pulse Resp BP Pulse Ox 98.1 F 86 20 113/61 92 L 06/06/18 16:00 06/07/18 09:39 06/07/18 07:23 06/07/18 09:39 06/07/18 06:10 Intake and Output: 06/07/18 06/07/18 06:59 18:59 Intake Total 250 Output Total 900 Balance -650 - Medications Medications: Current Medications Albuterol/Ipratropium (Duoneb 3 Mg/0.5 Mg (3 Ml) Ud) 3 ml IH Q2H PRN PRN Reason: Shortness of Breath Albuterol/Ipratropium (Duoneb 3 Mg/0.5 Mg (3 Ml) Ud) 3 ml IH [id number] [facility] Last Admin: 06/07/18 07:03 Dose: 3 ml Amlodipine Besylate (Norvasc) 2.5 mg PO DAILY [facility] Last Admin: 06/07/18 09:39 Dose: 2.5 mg Arformoterol Tartrate (Brovana) 15 mcg IH [id number] [facility] Last Admin: 06/07/18 07:03 Dose: 15 mcg Atorvastatin Calcium (Lipitor) 20 mg PO HS [facility] Last Admin: 06/06/18 21:25 Dose: 20 mg Budesonide (Pulmicort Respules) 0.25 mg IH [id number] [facility] Last Admin: 06/07/18 07:03 Dose: 0.25 mg Cholecalciferol (Vitamin D) 2,000 intlu PO DAILY [facility] Last Admin: 06/07/18 09:39 Dose: 2,000 intlu Fluphenazine HCl (Prolixin) 10 mg PO BID [facility] PRN Reason: Protocol Last Admin: 06/07/18 09:39 Dose: 10 mg Heparin Sodium (Porcine) (Heparin) 5,000 units SC Q12 [facility] PRN Reason: Protocol Last Admin: 06/07/18 09:40 Dose: 5,000 units Levothyroxine Sodium (Synthroid) 25 mcg PO ACB [facility] Last Admin: 06/07/18 08:18 Dose: 25 mcg Methylprednisolone (Solu-Medrol) 40 mg IVP DAILY [facility] Last Admin: 06/07/18 09:40 Dose: 40 mg Metoprolol Tartrate (Lopressor) 25 mg PO DAILY [facility] Last Admin: 06/07/18 09:39 Dose: 25 mg Multivitamins/Minerals (Therapeutic-M Tab) 1 tab PO DAILY [facility] Last Admin: 06/07/18 09:39 Dose: 1 tab Nicotine (Nicoderm Cq) 1 patch TD DAILY [facility] Last Admin: 06/07/18 09:40 Dose: 1 patch Oxycodone/Acetaminophen (Percocet 2.5/325 Mg Tab) 1 tab PO Q6H PRN PRN Reason: Pain, moderate (4-7) Last Admin: 06/07/18 11:11 Dose: 1 tab Pantoprazole Sodium (Protonix Inj) 40 mg IVP DAILY [facility] Last Admin: 06/07/18 09:40 Dose: 40 mg Trazodone HCl (Desyrel) 50 mg PO HS [facility] Last Admin: 06/06/18 21:25 Dose: 50 mg Zolpidem Tartrate (Ambien) 10 mg PO HS PRN; Protocol PRN Reason: Insomnia Last Admin: 06/07/18 03:01 Dose: 10 mg - Labs Labs: 06/07/18 05:15 06/07/18 05:15 PT 11.5 SECONDS (9.4-12.5) 06/04/18 17:45 INR 1.01 06/04/18 17:45 APTT 33.0 Seconds (25.1-36.5) 06/04/18 17:45
--- NOTE | 2018-06-07 14:36 | CP.CCUPN ---
<Randi Russell - Last Filed: 06/07/18 14:31> CCU Subjective - Physician Review Subjective (Free Text): 06/07/18 14:31 Patient seen and examined while sitting up in chair. No acute events overnight. Patient had secretions in trach, cleared by nursing/respiratory. patient awake, alert, orientedx4. Patient tolerating PO diet well. Denies fevers, chills, nausea, vomiting. CCU Objective - Vital Signs / Intake & Output Vital Signs (Last 4 hours): Vital Signs Resp 06/07/18 13:14 18 Intake and Output (Last 8hrs): Intake & Output 06/06/18 06/07/18 06/07/18 22:59 06:59 14:59 Intake Total 1150 250 Output Total 1575 900 Balance -425 -650 Intake: IV 170 Right Antecubital 10 Right Hand 10 Right Wrist 150 Oral 980 250 Output: Gastric Amount 200 Right Nares 200 Urine 1375 900 Urethral (Coe) 500 Urine, Voided 875 900 Other: # Voids Urethral (Coe) 2 # Bowel Movements 0 0 - Physical Exam Head: Positive for: Atraumatic, Normocephalic Pupils: Positive for: PERRL Extroacular Muscles: Positive for: EOMI Conjunctiva: Positive for: Normal Mouth: Positive for: Moist Mucous Membranes Neck: Positive for: Normal Range of Motion Respiratory/Chest: Positive for: Decreased Breath Sounds. Negative for: Respiratory Distress, Accessory Muscle Use Cardiovascular: Positive for: Regular Rate and Rhythm, Normal S1, S2. Negative for: Murmurs Abdomen: Negative for: Tenderness, Distention, Peritoneal Signs, Guarding Back: Positive for: Normal Inspection Upper Extremity: Positive for: Normal Inspection. Negative for: Cyanosis, Edema Lower Extremity: Negative for: Edema, Erythema Neurological: Positive for: CN II-XII Intact Skin: Positive for: Warm, Dry, Normal Color. Negative for: Rashes Psychiatric: Positive for: Alert, Oriented x 3 - Medications Active Medications: Active Medications Generic Name Dose Route Start Last Admin Trade Name Freq PRN Reason Stop Dose Admin Albuterol/Ipratropium 3 ml 06/04/18 20:01 Duoneb 3 Mg/0.5 Mg (3 Ml) Ud IH Q2H PRN Shortness of Breath Albuterol/Ipratropium 3 ml 06/05/18 02:00 06/07/18 13:12 Duoneb 3 Mg/0.5 Mg (3 Ml) Ud IH 3 ml [id number] CY Administration Amlodipine Besylate 2.5 mg 06/05/18 10:00 06/07/18 09:39 Norvasc PO 2.5 mg DAILY CY Administration Arformoterol Tartrate 15 mcg 06/05/18 08:00 06/07/18 07:03 Brovana IH 15 mcg [id number] CY Administration Atorvastatin Calcium 20 mg 06/05/18 22:00 06/06/18 21:25 Lipitor PO 20 mg HS CY Administration Budesonide 0.25 mg 06/05/18 08:00 06/07/18 07:03 Pulmicort Respules IH 0.25 mg [id number] CY Administration Cholecalciferol 2,000 intlu 06/05/18 10:00 06/07/18 09:39 Vitamin D PO 2,000 intlu DAILY CY Administration Fluphenazine HCl 10 mg 06/05/18 10:00 06/07/18 09:39 Prolixin PO 10 mg BID CY Administration Protocol Heparin Sodium (Porcine) 5,000 units 06/04/18 22:00 06/07/18 09:40 Heparin SC 5,000 units Q12 CY Administration Protocol Levothyroxine Sodium 25 mcg 06/05/18 07:30 06/07/18 08:18 Synthroid PO 25 mcg ACB CY Administration Methylprednisolone 40 mg 06/06/18 10:00 06/07/18 09:40 Solu-Medrol IVP 40 mg DAILY CY Administration Metoprolol Tartrate 25 mg 06/05/18 10:00 06/07/18 09:39 Lopressor PO 25 mg DAILY CY Administration Multivitamins/Minerals 1 tab 06/05/18 10:00 06/07/18 09:39 Therapeutic-M Tab PO 1 tab DAILY CY Administration Nicotine 1 patch 06/05/18 10:00 06/07/18 09:40 Nicoderm Cq TD 1 patch DAILY CY Administration Oxycodone/Acetaminophen 1 tab 06/07/18 11:02 06/07/18 11:11 Percocet 2.5/325 Mg Tab PO 1 tab Q6H PRN Administration Pain, moderate (4-7) Pantoprazole Sodium 40 mg 06/05/18 10:00 06/07/18 09:40 Protonix Inj IVP 40 mg DAILY CY Administration Trazodone HCl 50 mg 06/04/18 22:00 06/06/18 21:25 Desyrel PO 50 mg HS CY Administration Zolpidem Tartrate 10 mg 06/07/18 02:35 06/07/18 03:01 Ambien PO 10 mg HS PRN Administration Insomnia Protocol - Patient Studies Lab Studies: Lab Studies 06/07/18 06/07/18 06/06/18 Range/Units 05:15 05:15 20:38 WBC 10.9 (4.5-11.0) 10^3/ul RBC 4.96 (3.5-6.1) 10^6/uL Hgb 15.3 (14.0-18.0) g/dL Hct 46.0 (42.0-52.0) % MCV 92.7 (80.0-105.0) fl MCH 30.8 (25.0-35.0) pg MCHC 33.3 (31.0-37.0) g/dl RDW 15.0 H (11.5-14.5) % Plt Count 311 (120.0-450.0) 10^3/uL MPV 9.1 (7.0-11.0) fl Gran % 75.9 H (50.0-68.0) % Lymph % (Auto) 14.6 L (22.0-35.0) % [place] % (Auto) 8.9 H (1.0-6.0) % Eos % (Auto) 0.5 L (1.5-5.0) % Baso % (Auto) 0.1 (0.0-3.0) % Gran # 8.24 H (1.4-6.5) Lymph # (Auto) 1.6 (1.2-3.4) [place] # (Auto) 1.0 H (0.1-0.6) Eos # (Auto) 0.1 (0.0-0.7) Baso # (Auto) 0.01 (0.0-2.0) K/mm3 Sodium 131 L 129 L (132-148) mmol/L Potassium 4.1 4.8 (3.6-5.0) mmol/L Chloride 87 L 87 L (98-107) mmol/L Carbon Dioxide 40 H 35 H (21-33) mmol/L Anion Gap 8 L 12 (10-20) BUN 8 10 (7-21) mg/dL Creatinine 0.7 L 0.8 (0.8-1.5) mg/dl Est GFR ( Amer) > 60 > 60 Est GFR (Non-Af Amer) > 60 > 60 Random Glucose 92 92 (70-110) mg/dL Calcium 8.6 8.8 (8.4-10.5) mg/dL Phosphorus 3.1 (2.5-4.5) mg/dL Magnesium 2.0 (1.7-2.2) mg/dL Total Bilirubin 0.8 (0.2-1.3) mg/dL AST 41 (17-59) U/L ALT 37 (7-56) U/L Alkaline Phosphatase 70 (38-126) U/L Total Protein 6.3 (5.8-8.3) g/dL Albumin 3.6 (3.0-4.8) g/dL Globulin 2.7 gm/dL Albumin/Globulin Ratio 1.3 (1.1-1.8) Urine Osmolality (300-1000) mosm/kg Ur Random Sodium meq/L 06/06/18 06/06/18 Range/Units 15:50 14:10 WBC (4.5-11.0) 10^3/ul RBC (3.5-6.1) 10^6/uL Hgb (14.0-18.0) g/dL Hct (42.0-52.0) % MCV (80.0-105.0) fl MCH (25.0-35.0) pg MCHC (31.0-37.0) g/dl RDW (11.5-14.5) % Plt Count (120.0-450.0) 10^3/uL MPV (7.0-11.0) fl Gran % (50.0-68.0) % Lymph % (Auto) (22.0-35.0) % [place] % (Auto) (1.0-6.0) % Eos % (Auto) (1.5-5.0) % Baso % (Auto) (0.0-3.0) % Gran # (1.4-6.5) Lymph # (Auto) (1.2-3.4) [place] # (Auto) (0.1-0.6) Eos # (Auto) (0.0-0.7) Baso # (Auto) (0.0-2.0) K/mm3 Sodium 130 L (132-148) mmol/L Potassium 5.0 (3.6-5.0) mmol/L Chloride 85 L (98-107) mmol/L Carbon Dioxide 39 H (21-33) mmol/L Anion Gap 12 (10-20) BUN 8 (7-21) mg/dL Creatinine 0.8 (0.8-1.5) mg/dl Est GFR ( Amer) > 60 Est GFR (Non-Af Amer) > 60 Random Glucose 175 H (70-110) mg/dL Calcium 8.9 (8.4-10.5) mg/dL Phosphorus (2.5-4.5) mg/dL Magnesium (1.7-2.2) mg/dL Total Bilirubin (0.2-1.3) mg/dL AST (17-59) U/L ALT (7-56) U/L Alkaline Phosphatase (38-126) U/L Total Protein (5.8-8.3) g/dL Albumin (3.0-4.8) g/dL Globulin gm/dL Albumin/Globulin Ratio (1.1-1.8) Urine Osmolality 539 (300-1000) mosm/kg Ur Random Sodium 12 meq/L Laboratory Results - last 24 hr 06/06/18 06/06/18 06/06/18 14:10 15:50 20:38 WBC RBC Hgb Hct MCV MCH MCHC RDW Plt Count MPV Gran % Lymph % (Auto) [place] % (Auto) Eos % (Auto) Baso % (Auto) Gran # Lymph # (Auto) [place] # (Auto) Eos # (Auto) Baso # (Auto) Sodium 130 L 129 L Potassium 5.0 4.8 Chloride 85 L 87 L Carbon Dioxide 39 H 35 H Anion Gap 12 12 BUN 8 10 Creatinine 0.8 0.8 Est GFR ( Amer) > 60 > 60 Est GFR (Non-Af Amer) > 60 > 60 Random Glucose 175 H 92 Calcium 8.9 8.8 Phosphorus Magnesium Total Bilirubin AST ALT Alkaline Phosphatase Total Protein Albumin Globulin Albumin/Globulin Ratio Urine Osmolality 539 Ur Random Sodium 12 06/07/18 06/07/18 05:15 05:15 WBC 10.9 RBC 4.96 Hgb 15.3 Hct 46.0 MCV 92.7 MCH 30.8 MCHC 33.3 RDW 15.0 H Plt Count 311 MPV 9.1 Gran % 75.9 H Lymph % (Auto) 14.6 L [place] % (Auto) 8.9 H Eos % (Auto) 0.5 L Baso % (Auto) 0.1 Gran # 8.24 H Lymph # (Auto) 1.6 [place] # (Auto) 1.0 H Eos # (Auto) 0.1 Baso # (Auto) 0.01 Sodium 131 L Potassium 4.1 Chloride 87 L Carbon Dioxide 40 H Anion Gap 8 L BUN 8 Creatinine 0.7 L Est GFR ( Amer) > 60 Est GFR (Non-Af Amer) > 60 Random Glucose 92 Calcium 8.6 Phosphorus 3.1 Magnesium 2.0 Total Bilirubin 0.8 AST 41 ALT 37 Alkaline Phosphatase 70 Total Protein 6.3 Albumin 3.6 Globulin 2.7 Albumin/Globulin Ratio 1.3 Urine Osmolality Ur Random Sodium Review of Systems - Review of Systems All systems: reviewed and no additional remarkable complaints except Review of Systems: as per HPI Critical Care Progress Note - Nutrition Nutrition: Nutrition Category Date Time Status Altered GI/Hepatic Diet [DIET] Diets 06/06/18 Lunch Ordered Assessment/Plan - Assessment and Plan (Free Text) Assessment: 62 yo male with past medical history of laryngeal ca s/p radiation/trach ( removed), HTN, HLD, COPD, heavy tobacco use, schizophrenia, admitted to ICU for hypoxemic, hypercapneic respiratory failure, hyponatremia, weaned off of ventilator, on high flow oxygen, OOB to chair, tolerating PO diet well. Will transfer to remote tele, primary team aware: Neuro: AOx4 (at baseline), weaned off of ventilator, off sedation. Cont to monitor. Cardio: Normotensive. Maintain MAP>65. hx of HTN. hold home antiHTN trop 0.04-0.04 Echo showed EF 57.5%, grade III diastolic dysfunction. Mod LVH. RVSP normal 21 mmHg Pulm: On bronchodilators, solumedrol, pulmicort, brovana Heavy smoker, on nicotine patch On high flow oxygen, will monitor ABG in AM monitor GI Protonix for PUD prophylaxis. Soft, bland diet, thin liquids, 1L fluid restriction. monitor Renal continue fluid restriction Hyponatremia likely pre-renal - Grade III diastolic dysfunction repeat urine Na, urine Osm noted s/p 3% NS, D5W Na 131 this AM. Nephro on board. discussed case. appreciate recs. continue to monitor Heme hbg stable, will continue to monitor PLT 247 ID afebrile, no leukocytosis Monitor off abx Psych: home meds. DVT: SCDs, Protonix Case seen and discussed with Dr Hong. <Carson Hong - Last Filed: 06/07/18 15:27> CCU Objective - Vital Signs / Intake & Output Vital Signs (Last 4 hours): Vital Signs Resp 06/07/18 13:14 18 Intake and Output (Last 8hrs): Intake & Output 06/07/18 06/07/18 06/07/18 06:59 14:59 22:59 Intake Total 250 Output Total 900 Balance -650 Intake: Oral 250 Output: Urine 900 Urine, Voided 900 Other: # Voids Urethral (Coe) 2 # Bowel Movements 0 - Medications Active Medications: Active Medications Generic Name Dose Route Start Last Admin Trade Name Freq PRN Reason Stop Dose Admin Albuterol/Ipratropium 3 ml 06/04/18 20:01 Duoneb 3 Mg/0.5 Mg (3 Ml) Ud IH Q2H PRN Shortness of Breath Albuterol/Ipratropium 3 ml 06/05/18 02:00 06/07/18 13:12 Duoneb 3 Mg/0.5 Mg (3 Ml) Ud IH 3 ml [id number] CY Administration Amlodipine Besylate 2.5 mg 06/05/18 10:00 06/07/18 09:39 Norvasc PO 2.5 mg DAILY CY Administration Arformoterol Tartrate 15 mcg 06/05/18 08:00 06/07/18 07:03 Brovana IH 15 mcg [id number] CY Administration Atorvastatin Calcium 20 mg 06/05/18 22:00 06/06/18 21:25 Lipitor PO 20 mg HS CY Administration Budesonide 0.25 mg 06/05/18 08:00 06/07/18 07:03 Pulmicort Respules IH 0.25 mg [id number] CY Administration Cholecalciferol 2,000 intlu 06/05/18 10:00 06/07/18 09:39 Vitamin D PO 2,000 intlu DAILY CY Administration Fluphenazine HCl 10 mg 06/05/18 10:00 06/07/18 09:39 Prolixin PO 10 mg BID CY Administration Protocol Heparin Sodium (Porcine) 5,000 units 06/04/18 22:00 06/07/18 09:40 Heparin SC 5,000 units Q12 CY Administration Protocol Levothyroxine Sodium 25 mcg 06/05/18 07:30 06/07/18 08:18 Synthroid PO 25 mcg ACB CY Administration Methylprednisolone 40 mg 06/06/18 10:00 06/07/18 09:40 Solu-Medrol IVP 40 mg DAILY CY Administration Metoprolol Tartrate 25 mg 06/05/18 10:00 06/07/18 09:39 Lopressor PO 25 mg DAILY CY Administration Multivitamins/Minerals 1 tab 06/05/18 10:00 06/07/18 09:39 Therapeutic-M Tab PO 1 tab DAILY CY Administration Nicotine 1 patch 06/05/18 10:00 06/07/18 09:40 Nicoderm Cq TD 1 patch DAILY CY Administration Oxycodone/Acetaminophen 1 tab 06/07/18 11:02 06/07/18 15:01 Percocet 2.5/325 Mg Tab PO 1 tab Q6H PRN Administration Pain, moderate (4-7) Pantoprazole Sodium 40 mg 06/05/18 10:00 06/07/18 09:40 Protonix Inj IVP 40 mg DAILY CY Administration Trazodone HCl 50 mg 06/04/18 22:00 06/06/18 21:25 Desyrel PO 50 mg HS CY Administration Zolpidem Tartrate 10 mg 06/07/18 02:35 06/07/18 03:01 Ambien PO 10 mg HS PRN Administration Insomnia Protocol - Patient Studies Lab Studies: Lab Studies 06/07/18 06/07/18 06/06/18 Range/Units 05:15 05:15 20:38 WBC 10.9 (4.5-11.0) 10^3/ul RBC 4.96 (3.5-6.1) 10^6/uL Hgb 15.3 (14.0-18.0) g/dL Hct 46.0 (42.0-52.0) % MCV 92.7 (80.0-105.0) fl MCH 30.8 (25.0-35.0) pg MCHC 33.3 (31.0-37.0) g/dl RDW 15.0 H (11.5-14.5) % Plt Count 311 (120.0-450.0) 10^3/uL MPV 9.1 (7.0-11.0) fl Gran % 75.9 H (50.0-68.0) % Lymph % (Auto) 14.6 L (22.0-35.0) % [place] % (Auto) 8.9 H (1.0-6.0) % Eos % (Auto) 0.5 L (1.5-5.0) % Baso % (Auto) 0.1 (0.0-3.0) % Gran # 8.24 H (1.4-6.5) Lymph # (Auto) 1.6 (1.2-3.4) [place] # (Auto) 1.0 H (0.1-0.6) Eos # (Auto) 0.1 (0.0-0.7) Baso # (Auto) 0.01 (0.0-2.0) K/mm3 Sodium 131 L 129 L (132-148) mmol/L Potassium 4.1 4.8 (3.6-5.0) mmol/L Chloride 87 L 87 L (98-107) mmol/L Carbon Dioxide 40 H 35 H (21-33) mmol/L Anion Gap 8 L 12 (10-20) BUN 8 10 (7-21) mg/dL Creatinine 0.7 L 0.8 (0.8-1.5) mg/dl Est GFR ( Amer) > 60 > 60 Est GFR (Non-Af Amer) > 60 > 60 Random Glucose 92 92 (70-110) mg/dL Calcium 8.6 8.8 (8.4-10.5) mg/dL Phosphorus 3.1 (2.5-4.5) mg/dL Magnesium 2.0 (1.7-2.2) mg/dL Total Bilirubin 0.8 (0.2-1.3) mg/dL AST 41 (17-59) U/L ALT 37 (7-56) U/L Alkaline Phosphatase 70 (38-126) U/L Total Protein 6.3 (5.8-8.3) g/dL Albumin 3.6 (3.0-4.8) g/dL Globulin 2.7 gm/dL Albumin/Globulin Ratio 1.3 (1.1-1.8) 06/06/18 Range/Units 15:50 WBC (4.5-11.0) 10^3/ul RBC (3.5-6.1) 10^6/uL Hgb (14.0-18.0) g/dL Hct (42.0-52.0) % MCV (80.0-105.0) fl MCH (25.0-35.0) pg MCHC (31.0-37.0) g/dl RDW (11.5-14.5) % Plt Count (120.0-450.0) 10^3/uL MPV (7.0-11.0) fl Gran % (50.0-68.0) % Lymph % (Auto) (22.0-35.0) % [place] % (Auto) (1.0-6.0) % Eos % (Auto) (1.5-5.0) % Baso % (Auto) (0.0-3.0) % Gran # (1.4-6.5) Lymph # (Auto) (1.2-3.4) [place] # (Auto) (0.1-0.6) Eos # (Auto) (0.0-0.7) Baso # (Auto) (0.0-2.0) K/mm3 Sodium 130 L (132-148) mmol/L Potassium 5.0 (3.6-5.0) mmol/L Chloride 85 L (98-107) mmol/L Carbon Dioxide 39 H (21-33) mmol/L Anion Gap 12 (10-20) BUN 8 (7-21) mg/dL Creatinine 0.8 (0.8-1.5) mg/dl Est GFR ( Amer) > 60 Est GFR (Non-Af Amer) > 60 Random Glucose 175 H (70-110) mg/dL Calcium 8.9 (8.4-10.5) mg/dL Phosphorus (2.5-4.5) mg/dL Magnesium (1.7-2.2) mg/dL Total Bilirubin (0.2-1.3) mg/dL AST (17-59) U/L ALT (7-56) U/L Alkaline Phosphatase (38-126) U/L Total Protein (5.8-8.3) g/dL Albumin (3.0-4.8) g/dL Globulin gm/dL Albumin/Globulin Ratio (1.1-1.8) Laboratory Results - last 24 hr 06/06/18 06/06/18 06/07/18 15:50 20:38 05:15 WBC 10.9 RBC 4.96 Hgb 15.3 Hct 46.0 MCV 92.7 MCH 30.8 MCHC 33.3 RDW 15.0 H Plt Count 311 MPV 9.1 Gran % 75.9 H Lymph % (Auto) 14.6 L [place] % (Auto) 8.9 H Eos % (Auto) 0.5 L Baso % (Auto) 0.1 Gran # 8.24 H Lymph # (Auto) 1.6 [place] # (Auto) 1.0 H Eos # (Auto) 0.1 Baso # (Auto) 0.01 Sodium 130 L 129 L Potassium 5.0 4.8 Chloride 85 L 87 L Carbon Dioxide 39 H 35 H Anion Gap 12 12 BUN 8 10 Creatinine 0.8 0.8 Est GFR ( Amer) > 60 > 60 Est GFR (Non-Af Amer) > 60 > 60 Random Glucose 175 H 92 Calcium 8.9 8.8 Phosphorus Magnesium Total Bilirubin AST ALT Alkaline Phosphatase Total Protein Albumin Globulin Albumin/Globulin Ratio 06/07/18 05:15 WBC RBC Hgb Hct MCV MCH MCHC RDW Plt Count MPV Gran % Lymph % (Auto) [place] % (Auto) Eos % (Auto) Baso % (Auto) Gran # Lymph # (Auto) [place] # (Auto) Eos # (Auto) Baso # (Auto) Sodium 131 L Potassium 4.1 Chloride 87 L Carbon Dioxide 40 H Anion Gap 8 L BUN 8 Creatinine 0.7 L Est GFR ( Amer) > 60 Est GFR (Non-Af Amer) > 60 Random Glucose 92 Calcium 8.6 Phosphorus 3.1 Magnesium 2.0 Total Bilirubin 0.8 AST 41 ALT 37 Alkaline Phosphatase 70 Total Protein 6.3 Albumin 3.6 Globulin 2.7 Albumin/Globulin Ratio 1.3 Critical Care Progress Note - Nutrition Nutrition: Nutrition Category Date Time Status Altered GI/Hepatic Diet [DIET] Diets 06/06/18 Lunch Ordered Attending/Attestation - Attestation I have personally seen and examined this patient.: Yes I have fully participated in the care of the patient.: Yes I have reviewed all pertinent clinical information: Yes Notes (Text): 06/07/18 15:26 62 yo male with resolved hypercapnic and hypoxemic RF. cont steroid taper, bronchodilators, pulmonary toilet, OOB to chair, chest PT, conservative fluid and 02 management. dvt/gi prophylaxis. ok to downgrade to tele ccm time 40 min
[2018-06-08] MEDS: Oxycodone/Acetaminophen 2.5/325 mg Tab PO PRN ×4 (01:05→21:30)
[2018-06-08] MEDS: Albuterol-Ipratrop 3 mg / 0.5 (3 ml) UD IH SCH ×4 (01:39→19:32)
[2018-06-08] MEDS: Pantoprazole 40 mg EC Tab PO SCH (06:24)
[2018-06-08 07:14] LABS: ALB/GLOB RATIO 1.4 (1.1-1.8); ALBUMIN 3.5 g/dL (3.0-4.8); ALT/SGPT 37 U/L (7-56); AST/SGOT 37 U/L (17-59); BLOOD UREA NITROGEN 8 mg/dL (7-21); CALCIUM 8.5 mg/dL (8.4-10.5); GFR NON-AFRICAN AMERICAN > 60
[2018-06-08] MEDS: Budesonide 0.25 mg/2 ml Inhal Susp UD IH SCH ×2 (07:24→19:32)
[2018-06-08] MEDS: Arformoterol 15 mcg/2 ml Inh Sol IH SCH ×2 (07:24→19:33)
[2018-06-08] MEDS: MethylPREDNISolone 40 mg Vial IVP SCH (09:26)
[2018-06-08] MEDS: Cholecalciferol 1,000 INTLU TAB PO SCH (09:28)
[2018-06-08] MEDS: Multivitamin With Minerals Tab PO SCH (09:28)
[2018-06-08] MEDS: Levothyroxine 25 MCG TAB PO SCH (09:29)
--- NOTE | 2018-06-08 14:52 | CP.PCM.PN ---
<Fili Winkler - Last Filed: 06/08/18 15:15> Subjective - Date & Time of Evaluation Date of Evaluation: 06/08/18 Time of Evaluation: 07:00 - Subjective Subjective: Fili Winkler PGY1 Medicine Progress Note for Dr. Judd Patient was seen and examined at bedside this morning. Patient is at baseline mental status and responds to verbal commands. He still has congestion but denies cp, sob, n/v/d, numbness and tingling of extremities. Vital signs stable. No overnight changes. A full 12 point ROS was conducted and unremarkable except as stated above. Objective - Vital Signs/Intake and Output Vital Signs (last 24 hours): Temp Pulse Resp BP Pulse Ox 98.0 F 78 15 117/73 95 06/07/18 16:00 06/08/18 14:00 06/08/18 11:20 06/08/18 11:00 06/08/18 11:20 Intake and Output: 06/08/18 06/08/18 06:59 18:59 Intake Total 0 Output Total 1500 Balance -1500 - Medications Medications: Current Medications Albuterol/Ipratropium (Duoneb 3 Mg/0.5 Mg (3 Ml) Ud) 3 ml IH Q2H PRN PRN Reason: Shortness of Breath Albuterol/Ipratropium (Duoneb 3 Mg/0.5 Mg (3 Ml) Ud) 3 ml IH [id number] [facility] Last Admin: 06/08/18 13:12 Dose: 3 ml Amlodipine Besylate (Norvasc) 2.5 mg PO DAILY [facility] Last Admin: 06/08/18 09:26 Dose: 2.5 mg Arformoterol Tartrate (Brovana) 15 mcg IH [id number] [facility] Last Admin: 06/08/18 07:24 Dose: 15 mcg Atorvastatin Calcium (Lipitor) 20 mg PO HS [facility] Last Admin: 06/07/18 21:45 Dose: 20 mg Budesonide (Pulmicort Respules) 0.25 mg IH [id number] [facility] Last Admin: 06/08/18 07:24 Dose: 0.25 mg Cholecalciferol (Vitamin D) 2,000 intlu PO DAILY [facility] Last Admin: 06/08/18 09:28 Dose: 2,000 intlu Docusate Sodium (Colace) 100 mg PO DAILY [facility] Fluphenazine HCl (Prolixin) 10 mg PO BID [facility] PRN Reason: Protocol Last Admin: 06/08/18 09:24 Dose: 10 mg Heparin Sodium (Porcine) (Heparin) 5,000 units SC Q12 [facility] PRN Reason: Protocol Last Admin: 06/08/18 09:28 Dose: 5,000 units Levothyroxine Sodium (Synthroid) 25 mcg PO ACB [facility] Last Admin: 06/08/18 09:29 Dose: 25 mcg Methylprednisolone (Solu-Medrol) 40 mg IVP DAILY [facility] Last Admin: 06/08/18 09:26 Dose: 40 mg Metoprolol Tartrate (Lopressor) 25 mg PO DAILY [facility] Last Admin: 06/08/18 09:43 Dose: 25 mg Multivitamins/Minerals (Therapeutic-M Tab) 1 tab PO DAILY [facility] Last Admin: 06/08/18 09:28 Dose: 1 tab Nicotine (Nicoderm Cq) 1 patch TD DAILY [facility] Last Admin: 06/08/18 10:00 Dose: 1 patch Oxycodone/Acetaminophen (Percocet 2.5/325 Mg Tab) 1 tab PO Q6H PRN PRN Reason: Pain, moderate (4-7) Last Admin: 06/08/18 09:24 Dose: 1 tab Pantoprazole Sodium (Protonix Ec Tab) 40 mg PO 0600 [facility] Last Admin: 06/08/18 06:24 Dose: 40 mg Polyethylene Glycol (Miralax) 17 gm PO DAILY [facility] Trazodone HCl (Desyrel) 50 mg PO HS [facility] Last Admin: 06/07/18 21:45 Dose: 50 mg Zolpidem Tartrate (Ambien) 10 mg PO HS PRN; Protocol PRN Reason: Insomnia Last Admin: 06/07/18 03:01 Dose: 10 mg - Labs Labs: 06/07/18 05:15 06/08/18 05:30 PT 11.5 SECONDS (9.4-12.5) 06/04/18 17:45 INR 1.01 06/04/18 17:45 APTT 33.0 Seconds (25.1-36.5) 06/04/18 17:45 - Constitutional Appears: No Acute Distress - Head Exam Head Exam: ATRAUMATIC, NORMAL INSPECTION, NORMOCEPHALIC - Eye Exam Eye Exam: EOMI, Normal appearance, PERRL - ENT Exam ENT Exam: Mucous Membranes Moist, Normal Exam - Neck Exam Neck Exam: absent: Tenderness Additional comments: Trach collar is in place. - Respiratory Exam Respiratory Exam: Clear to Ausculation Bilateral, NORMAL BREATHING PATTERN. absent: Chest Wall Tenderness, Rales, Rhonchi, Wheezes, Respiratory Distress - Cardiovascular Exam Cardiovascular Exam: REGULAR RHYTHM, +S1, +S2. absent: Murmur - GI/Abdominal Exam GI & Abdominal Exam: Soft, Normal Bowel Sounds. absent: Tenderness - Back Exam Back Exam: NORMAL INSPECTION - Neurological Exam Neurological Exam: Alert, Awake Neuro motor strength exam: Left Upper Extremity: 5, Right Upper Extremity: 5, Left Lower Extremity: 5, Right Lower Extremity: 5 - Skin Skin Exam: Dry, Intact, Normal Color, Warm Assessment and Plan - Assessment and Plan (Free Text) Assessment: Patient is a 62 y/o M with PMHx of Laryngeal cancer (s/p radiation/trach removed ), HTN, HLD, COPD, tobacco abuse, and schizophrenia who presented to ED on 06/04 for shortness of breath, cough, and polydipsia. Patient found to be severely hyponatremic and in respiratory distress. 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 Plan: Hypercapnic respiratory failure 2/2 COPD Exacerbation vs. Fluid Overload - Trach is in place and patient is connected to high flow oxygen; at baseline mental status, no sedatives. - CXR showed atelectasis versus infiltrates - ENT recs appreciated. 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 - Palliative care consulted, f/u recs HTN - c/w home med: Norvasc and Metoprolol with holding parameters HLD - c/w Home med: Lipitor Schizophrenia - c/w home medication: trazodone and fluphenazine GI ppx: Protonix DVT ppx: Heparin SC Dispo: Monitor patient in ICU. May be able to transfer to the floor. Case was discussed and reviewed with Attending Physician, Dr. Judd. <Dontrell Judd - Last Filed: 06/09/18 17:34> Objective - Vital Signs/Intake and Output Vital Signs (last 24 hours): Temp Pulse Resp BP Pulse Ox 98.1 F 89 53 H 113/64 95 06/09/18 06:00 06/09/18 13:20 06/09/18 13:20 06/09/18 12:00 06/09/18 13:20 Intake and Output: 06/09/18 06/09/18 06:59 18:59 Intake Total 360 Output Total 1850 Balance -1490 - Medications Medications: Current Medications Acetylcysteine (Acetylcysteine 20%) 4 ml IH [id number] [facility] Last Admin: 06/09/18 13:03 Dose: 4 ml Albuterol/Ipratropium (Duoneb 3 Mg/0.5 Mg (3 Ml) Ud) 3 ml IH Q2H PRN PRN Reason: Shortness of Breath Albuterol/Ipratropium (Duoneb 3 Mg/0.5 Mg (3 Ml) Ud) 3 ml IH [id number] [facility] Last Admin: 06/09/18 13:03 Dose: 3 ml Amlodipine Besylate (Norvasc) 2.5 mg PO DAILY [facility] Last Admin: 06/09/18 09:42 Dose: 2.5 mg Arformoterol Tartrate (Brovana) 15 mcg IH [id number] [facility] Last Admin: 06/09/18 07:44 Dose: 15 mcg Atorvastatin Calcium (Lipitor) 20 mg PO HS [facility] Last Admin: 06/08/18 21:30 Dose: 20 mg Budesonide (Pulmicort Respules) 0.25 mg IH [id number] [facility] Last Admin: 06/09/18 07:43 Dose: 0.25 mg Cholecalciferol (Vitamin D) 2,000 intlu PO DAILY [facility] Last Admin: 06/09/18 09:41 Dose: 2,000 intlu Docusate Sodium (Colace) 100 mg PO DAILY [facility] Last Admin: 06/09/18 09:30 Dose: 100 mg Fluphenazine HCl (Prolixin) 10 mg PO BID [facility] PRN Reason: Protocol Last Admin: 06/09/18 09:43 Dose: 10 mg Heparin Sodium (Porcine) (Heparin) 5,000 units SC Q12 [facility] PRN Reason: Protocol Last Admin: 06/09/18 09:31 Dose: 5,000 units Levothyroxine Sodium (Synthroid) 25 mcg PO ACB [facility] Last Admin: 06/09/18 09:42 Dose: 25 mcg Methylprednisolone (Solu-Medrol) 30 mg IVP DAILY [facility] Metoprolol Tartrate (Lopressor) 25 mg PO DAILY [facility] Last Admin: 06/09/18 09:32 Dose: 25 mg Multivitamins/Minerals (Therapeutic-M Tab) 1 tab PO DAILY [facility] Last Admin: 06/09/18 09:44 Dose: 1 tab Nicotine (Nicoderm Cq) 1 patch TD DAILY [facility] Last Admin: 06/09/18 09:30 Dose: 1 patch Oxycodone/Acetaminophen (Percocet 2.5/325 Mg Tab) 1 tab PO Q6H PRN PRN Reason: Pain, moderate (4-7) Last Admin: 06/09/18 15:24 Dose: 1 tab Pantoprazole Sodium (Protonix Ec Tab) 40 mg PO 0600 [facility] Last Admin: 06/09/18 06:33 Dose: 40 mg Polyethylene Glycol (Miralax) 17 gm PO DAILY [facility] Last Admin: 06/09/18 09:30 Dose: 17 gm Trazodone HCl (Desyrel) 50 mg PO HS [facility] Last Admin: 06/08/18 21:30 Dose: 50 mg Zolpidem Tartrate (Ambien) 10 mg PO HS PRN; Protocol PRN Reason: Insomnia Last Admin: 06/07/18 03:01 Dose: 10 mg - Labs Labs: 06/07/18 05:15 06/09/18 05:40 PT 11.5 SECONDS (9.4-12.5) 06/04/18 17:45 INR 1.01 06/04/18 17:45 APTT 33.0 Seconds (25.1-36.5) 06/04/18 17:45 Attending/Attestation - Attestation I have personally seen and examined this patient.: Yes I have fully participated in the care of the patient.: Yes I have reviewed all pertinent clinical information, including history, physical exam and plan: Yes Notes (Text): 06/09/18 17:29 attending note; Patient seen and examined with resident. Patient is 62-year-old male with the past medical history significant for laryngeal cancer status post radiation and tracheostomy now with stoma, hypertension, hyperlipidemia, COPD, tobacco abuse, and schizophrenia that presented to the emergency room for shortness of breath. 1. Acute Hypercapnic and hypoxemic respiratory failure.Secondary to COPD exacerbation. Status post tracheostomy placement by ENT. Currently on high flow oxygen. Pulse ox is 98%. Patient is not in any acute distress. Continue nebulizer treatments, Brovana, and Pulmicort. Continue IV Solu- Medrol. Chest x-ray 06/06/18 per radiologist showed no active disease. Patient afebrile. No leukocytosis. 2. Hyponatremia. Likely psychogenic in nature. status post 3% normal saline treatment. currently sodium is 131. clinically euvole [place]. Nephrology Evaluation appreciated. Continue fluid restriction. Continue to monitor. 3. History of laryngeal cancer. Hematology/oncology consulted.Palliative care consulted. 4. Hypertension. Continue Norvasc and metoprolol 5. Hyperlipidemia. Continue Lipitor 6. Hypothyroidism. Continu synthroid 7. Schizophrenia. Continue trazodone and prolixin 8. Tobacco abuse. Patient continues to smoke. Patient counseled on cessation. 9. GI/DVT prophylaxis. Protonix and heparin. [facility] [place]. patient has pulmonary/oncology follow up at [place]. Physical therapy evaluation requested. Case was discussed in detail with the patient regarding current diagnosis and treatment plan.
--- NOTE | 2018-06-08 15:03 | CP.PCM.PN ---
Subjective - Date & Time of Evaluation Date of Evaluation: 06/08/18 Time of Evaluation: 15:01 - Subjective Subjective: Nephrology Consultation Note: Assessment: stable euvolemic hyponatremia with mildly elevated urine Osmo: likely reflects elevated ADH with excess water intake laryngeal ca s/p radiation/trach (removed), HTN, HLD, COPD, tobacco abuse, schizophrenia acute on chronic hyercapnic respi failure COPD exacerbation THC + Plan No acute need for renal replacement therapy at this time. Maintain hemodynamics stable. Avoid hypotension. Monitor Input/Output, daily weights and serum Na q4-6 hrs target correction in serum Na no more than 6-8 meq/24 hrs. no further need of hypertonic saline. not needed samsca at this time oral fluid restriction to 4544-4573 mL/day Dose meds/antibiotics for normal GFR. Glycemic control. smoking cessation Further work up/management as per primary team Thanks for allowing me to participate in care of your patient. Will follow patient with you. Please call if any Qs. had d/w team Dr Rosendo Navarrete Office: [phone] Chief Complaint; unable Reason for consult: Hyponatremia HPI: Pt is a 62 M with hx of laryngeal ca s/p radiation/trach (removed), HTN, HLD, COPD, tobacco abuse, schizophrenia came with SOB x 2 days and admitted with high pCo2 and required trach. given 3% saline for hyponatremia and renal consult for further management reports of excess water intake by pt ROS: unable as pt s/p trach Physical Examination: General Appearance: Comfortable, in no acute respiratory distress,sedated, obese Vitals reviewed and noted as below Head; Atraumatic, normocephalic ENT: s/p trach EYES: Pupils are equal, round and reactive to light accommodation. Eye muscles and extraocular movement intact. Sclera is anicteric. Neck; supple no lymphadenopathy, no thyromegaly or bruit Lungs: Normal respiratory rate/effort. Breath sounds bilateral equal and with wheeze Heart: Normal rate. s1s2 normal. No rub or gallop. Extremities: no edema. No varicose veins Neurological: Patient is alert awake follow command Skin: Warm and dry. Normal turgor. No rash. Palpitation: Normal elasticity for age Abdomen: Abdomen is soft. Bowel sounds +. There is no abdominal tenderness, no guarding/rigidity no organomegaly Psych: unable MSK: no joint tenderness or swelling. Digits and nails normal, no deformity : kidney or bladder not palpable Labs/imaging reviewed. Past medical history, past surgical history, family history, social history, allergy reviewed and noted as below Family hx: no hx of CKD. Rest non-contributory work up: UA 100 protein Na 30 osmol 314 TSH 0.4 Objective - Vital Signs/Intake and Output Vital Signs (last 24 hours): Temp Pulse Resp BP Pulse Ox 98.0 F 78 15 117/73 95 06/07/18 16:00 06/08/18 14:00 06/08/18 11:20 06/08/18 11:00 06/08/18 11:20 Intake and Output: 06/08/18 06/08/18 06:59 18:59 Intake Total 0 Output Total 1500 Balance -1500 - Medications Medications: Current Medications Albuterol/Ipratropium (Duoneb 3 Mg/0.5 Mg (3 Ml) Ud) 3 ml IH Q2H PRN PRN Reason: Shortness of Breath Albuterol/Ipratropium (Duoneb 3 Mg/0.5 Mg (3 Ml) Ud) 3 ml IH [id number] [facility] Last Admin: 06/08/18 13:12 Dose: 3 ml Amlodipine Besylate (Norvasc) 2.5 mg PO DAILY [facility] Last Admin: 06/08/18 09:26 Dose: 2.5 mg Arformoterol Tartrate (Brovana) 15 mcg IH [id number] [facility] Last Admin: 06/08/18 07:24 Dose: 15 mcg Atorvastatin Calcium (Lipitor) 20 mg PO HS [facility] Last Admin: 06/07/18 21:45 Dose: 20 mg Budesonide (Pulmicort Respules) 0.25 mg IH [id number] [facility] Last Admin: 06/08/18 07:24 Dose: 0.25 mg Cholecalciferol (Vitamin D) 2,000 intlu PO DAILY [facility] Last Admin: 06/08/18 09:28 Dose: 2,000 intlu Docusate Sodium (Colace) 100 mg PO DAILY [facility] Fluphenazine HCl (Prolixin) 10 mg PO BID [facility] PRN Reason: Protocol Last Admin: 06/08/18 09:24 Dose: 10 mg Heparin Sodium (Porcine) (Heparin) 5,000 units SC Q12 [facility] PRN Reason: Protocol Last Admin: 06/08/18 09:28 Dose: 5,000 units Levothyroxine Sodium (Synthroid) 25 mcg PO ACB [facility] Last Admin: 06/08/18 09:29 Dose: 25 mcg Methylprednisolone (Solu-Medrol) 40 mg IVP DAILY [facility] Last Admin: 06/08/18 09:26 Dose: 40 mg Metoprolol Tartrate (Lopressor) 25 mg PO DAILY [facility] Last Admin: 06/08/18 09:43 Dose: 25 mg Multivitamins/Minerals (Therapeutic-M Tab) 1 tab PO DAILY [facility] Last Admin: 06/08/18 09:28 Dose: 1 tab Nicotine (Nicoderm Cq) 1 patch TD DAILY [facility] Last Admin: 06/08/18 10:00 Dose: 1 patch Oxycodone/Acetaminophen (Percocet 2.5/325 Mg Tab) 1 tab PO Q6H PRN PRN Reason: Pain, moderate (4-7) Last Admin: 06/08/18 09:24 Dose: 1 tab Pantoprazole Sodium (Protonix Ec Tab) 40 mg PO 0600 [facility] Last Admin: 06/08/18 06:24 Dose: 40 mg Polyethylene Glycol (Miralax) 17 gm PO DAILY [facility] Trazodone HCl (Desyrel) 50 mg PO HS [facility] Last Admin: 06/07/18 21:45 Dose: 50 mg Zolpidem Tartrate (Ambien) 10 mg PO HS PRN; Protocol PRN Reason: Insomnia Last Admin: 06/07/18 03:01 Dose: 10 mg - Labs Labs: 06/07/18 05:15 06/08/18 05:30 PT 11.5 SECONDS (9.4-12.5) 06/04/18 17:45 INR 1.01 06/04/18 17:45 APTT 33.0 Seconds (25.1-36.5) 06/04/18 17:45
[2018-06-08] MEDS: Acetylcysteine 20% Inhal Soln (4ml) IH SCH (19:32)
[2018-06-09] MEDS: Acetylcysteine 20% Inhal Soln (4ml) IH SCH ×4 (02:35→19:34)
[2018-06-09] MEDS: Albuterol-Ipratrop 3 mg / 0.5 (3 ml) UD IH SCH ×4 (02:36→19:34)
[2018-06-09] MEDS: Oxycodone/Acetaminophen 2.5/325 mg Tab PO PRN ×4 (03:33→21:13)
[2018-06-09] MEDS: Pantoprazole 40 mg EC Tab PO SCH (06:33)
[2018-06-09 07:12] LABS: ALB/GLOB RATIO 1.3 (1.1-1.8); ALBUMIN 3.5 g/dL (3.0-4.8); ALT/SGPT 43 U/L (7-56); AST/SGOT 40 U/L (17-59); BLOOD UREA NITROGEN 8 mg/dL (7-21); CALCIUM 8.7 mg/dL (8.4-10.5); GFR NON-AFRICAN AMERICAN > 60
[2018-06-09] MEDS: Budesonide 0.25 mg/2 ml Inhal Susp UD IH SCH ×2 (07:43→19:34)
[2018-06-09] MEDS: Arformoterol 15 mcg/2 ml Inh Sol IH SCH ×2 (07:44→19:34)
--- NOTE | 2018-06-09 08:31 | CON ---
DATE: 06/08/2018 REASON FOR CONSULTATION: History of laryngeal cancer. HISTORY OF PRESENT ILLNESS: The patient is a 62-year-old male admitted to the hospital with respiratory distress, hypoxemic respiratory failure. He was put on ventilator, weaned off ventilator, now on high-flow oxygen. He has a history of laryngeal cancer status post radiation last year, tracheostomy. He was treated at [facility]. All his oncology treatments are at [facility]. He is comfortable now. He is tolerating oral diet. History of hypertension, COPD, heavy tobacco abuse, schizophrenia. PAST MEDICAL HISTORY: As per HPI, history of laryngeal cancer treated with radiation last year at [facility], COPD, hypertension. PAST SURGICAL HISTORY: Orthopedic surgery. FAMILY HISTORY: Noncontributory. PERSONAL HISTORY: Heavy smoker. ALLERGIES: PENICILLIN. HOME MEDICATIONS: Albuterol, omeprazole, simvastatin, amlodipine, Norvasc, Trazodone. PHYSICAL EXAMINATION GENERAL: Comfortable in bed, in no acute distress. VITAL SIGNS: Temperature 98.7, heart rate is 100 per minute, respiratory rate 20 per minute, blood pressure 128/73, pulse ox is 96% on oxygen by high-flow. HEENT: Pallor positive. NECK: No lymphadenopathy. CHEST: Air entry present and equal bilaterally. No added sounds. CARDIOVASCULAR: S1 and S2 normal. No murmur. No gallop. ABDOMEN: Soft, nontender. No hepatosplenomegaly. EXTREMITIES: No edema. SKIN: Warm and dry. PSYCHIATRIC: Alert and oriented x3. No focal sensory or motor deficit. LABORATORY DATA: Labs reviewed. MEDICATIONS: Reviewed. ASSESSMENT: 1. History of laryngeal cancer status post radiation. 2. History of hypoxic respiratory failure, was on ventilator, weaned off the ventilator, on high-flow oxygen now. 3. Hyponatremia. 4. Leukocytosis, resolved. Hemoglobin and hematocrit stable. PLAN: He has improved clinically, currently on high-flow oxygen. Treatment of laryngeal cancer as per [facility] specialist, he will return to [facility] once stable for further evaluation and treatment if needed. We will recommend continuing supportive care. Pain control with Percocet every 6 hours p.r.n. Discussed with the patient at length. Thank you for allowing us to participate in care. Sindi Nguyễn MD [facility] # [phone]
[2018-06-09] MEDS: POLYETHYLENE GLYCOL 3350 17 GM/Dose PACKET PO SCH (09:30)
[2018-06-09] MEDS: Cholecalciferol 1,000 INTLU TAB PO SCH (09:41)
[2018-06-09] MEDS: Levothyroxine 25 MCG TAB PO SCH (09:42)
[2018-06-09] MEDS: MethylPREDNISolone 40 mg Vial IVP SCH (09:44)
[2018-06-09] MEDS: Multivitamin With Minerals Tab PO SCH (09:44)
--- NOTE | 2018-06-09 11:23 | CP.PCM.PN ---
Subjective - Date & Time of Evaluation Date of Evaluation: 06/09/18 Time of Evaluation: 11:22 - Subjective Subjective: Nephrology Consultation Note: Assessment: stable euvolemic hyponatremia with mildly elevated urine Osmo: likely reflects elevated ADH with excess water intake laryngeal ca s/p radiation/trach (removed), HTN, HLD, COPD, tobacco abuse, schizophrenia acute on chronic hyercapnic respi failure COPD exacerbation THC + Plan No acute need for renal replacement therapy at this time. Maintain hemodynamics stable. Avoid hypotension. HTN controlled Monitor Input/Output, daily weights target correction in serum Na no more than 6-8 meq/24 hrs. no further need of hypertonic saline. not needed samsca at this time oral fluid restriction to 6206-7689 mL/day Dose meds/antibiotics for normal GFR. Glycemic control. smoking cessation Further work up/management as per primary team Thanks for allowing me to participate in care of your patient. Will follow patient with you. Please call if any Qs. had d/w team Dr Rosendo Navarrete Office: [phone] Chief Complaint; unable Reason for consult: Hyponatremia HPI: Pt is a 62 M with hx of laryngeal ca s/p radiation/trach (removed), HTN, HLD, COPD, tobacco abuse, schizophrenia came with SOB x 2 days and admitted with high pCo2 and required trach. given 3% saline for hyponatremia and renal consult for further management reports of excess water intake by pt ROS: unable as pt s/p trach Physical Examination: General Appearance: Comfortable, in no acute respiratory distress, obese Vitals reviewed and noted as below Head; Atraumatic, normocephalic ENT: s/p trach EYES: Pupils are equal, round and reactive to light accommodation. Eye muscles and extraocular movement intact. Sclera is anicteric. Neck; supple no lymphadenopathy, no thyromegaly or bruit Lungs: Normal respiratory rate/effort. Breath sounds bilateral equal and with few wheeze Heart: Normal rate. s1s2 normal. No rub or gallop. Extremities: no edema. No varicose veins Neurological: Patient is sleeping but follow command Skin: Warm and dry. Normal turgor. No rash. Palpitation: Normal elasticity for age Abdomen: Abdomen is soft. Bowel sounds +. There is no abdominal tenderness, no guarding/rigidity no organomegaly Psych: deferred MSK: no joint tenderness or swelling. Digits and nails normal, no deformity : kidney or bladder not palpable Labs/imaging reviewed. Past medical history, past surgical history, family history, social history, allergy reviewed and noted as below Family hx: no hx of CKD. Rest non-contributory work up: UA 100 protein Na 30 osmol 314 TSH 0.4 Objective - Vital Signs/Intake and Output Vital Signs (last 24 hours): Temp Pulse Resp BP Pulse Ox 98.1 F 74 15 124/71 96 06/09/18 06:00 06/09/18 10:00 06/09/18 11:02 06/09/18 09:42 06/09/18 06:52 Intake and Output: 06/09/18 06/09/18 06:59 18:59 Intake Total 360 Output Total 1850 Balance -1490 - Medications Medications: Current Medications Acetylcysteine (Acetylcysteine 20%) 4 ml IH [id number] [facility] Last Admin: 06/09/18 07:43 Dose: 4 ml Albuterol/Ipratropium (Duoneb 3 Mg/0.5 Mg (3 Ml) Ud) 3 ml IH Q2H PRN PRN Reason: Shortness of Breath Albuterol/Ipratropium (Duoneb 3 Mg/0.5 Mg (3 Ml) Ud) 3 ml IH [id number] [facility] Last Admin: 06/09/18 07:43 Dose: 3 ml Amlodipine Besylate (Norvasc) 2.5 mg PO DAILY [facility] Last Admin: 06/09/18 09:42 Dose: 2.5 mg Arformoterol Tartrate (Brovana) 15 mcg IH [id number] [facility] Last Admin: 06/09/18 07:44 Dose: 15 mcg Atorvastatin Calcium (Lipitor) 20 mg PO HS [facility] Last Admin: 06/08/18 21:30 Dose: 20 mg Budesonide (Pulmicort Respules) 0.25 mg IH [id number] [facility] Last Admin: 06/09/18 07:43 Dose: 0.25 mg Cholecalciferol (Vitamin D) 2,000 intlu PO DAILY [facility] Last Admin: 06/09/18 09:41 Dose: 2,000 intlu Docusate Sodium (Colace) 100 mg PO DAILY [facility] Last Admin: 06/09/18 09:30 Dose: 100 mg Fluphenazine HCl (Prolixin) 10 mg PO BID [facility] PRN Reason: Protocol Last Admin: 06/09/18 09:43 Dose: 10 mg Heparin Sodium (Porcine) (Heparin) 5,000 units SC Q12 [facility] PRN Reason: Protocol Last Admin: 06/09/18 09:31 Dose: 5,000 units Levothyroxine Sodium (Synthroid) 25 mcg PO ACB [facility] Last Admin: 06/09/18 09:42 Dose: 25 mcg Methylprednisolone (Solu-Medrol) 40 mg IVP DAILY [facility] Last Admin: 06/09/18 09:44 Dose: 40 mg Metoprolol Tartrate (Lopressor) 25 mg PO DAILY [facility] Last Admin: 06/09/18 09:32 Dose: 25 mg Multivitamins/Minerals (Therapeutic-M Tab) 1 tab PO DAILY [facility] Last Admin: 06/09/18 09:44 Dose: 1 tab Nicotine (Nicoderm Cq) 1 patch TD DAILY [facility] Last Admin: 06/09/18 09:30 Dose: 1 patch Oxycodone/Acetaminophen (Percocet 2.5/325 Mg Tab) 1 tab PO Q6H PRN PRN Reason: Pain, moderate (4-7) Last Admin: 06/09/18 09:50 Dose: 1 tab Pantoprazole Sodium (Protonix Ec Tab) 40 mg PO 0600 [facility] Last Admin: 06/09/18 06:33 Dose: 40 mg Polyethylene Glycol (Miralax) 17 gm PO DAILY [facility] Last Admin: 06/09/18 09:30 Dose: 17 gm Trazodone HCl (Desyrel) 50 mg PO HS [facility] Last Admin: 06/08/18 21:30 Dose: 50 mg Zolpidem Tartrate (Ambien) 10 mg PO HS PRN; Protocol PRN Reason: Insomnia Last Admin: 06/07/18 03:01 Dose: 10 mg - Labs Labs: 06/07/18 05:15 06/09/18 05:40 PT 11.5 SECONDS (9.4-12.5) 06/04/18 17:45 INR 1.01 06/04/18 17:45 APTT 33.0 Seconds (25.1-36.5) 06/04/18 17:45
--- NOTE | 2018-06-09 14:09 | CP.PCM.PN ---
Subjective - Date & Time of Evaluation Date of Evaluation: 06/09/18 Time of Evaluation: 12:15 - Subjective Subjective: PULMONARY FOLLOW UP NOTE Patient seen and examined at bedside, currently on Trach Collar, doing well, no major complaints. Objective - Vital Signs/Intake and Output Vital Signs (last 24 hours): Temp Pulse Resp BP Pulse Ox 98.1 F 89 53 H 113/64 95 06/09/18 06:00 06/09/18 13:20 06/09/18 13:20 06/09/18 12:00 06/09/18 13:20 Intake and Output: 06/09/18 06/09/18 06:59 18:59 Intake Total 360 Output Total 1850 Balance -1490 - Medications Medications: Current Medications Acetylcysteine (Acetylcysteine 20%) 4 ml IH [id number] [facility] Last Admin: 06/09/18 13:03 Dose: 4 ml Albuterol/Ipratropium (Duoneb 3 Mg/0.5 Mg (3 Ml) Ud) 3 ml IH Q2H PRN PRN Reason: Shortness of Breath Albuterol/Ipratropium (Duoneb 3 Mg/0.5 Mg (3 Ml) Ud) 3 ml IH [id number] [facility] Last Admin: 06/09/18 13:03 Dose: 3 ml Amlodipine Besylate (Norvasc) 2.5 mg PO DAILY [facility] Last Admin: 06/09/18 09:42 Dose: 2.5 mg Arformoterol Tartrate (Brovana) 15 mcg IH [id number] [facility] Last Admin: 06/09/18 07:44 Dose: 15 mcg Atorvastatin Calcium (Lipitor) 20 mg PO HS [facility] Last Admin: 06/08/18 21:30 Dose: 20 mg Budesonide (Pulmicort Respules) 0.25 mg IH [id number] [facility] Last Admin: 06/09/18 07:43 Dose: 0.25 mg Cholecalciferol (Vitamin D) 2,000 intlu PO DAILY [facility] Last Admin: 06/09/18 09:41 Dose: 2,000 intlu Docusate Sodium (Colace) 100 mg PO DAILY [facility] Last Admin: 06/09/18 09:30 Dose: 100 mg Fluphenazine HCl (Prolixin) 10 mg PO BID [facility] PRN Reason: Protocol Last Admin: 06/09/18 09:43 Dose: 10 mg Heparin Sodium (Porcine) (Heparin) 5,000 units SC Q12 CY PRN Reason: Protocol Last Admin: 06/09/18 09:31 Dose: 5,000 units Levothyroxine Sodium (Synthroid) 25 mcg PO ACB [facility] Last Admin: 06/09/18 09:42 Dose: 25 mcg Methylprednisolone (Solu-Medrol) 40 mg IVP DAILY [facility] Last Admin: 06/09/18 09:44 Dose: 40 mg Metoprolol Tartrate (Lopressor) 25 mg PO DAILY [facility] Last Admin: 06/09/18 09:32 Dose: 25 mg Multivitamins/Minerals (Therapeutic-M Tab) 1 tab PO DAILY [facility] Last Admin: 06/09/18 09:44 Dose: 1 tab Nicotine (Nicoderm Cq) 1 patch TD DAILY [facility] Last Admin: 06/09/18 09:30 Dose: 1 patch Oxycodone/Acetaminophen (Percocet 2.5/325 Mg Tab) 1 tab PO Q6H PRN PRN Reason: Pain, moderate (4-7) Last Admin: 06/09/18 09:50 Dose: 1 tab Pantoprazole Sodium (Protonix Ec Tab) 40 mg PO 0600 [facility] Last Admin: 06/09/18 06:33 Dose: 40 mg Polyethylene Glycol (Miralax) 17 gm PO DAILY [facility] Last Admin: 06/09/18 09:30 Dose: 17 gm Trazodone HCl (Desyrel) 50 mg PO HS [facility] Last Admin: 06/08/18 21:30 Dose: 50 mg Zolpidem Tartrate (Ambien) 10 mg PO HS PRN; Protocol PRN Reason: Insomnia Last Admin: 06/07/18 03:01 Dose: 10 mg - Labs Labs: 06/07/18 05:15 06/09/18 05:40 PT 11.5 SECONDS (9.4-12.5) 06/04/18 17:45 INR 1.01 06/04/18 17:45 APTT 33.0 Seconds (25.1-36.5) 06/04/18 17:45 - Constitutional Appears: Non-toxic, No Acute Distress, Older Than Stated Age, Chronically Ill - Eye Exam Eye Exam: Normal appearance - ENT Exam Additional comments: +trach in place - Neck Exam Neck Exam: Full ROM - Respiratory Exam Respiratory Exam: Clear to Ausculation Bilateral, NORMAL BREATHING PATTERN - Cardiovascular Exam Cardiovascular Exam: REGULAR RHYTHM, +S1, +S2 - GI/Abdominal Exam GI & Abdominal Exam: Soft, Normal Bowel Sounds - Extremities Exam Extremities Exam: Full ROM, Normal Inspection - Neurological Exam Neurological Exam: Alert, Awake - Skin Skin Exam: Normal Color, Warm Assessment and Plan - Assessment and Plan (Free Text) Assessment: Patient is 62yo male with PMHx of laryngeal ca s/p radiation/trach (removed), HTN, HLD, COPD, heavy tobacco use, schizophrenia, admitted to ICU for hypoxemic , hypercapneic respiratory failure with trach re-insertion by ENT, weaned off ventilator to high flow and currently on trach collar. COPD exacerbation Resp failure, resolved Hx Laryngeal Ca s/p trach Tobacco use Recommend; - cont with trach collar as tolerated - duonebs PRN - Taper Solumedrol IV - cont with Pulmicort, Brovana - would not decannulate - follow up ENT - will likely need rehab - patient follows up at [facility] for pulmonary services - GI, DVT ppx
--- NOTE | 2018-06-09 14:20 | CP.PCM.PN ---
<Fili Winkler - Last Filed: 06/09/18 14:17> Subjective - Date & Time of Evaluation Date of Evaluation: 06/09/18 Time of Evaluation: 07:00 - Subjective Subjective: Fili Winkler, PGY1 Medicine Progress Note for Dr. Judd Patient was seen and examined at bedside this morning. Patient still has trach collar in place, on high flow. Spoke to ICU team, plans for weaning off high flow oxygen. Patient denied chest pain, abdominal pain, nausea, vomiting, diarrhea. Patient still has a lot of cough and secretions. No overnight changes. No fevers. A full 12 point ROS was conducted and unremarkable except as stated above. Objective - Vital Signs/Intake and Output Vital Signs (last 24 hours): Temp Pulse Resp BP Pulse Ox 98.1 F 89 53 H 113/64 95 06/09/18 06:00 06/09/18 13:20 06/09/18 13:20 06/09/18 12:00 06/09/18 13:20 Intake and Output: 06/09/18 06/09/18 06:59 18:59 Intake Total 360 Output Total 1850 Balance -1490 - Medications Medications: Current Medications Acetylcysteine (Acetylcysteine 20%) 4 ml IH [id number] [facility] Last Admin: 06/09/18 13:03 Dose: 4 ml Albuterol/Ipratropium (Duoneb 3 Mg/0.5 Mg (3 Ml) Ud) 3 ml IH Q2H PRN PRN Reason: Shortness of Breath Albuterol/Ipratropium (Duoneb 3 Mg/0.5 Mg (3 Ml) Ud) 3 ml IH [id number] [facility] Last Admin: 06/09/18 13:03 Dose: 3 ml Amlodipine Besylate (Norvasc) 2.5 mg PO DAILY [facility] Last Admin: 06/09/18 09:42 Dose: 2.5 mg Arformoterol Tartrate (Brovana) 15 mcg IH [id number] [facility] Last Admin: 06/09/18 07:44 Dose: 15 mcg Atorvastatin Calcium (Lipitor) 20 mg PO HS [facility] Last Admin: 06/08/18 21:30 Dose: 20 mg Budesonide (Pulmicort Respules) 0.25 mg IH [id number] [facility] Last Admin: 06/09/18 07:43 Dose: 0.25 mg Cholecalciferol (Vitamin D) 2,000 intlu PO DAILY [facility] Last Admin: 06/09/18 09:41 Dose: 2,000 intlu Docusate Sodium (Colace) 100 mg PO DAILY [facility] Last Admin: 06/09/18 09:30 Dose: 100 mg Fluphenazine HCl (Prolixin) 10 mg PO BID [facility] PRN Reason: Protocol Last Admin: 06/09/18 09:43 Dose: 10 mg Heparin Sodium (Porcine) (Heparin) 5,000 units SC Q12 [facility] PRN Reason: Protocol Last Admin: 06/09/18 09:31 Dose: 5,000 units Levothyroxine Sodium (Synthroid) 25 mcg PO ACB [facility] Last Admin: 06/09/18 09:42 Dose: 25 mcg Methylprednisolone (Solu-Medrol) 40 mg IVP DAILY [facility] Last Admin: 06/09/18 09:44 Dose: 40 mg Metoprolol Tartrate (Lopressor) 25 mg PO DAILY [facility] Last Admin: 06/09/18 09:32 Dose: 25 mg Multivitamins/Minerals (Therapeutic-M Tab) 1 tab PO DAILY [facility] Last Admin: 06/09/18 09:44 Dose: 1 tab Nicotine (Nicoderm Cq) 1 patch TD DAILY [facility] Last Admin: 06/09/18 09:30 Dose: 1 patch Oxycodone/Acetaminophen (Percocet 2.5/325 Mg Tab) 1 tab PO Q6H PRN PRN Reason: Pain, moderate (4-7) Last Admin: 06/09/18 09:50 Dose: 1 tab Pantoprazole Sodium (Protonix Ec Tab) 40 mg PO 0600 [facility] Last Admin: 06/09/18 06:33 Dose: 40 mg Polyethylene Glycol (Miralax) 17 gm PO DAILY [facility] Last Admin: 06/09/18 09:30 Dose: 17 gm Trazodone HCl (Desyrel) 50 mg PO HS [facility] Last Admin: 06/08/18 21:30 Dose: 50 mg Zolpidem Tartrate (Ambien) 10 mg PO HS PRN; Protocol PRN Reason: Insomnia Last Admin: 06/07/18 03:01 Dose: 10 mg - Labs Labs: 06/07/18 05:15 06/09/18 05:40 PT 11.5 SECONDS (9.4-12.5) 06/04/18 17:45 INR 1.01 09/13/18 17:45 APTT 33.0 Seconds (25.1-36.5) 06/04/18 17:45 - Constitutional Appears: No Acute Distress - Head Exam Head Exam: ATRAUMATIC, NORMAL INSPECTION, NORMOCEPHALIC - Eye Exam Eye Exam: EOMI, Normal appearance, PERRL - ENT Exam ENT Exam: Mucous Membranes Moist, Normal Exam - Neck Exam Neck Exam: Full ROM, Normal Inspection. absent: Lymphadenopathy Additional comments: Trach collar in place. - Respiratory Exam Respiratory Exam: Clear to Ausculation Bilateral, Wheezes (Diffuse bilateral wheezing. Improved from yesterday.), NORMAL BREATHING PATTERN. absent: Chest Wall Tenderness, Rales, Rhonchi, Respiratory Distress - Cardiovascular Exam Cardiovascular Exam: REGULAR RHYTHM, +S1, +S2. absent: Murmur - GI/Abdominal Exam GI & Abdominal Exam: Soft, Normal Bowel Sounds. absent: Tenderness - Extremities Exam Extremities Exam: Full ROM, Normal Capillary Refill, Normal Inspection. absent : Joint Swelling, Pedal Edema - Neurological Exam Neurological Exam: Alert, Awake Neuro motor strength exam: Left Upper Extremity: 5, Right Upper Extremity: 5, Left Lower Extremity: 5, Right Lower Extremity: 5 - Skin Skin Exam: Dry, Intact, Normal Color, Warm Assessment and Plan - Assessment and Plan (Free Text) Assessment: Patient is a 62 y/o M with PMHx of Laryngeal cancer (s/p radiation/trach removed ), HTN, HLD, COPD, tobacco abuse, and schizophrenia who presented to ED on 06/04 for shortness of breath, cough, and polydipsia. Patient found to be severely hyponatremic and in respiratory distress. 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 Plan: Hypercapnic respiratory failure 2/2 COPD Exacerbation vs. Fluid Overload - improved - Wean off high flow (connected to trach collar) - Patient still has lots of secretions; chest PT - Patient is at baseline mental status - CXR showed atelectasis versus infiltrates - ENT recs appreciated. 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 Hx of Laryngeal Cancer - Patient educated on the importance of smoking cessation - Heme/onc consulted, recs appreciated. - c/w pain control, percocet q6h as per heme/onc recs. - Palliative care consulted, f/u recs HTN - c/w home med: Norvasc and Metoprolol with holding parameters HLD - c/w Home med: Lipitor Schizophrenia - c/w home medication: trazodone and fluphenazine GI ppx: Protonix DVT ppx: Heparin SC Dispo: Monitor patient in ICU. May be able to transfer to the floor. Case was discussed and reviewed with Attending Physician, Dr. Judd. <Dontrell Judd - Last Filed: 06/09/18 17:36> Objective - Vital Signs/Intake and Output Vital Signs (last 24 hours): Temp Pulse Resp BP Pulse Ox 98.1 F 89 53 H 113/64 95 06/09/18 06:00 06/09/18 13:20 06/09/18 13:20 06/09/18 12:00 06/09/18 13:20 Intake and Output: 06/09/18 06/09/18 06:59 18:59 Intake Total 360 Output Total 1850 Balance -1490 - Medications Medications: Current Medications Acetylcysteine (Acetylcysteine 20%) 4 ml IH [id number] [facility] Last Admin: 06/09/18 13:03 Dose: 4 ml Albuterol/Ipratropium (Duoneb 3 Mg/0.5 Mg (3 Ml) Ud) 3 ml IH Q2H PRN PRN Reason: Shortness of Breath Albuterol/Ipratropium (Duoneb 3 Mg/0.5 Mg (3 Ml) Ud) 3 ml IH [id number] [facility] Last Admin: 06/09/18 13:03 Dose: 3 ml Amlodipine Besylate (Norvasc) 2.5 mg PO DAILY [facility] Last Admin: 06/09/18 09:42 Dose: 2.5 mg Arformoterol Tartrate (Brovana) 15 mcg IH [id number] [facility] Last Admin: 06/09/18 07:44 Dose: 15 mcg Atorvastatin Calcium (Lipitor) 20 mg PO HS [facility] Last Admin: 06/08/18 21:30 Dose: 20 mg Budesonide (Pulmicort Respules) 0.25 mg IH [id number] [facility] Last Admin: 06/09/18 07:43 Dose: 0.25 mg Cholecalciferol (Vitamin D) 2,000 intlu PO DAILY [facility] Last Admin: 06/09/18 09:41 Dose: 2,000 intlu Docusate Sodium (Colace) 100 mg PO DAILY [facility] Last Admin: 06/09/18 09:30 Dose: 100 mg Fluphenazine HCl (Prolixin) 10 mg PO BID [facility] PRN Reason: Protocol Last Admin: 06/09/18 09:43 Dose: 10 mg Heparin Sodium (Porcine) (Heparin) 5,000 units SC Q12 [facility] PRN Reason: Protocol Last Admin: 06/09/18 09:31 Dose: 5,000 units Levothyroxine Sodium (Synthroid) 25 mcg PO ACB [facility] Last Admin: 06/09/18 09:42 Dose: 25 mcg Methylprednisolone (Solu-Medrol) 30 mg IVP DAILY [facility] Metoprolol Tartrate (Lopressor) 25 mg PO DAILY [facility] Last Admin: 06/09/18 09:32 Dose: 25 mg Multivitamins/Minerals (Therapeutic-M Tab) 1 tab PO DAILY [facility] Last Admin: 06/09/18 09:44 Dose: 1 tab Nicotine (Nicoderm Cq) 1 patch TD DAILY [facility] Last Admin: 06/09/18 09:30 Dose: 1 patch Oxycodone/Acetaminophen (Percocet 2.5/325 Mg Tab) 1 tab PO Q6H PRN PRN Reason: Pain, moderate (4-7) Last Admin: 06/09/18 15:24 Dose: 1 tab Pantoprazole Sodium (Protonix Ec Tab) 40 mg PO 0600 [facility] Last Admin: 06/09/18 06:33 Dose: 40 mg Polyethylene Glycol (Miralax) 17 gm PO DAILY [facility] Last Admin: 06/09/18 09:30 Dose: 17 gm Trazodone HCl (Desyrel) 50 mg PO HS [facility] Last Admin: 06/08/18 21:30 Dose: 50 mg Zolpidem Tartrate (Ambien) 10 mg PO HS PRN; Protocol PRN Reason: Insomnia Last Admin: 06/07/18 03:01 Dose: 10 mg - Labs Labs: 06/07/18 05:15 06/09/18 05:40 PT 11.5 SECONDS (9.4-12.5) 06/04/18 17:45 INR 1.01 06/04/18 17:45 APTT 33.0 Seconds (25.1-36.5) 06/04/18 17:45 Attending/Attestation - Attestation I have personally seen and examined this patient.: Yes I have fully participated in the care of the patient.: Yes I have reviewed all pertinent clinical information, including history, physical exam and plan: Yes Notes (Text): 06/09/18 17:34 attending note; Patient seen and examined with resident in ICU. patient's by the bedside. Patient is 62-year-old male with the past medical history significant for laryngeal cancer status post radiation and tracheostomy now with stoma, hypertension, hyperlipidemia, COPD, tobacco abuse, and schizophrenia that presented to the emergency room for shortness of breath. 1. Acute Hypercapnic and hypoxemic respiratory failure.Secondary to COPD exacerbation. Status post tracheostomy placement by ENT. resolved. Currently on high flow oxygen. Pulse ox is 98%. taper oxygen. Patient is not in any acute distress. Continue nebulizer treatments, Brovana, and Pulmicort. Continue IV Solu- Medrol. we will taper IV Solu-Medrol. Chest x-ray 06/06/18 per radiologist showed no active disease. pulmonary evaluation appreciated. 2. Hyponatremia. currently sodium is 133. clinically euvole [place]. Nephrology Evaluation appreciated. Continue fluid restriction. Continue to monitor. 3. History of laryngeal cancer. Hematology/oncology evaluation appreciated. Patient will follow-up with [facility]. 4. Hypertension. Continue Norvasc and metoprolol 5. Hyperlipidemia. Continue Lipitor 6. Hypothyroidism. Continu synthroid 7. Schizophrenia. Continue trazodone and prolixin 8. Tobacco abuse. Patient continues to smoke. Patient counseled on cessation. 9. GI/DVT prophylaxis. Protonix and heparin. patient follows up with [facility] in [place]. patient has pulmonary/oncology follow up at [place]. Physical therapy evaluation requested. case management associate/psychosocial rehabilitation counselor evaluation requested for discharge planning. Case was discussed in detail with the patient regarding current diagnosis and treatment plan.
[2018-06-10] MEDS: Albuterol-Ipratrop 3 mg / 0.5 (3 ml) UD IH SCH ×4 (01:20→19:33)
[2018-06-10] MEDS: Acetylcysteine 20% Inhal Soln (4ml) IH SCH ×4 (01:20→19:33)
[2018-06-10] MEDS: Oxycodone/Acetaminophen 2.5/325 mg Tab PO PRN ×4 (04:45→23:08)
[2018-06-10] MEDS: Pantoprazole 40 mg EC Tab PO SCH (06:34)
[2018-06-10] MEDS: Budesonide 0.25 mg/2 ml Inhal Susp UD IH SCH ×2 (07:22→19:33)
[2018-06-10] MEDS: Arformoterol 15 mcg/2 ml Inh Sol IH SCH ×2 (07:22→19:33)
[2018-06-10] MEDS: Levothyroxine 25 MCG TAB PO SCH (07:51)
[2018-06-10 08:15] LABS: ALB/GLOB RATIO 1.4 (1.1-1.8); ALBUMIN 3.5 g/dL (3.0-4.8); ALT/SGPT 50 U/L (7-56); AST/SGOT 32 U/L (17-59); BLOOD UREA NITROGEN 8 mg/dL (7-21); CALCIUM 8.8 mg/dL (8.4-10.5); GFR NON-AFRICAN AMERICAN > 60
[2018-06-10] MEDS: Cholecalciferol 1,000 INTLU TAB PO SCH (09:53)
[2018-06-10] MEDS: Multivitamin With Minerals Tab PO SCH (09:54)
[2018-06-10] MEDS: POLYETHYLENE GLYCOL 3350 17 GM/Dose PACKET PO SCH (09:54)
[2018-06-10] MEDS: MethylPREDNISolone 40 mg Vial IVP SCH (09:56)
[2018-06-10] MEDS ORDERED: Magnesium Sulfate 2 gm/50 ml 2 GM/50 ML BAG IVPB ONE (12:51)
[2018-06-10] MEDS ORDERED: Magnesium Citrate Oral SOL (300 ml) PO ONE (12:59)
--- NOTE | 2018-06-10 14:32 | CP.PCM.CON ---
History of Present Illness - History of Present Illness History of Present Illness: Palliative consult requested by Dr Jazmyne Eden Reason: Advance care planning 62 year old male with history of HTN, COPD and esophageal cancer s/p radiation therapy who presented on 06/04/18 with increased shortness of breath and productive cough. Patient is s/p removal of tracheostomy tube one year ago, stoma patent. denied fever, chills, nausea, vomiting,chest or abdominal pain upon presentation. reported to have excessive thirst and increased fluid intake.Chest x ray showed bilateral lower lobe infiltrates. The patient developed progressive respiratory failure and was intubated. He has since been stabilized and is s/p tracheostomy. Echo showed mild LV hypertrophy, EF 55 %, trace mitral/tricuspid regurgitation. PMHx: Esophageal cancer, s/p radiation therapy, HTN, HLD, COPD, schizophrenia PSH: partial laryngectomy,tracheostomy, tabby cataract surgery,hypothyroidism Social History: Current heavy smoker, no alcohol or drug use. , lives with spouse. Family History: Non contributory Advance Care Planning: the patient does not have an Advanced Directive Review of Systems: Other than productive cough, the patient denies any complaints, 12 point review negative Past Patient History - Infectious Disease Hx of Infectious Diseases: None - Tetanus Immunizations Tetanus Immunization: Unknown - Past Social History Smoking Status: Current Some Days Smoker - CARDIAC Hx Hypertension: Yes - PULMONARY Hx Chronic Obstructive Pulmonary Disease (COPD): Yes - NEUROLOGICAL Hx Neurological Disorder: No - HEENT Hx HEENT Problems: Yes Hx Cataracts: Yes (WITH BILATERAL SX) - RENAL Hx Chronic Kidney Disease: No - ENDOCRINE/METABOLIC Hx Hypothyroidism: Yes - HEMATOLOGICAL/ONCOLOGICAL Hx Cancer: Yes (laryngeal) - INTEGUMENTARY Hx Dermatological Problems: No - MUSCULOSKELETAL/RHEUMATOLOGICAL Hx Musculoskeletal Disorders: Yes (SPRAIN TO LEFT SHOULDER/CLIMBED FENCE WHEN HE WAS YOUNGER) Hx Falls: Yes - GASTROINTESTINAL Hx Gastrointestinal Disorders: Yes Other/Comment: throat soreness - GENITOURINARY/GYNECOLOGICAL Hx Genitourinary Disorders: No - PSYCHIATRIC Hx Psychophysiologic Disorder: Yes Hx Anxiety: Yes Hx Depression: Yes Hx Emotional Abuse: No Hx Physical Abuse: No Hx Schizophrenia: Yes Hx Substance Use: No - SURGICAL HISTORY Hx Orthopedic Surgery: Yes - ANESTHESIA Hx Anesthesia: Yes Hx Anesthesia Reactions: No Hx Malignant Hyperthermia: No Meds Allergies/Adverse Reactions: Allergies Allergy/AdvReac Type Severity Reaction Status Date / Time Penicillins Allergy Unknown unknown Verified 05/08/18 17:48 - Medications Medications: Current Medications Acetylcysteine (Acetylcysteine 20%) 4 ml IH [id number] [facility] Last Admin: 06/10/18 14:23 Dose: 4 ml Albuterol/Ipratropium (Duoneb 3 Mg/0.5 Mg (3 Ml) Ud) 3 ml IH Q2H PRN PRN Reason: Shortness of Breath Albuterol/Ipratropium (Duoneb 3 Mg/0.5 Mg (3 Ml) Ud) 3 ml IH [id number] [facility] Last Admin: 06/10/18 14:23 Dose: 3 ml Amlodipine Besylate (Norvasc) 2.5 mg PO DAILY [facility] Last Admin: 06/10/18 09:54 Dose: 2.5 mg Arformoterol Tartrate (Brovana) 15 mcg IH [id number] [facility] Last Admin: 06/10/18 07:22 Dose: 15 mcg Atorvastatin Calcium (Lipitor) 20 mg PO HS [facility] Last Admin: 06/09/18 21:13 Dose: 20 mg Budesonide (Pulmicort Respules) 0.25 mg IH [id number] [facility] Last Admin: 06/10/18 07:22 Dose: 0.25 mg Cholecalciferol (Vitamin D) 2,000 intlu PO DAILY [facility] Last Admin: 06/10/18 09:53 Dose: 2,000 intlu Docusate Sodium (Colace) 100 mg PO DAILY [facility] Last Admin: 06/10/18 09:55 Dose: 100 mg Fluphenazine HCl (Prolixin) 10 mg PO BID [facility] PRN Reason: Protocol Last Admin: 06/10/18 09:53 Dose: 10 mg Heparin Sodium (Porcine) (Heparin) 5,000 units SC Q12 [facility] PRN Reason: Protocol Last Admin: 06/10/18 09:55 Dose: 5,000 units Levothyroxine Sodium (Synthroid) 25 mcg PO ACB [facility] Last Admin: 06/10/18 07:51 Dose: 25 mcg Methylprednisolone (Solu-Medrol) 30 mg IVP DAILY [facility] Last Admin: 06/10/18 09:56 Dose: 30 mg Metoprolol Tartrate (Lopressor) 25 mg PO DAILY [facility] Last Admin: 06/10/18 09:54 Dose: 25 mg Multivitamins/Minerals (Therapeutic-M Tab) 1 tab PO DAILY [facility] Last Admin: 06/10/18 09:54 Dose: 1 tab Nicotine (Nicoderm Cq) 1 patch TD DAILY [facility] Last Admin: 06/10/18 09:55 Dose: 1 patch Oxycodone/Acetaminophen (Percocet 2.5/325 Mg Tab) 1 tab PO Q6H PRN PRN Reason: Pain, moderate (4-7) Last Admin: 06/10/18 10:47 Dose: 1 tab Pantoprazole Sodium (Protonix Ec Tab) 40 mg PO 0600 [facility] Last Admin: 06/10/18 06:34 Dose: 40 mg Polyethylene Glycol (Miralax) 17 gm PO DAILY [facility] Last Admin: 06/10/18 09:54 Dose: 17 gm Trazodone HCl (Desyrel) 50 mg PO HS [facility] Last Admin: 06/09/18 21:13 Dose: 50 mg Zolpidem Tartrate (Ambien) 10 mg PO HS PRN; Protocol PRN Reason: Insomnia Last Admin: 06/10/18 01:14 Dose: 10 mg Physical Exam - Constitutional Appears: No Acute Distress - Head Exam Head Exam: NORMAL INSPECTION - Eye Exam Eye Exam: Normal appearance, PERRL - ENT Exam ENT Exam: Mucous Membranes Moist, Normal Oropharynx - Neck Exam Neck exam: Positive for: Normal Inspection Additional comments: trach stoma site clean, no redness or disharge - Respiratory Exam Respiratory Exam: Rhonchi, NORMAL BREATHING PATTERN - Cardiovascular Exam Cardiovascular Exam: REGULAR RHYTHM, +S1 - GI/Abdominal Exam GI & Abdominal Exam: Normal Bowel Sounds, Soft - Extremities Exam Extremities exam: Positive for: full ROM, pedal pulses present - Back Exam Back exam: NORMAL INSPECTION - Neurological Exam Neurological exam: Alert, Oriented x3 - Psychiatric Exam Psychiatric exam: Normal Mood - Skin Skin Exam: Dry, Warm - Additional Findings Additional findings: Palliative performance scale rating 70% Results - Vital Signs Recent Vital Signs: Last Vital Signs Temp 98.9 F 06/10/18 06:00 Pulse 71 06/10/18 09:54 Resp 18 06/10/18 06:00 BP 140/90 06/10/18 09:54 Pulse Ox 95 06/10/18 06:00 - Labs Result Diagrams: 06/07/18 05:15 06/10/18 07:00 Labs: Laboratory Results - last 24 hr 06/10/18 07:00 Sodium 131 L Potassium 3.8 Chloride 89 L Carbon Dioxide 35 H Anion Gap 11 BUN 8 Creatinine 0.7 L Est GFR ( Amer) > 60 Est GFR (Non-Af Amer) > 60 Random Glucose 101 Calcium 8.8 Phosphorus 4.6 H Magnesium 1.6 L Total Bilirubin 0.8 AST 32 ALT 50 Alkaline Phosphatase 52 Total Protein 6.0 Albumin 3.5 Globulin 2.5 Albumin/Globulin Ratio 1.4 Assessment & Plan - Assessment and Plan (Free Text) Assessment: 62 year old male with history of HTN,COPD, schizophrenia and esophageal cancer s /p trach, s/p XRT who is admitted with bilateral lower lobe infiltrates, respiratory failure s/p intubation s/p new tracheostomy,hyponatremia. The patient is alert and oriented. Aware of his diagnosis. States he was treated at [place] and completed XRT therapy. He intends to follow up with [facility] upon discharge. Advance care planning discussion ensued. The patient does not have a Living Will. He is aware of the benefits and burdens of CPR and intubation. He requested that we have this discussion in the presence of his . He states he would be willing to complete an Advanced Directive at that time. Psychosocial support provided> Will schedule time to meet with him and his spouse to further discuss advance care planning and goals of care. Time spent with apt in goals of care and advance care panning discussion 30 minutes Plan: Advance care planning Esophageal cancer: Will follow up with [place] physician upon discharge Hyponatremia: resolved Smoking cessation Trach/stoma care
--- NOTE | 2018-06-10 15:13 | CP.PCM.PN ---
Subjective - Date & Time of Evaluation Date of Evaluation: 06/10/18 Time of Evaluation: 15:12 - Subjective Subjective: Nephrology Consultation Note: Assessment: stable euvolemic hyponatremia with mildly elevated urine Osmo: likely reflects elevated ADH with excess water intake laryngeal ca s/p radiation/trach (removed), HTN, HLD, COPD, tobacco abuse, schizophrenia acute on chronic hyercapnic respi failure COPD exacerbation THC + Plan No acute need for renal replacement therapy at this time. Maintain hemodynamics stable. Avoid hypotension. HTN controlled Monitor Input/Output, daily weights target correction in serum Na no more than 6-8 meq/24 hrs. no further need of hypertonic saline. not needed samsca at this time oral fluid restriction to 2648-4377 mL/day Dose meds/antibiotics for normal GFR. Glycemic control. smoking cessation Further work up/management as per primary team Thanks for allowing me to participate in care of your patient. Will follow patient with you. Please call if any Qs. had d/w team Dr Rosendo Navarrete Office: [phone] Chief Complaint; unable Reason for consult: Hyponatremia HPI: Pt is a 62 M with hx of laryngeal ca s/p radiation/trach (removed), HTN, HLD, COPD, tobacco abuse, schizophrenia came with SOB x 2 days and admitted with high pCo2 and required trach. given 3% saline for hyponatremia and renal consult for further management reports of excess water intake by pt ROS:pt feels better. denies SOB/chest pain or urine complaints Physical Examination: General Appearance: Comfortable, in no acute respiratory distress, obese Vitals reviewed and noted as below Head; Atraumatic, normocephalic ENT: s/p trach EYES: Pupils are equal, round and reactive to light accommodation. Eye muscles and extraocular movement intact. Sclera is anicteric. Neck; supple no lymphadenopathy, no thyromegaly or bruit Lungs: Normal respiratory rate/effort. Breath sounds bilateral equal and b/l clear Heart: Normal rate. s1s2 normal. No rub or gallop. Extremities: no edema. No varicose veins Neurological: Patient is sleeping but follow command Skin: Warm and dry. Normal turgor. No rash. Palpitation: Normal elasticity for age Abdomen: Abdomen is soft. Bowel sounds +. There is no abdominal tenderness, no guarding/rigidity no organomegaly Psych: deferred MSK: no joint tenderness or swelling. Digits and nails normal, no deformity : kidney or bladder not palpable Labs/imaging reviewed. Past medical history, past surgical history, family history, social history, allergy reviewed and noted as below Family hx: no hx of CKD. Rest non-contributory work up: UA 100 protein Na 30 osmol 314 TSH 0.4 Objective - Vital Signs/Intake and Output Vital Signs (last 24 hours): Temp Pulse Resp BP Pulse Ox 98.9 F 80 20 130/91 H 98 06/10/18 14:00 06/10/18 14:00 06/10/18 14:00 06/10/18 14:00 06/10/18 14:00 Intake and Output: 06/10/18 06/10/18 06:59 18:59 Intake Total 480 Output Total 1700 Balance -1220 - Medications Medications: Current Medications Acetylcysteine (Acetylcysteine 20%) 4 ml IH [id number] [facility] Last Admin: 06/10/18 14:23 Dose: 4 ml Albuterol/Ipratropium (Duoneb 3 Mg/0.5 Mg (3 Ml) Ud) 3 ml IH Q2H PRN PRN Reason: Shortness of Breath Albuterol/Ipratropium (Duoneb 3 Mg/0.5 Mg (3 Ml) Ud) 3 ml IH [id number] [facility] Last Admin: 06/10/18 14:23 Dose: 3 ml Amlodipine Besylate (Norvasc) 2.5 mg PO DAILY [facility] Last Admin: 06/10/18 09:54 Dose: 2.5 mg Arformoterol Tartrate (Brovana) 15 mcg IH [id number] [facility] Last Admin: 06/10/18 07:22 Dose: 15 mcg Atorvastatin Calcium (Lipitor) 20 mg PO HS [facility] Last Admin: 06/09/18 21:13 Dose: 20 mg Budesonide (Pulmicort Respules) 0.25 mg IH [id number] [facility] Last Admin: 06/10/18 07:22 Dose: 0.25 mg Cholecalciferol (Vitamin D) 2,000 intlu PO DAILY [facility] Last Admin: 06/10/18 09:53 Dose: 2,000 intlu Docusate Sodium (Colace) 100 mg PO DAILY [facility] Last Admin: 06/10/18 09:55 Dose: 100 mg Fluphenazine HCl (Prolixin) 10 mg PO BID [facility] PRN Reason: Protocol Last Admin: 06/10/18 09:53 Dose: 10 mg Heparin Sodium (Porcine) (Heparin) 5,000 units SC Q12 [facility] PRN Reason: Protocol Last Admin: 06/10/18 09:55 Dose: 5,000 units Levothyroxine Sodium (Synthroid) 25 mcg PO ACB [facility] Last Admin: 06/10/18 07:51 Dose: 25 mcg Methylprednisolone (Solu-Medrol) 30 mg IVP DAILY [facility] Last Admin: 06/10/18 09:56 Dose: 30 mg Metoprolol Tartrate (Lopressor) 25 mg PO DAILY [facility] Last Admin: 06/10/18 09:54 Dose: 25 mg Multivitamins/Minerals (Therapeutic-M Tab) 1 tab PO DAILY [facility] Last Admin: 06/10/18 09:54 Dose: 1 tab Nicotine (Nicoderm Cq) 1 patch TD DAILY [facility] Last Admin: 06/10/18 09:55 Dose: 1 patch Oxycodone/Acetaminophen (Percocet 2.5/325 Mg Tab) 1 tab PO Q6H PRN PRN Reason: Pain, moderate (4-7) Last Admin: 06/10/18 10:47 Dose: 1 tab Pantoprazole Sodium (Protonix Ec Tab) 40 mg PO 0600 [facility] Last Admin: 06/10/18 06:34 Dose: 40 mg Polyethylene Glycol (Miralax) 17 gm PO DAILY [facility] Last Admin: 06/10/18 09:54 Dose: 17 gm Trazodone HCl (Desyrel) 50 mg PO HS [facility] Last Admin: 06/09/18 21:13 Dose: 50 mg Zolpidem Tartrate (Ambien) 10 mg PO HS PRN; Protocol PRN Reason: Insomnia Last Admin: 06/10/18 01:14 Dose: 10 mg - Labs Labs: 06/07/18 05:15 06/10/18 07:00 PT 11.5 SECONDS (9.4-12.5) 06/04/18 17:45 INR 1.01 06/04/18 17:45 APTT 33.0 Seconds (25.1-36.5) 06/04/18 17:45
--- NOTE | 2018-06-10 16:01 | CP.PCM.PN ---
<Fili Winkler - Last Filed: 06/10/18 15:58> Subjective - Date & Time of Evaluation Date of Evaluation: 06/10/18 Time of Evaluation: 07:00 - Subjective Subjective: Fili Winkler, PGY1 Medicine Progress Note for Dr. Judd. Patient was seen and examined at bedside this morning. Patient has been titrated down from high flow oxygen to 7 Liters oxygen connected to trach collar. He is saturating well. Still complains of cough and congestion. Denies shortness of breath, cp, abdominal pain, n/v/d. No overnight changes. Patient still has not had a bowel movement for the past 5 days. A full 12 point ROS was conducted and unremarkable except as stated above. Objective - Vital Signs/Intake and Output Vital Signs (last 24 hours): Temp Pulse Resp BP Pulse Ox 98.9 F 80 20 130/91 H 98 06/10/18 14:00 06/10/18 14:00 06/10/18 14:00 06/10/18 14:00 06/10/18 14:00 Intake and Output: 06/10/18 06/10/18 06:59 18:59 Intake Total 480 Output Total 1700 Balance -1220 - Medications Medications: Current Medications Acetylcysteine (Acetylcysteine 20%) 4 ml IH [id number] [facility] Last Admin: 06/10/18 14:23 Dose: 4 ml Albuterol/Ipratropium (Duoneb 3 Mg/0.5 Mg (3 Ml) Ud) 3 ml IH Q2H PRN PRN Reason: Shortness of Breath Albuterol/Ipratropium (Duoneb 3 Mg/0.5 Mg (3 Ml) Ud) 3 ml IH [id number] [facility] Last Admin: 06/10/18 14:23 Dose: 3 ml Amlodipine Besylate (Norvasc) 2.5 mg PO DAILY [facility] Last Admin: 06/10/18 09:54 Dose: 2.5 mg Arformoterol Tartrate (Brovana) 15 mcg IH [id number] [facility] Last Admin: 06/10/18 07:22 Dose: 15 mcg Atorvastatin Calcium (Lipitor) 20 mg PO HS [facility] Last Admin: 06/09/18 21:13 Dose: 20 mg Budesonide (Pulmicort Respules) 0.25 mg IH [id number] [facility] Last Admin: 06/10/18 07:22 Dose: 0.25 mg Cholecalciferol (Vitamin D) 2,000 intlu PO DAILY [facility] Last Admin: 06/10/18 09:53 Dose: 2,000 intlu Docusate Sodium (Colace) 100 mg PO DAILY [facility] Last Admin: 06/10/18 09:55 Dose: 100 mg Fluphenazine HCl (Prolixin) 10 mg PO BID [facility] PRN Reason: Protocol Last Admin: 06/10/18 09:53 Dose: 10 mg Heparin Sodium (Porcine) (Heparin) 5,000 units SC Q12 [facility] PRN Reason: Protocol Last Admin: 06/10/18 09:55 Dose: 5,000 units Levothyroxine Sodium (Synthroid) 25 mcg PO ACB [facility] Last Admin: 06/10/18 07:51 Dose: 25 mcg Methylprednisolone (Solu-Medrol) 30 mg IVP DAILY [facility] Last Admin: 06/10/18 09:56 Dose: 30 mg Metoprolol Tartrate (Lopressor) 25 mg PO DAILY [facility] Last Admin: 06/10/18 09:54 Dose: 25 mg Multivitamins/Minerals (Therapeutic-M Tab) 1 tab PO DAILY [facility] Last Admin: 06/10/18 09:54 Dose: 1 tab Nicotine (Nicoderm Cq) 1 patch TD DAILY [facility] Last Admin: 06/10/18 09:55 Dose: 1 patch Oxycodone/Acetaminophen (Percocet 2.5/325 Mg Tab) 1 tab PO Q6H PRN PRN Reason: Pain, moderate (4-7) Last Admin: 06/10/18 10:47 Dose: 1 tab Pantoprazole Sodium (Protonix Ec Tab) 40 mg PO 0600 [facility] Last Admin: 06/10/18 06:34 Dose: 40 mg Polyethylene Glycol (Miralax) 17 gm PO DAILY [facility] Last Admin: 06/10/18 09:54 Dose: 17 gm Trazodone HCl (Desyrel) 50 mg PO HS [facility] Last Admin: 06/09/18 21:13 Dose: 50 mg Zolpidem Tartrate (Ambien) 10 mg PO HS PRN; Protocol PRN Reason: Insomnia Last Admin: 06/10/18 01:14 Dose: 10 mg - Labs Labs: 06/07/18 05:15 06/10/18 07:00 PT 11.5 SECONDS (9.4-12.5) 09/13/18 17:45 INR 1.01 06/04/18 17:45 APTT 33.0 Seconds (25.1-36.5) 06/04/18 17:45 - Constitutional Appears: No Acute Distress - Head Exam Head Exam: ATRAUMATIC, NORMAL INSPECTION, NORMOCEPHALIC - Eye Exam Eye Exam: EOMI, Normal appearance, PERRL - ENT Exam ENT Exam: Mucous Membranes Moist, Normal Exam - Neck Exam Neck Exam: Full ROM, Normal Inspection. absent: Lymphadenopathy Additional comments: Trach collar in place, connected to 7 L oxygen on wall. - Respiratory Exam Respiratory Exam: Clear to Ausculation Bilateral, Wheezes (improved wheezing on exam from prior), NORMAL BREATHING PATTERN. absent: Rales, Rhonchi, Respiratory Distress - Cardiovascular Exam Cardiovascular Exam: REGULAR RHYTHM, +S1, +S2. absent: Murmur - GI/Abdominal Exam GI & Abdominal Exam: Soft, Normal Bowel Sounds. absent: Tenderness - Extremities Exam Extremities Exam: Full ROM, Normal Capillary Refill, Normal Inspection. absent : Joint Swelling, Pedal Edema - Back Exam Back Exam: NORMAL INSPECTION - Neurological Exam Neurological Exam: Alert, Awake Neuro motor strength exam: Left Upper Extremity: 5, Right Upper Extremity: 5, Left Lower Extremity: 5, Right Lower Extremity: 5 - Skin Skin Exam: Dry, Intact, Normal Color, Warm Assessment and Plan - Assessment and Plan (Free Text) Assessment: Patient is a 62 y/o M with PMHx of Laryngeal cancer (s/p radiation/trach removed ), HTN, HLD, COPD, tobacco abuse, and schizophrenia who presented to ED on 06/04 for shortness of breath, cough, and polydipsia. Patient found to be severely hyponatremic and in respiratory distress. 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 Patient's symptoms have improved and he is being monitored on the floor. Plan: Hypercapnic respiratory failure 2/2 COPD Exacerbation vs. Fluid Overload - improved - Weaned off high flow (connected to trach collar); now on 7 Liters oxygen; titrate down FiO2 but maintain SaO2 > 92% - Patient still has lots of secretions; c/w chest PT - Patient is at baseline mental status - CXR showed atelectasis versus infiltrates - ENT recs appreciated. 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 Hx of Laryngeal Cancer - Patient educated on the importance of smoking cessation - Heme/onc consulted, recs appreciated. - c/w pain control, percocet q6h as per heme/onc recs. - Palliative care consulted, f/u recs HTN - c/w home med: Norvasc and Metoprolol with holding parameters HLD - c/w Home med: Lipitor Schizophrenia - c/w home medication: trazodone and fluphenazine GI ppx: Protonix DVT ppx: Heparin [place] Drywall Foreman: Pending placement. Dispo: Monitor patient on floor. Physical therapy pending. Case was discussed and reviewed with Attending Physician, Dr. Judd. <Dontrell Judd - Last Filed: 06/12/18 15:16> Objective - Vital Signs/Intake and Output Vital Signs (last 24 hours): Temp Pulse Resp BP Pulse Ox 99 F 75 18 129/78 96 06/11/18 06:00 06/11/18 06:00 06/11/18 06:00 06/11/18 09:12 06/11/18 06:00 - Labs Labs: 06/11/18 07:45 06/11/18 07:45 PT 11.5 SECONDS (9.4-12.5) 06/04/18 17:45 INR 1.01 06/04/18 17:45 APTT 33.0 Seconds (25.1-36.5) 06/04/18 17:45 Attending/Attestation - Attestation I have personally seen and examined this patient.: Yes I have fully participated in the care of the patient.: Yes I have reviewed all pertinent clinical information, including history, physical exam and plan: Yes Notes (Text): 06/12/18 15:16 attending note; Patient seen and examined with resident. Patient is 62-year-old male with the past medical history significant for laryngeal cancer status post radiation and tracheostomy now with stoma, hypertension, hyperlipidemia, COPD, tobacco abuse, and schizophrenia that presented to the emergency room for shortness of breath. 1. Acute Hypercapnic and hypoxemic respiratory failure.Secondary to COPD exacerbation. Status post tracheostomy placement by ENT. resolved. Currently on high flow oxygen. Pulse ox is 98%. taper oxygen. Patient is not in any acute distress. Continue nebulizer treatments, Brovana, and Pulmicort. Continue IV Solu- Medrol. we will taper IV Solu-Medrol. Chest x-ray 06/06/18 per radiologist showed no active disease. pulmonary evaluation appreciated. 2. Hyponatremia. currently sodium is 133. Nephrology Evaluation appreciated. Continue fluid restriction. Continue to monitor. 3. History of laryngeal cancer. Hematology/oncology evaluation appreciated. Patient will follow-up with [place] [facility]. 4. Hypertension. Continue Norvasc and metoprolol 5. Hyperlipidemia. Continue Lipitor 6. Hypothyroidism. Continu synthroid 7. Schizophrenia. Continue trazodone and prolixin 8. Tobacco abuse. Patient continues to smoke. Patient counseled on cessation. 9. GI/DVT prophylaxis. Protonix and heparin. patient follows up with [facility] in [place]. patient has pulmonary/oncology follow up at [place]. Physical therapy evaluation appreciated. Taper and DC oxygen. shelter case manager/family welfare social work professor evaluation requested for discharge planning. Case was discussed in detail with the patient regarding current diagnosis and treatment plan.
[2018-06-10 21:16] VITALS: O2SAT 96
[2018-06-11] MEDS: Albuterol-Ipratrop 3 mg / 0.5 (3 ml) UD IH SCH ×3 (01:02→13:01)
[2018-06-11] MEDS: Acetylcysteine 20% Inhal Soln (4ml) IH SCH ×3 (01:02→13:02)
[2018-06-11] MEDS: Pantoprazole 40 mg EC Tab PO SCH (06:14)
[2018-06-11] MEDS: Oxycodone/Acetaminophen 2.5/325 mg Tab PO PRN ×2 (06:42→12:16)
[2018-06-11] MEDS: Budesonide 0.25 mg/2 ml Inhal Susp UD IH SCH (07:28)
[2018-06-11] MEDS: Arformoterol 15 mcg/2 ml Inh Sol IH SCH (07:29)
[2018-06-11 08:07] LABS: HEMOGLOBIN 14.9 g/dL (14.0-18.0); MEAN CELL VOLUME 92.8 fl (80.0-105.0); MEAN CORPUSCULAR HEMOGLOBIN 30.8 pg (25.0-35.0); MEAN CORPUSCULAR HGB CONC 33.3 g/dl (31.0-37.0); MEAN PLATELET VOLUME 8.9 fl (7.0-11.0); RBC 4.83 10^6/uL (3.5-6.1); RED CELL DISTRIBUTION WIDTH 14.5 % (11.5-14.5); WHITE BLOOD COUNT 9.8 10^3/ul (4.5-11.0)
[2018-06-11 08:29] LABS: ALB/GLOB RATIO 1.4 (1.1-1.8); ALBUMIN 3.8 g/dL (3.0-4.8); ALT/SGPT 58 U/L (7-56); AST/SGOT 36 U/L (17-59); BLOOD UREA NITROGEN 11 mg/dL (7-21); CALCIUM 8.9 mg/dL (8.4-10.5); GFR NON-AFRICAN AMERICAN > 60
[2018-06-11] MEDS: Cholecalciferol 1,000 INTLU TAB PO SCH (09:10)
[2018-06-11] MEDS: POLYETHYLENE GLYCOL 3350 17 GM/Dose PACKET PO SCH (09:10)
[2018-06-11] MEDS: Multivitamin With Minerals Tab PO SCH (09:11)
[2018-06-11] MEDS: MethylPREDNISolone 40 mg Vial IVP SCH (09:12)
[2018-06-11] MEDS: Levothyroxine 25 MCG TAB PO SCH (09:18)
[2018-06-11 09:25] VITALS: BP 129/78
[2018-06-11 09:36] VITALS: PULSE 75; RESP 18; TEMP 99
--- NOTE | 2018-06-11 11:01 | CP.PCM.PN ---
Subjective - Date & Time of Evaluation Date of Evaluation: 06/11/18 Time of Evaluation: 11:01 - Subjective Subjective: Nephrology Consultation Note: Assessment: stable euvolemic hyponatremia with mildly elevated urine Osmo: likely reflects elevated ADH with excess water intake laryngeal ca s/p radiation/trach (removed), HTN, HLD, COPD, tobacco abuse, schizophrenia acute on chronic hyercapnic respi failure COPD exacerbation THC + Plan No acute need for renal replacement therapy at this time. Maintain hemodynamics stable. Avoid hypotension. HTN controlled Monitor Input/Output, daily weights target correction in serum Na no more than 6-8 meq/24 hrs. no further need of hypertonic saline. not needed samsca at this time oral fluid restriction to [id number] mL/day Dose meds/antibiotics for normal GFR. Glycemic control. smoking cessation Further work up/management as per primary team pt stable for d/c from renal perspective when planned with outpt renal follow up in 1-2 weeks Thanks for allowing me to participate in care of your patient. Will follow patient with you. Please call if any Qs. had d/w team Dr Rosendo Navarrete Office: [phone] Chief Complaint; unable Reason for consult: Hyponatremia HPI: Pt is a 62 M with hx of laryngeal ca s/p radiation/trach (removed), HTN, HLD, COPD, tobacco abuse, schizophrenia came with SOB x 2 days and admitted with high pCo2 and required trach. given 3% saline for hyponatremia and renal consult for further management reports of excess water intake by pt ROS:pt feels better. denies SOB/chest pain or urine complaints Physical Examination: General Appearance: Comfortable, in no acute respiratory distress, obese Vitals reviewed and noted as below Head; Atraumatic, normocephalic ENT: s/p trach EYES: Pupils are equal, round and reactive to light accommodation. Eye muscles and extraocular movement intact. Sclera is anicteric. Neck; supple no lymphadenopathy, no thyromegaly or bruit Lungs: Normal respiratory rate/effort. Breath sounds bilateral equal and b/l clear Heart: Normal rate. s1s2 normal. No rub or gallop. Extremities: no edema. No varicose veins Neurological: Patient is sleeping but follow command Skin: Warm and dry. Normal turgor. No rash. Palpitation: Normal elasticity for age Abdomen: Abdomen is soft. Bowel sounds +. There is no abdominal tenderness, no guarding/rigidity no organomegaly Psych: deferred MSK: no joint tenderness or swelling. Digits and nails normal, no deformity : kidney or bladder not palpable Labs/imaging reviewed. Past medical history, past surgical history, family history, social history, allergy reviewed and noted as below Family hx: no hx of CKD. Rest non-contributory work up: UA 100 protein Na 30 osmol 314 TSH 0.4 Objective - Vital Signs/Intake and Output Vital Signs (last 24 hours): Temp Pulse Resp BP Pulse Ox 99 F 75 18 129/78 96 06/11/18 06:00 06/11/18 06:00 06/11/18 06:00 06/11/18 09:12 06/11/18 06:00 Intake and Output: 06/11/18 06/11/18 06:59 18:59 Intake Total 1020 Balance 1020 - Medications Medications: Current Medications Acetylcysteine (Acetylcysteine 20%) 4 ml IH [id number] [facility] Last Admin: 06/11/18 07:27 Dose: 4 ml Albuterol/Ipratropium (Duoneb 3 Mg/0.5 Mg (3 Ml) Ud) 3 ml IH Q2H PRN PRN Reason: Shortness of Breath Albuterol/Ipratropium (Duoneb 3 Mg/0.5 Mg (3 Ml) Ud) 3 ml IH [id number] [facility] Last Admin: 06/11/18 07:29 Dose: 3 ml Alprazolam (Xanax) 0.5 mg PO Q12 PRN; Protocol PRN Reason: Anxiety Last Admin: 06/11/18 09:12 Dose: 0.5 mg Amlodipine Besylate (Norvasc) 2.5 mg PO DAILY [facility] Last Admin: 06/11/18 09:12 Dose: 2.5 mg Arformoterol Tartrate (Brovana) 15 mcg IH [id number] [facility] Last Admin: 06/11/18 07:29 Dose: 15 mcg Atorvastatin Calcium (Lipitor) 20 mg PO HS [facility] Last Admin: 06/10/18 21:41 Dose: 20 mg Budesonide (Pulmicort Respules) 0.25 mg IH [id number] [facility] Last Admin: 06/11/18 07:28 Dose: 0.25 mg Cholecalciferol (Vitamin D) 2,000 intlu PO DAILY [facility] Last Admin: 06/11/18 09:10 Dose: 2,000 intlu Docusate Sodium (Colace) 100 mg PO DAILY [facility] Last Admin: 06/11/18 09:12 Dose: 100 mg Fluphenazine HCl (Prolixin) 10 mg PO BID CY PRN Reason: Protocol Last Admin: 06/11/18 09:18 Dose: 10 mg Heparin Sodium (Porcine) (Heparin) 5,000 units SC Q12 CY PRN Reason: Protocol Last Admin: 06/11/18 09:11 Dose: 5,000 units Levothyroxine Sodium (Synthroid) 25 mcg PO ACB [facility] Last Admin: 06/11/18 09:18 Dose: 25 mcg Methylprednisolone (Solu-Medrol) 30 mg IVP DAILY [facility] Last Admin: 06/11/18 09:12 Dose: 30 mg Metoprolol Tartrate (Lopressor) 25 mg PO DAILY [facility] Last Admin: 06/11/18 09:11 Dose: 25 mg Multivitamins/Minerals (Therapeutic-M Tab) 1 tab PO DAILY [facility] Last Admin: 06/11/18 09:11 Dose: 1 tab Nicotine (Nicoderm Cq) 1 patch TD DAILY [facility] Last Admin: 06/11/18 09:09 Dose: 1 patch Oxycodone/Acetaminophen (Percocet 2.5/325 Mg Tab) 1 tab PO Q6H PRN PRN Reason: Pain, moderate (4-7) Last Admin: 06/11/18 06:42 Dose: 1 tab Pantoprazole Sodium (Protonix Ec Tab) 40 mg PO 0600 [facility] Last Admin: 06/11/18 06:14 Dose: 40 mg Polyethylene Glycol (Miralax) 17 gm PO DAILY [facility] Last Admin: 06/11/18 09:10 Dose: 17 gm Trazodone HCl (Desyrel) 50 mg PO HS [facility] Last Admin: 06/10/18 21:41 Dose: 50 mg Zolpidem Tartrate (Ambien) 10 mg PO HS PRN; Protocol PRN Reason: Insomnia Last Admin: 06/10/18 01:14 Dose: 10 mg - Labs Labs: 06/11/18 07:45 06/11/18 07:45 PT 11.5 SECONDS (9.4-12.5) 06/04/18 17:45 INR 1.01 06/04/18 17:45 APTT 33.0 Seconds (25.1-36.5) 06/04/18 17:45
--- NOTE | 2018-06-11 17:24 | CP.PCM.DIS ---
<PetersonFili - Last Filed: 06/11/18 17:10> Provider - Provider Date of Admission: 06/04/18 19:26 Attending physician: Dontrell Judd MD Primary care physician: NO FAMILY PROVIDER Time Spent in preparation of Discharge (in minutes): 40 Hospital Course - Lab Results Lab Results: Most Recent Lab Values WBC 9.8 10^3/ul (4.5-11.0) 06/11/18 07:45 RBC 4.83 10^6/uL (3.5-6.1) 06/11/18 07:45 Hgb 14.9 g/dL (14.0-18.0) 06/11/18 07:45 Hct 44.8 % (42.0-52.0) 06/11/18 07:45 MCV 92.8 fl (80.0-105.0) 06/11/18 07:45 MCH 30.8 pg (25.0-35.0) 06/11/18 07:45 MCHC 33.3 g/dl (31.0-37.0) 06/11/18 07:45 RDW 14.5 % (11.5-14.5) 06/11/18 07:45 Plt Count 316 10^3/uL (120.0-450.0) 06/11/18 07:45 MPV 8.9 fl (7.0-11.0) 06/11/18 07:45 Gran % 75.9 % (50.0-68.0) H 06/07/18 05:15 Lymph % (Auto) 14.6 % (22.0-35.0) L 06/07/18 05:15 Rock % (Auto) 8.9 % (1.0-6.0) H 06/07/18 05:15 Eos % (Auto) 0.5 % (1.5-5.0) L 06/07/18 05:15 Baso % (Auto) 0.1 % (0.0-3.0) 06/07/18 05:15 Gran # 8.24 (1.4-6.5) H 06/07/18 05:15 Lymph # (Auto) 1.6 (1.2-3.4) 06/07/18 05:15 Rock # (Auto) 1.0 (0.1-0.6) H 06/07/18 05:15 Eos # (Auto) 0.1 (0.0-0.7) 06/07/18 05:15 Baso # (Auto) 0.01 K/mm3 (0.0-2.0) 06/07/18 05:15 Neutrophils % (Manual) 84 % (50.0-70.0) H 06/05/18 03:55 Band Neutrophils % 9 % (0-2) H 06/05/18 03:55 Lymphocytes % (Manual) 3 % (22.0-35.0) L 06/05/18 03:55 Monocytes % (Manual) 4 % (1.0-6.0) 06/05/18 03:55 Platelet Evaluation Normal (NORMAL) 06/05/18 03:55 PT 11.5 SECONDS (9.4-12.5) 06/04/18 17:45 INR 1.01 06/04/18 17:45 APTT 33.0 Seconds (25.1-36.5) 06/04/18 17:45 pCO2 61 mm/Hg (35-45) H 06/06/18 08:20 pO2 58.0 mm/Hg (80-100) L 06/06/18 08:20 HCO3 37.8 mmol/L (21-28) H 06/06/18 08:20 ABG pH 7.40 (7.35-7.45) 06/06/18 08:20 ABG Total CO2 39.7 mmol.L (22-28) H 06/06/18 08:20 ABG O2 Saturation 93.4 % (95-98) L 06/06/18 08:20 ABG O2 Content 19.5 ML/dl (15-23) 06/06/18 08:20 ABG Base Excess 10.2 mmol/L (-2.0-3.0) H 06/06/18 08:20 ABG Hemoglobin 15.2 g/dL (11.7-17.4) 06/06/18 08:20 ABG Carboxyhemoglobin 1.4 % (0.5-1.5) 06/06/18 08:20 POC ABG HHb (Measured) 6.5 % (0-5) H 06/06/18 08:20 ABG Methemoglobin 0.8 % (0.0-3.0) 06/06/18 08:20 ABG O2 Capacity 20.9 mL/dl (16-24) 06/06/18 08:20 VBG pH 7.30 (7.32-7.43) L 06/04/18 19:00 VBG pCO2 76.0 (40-60) H* 06/04/18 19:00 VBG HCO3 37.4 mmol/l (21-28) H 06/04/18 19:00 VBG Total CO2 39.7 mmol.L (22-28) H 06/04/18 19:00 VBG O2 Sat (Calc) 94.6 % (40-65) H 06/04/18 19:00 VBG Base Excess 8.0 mmol/L (0.0-2.0) H 06/04/18 19:00 VBG Potassium 4.4 mmol/L (3.6-5.2) 06/04/18 19:00 Hgb O2 Saturation 91.3 % (95.0-98.0) L 06/06/18 08:20 Sodium 116.0 mmol/L (132-148) L* 06/04/18 19:00 Chloride 80.0 mmol/L (98-107) L 06/04/18 19:00 Glucose 139 mg/dl (75-110) H 06/04/18 19:00 Lactate 0.7 mmol/L (0.7-2.1) 06/04/18 19:00 FiO2 60.0 % 06/06/18 08:20 Sodium 135 mmol/L (132-148) 06/11/18 07:45 Potassium 5.0 mmol/L (3.6-5.0) 06/11/18 07:45 Chloride 90 mmol/L (98-107) L 06/11/18 07:45 Carbon Dioxide 39 mmol/L (21-33) H 06/11/18 07:45 Anion Gap 12 (10-20) 06/11/18 07:45 BUN 11 mg/dL (7-21) 06/11/18 07:45 Creatinine 0.7 mg/dl (0.8-1.5) L 06/11/18 07:45 Est GFR ( Amer) > 60 06/11/18 07:45 Est GFR (Non-Af Amer) > 60 06/11/18 07:45 Random Glucose 105 mg/dL (70-110) 06/11/18 07:45 Serum Osmolality 244 mosm/kg (272-300) L 06/04/18 17:45 Calcium 8.9 mg/dL (8.4-10.5) 06/11/18 07:45 Phosphorus 4.5 mg/dL (2.5-4.5) 06/11/18 07:45 Magnesium 2.4 mg/dL (1.7-2.2) H 06/11/18 07:45 Total Bilirubin 0.7 mg/dL (0.2-1.3) 06/11/18 07:45 AST 36 U/L (17-59) 06/11/18 07:45 ALT 58 U/L (7-56) H 06/11/18 07:45 Alkaline Phosphatase 60 U/L (38-126) 06/11/18 07:45 Total Creatine Kinase 213 U/L (35-230) 06/04/18 17:45 Troponin I 0.04 ng/mL 06/05/18 08:34 NT-Pro-B Natriuret Pep 139 pg/mL (0-450) 06/06/18 05:00 Total Protein 6.5 g/dL (5.8-8.3) 06/11/18 07:45 Albumin 3.8 g/dL (3.0-4.8) 06/11/18 07:45 Globulin 2.7 gm/dL 06/11/18 07:45 Albumin/Globulin Ratio 1.4 (1.1-1.8) 06/11/18 07:45 Triglycerides 67 mg/dL (35-160) 06/05/18 08:34 Cholesterol 186 mg/dL (130-200) 06/05/18 08:34 LDL Cholesterol Direct 109 mg/dL (0-129) 06/05/18 08:34 HDL Cholesterol 58 mg/dL (29-60) 06/05/18 08:34 TSH 3rd Generation 0.44 mIU/mL (0.46-4.68) L 06/05/18 11:30 Cortisol AM Sample 9.1 ug/dL (4.46-22.7) 06/05/18 08:34 Venous Blood Potassium 4.4 mmol/L (3.6-5.2) 06/04/18 19:00 Urine Color Yellow (YELLOW) 06/04/18 22:19 Urine Appearance Clear (CLEAR) 06/04/18 22:19 Urine pH 7.0 (4.7-8.0) 06/04/18 22:19 Ur Specific [place] 1.020 (1.005-1.035) 06/04/18 22:19 Urine Protein 100 mg/dL (<30 mg/dL) H 06/04/18 22:19 Urine Glucose (UA) Negative mg/dL (NEGATIVE) 06/04/18 22:19 Urine Ketones Negative mg/dL (NEGATIVE) 06/04/18 22:19 Urine Blood Negative (NEGATIVE) 06/04/18 22:19 Urine Nitrate Negative (NEGATIVE) 06/04/18 22:19 Urine Bilirubin Negative (NEGATIVE) 06/04/18 22:19 Urine Urobilinogen 0.2 E.U./dL (<1 E.U./dL) 06/04/18 22:19 Ur Leukocyte Esterase Negative [place]/uL (NEGATIVE) 06/04/18 22:19 Urine RBC 0 - 2 /hpf (0-2) 06/04/18 22:19 Urine WBC 1 - 3 /hpf (0-6) 06/04/18 22:19 Ur Epithelial Cells 0 - 2 /hpf (0-5) 06/04/18 22:19 Amorphous Sediment Few 06/04/18 22:19 Urine Bacteria Mod (NEG) 06/04/18 22:19 Hyaline Casts 0 - 2 /hpf 06/04/18 22:19 Fine Granular Casts 0 - 2 /hpf (0-2) 06/04/18 22:19 Urine Osmolality 539 mosm/kg (300-1000) 06/06/18 14:10 Ur Random Sodium 12 meq/L 06/06/18 14:10 Urine Opiates Screen Negative (NEGATIVE) 06/05/18 13:30 Urine Methadone Screen Negative (NEGATIVE) 06/05/18 13:30 Ur Barbiturates Screen Negative (NEGATIVE) 06/05/18 13:30 Ur Phencyclidine Scrn Negative (NEGATIVE) 06/05/18 13:30 Ur Amphetamines Screen Negative (NEGATIVE) 06/05/18 13:30 U Benzodiazepines Scrn Negative (NEGATIVE) 06/05/18 13:30 U Oth Cocaine Metabols Negative (NEGATIVE) 06/05/18 13:30 U Cannabinoids Screen Positive (NEGATIVE) H 06/05/18 13:30 - Hospital Course Hospital Course: Fili Winkler, PGY1 Discharge Summary for Dr. Judd Hospital Admission: Patient is a 62 year old male with PMHx of laryngeal cancer s/p radiation/trach (removed), HTN, HLD, COPD, tobacco abuse, and schizophrenia who came to ED on for shortness of breath x 2 days. was at bedside to provide history. She reports that patient has been feeling short of breath and cough with a lot of secretions. Patient has a stoma and had trach removed over 1 year ago. Patient usually goes [place] for all of his medical care. He has not seen his ENT for 8 months. She also reports that her has been drinking 15-20 17oz bottles of water per day. In ED, CXR showed no active disease. EKG showed NSR. Patient presented to the ED with hyponatremia, initial Na 118 and started on 3% hypertonic saline. Nephro was consulted. Heme/onc was also consulted for history of laryngeal cancer. He also had hypercapnic respiratory failure 2/2 COPD exacerbation and subsequently intubated at the previous trach site (ENT consulted). He was admitted to the ICU for monitoring. Patient was admitted previously to [facility] for a COPD exacerbation. During this hospital admission, medical team was consulted. 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 Patient's sodium levels improved to 130s. The 3% hypertonic saline was discontinued to prevent overcorrection of sodium. Patient's mental status improved and patient was able to be weaned off to high flow oxygen and eventually to 6 L FiO2 connected to his trach. Palliative was also consulted and recommended [facility]. Patient was educated on smoking cessation. He was successfully weaned off oxygen and is now able to ambulate with physical therapy without any drop in oxygen levels. Patient is safe for discharge. Upon Discharge: Patient will f/u with PMD and ENT upon discharge. Patient will c/w home meds as prescribed. Patient given a prednisone taper upon discharge. Case was discussed and reviewed with Attending Physician, Dr. Judd. Discharge Exam - Head Exam Head Exam: ATRAUMATIC, NORMAL INSPECTION, NORMOCEPHALIC - Eye Exam Eye Exam: EOMI, Normal appearance, PERRL Pupil Exam: NORMAL ACCOMODATION - ENT Exam ENT Exam: Mucous Membranes Moist, Normal Exam - Neck Exam Neck exam: Full Rom Additional comments: Trach collar is in place. - Respiratory Exam Respiratory Exam: Clear to PA & Lateral, NORMAL BREATHING PATTERN, UNREMARKABLE. absent: Rales, Rhonchi, Wheezes, Respiratory Distress - Cardiovascular Exam Cardiovascular Exam: RRR, +S1, +S2. absent: Systolic Murmur - GI/Abdominal Exam GI & Abdominal Exam: Normal Bowel Sounds, Soft. absent: Tenderness - Extremities Exam Extremities exam: full ROM, normal capillary refill, normal inspection, pedal pulses present - Back Exam Back exam: NORMAL INSPECTION - Neurological Exam Neurological exam: Alert, Normal Gait - Psychiatric Exam Psychiatric exam: Normal Affect, Normal Mood - Skin Skin Exam: Dry, Intact, Normal Color, Warm Discharge Plan - Follow Up Plan Condition: CRITICAL Disposition: HOME/ ROUTINE Instructions: Tracheotomy, Exacerbation of COPD (DC), How to Care for a Tracheostomy, Tracheotomy (DC) Additional Instructions: 1. Please see your PMD within 3-4 days of discharge. 2. Please follow up with the ENT physician (Dr. Toni Harris) this Friday, . 3. Please continue your home medications as prescribed. 4. You are prescribed a new mediation: Prednisone as prescribed. 5. Please return to the nearest ED if symptoms reoccur. Referrals: Toni Harris DO [Staff Provider] - FAMILY PROVIDER,NO [Primary Care Provider] - <Dontrell Judd - Last Filed: 06/12/18 15:23> Provider - Provider Date of Admission: 06/04/18 19:26 Attending physician: Dontrell Judd MD Primary care physician: VANDANA FAMILY PROVIDER Hospital Course - Lab Results Lab Results: Most Recent Lab Values WBC 9.8 10^3/ul (4.5-11.0) 06/11/18 07:45 RBC 4.83 10^6/uL (3.5-6.1) 06/11/18 07:45 Hgb 14.9 g/dL (14.0-18.0) 06/11/18 07:45 Hct 44.8 % (42.0-52.0) 06/11/18 07:45 MCV 92.8 fl (80.0-105.0) 06/11/18 07:45 MCH 30.8 pg (25.0-35.0) 06/11/18 07:45 MCHC 33.3 g/dl (31.0-37.0) 06/11/18 07:45 RDW 14.5 % (11.5-14.5) 06/11/18 07:45 Plt Count 316 10^3/uL (120.0-450.0) 06/11/18 07:45 MPV 8.9 fl (7.0-11.0) 06/11/18 07:45 Gran % 75.9 % (50.0-68.0) H 06/07/18 05:15 Lymph % (Auto) 14.6 % (22.0-35.0) L 06/07/18 05:15 Rock % (Auto) 8.9 % (1.0-6.0) H 06/07/18 05:15 Eos % (Auto) 0.5 % (1.5-5.0) L 06/07/18 05:15 Baso % (Auto) 0.1 % (0.0-3.0) 06/07/18 05:15 Gran # 8.24 (1.4-6.5) H 06/07/18 05:15 Lymph # (Auto) 1.6 (1.2-3.4) 06/07/18 05:15 Rock # (Auto) 1.0 (0.1-0.6) H 06/07/18 05:15 Eos # (Auto) 0.1 (0.0-0.7) 06/07/18 05:15 Baso # (Auto) 0.01 K/mm3 (0.0-2.0) 06/07/18 05:15 Neutrophils % (Manual) 84 % (50.0-70.0) H 06/05/18 03:55 Band Neutrophils % 9 % (0-2) H 06/05/18 03:55 Lymphocytes % (Manual) 3 % (22.0-35.0) L 06/05/18 03:55 Monocytes % (Manual) 4 % (1.0-6.0) 06/05/18 03:55 Platelet Evaluation Normal (NORMAL) 06/05/18 03:55 PT 11.5 SECONDS (9.4-12.5) 06/04/18 17:45 INR 1.01 06/04/18 17:45 APTT 33.0 Seconds (25.1-36.5) 06/04/18 17:45 pCO2 61 mm/Hg (35-45) H 06/06/18 08:20 pO2 58.0 mm/Hg (80-100) L 06/06/18 08:20 HCO3 37.8 mmol/L (21-28) H 06/06/18 08:20 ABG pH 7.40 (7.35-7.45) 06/06/18 08:20 ABG Total CO2 39.7 mmol.L (22-28) H 06/06/18 08:20 ABG O2 Saturation 93.4 % (95-98) L 06/06/18 08:20 ABG O2 Content 19.5 ML/dl (15-23) 06/06/18 08:20 ABG Base Excess 10.2 mmol/L (-2.0-3.0) H 06/06/18 08:20 ABG Hemoglobin 15.2 g/dL (11.7-17.4) 06/06/18 08:20 ABG Carboxyhemoglobin 1.4 % (0.5-1.5) 06/06/18 08:20 POC ABG HHb (Measured) 6.5 % (0-5) H 06/06/18 08:20 ABG Methemoglobin 0.8 % (0.0-3.0) 06/06/18 08:20 ABG O2 Capacity 20.9 mL/dl (16-24) 06/06/18 08:20 VBG pH 7.30 (7.32-7.43) L 06/04/18 19:00 VBG pCO2 76.0 (40-60) H* 06/04/18 19:00 VBG HCO3 37.4 mmol/l (21-28) H 06/04/18 19:00 VBG Total CO2 39.7 mmol.L (22-28) H 06/04/18 19:00 VBG O2 Sat (Calc) 94.6 % (40-65) H 06/04/18 19:00 VBG Base Excess 8.0 mmol/L (0.0-2.0) H 06/04/18 19:00 VBG Potassium 4.4 mmol/L (3.6-5.2) 06/04/18 19:00 Hgb O2 Saturation 91.3 % (95.0-98.0) L 06/06/18 08:20 Sodium 116.0 mmol/L (132-148) L* 06/04/18 19:00 Chloride 80.0 mmol/L (98-107) L 06/04/18 19:00 Glucose 139 mg/dl (75-110) H 06/04/18 19:00 Lactate 0.7 mmol/L (0.7-2.1) 06/04/18 19:00 FiO2 60.0 % 06/06/18 08:20 Sodium 135 mmol/L (132-148) 06/11/18 07:45 Potassium 5.0 mmol/L (3.6-5.0) 06/11/18 07:45 Chloride 90 mmol/L (98-107) L 06/11/18 07:45 Carbon Dioxide 39 mmol/L (21-33) H 06/11/18 07:45 Anion Gap 12 (10-20) 06/11/18 07:45 BUN 11 mg/dL (7-21) 06/11/18 07:45 Creatinine 0.7 mg/dl (0.8-1.5) L 06/11/18 07:45 Est GFR ( Amer) > 60 06/11/18 07:45 Est GFR (Non-Af Amer) > 60 06/11/18 07:45 Random Glucose 105 mg/dL (70-110) 06/11/18 07:45 Serum Osmolality 244 mosm/kg (272-300) L 06/04/18 17:45 Calcium 8.9 mg/dL (8.4-10.5) 06/11/18 07:45 Phosphorus 4.5 mg/dL (2.5-4.5) 06/11/18 07:45 Magnesium 2.4 mg/dL (1.7-2.2) H 06/11/18 07:45 Total Bilirubin 0.7 mg/dL (0.2-1.3) 06/11/18 07:45 AST 36 U/L (17-59) 06/11/18 07:45 ALT 58 U/L (7-56) H 06/11/18 07:45 Alkaline Phosphatase 60 U/L (38-126) 06/11/18 07:45 Total Creatine Kinase 213 U/L (35-230) 06/04/18 17:45 Troponin I 0.04 ng/mL 06/05/18 08:34 NT-Pro-B Natriuret Pep 139 pg/mL (0-450) 06/06/18 05:00 Total Protein 6.5 g/dL (5.8-8.3) 06/11/18 07:45 Albumin 3.8 g/dL (3.0-4.8) 06/11/18 07:45 Globulin 2.7 gm/dL 06/11/18 07:45 Albumin/Globulin Ratio 1.4 (1.1-1.8) 06/11/18 07:45 Triglycerides 67 mg/dL (35-160) 06/05/18 08:34 Cholesterol 186 mg/dL (130-200) 06/05/18 08:34 LDL Cholesterol Direct 109 mg/dL (0-129) 06/05/18 08:34 HDL Cholesterol 58 mg/dL (29-60) 06/05/18 08:34 TSH 3rd Generation 0.44 mIU/mL (0.46-4.68) L 06/05/18 11:30 Cortisol AM Sample 9.1 ug/dL (4.46-22.7) 06/05/18 08:34 Venous Blood Potassium 4.4 mmol/L (3.6-5.2) 06/04/18 19:00 Urine Color Yellow (YELLOW) 06/04/18 22:19 Urine Appearance Clear (CLEAR) 06/04/18 22:19 Urine pH 7.0 (4.7-8.0) 06/04/18 22:19 Ur Specific [place] 1.020 (1.005-1.035) 06/04/18 22:19 Urine Protein 100 mg/dL (<30 mg/dL) H 06/04/18 22:19 Urine Glucose (UA) Negative mg/dL (NEGATIVE) 06/04/18 22:19 Urine Ketones Negative mg/dL (NEGATIVE) 06/04/18 22:19 Urine Blood Negative (NEGATIVE) 06/04/18 22:19 Urine Nitrate Negative (NEGATIVE) 06/04/18 22:19 Urine Bilirubin Negative (NEGATIVE) 06/04/18 22:19 Urine Urobilinogen 0.2 E.U./dL (<1 E.U./dL) 06/04/18 22:19 Ur Leukocyte Esterase Negative [place]/uL (NEGATIVE) 06/04/18 22:19 Urine RBC 0 - 2 /hpf (0-2) 06/04/18 22:19 Urine WBC 1 - 3 /hpf (0-6) 06/04/18 22:19 Ur Epithelial Cells 0 - 2 /hpf (0-5) 06/04/18 22:19 Amorphous Sediment Few 06/04/18 22:19 Urine Bacteria Mod (NEG) 06/04/18 22:19 Hyaline Casts 0 - 2 /hpf 06/04/18 22:19 Fine Granular Casts 0 - 2 /hpf (0-2) 06/04/18 22:19 Urine Osmolality 539 mosm/kg (300-1000) 06/06/18 14:10 Ur Random Sodium 12 meq/L 06/06/18 14:10 Urine Opiates Screen Negative (NEGATIVE) 06/05/18 13:30 Urine Methadone Screen Negative (NEGATIVE) 06/05/18 13:30 Ur Barbiturates Screen Negative (NEGATIVE) 06/05/18 13:30 Ur Phencyclidine Scrn Negative (NEGATIVE) 06/05/18 13:30 Ur Amphetamines Screen Negative (NEGATIVE) 06/05/18 13:30 U Benzodiazepines Scrn Negative (NEGATIVE) 06/05/18 13:30 U Oth Cocaine Metabols Negative (NEGATIVE) 06/05/18 13:30 U Cannabinoids Screen Positive (NEGATIVE) H 06/05/18 13:30 Attending/Attestation - Attestation I have personally seen and examined this patient.: Yes I have fully participated in the care of the patient.: Yes I have reviewed all pertinent clinical information, including history, physical exam and plan: Yes Notes (Text): 06/12/18 15:21 attending note; Patient seen and examined with resident. Patient is sitting in the chair. Not on oxygen. Patient ambulated without oxygen comfortably. Patient is 62-year-old male with the past medical history significant for laryngeal cancer status post radiation and tracheostomy now with stoma, hypertension, hyperlipidemia, COPD, tobacco abuse, and schizophrenia that presented to the emergency room for shortness of breath. 1. Acute Hypercapnic and hypoxemic respiratory failure.Secondary to COPD exacerbation. Status post tracheostomy placement by ENT. resolved. Currently off oxygen. 2. Status post trach placement; patient will follow-up with ENT next week. Supplies given. Patient will be closely monitored by visiting nurses. 3. History of laryngeal cancer. Hematology/oncology evaluation appreciated. Patient will follow-up with [facility]. 4. Hypertension. Continue Norvasc and metoprolol 5. Hyperlipidemia. Continue Lipitor 6. Hypothyroidism. Continu synthroid 7. Schizophrenia. Continue trazodone and prolixin 8. Tobacco abuse. Patient continues to smoke. Patient counseled on cessation. Upon discharge the patient follows up with [facility] in [place]. patient has pulmonary/oncology follow up at [place]. Case was discussed in detail with the patient regarding current diagnosis and treatment plan.
--- NOTE | 2018-06-12 09:05 | CP.PCM.PN ---
Subjective - Date & Time of Evaluation Date of Evaluation: 06/11/18 Time of Evaluation: 13:00 - Subjective Subjective: Alert, oriented , productive cough, no other complains Objective - Vital Signs/Intake and Output Vital Signs (last 24 hours): Temp Pulse Resp BP Pulse Ox 99 F 75 18 129/78 96 06/11/18 06:00 06/11/18 06:00 06/11/18 06:00 06/11/18 09:12 06/11/18 06:00 - Labs Labs: 06/11/18 07:45 06/11/18 07:45 PT 11.5 SECONDS (9.4-12.5) 06/04/18 17:45 INR 1.01 06/04/18 17:45 APTT 33.0 Seconds (25.1-36.5) 06/04/18 17:45 - Constitutional Appears: No Acute Distress, Chronically Ill - Head Exam Head Exam: NORMOCEPHALIC - Eye Exam Eye Exam: Normal appearance, PERRL - ENT Exam ENT Exam: Mucous Membranes Moist, Normal Exam - Neck Exam Additional comments: trach stoma well healed, patent - Respiratory Exam Respiratory Exam: Rhonchi, NORMAL BREATHING PATTERN - Cardiovascular Exam Cardiovascular Exam: REGULAR RHYTHM, +S1, +S2 - GI/Abdominal Exam GI & Abdominal Exam: Soft, Normal Bowel Sounds - Extremities Exam Extremities Exam: Full ROM, Normal Inspection - Back Exam Back Exam: NORMAL INSPECTION - Neurological Exam Neurological Exam: Alert, Oriented x3 - Skin Skin Exam: Dry, Warm Assessment and Plan - Assessment and Plan (Free Text) Assessment: 62 year old male with history of esophageal cancer s/p partial laryngectomy and XRT who was admitted with respiratory failure, productive cough, bilateral ileana infiltrates I met with the patient to discuss goals of care and advance care planning. Counseled regarding the importance of advance care planning. He intends to complete an advanced directive [facility] Time spent in counseling regarding advance care planning, 15 minutes Plan: [place] of care and advance care planning Esophageal cancer: [facility] Take meds as prescribed
== END 2018-06-11 15:55 | disposition home or self-care (01) | DRG 4 ==
LOC: ED 17:36 → ERH 19:26 → ICU 06-05 00:28 → 5RSO 06-09 19:30
PROVIDERS: ADMIT Hospitalist; ATTEND Internal Medicine
PROC: 0B113F4 Bypass Trachea to Cutaneous with Tracheostomy Device, Percutaneous Approach (ICD-10-PCS; principal; 2018-06-04 21:00)
PROC: 5A1945Z Respiratory Ventilation, 24-96 Consecutive Hours (ICD-10-PCS; 2018-06-05)
PROC: 3E0F7GC Introduction of Other Therapeutic Substance into Respiratory Tract, Via Natural or Artificial Opening (ICD-10-PCS; 2018-06-05)
DX: J96.22 Acute and chronic respiratory failure with hypercapnia (principal); J44.1 Chronic obstructive pulmonary disease with (acute) exacerbation; J96.21 Acute and chronic respiratory failure with hypoxia; F20.0 Paranoid schizophrenia; E87.1 Hypo-osmolality and hyponatremia; E03.9 Hypothyroidism, unspecified; F17.200 Nicotine dependence, unspecified, uncomplicated; E78.5 Hyperlipidemia, unspecified; I10 Essential (primary) hypertension; R63.1 Polydipsia; K59.00 Constipation, unspecified; Z85.21 Personal history of malignant neoplasm of larynx; Z92.3 Personal history of irradiation